=== PATIENT | female | born 1955 | race Caucasian/White ===

== ENCOUNTER 2023-07-06 20:47 | Inpatient (IN) | payer MEDICARE, SELFPAY ==
[2023-07-06] VITALS (8 sets, daily range): BP systolic 108–144; BP diastolic 62–81; PULSE 82–118; RESP 15–103; TEMP 36.2–36.9; O2SAT 95–9725; BMI 29.1
--- NOTE | 2023-07-06 21:06 | RAD_ITS ---
INDICATION: stemi EXAMINATION/TECHNIQUE: X-RAY - XR Chest 1 View COMPARISON: None. FINDINGS: The lungs are clear. Tortuous and calcified thoracic aorta. The heart is not enlarged. No pleural effusion or pneumothorax. Degenerative changes of the thoracic spine. RAD/Chest 1 View (Portable) IMPRESSION: No acute radiographic abnormalities. Electronically Signed: Reza Ragsdale MD at 21:44 EDT ,
[2023-07-06] MEDS: Heparin Injection (Vial) 5,000 UNIT/ML VIAL 4000 UNIT IV (21:08)
[2023-07-06] MEDS: TICAGRELOR 90 MG TABLET 180 MG PO (21:10)
[2023-07-06] MEDS: Aspirin 81 MG TAB.CHEW 324 MG PO (21:10)
--- NOTE | 2023-07-06 21:10 | HP.PCM.HOS_ITS ---
HPI - General General Date of Admission: 07/06/23 Date of Service: 07/06/23 Chief Complaint: Chest pain HPI Narrative LEONOR RICKETTS, is a 68 F with a significant history of tobacco abuse who presents emergency department with intermittent chest pain that started about 4 days before presentation. Initially the pain was also in both shoulders where she had heaviness. At the time of presentation to the emergency department patient pain was localized only in the left shoulder. She described the pain in her left shoulder as dull. Associated with his symptoms is nausea and vomiting. The patient walked to the emergency department. While at the triage EKG showed STEMI. STEMI alert was subsequently called at the ED. Patient does not see a doctor and does not have any significant medical history except smoking as above. She only takes ibuprofen as needed for pain. PFS Medical History Smoker Medical History no medical history no medical history Home Medications NK 03/09/18 [History Last Taken Unknown] Allergy/AdvReac Type Severity Reaction Status Date / Time No Known Allergies Allergy Verified 07/06/23 20:51 Family History Other Venous thromboembolism (VTE) Surgical History H/O tubal ligation Surgical History no surgical history Social History household members: none Smoking Status: Current every day smoker tobacco type: cigarettes ROS ROS Narrative Pertinent positives and pertinent negatives as noted in HPI. All other systems were reviewed and are negative Vital Signs Vital Signs Vital Signs: 07/06/23 20:47 07/06/23 21:01 Temperature 97.2 F L Temperature Source Temporal Pulse Rate 109 H Respiratory Rate 15 Respiratory Effort Normal Blood Pressure 134/74 H Blood Pressure Mean 94 Pulse Ox 96 Oxygen Delivery Method Room Air Physical Exam Narrative Physical exam: General: Well-nourished, well-developed. Head: Normocephalic, atraumatic, no tenderness Eyes: Vision is grossly intact. EOMI ENT, no trauma, moist mucous membranes, no rhinorrhea Neck: Nontender, No thyromegaly. CVS: Regular rate and rhythm. S1-S2 present. No murmur, gallop or rub. Respiratory : clear to auscultation bilaterally, chest wall nontender Abdomen: Soft, nontender, nondistended, normal bowel sounds, no masses : Deferred Back: Nontender, no CVA tenderness, no midline spinal tenderness, deformities, step-offs Extremities: Nontender full range of motion, no trauma Skin: Normal color, no trauma, abrasions Neuro: Alert, oriented, cranial nerves II through XII grossly intact. Psychiatry: Normal mood. Normal affect. Not depressed. Not anxious. Results Lab / Micro Data 07/07/23 02:56 07/07/23 02:56 Assessment & Plan Assessment/Plan (1) STEMI (ST elevation myocardial infarction): QUALIFIERS: Involved coronary artery: other inferior wall coronary artery Qualified Code(s): I21.19 - ST elevation (STEMI) myocardial infarction involving other coronary artery of inferior wall (2) Tobacco abuse: PLAN: Plan STEMI EKG personally interpreted by me showed inferior lateral ST elevation with reciprocal's. Ventricular rate was 106. Patient received full dose aspirin, Brilinta and heparin IV bolus at the emergency department. Case was discussed with emergency department physician. With STEMI patient will be sent to the cardiac cath. Cardiology consult Tobacco abuse Cutting down Counseled. Lung nodule Chest x-ray interpreted by myself showed lung nodule in left upper to middle lung matias. ED physician also made his observation. Radiology impression in terpretation no acute cardiopulmonary process was seen. Discussed with attending physician who will consider. DVT prophylaxis: SCDs ordered. Of note patient was given heparin at the emergency department. Further orders can be instituted after patient has returned from cath. Time spent in the patient's overall evaluation,decision-making process, review of diagnostic data, adjustment of management, discussion with other providers, nursing and ancillary staff involved in patient's care documentation, 75 minutes. Charges/Coding Visit Charges Inpatient E&M: 96971 Init Hosp L3
--- NOTE | 2023-07-06 21:10 | ED.VIS.CHEST ---
HPI History of Present Illness Chief Complaint: Chest Pain Detail of Chief Complaint: Pressure in her chest radiating to her left shoulder Informant: patient Onset/Context/Timing Onset: Days (Intermittent chest pressure that started Tuesday.) Activity at onset: sudden Timing: Intermittent Quality: Positive for Pressure Location: Substernal Current Severity: Moderate Maximum Severity: Severe Worsened By: Nothing Relieved By: Nothing Associated Symptoms: Positive for Nausea, Diaphoresis and Dyspnea; Negative for Cough, Fever, Lightheadedness, Acid Reflux or Palpitations Narrative Narrative: Is a 68-year-old woman who is a smoker. She is on no medication. Is not seen a doctor recently. She has no contraindication anticoagulation. Patient denies headache, visual, ocular auditory symptoms. Patient denies bruising easily. She denies black or maroon-colored stool. She denies hematuria. Patient reports chest pressure. This episode started at 1600. Does radiate to left shoulder with diaphoresis, shortness of breath and nausea. Patient denies history of hiatal hernia. Patient denies paresthesia, anesthesia or motor weakness. Patient does endorse dyspnea [place] exertion. Denies orthopnea or PND. Prior Similar Symptoms: No Recent Illness/Hospitalization: No CVD Risk Factors: Positive for Smoking; Negative for Hypertension, Diabetes, Hypercholesterolemia or Family History 1' </=55 PE Risk Factors: Negative for Recent Travel/Surgery, Recent Immobilization, Prior DVT or PE, Cancer or OCP + Smoking + >/=35 TAD Risk Factors: Negative for Marfan's Syndrome, Hypertension or Family History PFSH PFSH Medical History Smoker Medical History no medical history no medical history Home Medications albuterol sulfate 90 mcg/actuation aerosol inhaler See Rx Instructions .Route .COMPLEX PRN shortness of breath or wheezing #8.5 grams 07/08/23 [Rx Last Taken Unknown] aspirin 81 mg tablet,delayed release 81 mg PO DAILY 30 days #30 tabs 07/08/23 [Rx Last Taken Unknown] atorvastatin 40 mg tablet 40 mg PO QHS 30 days #30 tabs 07/08/23 [Rx Last Taken Unknown] carvedilol 3.125 mg tablet 3.125 mg PO BID 30 days #60 tabs 07/08/23 [Rx Last Taken Unknown] clopidogrel 75 mg tablet 75 mg PO DAILY 30 days #30 tabs 07/08/23 [Rx Last Taken Unknown] lisinopril 5 mg tablet 5 mg PO BID 30 days #60 tabs 07/08/23 [Rx Last Taken Unknown] spironolactone 25 mg tablet 12.5 mg (1/2 x 25 mg) PO DAILY 30 days #15 tabs 07/08/23 [Rx Last Taken Unknown] Allergy/AdvReac Type Severity Reaction Status Date / Time No Known Allergies Allergy Verified 07/06/23 20:51 Family History Other Venous thromboembolism (VTE) Surgical History (Updated 07/08/23 @ 08:44 by Michelle Bob) H/O coronary angioplasty H/O tubal ligation Surgical History no surgical history no surgical history Social History household members: none Smoking Status: Current every day smoker tobacco type: cigarettes ROS ROS ED Constitutional Constitutional ED: Denies chills, fever(s) or subjective Eyes Eyes: Reports none ENT ENT ED: Denies ear pain or rhinorrhea Cardiovascular Cardiovascular: Reports as per HPI; Denies orthopnea or paroxysmal nocturnal dyspnea Respiratory/Chest Respiratory/Chest: Reports dyspnea and dyspnea on exertion; Denies cough, orthopnea or paroxysmal nocturnal dyspnea Gastrointestinal Gastrointestinal: Reports nausea and vomiting; Denies abdominal pain Genitourinary Genitourinary ED: Denies dysuria, hematuria or urinary frequency Musculoskeletal Musculoskeletal: Denies arthralgias, back pain or myalgias Neurologic Neurologic: Denies headache(s) or paresthesias Psychiatric Psychiatric: Denies anxiety Hematologic/Lymphatic Hematologic/Lymphatic: Denies easy bleeding or easy bruising EXAM Physical Exam Const Vital Signs: 07/06/23 20:47 07/06/23 21:01 07/06/23 21:17 Temperature 97.2 F L Temperature Source Temporal Pulse Rate 109 H Respiratory Rate 15 Respiratory Effort Normal Blood Pressure 134/74 H Blood Pressure Mean 94 Pulse Ox 96 Oxygen Delivery Method Room Air Room Air 07/06/23 21:20 07/06/23 21:27 Temperature Temperature Source Pulse Rate 110 H 102 H Respiratory Rate 23 H 103 H Respiratory Effort Blood Pressure 144/77 H 139/73 H Blood Pressure Mean 99 95 Pulse Ox 96 96 Oxygen Delivery Method Room Air Room Air Positive well nourished, well developed, obese and unkempt General Appearance ED: unkempt and well developed; Negative for NAD or pallor Nutritional Appearance: obese HEENT Reports moist mucous membranes normocephalic and atraumatic Eyes PERRL and EOMs intact bilaterally General Eye ED: Negative for pale conjunctiva or scleral icterus Neck no lymphadenopathy, supple and no JVD Resp normal respiratory effort and clear to auscultation bilaterally Cardio regular rate, regular rhythm, S1 normal heart sound, S2 normal heart sound and no murmurs Peripheral Pulses: pulses 2+ throughout GI normal to inspection, nondistended, normoactive bowel sounds, soft to palpation, non-tender, non-distended and no masses; Negative for hepatosplenomegaly Back/Spine no CVA tenderness and no thoracic nor lumbar tenderness Extremity normal to inspection General Extremety ED: Negative for edema, pulses abnormal or tenderness General Extremity: Negative for edema or pulses abnormal Neuro oriented x3, CN's II-XII intact bilaterally and no sensory deficits noted Sensorium / Orientation: awake and alert Motor Exam: strength 5/5 throughout Psych Appearance: unkempt Mood & Affect: anxious Skin no wounds General Skin Exam: Negative for jaundice or pallor Heart Score History: Highly Suspicious ECG: Significant ST-Depression Age: >/= 65 years Risk Factors: 1 or 2 Risk Factors Score: 7 MDM MDM MDM Narrative Medical decision making narrative: Is a classic story for angina. Concerned that she is either having unstable angina versus non-STEMI versus STEMI. EKG was obtained and handed to me. EKG reveals an acute inferior lateral [place] with reciprocal changes. STEMI team was called. Spoke with Dr. Frausto. Patient was treated with aspirin, Brilinta and heparin. STEMI order set was initiated. Lab Data Attestation: I reviewed the patient's lab results. Lab results narrative: She is elevated which is most likely due to the fact that patient's had intermittent chest pain. Labs: Laboratory Results - last 24 hr 07/06/23 21:00 WBC 16.9 H RBC 4.50 Hgb 14.1 Hct 42.8 MCV 95.1 MCH 31.3 MCHC 32.9 RDW Std Deviation 48.3 H RDW Coeff of Fidel 13.6 Plt Count 326 MPV 11.4 Immature Gran % (Auto) 0.500 Neut % (Auto) 64.5 Lymph % (Auto) 25.5 Tyrrell % (Auto) 6.7 Eos % (Auto) 2.3 Baso % (Auto) 0.5 Absolute Neuts (auto) 10.9 H Absolute Lymphs (auto) 4.30 Nucleated RBC % 0 Radiography Chest X-Ray - ED: 1 View (Nilo reviewed interpreted by me at 2105. Patient has a growing lesion left mid lung field. This is concerning for neoplasm.) Diagnostic Testing: Clinical Impression(s) from Imaging Studies Chest X-Ray 07/06/23 21:06 IMPRESSION: No acute radiographic abnormalities. Electronically Signed: Reza Ragsdale MD at 21:44 EDT , EKG Initial EKG: Attestation: I personally reviewed and interpreted this EKG as follows: Interpretation: Sinus Tachycardia (106. Patient meets criteria for acute inferior lateral ST elevation with reciprocal changes. RI interval is 136 ms. Cures duration 88 ms. QT duration 334 ms. [place] is normal.) Management Discussion w/another healthcare provider: Hospitalist and Harness Cleaner Treatment and Re-Evaluation :: Aspirin, Brilinta and heparin. Patient was prepped for the Dental Resident. Critical Care Time Critical Care Time: Yes Critical care time (excluding procedures): 30-74 minutes (22 minutes), Including time spent: (, Physical, documentation, interpretation of EKG, interpretation of chest x-ray, discussion with hospitalist and longwall shearer operator), Discussing w/Patient &/or Family/Warehouse Supervisor 3Rd Shift, Discussing w/Consultants and Arranging Admission or Transfer Discharge Plan Dx/Rx/DC Orders Clinical Impression: Acute ST elevation myocardial infarction, Tobacco use, [place] lesion of lung Disposition Disposition: Acute Care Hospital [facility] Discharge Date/Time: 07/06/23 21:30
[2023-07-06] MEDS: 0.9% Normal Saline (1000mL) 1,000 ML 150 ML IV (21:18)
[2023-07-06 21:22] LABS: Absolute Neutrophil Count 10.9 X10^3/uL (2.0-7.7); Basophil# 0.08 X10^3/uL; Basophil% 0.5 % (0-1); Eosinophil# 0.39 X10^3/uL; Eosinophils% 2.3 % (0-5); Hematocrit 42.8 % (37-47); Hemoglobin 14.1 g/dL (12.0-15.0); Lymphocyte % 25.5 % (19-41); Mean Corp Hgb Conc 32.9 g/dL (32-36); Mean Corpuscular Hgb 31.3 pg (27.0-32.0); Mean Corpuscular Volume 95.1 fL (81-99); Mean Platelet Vol. 11.4 fl (6.2-12.0); Monocyte# 1.13 X10^3/uL; Monocyte% 6.7 % (0-10); NRBC Flagged by Analyzer 0 % (0-5); Neutrophil # 10.87 X10^3/uL (2.7-7.7); Neutrophil % 64.5 % (47-70); Platelet Count 326 K/mm3 (150-450); RBC Distribution Width CV 13.6 % (11.6-14.6); RBC Distribution Width SD 48.3 fl (35.1-43.9); White Blood Count 16.9 K/mm3 (4.4-11.0)
[2023-07-06 21:32] LABS: Partial Thromboplast Time 35.7 Seconds (24.1-36.2); Prothrombin Time (Protime)PT. 13.4 SECONDS (11.7-14.9)
[2023-07-06 21:47] LABS: Anion Gap 7 (5-15); BUN 16 mg/dL (7-18); Calcium,Total 9.4 mg/dL (8.5-10.1); Chloride 104 mmol/L (98-107); Creatinine, Serum 1.07 mg/dL (0.55-1.02); EST Glomerular Filtration Rate 55 mL/min (>60); Est Glom Filt Rate - Afr Amer 66 mL/min (>60); Glucose 116 mg/dL (74-106); Potassium 3.1 mmol/L (3.5-5.1); Sodium Level 139 mmol/L (136-145); Troponin-I HS 4558 pg/mL (3.0-54.0)
--- NOTE | 2023-07-06 22:40 | CON.PCM.CA_ITS ---
Assessment & Plan Assessment/Plan (1) STEMI (ST elevation myocardial infarction): PLAN: The patient's ECG shows ST elevations but with Q waves in inferior and lateral leads. Together with her history of severe discomfort on Tuesday, I be lieve that the patient had a recent ST elevation myocardial infarction. Because of her ongoing symptomatology, she was taken emergently to the cardiac catheterization lab. Coronary angiography revealed total occlusion of the distal LAD. This was treated with balloon angioplasty. Flow has been restored. However, on left ventriculography she is noted to have apical and mid to distal inferior LV aneurysm consistent with her recent myocardial infarction. (2) Left ventricular systolic dysfunction (LVSD): PLAN: Secondary to #1 above. Start on low-dose JORGE A inhibitors. Beta-blockers. Spironolactone. (3) Left ventricular aneurysm: PLAN: Check echocardiogram. See #1 and 2 above. (4) Coronary artery disease: PLAN: Aspirin. Clopidogrel. Beta-blockers. Statins. (5) Hypertension: PLAN: Beta-blockers, JORGE A inhibitors and spironolactone. (6) Nicotine dependence: PLAN: Quit smoking. (7) COPD (chronic obstructive pulmonary disease): PLAN: Patient is noted to have decreased air entry on chest examination. History of nicotine dependence. Likely COPD. Manage as per internal medicine. HPI Consult Data Date of Consult: 07/06/23 HPI Narrative Reason for Consultation: STEMI HPI Narrative: This lady has past medical history significant for nicotine dependence. She pre sented to the emergency room with complaints of bilateral shoulder discomfort. According to her, the symptoms started this last Tuesday, about 5 days ago. Per her, initially her symptoms were intermittent but more severe on Tuesday when they lasted all day long. Associated with some shortness of breath. As she continued to have symptoms, she presented to the emergency room. Upon presentation, only her left shoulder hurt. In the emergency room an ECG was done. It showed ST elevations in the inferior and lateral leads. Subsequently a STEMI alert was called. [facility] Medical History Smoker Medical History no medical history Home Medications NK 03/09/18 [History Last Taken Unknown] Allergy/AdvReac Type Severity Reaction Status Date / Time No Known Allergies Allergy Verified 07/06/23 20:51 Family History (Updated 07/06/23 @ 21:[address] Oziel Bell MD) Other Venous thromboembolism (VTE) Surgical History (Updated 07/06/23 @ 21:[address] Oziel Bell MD) H/O tubal ligation Surgical History no surgical history Social History (Updated 07/06/23 @ 21:[address] Chauncey Morales MD) household members: none Smoking Status: Current every day smoker tobacco type: cigarettes Physical Exam Narrative Examined on the Table. Comfortable. Lying flat with no apparent signs of distress. Heart sounds 1 and 2 noted. No murmurs or rubs noted. Chest examination showed markedly decreased air entry bilaterally. Alert oriented x3. No ankle edema. Risk Stratification Risk Stratification Applicable: No Objective Data Vital Signs: Vital Signs Temp Pulse Resp BP Pulse Ox O2 Del Method 97.2 F L 102 H 103 H 139/73 H 96 Room Air 07/06/23 20:47 07/06/23 21:27 07/06/23 21:27 07/06/23 21:27 07/06/23 21:27 07/06/23 21:27 Oxygen Delivery Method Room Air Lab / Micro Data 07/06/23 21:00 07/06/23 21:00 Labs: Laboratory Results - last 24 hr 07/06/23 21:00: WBC 16.9 H, RBC 4.50, Hgb 14.1, Hct 42.8, MCV 95.1, MCH 31.3, MCHC 32.9, RDW Std Deviation 48.3 H, RDW Coeff of Fidel 13.6, Plt Count 326, MPV 11.4, Immature Gran % (Auto) 0.500, Neut % (Auto) 64.5, Lymph % (Auto) 25.5, Luna % (Auto) 6.7, Eos % (Auto) 2.3, Baso % (Auto) 0.5, Absolute Neuts (auto) 10.9 H, Absolute Lymphs (auto) 4.30, Nucleated RBC % 0, PT 13.4, INR 1.0, APTT 35.7, Sodium 139, Potassium 3.1 L, Chloride 104, Carbon Dioxide 28.0, Anion Gap 7, BUN 16, Creatinine 1.07 H, Est GFR (MDRD) Af Amer 66, Est GFR (MDRD) Non-Af 55 L, BUN/Creatinine Ratio 15.0, Glucose 116 H, Calcium 9.4, Troponin I High Sens 4558 H* Cardiology Labs/Tests 07/06/23 21:00: WBC 16.9 H, RBC 4.50, Hgb 14.1, Hct 42.8, MCV 95.1, MCH 31.3, MCHC 32.9, Plt Count 326, MPV 11.4, Immature Gran % (Auto) 0.500, Neut % (Auto) 64.5, Lymph % (Auto) 25.5, Luna % (Auto) 6.7, Eos % (Auto) 2.3, Baso % (Auto) 0.5, Absolute Neuts (auto) 10.9 H, Nucleated RBC % 0, PT 13.4, INR 1.0, APTT 35.7, Sodium 139, Potassium 3.1 L, Chloride 104, Carbon Dioxide 28.0, Anion Gap 7, BUN 16, Creatinine 1.07 H, Est GFR (MDRD) Af Amer 66, Est GFR (MDRD) Non-Af 55 L, BUN/Creatinine Ratio 15.0, Glucose 116 H, Calcium 9.4 Rhythm: EKG: ECHO: Stress Test: Cardiac Cath: PCI: CT Surgery: Holter monitor: EPS: PPM: CXR: Chest CT Scan: Radiography Diagnostic Testing: Radiology Impression Chest X-Ray 07/06/23 21:06 IMPRESSION: No acute radiographic abnormalities. Electronically Signed: Reza Ragsdale MD at 21:44 EDT ,
--- NOTE | 2023-07-06 23:17 | ECHOCS_ITS ---
Reason For Study: CP Procedure This was a 2D Doppler, Color Flow transthoracic echocardiogram. The study was technically difficult. Contrast injection was performed. Exam performed portable in ICU/CCU. Left Ventricle Normal size and thickness. The left ventricular ejection fraction is 45 %. Mid to distal inferior and apical dyskinesis. Right Ventricle Moderate hypertrophy of the right ventricle. Mild to moderate global right ventricular systolic dysfunction. Atria The left and right atria are normal. Mitral Valve Trivial mitral valve insufficiency. Tricuspid Valve The tricuspid valve is not well visualized. Aortic Valve Trisinus/trileaflet aortic valve. Pulmonic Valve The pulmonic valve is not well visualized. Great Vessels The aortic root is not well visualized. Pericardium/Pleural Trivial pericardial effusion. Epicardial fat. Medication Diluted definity 2ml given slow IV push to enhance endocardial definition. MMode/2D Measurements & Calculations LVIDd: 4.2 cm IVSd: 0.90 cm LA dimension: 3.0 cm LVIDs: 3.5 cm LVPWd: 0.86 cm RVDd: 2.6 cm FS: 17.9 % LAV(MOD-bp): 32.9 ml LVAd ap4: 28.9 cm2 SV(MOD-sp4): 45.0 ml LAV(MOD-bp) Indexed: 18.5 ml/m2 LVLd ap4: 7.6 cm LAV(MOD-sp2): 29.1 ml EDV(MOD-sp4): 92.3 ml LAV(MOD-sp4): 33.8 ml EDV(sp4-el): 93.8 ml LVAs ap4: 19.3 cm2 LVLs ap4: 6.5 cm ESV(MOD-sp4): 47.3 ml ESV(sp4-el): 48.2 ml EF(MOD-sp4): 48.8 % EF(sp4-el): 48.6 % SV(sp4-el): 45.6 ml LA A4 area: 14.0 cm2 TAPSE: 1.5 cm Time Measurements MV dec time: 0.24 sec Doppler Measurements & Calculations MV E max umberto: 54.7 cm/sec Lat Peak E' Umberto: 6.4 cm/sec Med Peak E' Umberto: 6.1 cm/sec MV A max umberto: 78.3 cm/sec E/E' lat: 8.5 E/E' med: 9.0 MV E/A: 0.70 MV V2 max: 104.1 cm/sec MV P1/2t max umberto: 78.8 cm/sec Ao V2 max: 80.8 cm/sec MV max P.3 mmHg MV P1/2t: 87.5 msec Ao max P.6 mmHg MV V2 mean: 52.2 cm/sec MV mean P.3 mmHg MV dec slope: 263.8 cm/sec2 MV V2 VTI: 25.6 cm MVA(P1/2t): 2.5 cm2 LV V1 max: 74.2 cm/sec PA V2 max: 61.9 cm/sec LV V1 max P.2 mmHg ECHO/Echo Complete W/ Contrast Interpretation Summary The left ventricular ejection fraction is 45 %. Mid to distal inferior and apic al dyskinesis, aneurysmal. Moderate hypertrophy of the right ventricle. Mild to moderate global right ventricular systolic dysfunction. The study was technically difficult. Ordering Physician: Soledad Chawla Referring Physician: Soledad Chawla Performed By: Toribio Jacinto RCS
[2023-07-06] MEDS: Potassium Chloride Oral Tablet 20 MEQ 40 MEQ PO (23:23)
[2023-07-06] MEDS: Atorvastatin Calcium 40 MG Tablet PO (23:24)
[2023-07-06] MEDS: Spironolactone 25 MG Tablet 12.5 MG PO (23:24)
[2023-07-06] MEDS: Carvedilol 3.125 MG TABLET PO (23:24)
[2023-07-06] MEDS: 0.9% Normal Saline (1000mL) 1,000 ML 75 ML IV (23:25)
[2023-07-06 23:57] LABS: Troponin-I HS 4656 pg/mL (3.0-54.0)
[2023-07-07] VITALS (37 sets, daily range): BP systolic 110–158; BP diastolic 41–90; PULSE 68–90; RESP 18–26; TEMP 36.1–36.8; O2SAT 95–100; BMI 29.1
[2023-07-07 03:04] LABS: Absolute Lymphocyte Count 2.52 X10^3/uL (0.83-4.51); Basophil# 0.04 X10^3/uL; Basophil% 0.3 % (0-1); Eosinophil# 0.14 X10^3/uL; Eosinophils% 1.1 % (0-5); Hematocrit 36.5 % (37-47); Lymphocyte # 2.52 X10^3/ul (0.83-4.51); Mean Corp Hgb Conc 32.9 g/dL (32-36); Mean Corpuscular Hgb 32.1 pg (27.0-32.0); Mean Corpuscular Volume 97.6 fL (81-99); Monocyte# 0.81 X10^3/uL; Monocyte% 6.4 % (0-10); NRBC Flagged by Analyzer 0 % (0-5); Neutrophil # 9.02 X10^3/uL (2.7-7.7); Neutrophil % 71.6 % (47-70); Platelet Count 273 K/mm3 (150-450); RBC Distribution Width CV 13.9 % (11.6-14.6); RBC Distribution Width SD 50.6 fl (35.1-43.9); Red Blood Count 3.74 M/mm3 (4.2-5.4); White Blood Count 12.6 K/mm3 (4.4-11.0)
[2023-07-07 03:36] LABS: ALB/GLOB Ratio 0.6 RATIO (0.9-2.4); AST(SGOT) 16 U/L (15-37); Alanine Aminotransfer ALT/SGPT 17 U/L (13-56); Albumin, Serum 2.4 g/dL (3.2-5.0); Alkaline Phosphatase 90 U/L (45-117); Anion Gap 3 (5-15); BUN 13 mg/dL (7-18); BUN/Creat Ratio 15.8 RATIO (10-20); Calcium,Total 8.2 mg/dL (8.5-10.1); Chloride 109 mmol/L (98-107); Cholesterol 81 mg/dL (200); Creatinine, Serum 0.82 mg/dL (0.55-1.02); EST Glomerular Filtration Rate 74 mL/min (>60); Est Glom Filt Rate - Afr Amer 89 mL/min (>60); Estimated Creatinine Clearance 55.83 ml/min; Globulin 4.3 g/dL (2.2-4.2); Glucose 110 mg/dL (74-106); High Density Lipoprotein 22 mg/dL; Potassium 3.3 mmol/L (3.5-5.1); Protein, Total 6.7 g/dL (6.4-8.2); Sodium Level 139 mmol/L (136-145); Triglycerides 138 mg/dL; Troponin-I HS 4375 pg/mL (3.0-54.0); Very Low Density Lipoprotein 28 mg/dL (5-40)
[2023-07-07] MEDS: Clopidogrel Bisulfate 300 MG Tablet PO (04:55)
--- NOTE | 2023-07-07 07:11 | PCM.PN.HOSP ---
Reason for Visit Reason for Visit: Diagnoses Nicotine dependence, unspecified, uncomplicated (07/06/23) Essential (primary) hypertension (07/06/23) ST elevation (STEMI) myocardial infarction of unspecified site (07/06/23) Atherosclerotic heart disease of [place] coronary artery without angina pectoris (07/06/23) Aneurysm of heart (07/06/23) Heart disease, unspecified (07/06/23) Chronic obstructive pulmonary disease, unspecified (07/06/23) Subjective Subjective Patient had some shortness of breath moving around in the bed and has significant wheezing and reports extensive tobacco history and has not seen a physician in 20 years, no further pain like the pain that brought her in Objective Data Objective Data Vital Signs: Vital Signs Temp Pulse Resp BP Pulse Ox O2 Del Method O2 Flow Rate 97.3 F L 68 19 H 129/61 H 99 Nasal Cannula 2 07/07/23 03:00 07/07/23 06:00 07/07/23 06:00 07/07/23 06:00 07/07/23 06:00 07/07/23 06:00 07/07/23 06:00 Oxygen Flow Rate (L/min) 2 Oxygen Delivery Method Nasal Cannula Weight: 74.6 kg Body Mass Index (BMI) 29.1 Intake & Output: Intake and Output for Last 24 Hours 07/05/23 07/06/23 07/07/23 23:59 23:59 23:59 Intake Total 400 / 400 60 / 60 Balance 400 / 400 60 / 60 Lab / Micro Data 07/07/23 02:56 07/07/23 02:56 Labs: Laboratory Results - last 24 hr 07/06/23 21:00: WBC 16.9 H, RBC 4.50, Hgb 14.1, Hct 42.8, MCV 95.1, MCH 31.3, MCHC 32.9, RDW Std Deviation 48.3 H, RDW Coeff of Fidel 13.6, Plt Count 326, MPV 11.4, Immature Gran % (Auto) 0.500, Neut % (Auto) 64.5, Lymph % (Auto) 25.5, [place] % (Auto) 6.7, Eos % (Auto) 2.3, Baso % (Auto) 0.5, Absolute Neuts (auto) 10.9 H, Absolute Lymphs (auto) 4.30, Nucleated RBC % 0, PT 13.4, INR 1.0, APTT 35.7, Sodium 139, Potassium 3.1 L, Chloride 104, Carbon Dioxide 28.0, Anion Gap 7, BUN 16, Creatinine 1.07 H, Est GFR (MDRD) Af Amer 66, Est GFR (MDRD) Non-Af 55 L, BUN/Creatinine Ratio 15.0, Glucose 116 H, Calcium 9.4, Troponin I High Sens 4558 H* 07/06/23 23:20: Troponin I High Sens 4656 H* 07/07/23 02:56: WBC 12.6 H, RBC 3.74 L, Hgb 12.0, Hct 36.5 L, MCV 97.6, MCH 32.1 H, MCHC 32.9, RDW Std Deviation 50.6 H, RDW Coeff of Fidel 13.9, Plt Count 273, MPV 11.0, Immature Gran % (Auto) 0.600, Neut % (Auto) 71.6 H, Lymph % (Auto) 20.0, [place] % (Auto) 6.4, Eos % (Auto) 1.1, Baso % (Auto) 0.3, Absolute Neuts (auto) 9.0 H, Absolute Lymphs (auto) 2.52, Nucleated RBC % 0, Sodium 139, Potassium 3.3 L, Chloride 109 H, Carbon Dioxide 27.0, Anion Gap 3 L, BUN 13, Creatinine 0.82, Estim Creat Clear Calc 55.83, Est GFR (MDRD) Af Amer 89, Est GFR (MDRD) Non-Af 74, BUN/Creatinine Ratio 15.8, Glucose 110 H, Calcium 8.2 L, Total Bilirubin 0.30, AST 16, ALT 17, Alkaline Phosphatase 90, Troponin I High Sens 4375 H*, Total Protein 6.7, Albumin 2.4 L, Globulin 4.3 H, Albumin/Globulin Ratio 0.6 L, Triglycerides 138, Cholesterol 81, LDL Cholesterol 31, VLDL Cholesterol 28, HDL Cholesterol 22 L Radiography Diagnostic Testing: Radiology Impression Chest X-Ray 07/06/23 21:06 IMPRESSION: No acute radiographic abnormalities. Electronically Signed: Reza Ragsdale MD at 21:44 EDT , Physical Exam Narrative General: Alert, oriented, no apparent distress HEENT: Atraumatic, normocephalic Eyes: Anicteric, normal conjunctiva, extraocular movements grossly intact Neck: Supple Respiratory: Slight increased respiratory effort, diffuse wheezing Cardiovascular: Regular rate and rhythm GI: Soft, nontender, nondistended Extremities: No edema Musculoskeletal: Moving all extremities Neuro: No overt focal neurological deficits Skin: No rashes appreciated Psych: Cooperative Assessment & Plan Assessment/Plan (1) STEMI (ST elevation myocardial infarction): (2) Tobacco abuse: (3) Coronary artery disease: PLAN: Plan #STEMI -EKG with ST elevations but also Q waves in inferior and lateral leads, patient had severe discomfort on Tuesday and seemed that she had a recent STEMI but had ongoing symptoms so she was taken emergently to [facility]. Had total occlusion of distal LAD which was treated with balloon angioplasty with flow restored however left ventriculography noted apical and mid to distal inferior LV aneurysm -JORGE A, beta-judi, spironolactone -Official echo pending -Cardiology following #Shortness of breath -With diffuse wheezing and extensive tobacco use history -Start nebs, may need outpatient PFTs #Questionable abnormality on chest x-ray -ED physician, admitting physician and myself concerning for left lung nodule on x-ray, will obtain CTA to further characterize #Coronary artery disease -Aspirin, Plavix, beta-judi, statin #Hypertension -JORGE A, beta-judi, spironolactone #Tobacco use -Advise cessation #DVT ppx: Lovenox subcu Fern Mary MD Time spent in the patient's overall evaluation,decision-making process, review of diagnostic data, adjustment of management, discussion with other providers, nursing nursing and ancillary staff involved in patient's care documentation, 36 minutes Charges/Coding Visit Charges Inpatient E&M: 60100 Subs Hosp L2
[2023-07-07] MEDS: Carvedilol 3.125 MG TABLET PO ×2 (08:13→21:36)
[2023-07-07] MEDS: Aspirin E.C. 81 MG Tablet PO (08:13)
[2023-07-07] MEDS: Potassium Chloride Oral Tablet 20 MEQ 40 MEQ PO (08:13)
[2023-07-07] MEDS: Spironolactone 25 MG Tablet 12.5 MG PO (08:14)
[2023-07-07] MEDS: Lisinopril 2.5 MG Tablet PO (08:14)
--- NOTE | 2023-07-07 09:34 | CRPHASE1 ---
Patient Communication Patient Information Former Patient:: Phase I PHII Cardiac Rehab Discussed with Patient:: Yes Guide to Cardiac Rehab Given to Patient:: Yes Cardiac Rehab Facility Choice List Given to Patient:: Yes Communication to Cardiac Rehab Choice Program Other:: Communication Given to CR House Calls Nurse Practitioner:: Soledad Chawla Cardiac Rehabilitation Info Program Information Cardiac Rehabilitation Program Information: Cardiac Rehab The cardiac rehab team at [facility] consists of highly skilled exercise physiologists, nurses, respiratory therapists and physicians working together with you. Our purpose is to help you have a full recovery and achieve the goals you set for yourself. Over the years many of our patients have returned to activities they assumed they would never do again! We can help restore your confidence and motivation to make lifestyle changes that can have a significant impact on your health and quality of life! We can help answer questions and concerns you may have about exercise, lifestyle, medications, diet, stress and anxiety which are common following a hospitalization. WE monitor ECG and vital signs during exercise and discuss your progress with you and report to your physician(s). Cardiac Rehab is proven to help reduce readmissions, improve functional capacity and lower recurrence of problems with your heart. Our Cardiac Rehab program is Certified by the [place] [employer]-Vascular and Pulmonary [employer] (AACVPR) and Accredited by the [place] [employer] through our [facility]. You can contact us at . We invite you to call us with your questions or to get started in our program. If you have other questions or concerns be sure to ask your physician/provider during your follow-up visit. WE look forward to seeing you!
--- NOTE | 2023-07-07 09:35 | CRPH1.INSTRU ---
General Education Discussed with Patient CAD and cardiac anatomy and function:: Patient communicates acknowledgment Explanation of diagnoses and procedures:: Patient communicates acknowledgment Sign/Symptoms of SD:: Patient communicates acknowledgment Antiplatelet therapy: Patient communicates acknowledgment Proper use of NTG-SL: Patient communicates acknowledgment Emergency procedures and activation of EMS: Patient communicates acknowledgment Compliance of all prescribed medications: Patient communicates acknowledgment Smoking Risk Factors Patient Nicotine/Smoking Risk Factors Are:: Cigarettes Recommendations Recommendations Include:: Smoking cessation strategies/Smoking packet Response Code Nicotine/Smoking Response Code:: Patient communicates acknowledgment Hypertension Recommendations Recommendations Include:: Maintain BP <130/85 Response Code Hypertension:: Patient communicates acknowledgment
--- NOTE | 2023-07-07 10:08 | PN.CARD_ITS ---
Subjective Subjective Denies any complaints. Objective Data Vital Signs: Vital Signs Temp Pulse Resp BP Pulse Ox O2 Del Method O2 Flow Rate 97 F L 69 21 H 150/81 H 100 Nasal Cannula 2 07/07/23 08:46 07/07/23 09:00 07/07/23 09:00 07/07/23 09:00 07/07/23 09:00 07/07/23 09:00 07/07/23 09:00 Oxygen Flow Rate (L/min) 2 Oxygen Delivery Method Nasal Cannula Weight: 164 lb 7.437 oz Body Mass Index (BMI) 29.1 Intake & Output: Intake and Output for Last 24 Hours 07/05/23 07/06/23 07/07/23 23:59 23:59 23:59 Intake Total 400 / 400 60 / 60 Balance 400 / 400 60 / 60 Lab / Micro Data 07/07/23 02:56 07/07/23 02:56 Labs: Laboratory Results - last 24 hr 07/06/23 21:00: WBC 16.9 H, RBC 4.50, Hgb 14.1, Hct 42.8, MCV 95.1, MCH 31.3, MCHC 32.9, RDW Std Deviation 48.3 H, RDW Coeff of Fidel 13.6, Plt Count 326, MPV 11.4, Immature Gran % (Auto) 0.500, Neut % (Auto) 64.5, Lymph % (Auto) 25.5, [place] % (Auto) 6.7, Eos % (Auto) 2.3, Baso % (Auto) 0.5, Absolute Neuts (auto) 10.9 H, Absolute Lymphs (auto) 4.30, Nucleated RBC % 0, PT 13.4, INR 1.0, APTT 35.7, Sodium 139, Potassium 3.1 L, Chloride 104, Carbon Dioxide 28.0, Anion Gap 7, BUN 16, Creatinine 1.07 H, Est GFR (MDRD) Af Amer 66, Est GFR (MDRD) Non-Af 55 L, BUN/Creatinine Ratio 15.0, Glucose 116 H, Calcium 9.4, Troponin I High Sens 4558 H* 07/06/23 23:20: Troponin I High Sens 4656 H* 07/07/23 02:56: WBC 12.6 H, RBC 3.74 L, Hgb 12.0, Hct 36.5 L, MCV 97.6, MCH 32.1 H, MCHC 32.9, RDW Std Deviation 50.6 H, RDW Coeff of Fidel 13.9, Plt Count 273, MPV 11.0, Immature Gran % (Auto) 0.600, Neut % (Auto) 71.6 H, Lymph % (Auto) 20.0, [place] % (Auto) 6.4, Eos % (Auto) 1.1, Baso % (Auto) 0.3, Absolute Neuts (auto) 9.0 H, Absolute Lymphs (auto) 2.52, Nucleated RBC % 0, Sodium 139, Potassium 3.3 L, Chloride 109 H, Carbon Dioxide 27.0, Anion Gap 3 L, BUN 13, Creatinine 0.82, Estim Creat Clear Calc 55.83, Est GFR (MDRD) Af Amer 89, Est GFR (MDRD) Non-Af 74, BUN/Creatinine Ratio 15.8, Glucose 110 H, Calcium 8.2 L, Total Bilirubin 0.30, AST 16, ALT 17, Alkaline Phosphatase 90, Troponin I High Sens 4375 H*, Total Protein 6.7, Albumin 2.4 L, Globulin 4.3 H, Albumin/Globulin Ratio 0.6 L, Triglycerides 138, Cholesterol 81, LDL Cholesterol 31, VLDL Cholesterol 28, HDL Cholesterol 22 L Cardiology Labs/Tests 07/06/23 21:00: WBC 16.9 H, RBC 4.50, Hgb 14.1, Hct 42.8, MCV 95.1, MCH 31.3, MCHC 32.9, Plt Count 326, MPV 11.4, Immature Gran % (Auto) 0.500, Neut % (Auto) 64.5, Lymph % (Auto) 25.5, [place] % (Auto) 6.7, Eos % (Auto) 2.3, Baso % (Auto) 0.5, Absolute Neuts (auto) 10.9 H, Nucleated RBC % 0, PT 13.4, INR 1.0, APTT 35.7, Sodium 139, Potassium 3.1 L, Chloride 104, Carbon Dioxide 28.0, Anion Gap 7, BUN 16, Creatinine 1.07 H, Est GFR (MDRD) Af Amer 66, Est GFR (MDRD) Non-Af 55 L, BUN/Creatinine Ratio 15.0, Glucose 116 H, Calcium 9.4 10/26/23 02:56: WBC 12.6 H, RBC 3.74 L, Hgb 12.0, Hct 36.5 L, MCV 97.6, MCH 32.1 H, MCHC 32.9, Plt Count 273, MPV 11.0, Immature Gran % (Auto) 0.600, Neut % (Auto) 71.6 H, Lymph % (Auto) 20.0, [place] % (Auto) 6.4, Eos % (Auto) 1.1, Baso % (Auto) 0.3, Absolute Neuts (auto) 9.0 H, Nucleated RBC % 0, Sodium 139, Potassium 3.3 L, Chloride 109 H, Carbon Dioxide 27.0, Anion Gap 3 L, BUN 13, Creatinine 0.82, Est GFR (MDRD) Af Amer 89, Est GFR (MDRD) Non-Af 74, BUN/Creatinine Ratio 15.8, Glucose 110 H, Calcium 8.2 L, Total Bilirubin 0.30, Triglycerides 138, Cholesterol 81, LDL Cholesterol 31, VLDL Cholesterol 28, HDL Cholesterol 22 L Rhythm: EKG: ECHO: Stress Test: Cardiac Cath: PCI: CT Surgery: Holter monitor: EPS: PPM: CXR: Chest CT Scan: Radiography Diagnostic Testing: Radiology Impression Chest X-Ray 07/06/23 21:06 IMPRESSION: No acute radiographic abnormalities. Electronically Signed: Reza Ragsdale MD at 21:44 EDT , Physical Exam Narrative Examined on the Table. Comfortable. Lying flat with no apparent signs of distress. Heart sounds 1 and 2 noted. No murmurs or rubs noted. Chest examination showed markedly decreased air entry bilaterally. Alert oriented x3. No ankle edema. Assessment & Plan Assessment/Plan (1) STEMI (ST elevation myocardial infarction): QUALIFIERS: Involved coronary artery: other inferior wall coronary artery Qualified Code(s): I21.19 - ST elevation (STEMI) myocardial infarction involving other coronary artery of inferior wall PLAN: Status post balloon angioplasty to the distal LAD. In my opinion, patient's acute NE was few days ago. Likely completed infarct. Continue medical management. (2) Left ventricular systolic dysfunction (LVSD): PLAN: Secondary to #1 above. JORGE A inhibitors, beta-blockers, spironolactone (3) Left ventricular aneurysm: PLAN: Check echocardiogram. See #1 and 2 above. (4) Coronary artery disease: PLAN: Aspirin. Clopidogrel. Beta-blockers. Statins. (5) Hypertension: PLAN: Beta-blockers, JORGE A inhibitors and spironolactone. Escalate doses as tolerated. (6) Nicotine dependence: PLAN: Quit smoking. (7) COPD (chronic obstructive pulmonary disease): PLAN: Patient is noted to have decreased air entry on chest examination. History of nicotine dependence. Likely COPD. Manage as per internal medicine.
--- NOTE | 2023-07-07 10:35 | CT_ITS ---
STUDY: CT CHEST WITHOUT CONTRAST REASON FOR EXAM: Female, 68 years old. ? Left middle lung nodule RADIATION DOSAGE (If Supplied By Facility): CTDIvol = ( 9.41 ) mGy, DLP = ( 352.84 ) mGycm TECHNIQUE: Transaxial imaging was performed without the administration of intravenous contrast material. Multiplanar coronal and sagittal images were reformatted. Individualized dose optimization techniques were used for this CT. COMPARISON: No relevant priors. FINDINGS: CHEST There is a 1.6 cm x 1.6 cm x 1 cm spiculated nodule in the posterior aspect of the left upper lobe as seen on axial image #42 and coronal image #134. Tiny bilateral pleural effusions with mild bibasilar atelectasis. There is no demonstrated pleural abnormality. There are calcifications of the coronary arteries. Small pericardial effusion. Normal mediastinum. Normal hilar regions. Normal unenhanced pulmonary arteries. There is atherosclerotic calcification of the aortic arch. There are mild degenerative changes of the thoracic spine. There is no demonstrated abnormality of the visualized upper abdomen. CT/Chest without Contrast IMPRESSION: 1.6 cm x 1.6 cm x 1 sinus but quit nodule in the posterior aspect of the left upper lobe. A neoplastic process should BE ruled out. Tiny bilateral pleural effusions with mild bibasilar atelectasis. Small pericardial effusion. Electronically Signed: Jaiden Fry MD at 11:17 EDT ,
[2023-07-07] MEDS: Enoxaparin 40 MG/0.4 ML Syringe SC (10:52)
[2023-07-07] MEDS: Ipratropium/Albuterol Sulfate 3 ML AMPUL.NEB INHALATION ×2 (11:35→18:36)
--- NOTE | 2023-07-07 13:55 | CASEMGMT ---
AMY BURCH Assessment: Face to Face with pt for initial transition planning/care coordination assessment. RN MARCIN introduced self and role at [facility], pt voices understanding and consents to assessment. Pt is A&O x4 and answers all questions appropriately at this time. Pt lying in bed in no distress. Care providers, pharmacy, and demographics verified/updated. Admitting Dx: STEMI PCP:Pt denies,pt is agreeable to a local healthcare directory pamphlet. Specialists:Denies Preferred Pharmacy: [facility] Insurance: [facility] Prescription Benefit: pt is unsure LNOK: Juliette Miller, dtr; Luis Enrique Clayton, son Living Arrangements: Pt lives with her son and 3 grandchildren in a double wide with 3 steps to enter with a rail. 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 Pt denies concerns at home. Transportation: Pt drives self and denies concerns with transportation. DME:[facility] HHC/SNF: Pt denies hx of Pt states no concerns with going home at time of dc. Pt states no further concerns/needs. CM to follow. Advised pt to ask CM if any further question/concerns/needs arise, voices understanding. Pt Goal: Home Plan: Home
[2023-07-07] MEDS: Atorvastatin Calcium 40 MG Tablet PO (21:36)
[2023-07-07] MEDS: Lisinopril 5 MG Tablet PO (21:36)
[2023-07-08] VITALS (20 sets, daily range): BP systolic 91–138; BP diastolic 48–65; PULSE 68–80; RESP 13–24; TEMP 36.3–36.9; O2SAT 94–97; BMI 29.8
[2023-07-08 05:08] LABS: Absolute Lymphocyte Count 3.09 X10^3/uL (0.83-4.51); Basophil# 0.07 X10^3/uL; Basophil% 0.6 % (0-1); Eosinophil# 0.22 X10^3/uL; Eosinophils% 1.9 % (0-5); Hematocrit 36.4 % (37-47); Hemoglobin 11.8 g/dL (12.0-15.0); Lymphocyte # 3.09 X10^3/ul (0.83-4.51); Lymphocyte % 26.9 % (19-41); Mean Corp Hgb Conc 32.4 g/dL (32-36); Mean Corpuscular Hgb 31.6 pg (27.0-32.0); Mean Corpuscular Volume 97.6 fL (81-99); Mean Platelet Vol. 10.6 fl (6.2-12.0); Monocyte# 1.04 X10^3/uL; Monocyte% 9.1 % (0-10); NRBC Flagged by Analyzer 0 % (0-5); Neutrophil # 6.97 X10^3/uL (2.7-7.7); Neutrophil % 60.6 % (47-70); Platelet Count 316 K/mm3 (150-450); RBC Distribution Width CV 13.9 % (11.6-14.6); RBC Distribution Width SD 50.6 fl (35.1-43.9); Red Blood Count 3.73 M/mm3 (4.2-5.4); White Blood Count 11.5 K/mm3 (4.4-11.0)
[2023-07-08 05:28] LABS: Anion Gap 3 (5-15); BUN 11 mg/dL (7-18); BUN/Creat Ratio 14.2 RATIO (10-20); Calcium,Total 8.9 mg/dL (8.5-10.1); Chloride 109 mmol/L (98-107); Creatinine, Serum 0.78 mg/dL (0.55-1.02); EST Glomerular Filtration Rate 79 mL/min (>60); Est Glom Filt Rate - Afr Amer 96 mL/min (>60); Estimated Creatinine Clearance 45.78 ml/min; Glucose 107 mg/dL (74-106); Potassium 3.6 mmol/L (3.5-5.1); Sodium Level 140 mmol/L (136-145)
[2023-07-08] MEDS: Ipratropium/Albuterol Sulfate 3 ML AMPUL.NEB INHALATION ×2 (07:02→12:11)
[2023-07-08] MEDS: Enoxaparin 40 MG/0.4 ML Syringe SC (08:34)
[2023-07-08] MEDS: Clopidogrel Bisulfate 75 MG Tablet PO (08:34)
[2023-07-08] MEDS: Aspirin E.C. 81 MG Tablet PO (08:35)
[2023-07-08] MEDS: Carvedilol 3.125 MG TABLET PO (08:35)
[2023-07-08] MEDS: Lisinopril 5 MG Tablet PO (10:10)
[2023-07-08] MEDS: Spironolactone 25 MG Tablet 12.5 MG PO (10:10)
--- NOTE | 2023-07-08 12:53 | PN.CARD_ITS ---
Subjective Subjective Denies any complaints. No chest pain. No shortness of breath. Objective Data Vital Signs: Vital Signs Temp Pulse Resp BP Pulse Ox O2 Del Method O2 Flow Rate 97.5 F L 68 20 H 103/56 L 96 Room Air 2 07/08/23 12:00 07/08/23 12:11 07/08/23 12:11 07/08/23 12:00 07/08/23 12:00 07/08/23 12:00 07/08/23 10:00 Oxygen Flow Rate (L/min) 2 Oxygen Delivery Method Room Air Weight: 168 lb 6.931 oz Body Mass Index (BMI) 29.8 Intake & Output: Intake and Output for Last 24 Hours 07/06/23 07/07/23 07/08/23 23:59 23:59 23:59 Intake Total 400 / 400 1440 / 1440 600 / 600 Output Total 1000 / 1000 600 / 600 Balance 400 / 400 440 / 440 0 / 0 Lab / Micro Data 07/08/23 04:55 07/08/23 04:55 Labs: Laboratory Results - last 24 hr 07/08/23 04:55: WBC 11.5 H, RBC 3.73 L, Hgb 11.8 L, Hct 36.4 L, MCV 97.6, MCH 31.6, MCHC 32.4, RDW Std Deviation 50.6 H, RDW Coeff of Fidel 13.9, Plt Count 316, MPV 10.6, Immature Gran % (Auto) 0.900, Neut % (Auto) 60.6, Lymph % (Auto) 26.9, [place] % (Auto) 9.1, Eos % (Auto) 1.9, Baso % (Auto) 0.6, Absolute Neuts (auto) 7.0, Absolute Lymphs (auto) 3.09, Nucleated RBC % 0, Sodium 140, Potassium 3.6, Chloride 109 H, Carbon Dioxide 28.0, Anion Gap 3 L, BUN 11, Creatinine 0.78, Estim Creat Clear Calc 45.78, Est GFR (MDRD) Af Amer 96, Est GFR (MDRD) Non-Af 79, BUN/Creatinine Ratio 14.2, Glucose 107 H, Calcium 8.9 Cardiology Labs/Tests 07/08/23 04:55: WBC 11.5 H, RBC 3.73 L, Hgb 11.8 L, Hct 36.4 L, MCV 97.6, MCH 31.6, MCHC 32.4, Plt Count 316, MPV 10.6, Immature Gran % (Auto) 0.900, Neut % (Auto) 60.6, Lymph % (Auto) 26.9, [place] % (Auto) 9.1, Eos % (Auto) 1.9, Baso % (Auto) 0.6, Absolute Neuts (auto) 7.0, Nucleated RBC % 0, Sodium 140, Potassium 3.6, Chloride 109 H, Carbon Dioxide 28.0, Anion Gap 3 L, BUN 11, Creatinine 0 .78, Est GFR (MDRD) Af Amer 96, Est GFR (MDRD) Non-Af 79, BUN/Creatinine Ratio 14.2, Glucose 107 H, Calcium 8.9 Rhythm: EKG: ECHO: Stress Test: Cardiac Cath: PCI: CT Surgery: Holter monitor: EPS: PPM: CXR: Chest CT Scan: Radiography Diagnostic Testing: Radiology Impression Echocardiogram 07/06/23 23:17 Interpretation Summary The left ventricular ejection fraction is 45 %. Mid to distal inferior and apical dyskinesis, aneurysmal. Moderate hypertrophy of the right ventricle. Mild to moderate global right ventricular systolic dysfunction. The study was technically difficult. Ordering Physician: Soledad Chawla Referring Physician: Soledad Chawla Performed By: Toribio Jacinto [facility] Physical Exam Narrative Examined on the Table. Comfortable. Lying flat with no apparent signs of distress. Heart sounds 1 and 2 noted. No murmurs or rubs noted. Chest examination showed markedly decreased air entry bilaterally. Alert oriented x3. No ankle edema. Assessment & Plan Assessment/Plan (1) STEMI (ST elevation myocardial infarction): QUALIFIERS: Involved coronary artery: other inferior wall coronary artery Qualified Code(s): I21.19 - ST elevation (STEMI) myocardial infarction involving other coronary artery of inferior wall PLAN: Status post balloon angioplasty to the distal LAD. Continue aspirin. Plavix. (2) Left ventricular systolic dysfunction (LVSD): PLAN: Secondary to #1 above. JORGE A inhibitors, beta-blockers, spironolactone (3) Left ventricular aneurysm: PLAN: See #1 and 2 above. (4) Coronary artery disease: PLAN: Aspirin. Clopidogrel. Beta-blockers. Statins. (5) Hypertension: PLAN: Beta-blockers, JORGE A inhibitors and spironolactone. Escalate doses as t olerated. (6) Nicotine dependence: PLAN: Quit smoking. (7) COPD (chronic obstructive pulmonary disease): PLAN: Patient is noted to have decreased air entry on chest examination. History of nicotine dependence. Likely COPD. Manage as per internal medicine. PLAN: Plan May discharge home. Follow-up in the office as outpatient in 2 to 4 weeks.
--- NOTE | 2023-07-08 13:41 | PCM.DC.SUM ---
Providers Date of Admission: 07/06/23 Date of Discharge: 07/08/23 Primary Care Physician: No Primary Care Phys Consultations 07/06/23 23:01 Consult: Cardiology Routine Consulting Provider: Soledad Chawla Reason for Consult: stemi EMERGENT Consult: Yes MD Notified: Yes Date Notified: 07/06/23 Time Notified: 21:24 Method of Notification: ED Physician Initiated Method of Consult:: In-Person Comments:: stemi alert Reason For Visit: STEMI Diagnosis Discharge Diagnosis (1) STEMI (ST elevation myocardial infarction): Status: Acute Code(s): I21.3 - ST elevation (STEMI) myocardial infarction of unspecified site Qualifiers: Involved coronary artery: other inferior wall coronary artery Qualified Code(s): I21.19 - ST elevation (STEMI) myocardial infarction involving other coronary artery of inferior wall (2) Left ventricular systolic dysfunction (LVSD): Status: Acute Code(s): I51.9 - Heart disease, unspecified (3) Left ventricular aneurysm: Status: Acute Code(s): I25.3 - Aneurysm of heart (4) Coronary artery disease: Status: Acute Code(s): I25.10 - Atherosclerotic heart disease of [place] coronary artery without angina pectoris (5) Hypertension: Status: Chronic Code(s): I10 - Essential (primary) hypertension (6) Nicotine dependence: Status: Acute Code(s): F17.200 - Nicotine dependence, unspecified, uncomplicated (7) COPD (chronic obstructive pulmonary disease): Status: Chronic Code(s): J44.9 - Chronic obstructive pulmonary disease, unspecified Plan #STEMI s/p baloon angio #CAD #ARELY nodule #likely #Coronary artery disease #Hypertension #Tobacco use Medications at Discharge Home Medications albuterol sulfate 90 mcg/actuation aerosol inhaler See Rx Instructions .Route .COMPLEX PRN shortness of breath or wheezing #8.5 grams 07/08/23 aspirin 81 mg tablet,delayed release 81 mg PO DAILY 30 days #30 tabs 07/08/23 atorvastatin 40 mg tablet 40 mg PO QHS 30 days #30 tabs 07/08/23 carvedilol 3.125 mg tablet 3.125 mg PO BID 30 days #60 tabs 07/08/23 clopidogrel 75 mg tablet 75 mg PO DAILY 30 days #30 tabs 07/08/23 lisinopril 5 mg tablet 5 mg PO BID 30 days #60 tabs 07/08/23 spironolactone 25 mg tablet 12.5 mg (1/2 x 25 mg) PO DAILY 30 days #15 tabs 07/08/23 Hospital Course Procedures Cardiac catheterization and Transthoracic echo Summary of Care Provided Minutes Spent on Discharge: 32 Hospital Course: 68-year-old female with history of tobacco use and rare contact with medical personnel presented to [facility] 07/06/2023 with chest pain and was found to have a STEMI. She had a balloon angioplasty to distal LAD. Echocardiogram with EF of 45% and mid to distal inferior and apical dyskinesis. She did well on medications. Did have CT scan due to concern for nodule seen on chest x-ray and that did show mass. Referred to pulmonology on discharge for further work-up/investigation. On day of discharge patient feeling much better. Discharge instructions as follows: -You will need to follow-up with cardiology upon discharge in 2 to 4 weeks, please call the office of Dr. Chawla upon discharge to schedule your hospital follow-up appointment ) -You have had multiple medication additions, these included in your updated home medication list and you have also been sent in albuterol inhaler to take as needed -It is imperative that you quit smoking -You are found to have a spot on your left lung that we will need further work-up, please follow-up with the office of Dr. Oseguera with pulmonology upon discharge for further coordination of care. Please call their office upon discharge to schedule an appointment. -Please call your primary care provider's office upon discharge to schedule a hospital follow up within 1 week. -Weigh yourself every day. A sudden weight gain can mean you are retaining fluid. Weigh yourself at the same time of day and in the same kind of clothes. Ideally, weigh yourself first thing in the morning after you empty your bladder, but before you eat breakfast. -Please call your physician if your weight goes up by more than 2 pounds in 1 day or 5 pounds in 1 week. This can be a sign that you are retaining more fluid than you should be. Clues to weight gain include checking your ankles for swelling, or noticing you are short of breath when you lie down -Please limit your sodium intake to less than 3 g/day. Here are tips: Limit canned, dried, packaged, and fast foods. Don't add salt to your food at the table. Season foods with herbs instead of salt when you cook. When you eat out, ask that the passenger vessel chef not add any salt to your dish. Don't eat fried or greasy foods. Be careful of bottled beverages. They can contain a lot of salt -Call 911 right away if you have: -Severe shortness of breath, such that you can't catch your breath even while resting -Severe chest pain that does not resolve with rest or nitroglycerin -Branch, foamy mucus with cough and shortness of breath -An ongoing rapid or irregular heartbeat -Passing out or fainting -Stroke symptoms such as sudden numbness or weakness on one side of your face, arm, or leg or sudden confusion, trouble speaking or vision changes -If you do not have a primary care physician of list of local primary care physicians can be provided for you upon discharge. Please ask for this list prior to discharge -For any concerning signs or symptoms please call 911 or proceed to the nearest emergency department Physical Exam Narrative General: Alert, oriented, no apparent distress HEENT: Atraumatic, normocephalic Eyes: Anicteric, normal conjunctiva, extraocular movements grossly intact Neck: Supple Respiratory: Normal respiratory effort with no wheezing Cardiovascular: Regular rate and rhythm GI: Soft, nontender, nondistended Extremities: No edema Musculoskeletal: Moving all extremities Neuro: No overt focal neurological deficits Skin: No rashes appreciated Psych: Cooperative Weight / BMI Weight Weight: 76.4 kg Body Mass Index (BMI) 29.8 ABG / Lab / Microbiology Data 07/08/23 04:55 07/08/23 04:55 Laboratory: Laboratory Results - last 24 hr 07/08/23 04:55: WBC 11.5 H, RBC 3.73 L, Hgb 11.8 L, Hct 36.4 L, MCV 97.6, MCH 31.6, MCHC 32.4, RDW Std Deviation 50.6 H, RDW Coeff of Fidel 13.9, Plt Count 316, MPV 10.6, Immature Gran % (Auto) 0.900, Neut % (Auto) 60.6, Lymph % (Auto) 26.9, [place] % (Auto) 9.1, Eos % (Auto) 1.9, Baso % (Auto) 0.6, Absolute Neuts (auto) 7.0, Absolute Lymphs (auto) 3.09, Nucleated RBC % 0, Sodium 140, Potassium 3.6, Chloride 109 H, Carbon Dioxide 28.0, Anion Gap 3 L, BUN 11, Creatinine 0.78, Estim Creat Clear Calc 45.78, Est GFR (MDRD) Af Amer 96, Est GFR (MDRD) Non-Af 79, BUN/Creatinine Ratio 14.2, Glucose 107 H, Calcium 8.9 D/C Instructions Discharge Diet: - (-DASH diet, 3000 mg sodium restriction, 2 L fluid restriction) Meaningful Use Info Meaningful Use Diagnoses (Choose all that apply): AMI AMI/Post PCI/Angioplasty Aspirin given w/in 24hrs of arrival?: Yes ASA at discharge?: Yes Antiplatelet Therapy at Discharge:: Yes Statins at discharge?: Yes Og/ARB at discharge?: Yes Beta Theo at discharge?: Yes Done w/ Acute [place] measure.: Yes Documented LVEF (%): 45 Discharge Plan Admission Admit Date/Time: 07/06/23 21:18 Primary Reason for Your Visit: Chest pain Attending Provider: Fern Mary Primary Care Provider: Care Physician,Jessica Primary Consulting Providers: Soledad Chawla; Oziel Bell Instructions Patient Instructions: Planning to Quit Smoking, Cardiac Catheterization Dc, ED How to Quit Smoking Additional Instructions / Restrictions: DISCHARGE INSTRUCTIONS PLEASE READ *Please take this with you to your next doctors appointment* -You will need to follow-up with cardiology upon discharge in 2 to 4 weeks, please call the office of Dr. Chawla upon discharge to schedule your hospital follow-up appointment (ph [phone]) -You have had multiple medication additions, these included in your updated home medication list and you have also been sent in albuterol inhaler to take as needed -It is imperative that you quit smoking -You are found to have a spot on your left lung that we will need further work-up, please follow-up with the office of Dr. Oseguera with pulmonology upon discharge for further coordination of care. Please call their office upon discharge to schedule an appointment. -Please call your primary care provider's office upon discharge to schedule a hospital follow up within 1 week. -Weigh yourself every day. A sudden weight gain can mean you are retaining fluid. Weigh yourself at the same time of day and in the same kind of clothes. Ideally, weigh yourself first thing in the morning after you empty your bladder, but before you eat breakfast. -Please call your physician if your weight goes up by more than 2 pounds in 1 day or 5 pounds in 1 week. This can be a sign that you are retaining more fluid than you should be. Clues to weight gain include checking your ankles for swelling, or noticing you are short of breath when you lie down -Please limit your sodium intake to less than 3 g/day. Here are tips: Limit canned, dried, packaged, and fast foods. Don't add salt to your food at the table. Season foods with herbs instead of salt when you cook. When you eat out, ask that the passenger vessel chef not add any salt to your dish. Don't eat fried or greasy foods. Be careful of bottled beverages. They can contain a lot of salt -Call 911 right away if you have: -Severe shortness of breath, such that you can't catch your breath even while resting -Severe chest pain that does not resolve with rest or nitroglycerin -Branch, foamy mucus with cough and shortness of breath -An ongoing rapid or irregular heartbeat -Passing out or fainting -Stroke symptoms such as sudden numbness or weakness on one side of your face, arm, or leg or sudden confusion, trouble speaking or vision changes -If you do not have a primary care physician of list of local primary care physicians can be provided for you upon discharge. Please ask for this list prior to discharge -For any concerning signs or symptoms please call 911 or proceed to the nearest emergency department Discharge Orders/Prescriptions Prescriptions: New atorvastatin 40 mg Tablet 40 mg PO QHS 30 Days Qty: 30 0RF clopidogrel 75 mg Tablet 75 mg PO DAILY 30 Days Qty: 30 0RF aspirin 81 mg Tablet,Delayed Release (Dr/Ec) 81 mg PO DAILY 30 Days Qty: 30 0RF spironolactone 25 mg Tablet 12.5 mg PO DAILY 30 Days Qty: 15 0RF carvedilol 3.125 mg Tablet 3.125 mg PO BID 30 Days Qty: 60 0RF lisinopril 5 mg Tablet 5 mg PO BID 30 Days Qty: 60 0RF albuterol sulfate 90 mcg/actuation HFA aerosol inhaler See Rx Instructions .ROUTE .COMPLEX PRN (Reason: shortness of breath or wheezing) Qty: 8.5 0RF Rx Instructions: 1-2 puffs every 4-6 hours as needed for shortness of breath or wheezing Referrals / Follow Up: Soledad Chawla MD [Med Staff - Active Staff] - Within 2 Weeks Edwin Oseguera MD [Med Staff - Active Staff] - Within 2 Weeks Care Physician,No Primary [Primary Care Provider] - ( -If you do not have a primary care physician of list of local primary care physicians can be provided for you upon discharge. Please ask for this list prior to discharge ) Disposition Disposition (needs filled in before D/C Order can be placed): Home, Self Care Charges/Coding Visit Charges Inpatient E&M: 39635 Disch Hosp >30min
[2023-07-08 16:25] LABS: ACT Activated Clotting Time 227 sec (74-137)
[2023-07-08 16:26] LABS: ACT Activated Clotting Time 281 sec (74-137)
--- NOTE | 2023-07-11 11:51 | CL.I_ITS ---
Patient Name: LEONOR RICKETTS Study Date: 07/06/2023 Performing: Soledad Chawla MD Ht: 63 inches 160.02 cm : 1955 Wt: lbs kg Age: 68 Gender: female BSA: PROCEDURE(S) PERFORMED DC01-(35816)LHC/COR/LV IC16-(99088/C9606)AMI, CINDY OR PTCA, ARTERY/GRAFT, SINGLE VESSEL CLINICAL PROFILE AND CO-MORBIDITIES Indications: ACS > 24 hrs Heart Failure: None CAD Presentations: STEMI. Symptom onset Date/Time: Time Not Available CONCLUSIONS 100% distal LAD 70% Prox Ramus (small 1.5 mm vessel) 50% Prox LCS 70% Prox/Mid RCA LV apical and mid to distal inferior/posterior aneurysm Successful PTCA distal LAD using 2.0 mm balloon RECOMMENDATIONS ASA Indefinitley Plavix for at least 1 month DESCRIPTION OF PROCEDURE The patient arrived to the procedure lab. The risks and benefits of the procedure as well as a full description of our services here and lack of surgical backup were fully explained to the patient and/or their significant other prior to the catheterization. The Timeout was completed, verifying the correct patient and procedure. The patient's procedural site was prepped and draped in the usual fashion. Local anesthetic was given subcutaneously to right radial region with Lidocaine 2%. Using a modified Seldinger technique, . Left Coronary Artery selective angiography was performed in multiple views using a 5 Fr. 4.0 Barry catheter. Right Coronary Artery selective angiography was then performed in multiple views using a 5 Fr. 4.0 Barry catheter. Left Ventriculography was performed in MORRIS projection using a 5 Fr. Pigtail catheter. LV to AO pullback pressures were then recordedThe images were reviewed and options discussed. A decision was then made to proceed with an Intervention, IVUS or other adjunct procedure. XB 3.0 Guide catheter was inserted and engaged into the LCA. Runthrough Guide wire was advanced to the LAD. Emerge 2.00 x 12 Balloon catheter was inserted. Balloon catheter was advanced across lesion in the LAD, distal. PTCA balloon inflated at 6 atms for 11 secs. PTCA balloon inflated at 6 atms for 9 secs. PTCA balloon inflated at 7 atms for 12 secs. PTCA balloon inflated at 6 atms for 6 secs. Emerge 2.00 x 20 Balloon catheter was inserted. Balloon catheter was advanced across lesion in the LAD, distal. PTCA balloon inflated at 5 atms for 15 secs. PTCA balloon inflated at 5 atms for 10 secs. PTCA balloon inflated at 6 atms for 17 secs. PTCA balloon inflated at 4 atms for 11 secs. PTCA balloon inflated at 4 atms for 18 secs. PTCA balloon inflated at 4 atms for 14 secs. PTCA balloon inflated at 4 atms for 11 secs. PTCA balloon inflated at 4 atms for 10 secs. Angiogram performed post balloon dilatation. Runthrough 300 cm Guide wire was advanced to the LAD. Sprinter 1.25 x 15 Balloon catheter was inserted. Balloon catheter was advanced across lesion in the LAD, distal. The arterial sheath was pulled and a TR Band was applied for hemostasis CORONARY ANGIOGRAPHY DOMINANCE: Right Dominant LEFT HEART ASSESSMENT Left Ventricular Ejection Fraction: by LV Gram 55 % LVEDP: 31 mmHg LEFT MAIN: Tubular 40% Distal lesion in Left Main LEFT ANTERIOR DESCENDING ARTERY: LAD: Tubular 60% Mid lesion in LAD Thrombus 100% Distal lesion in LAD Tubular 40% Proximal lesion in LAD CIRCUMFLEX ARTERY: CIRCUMFLEX: Tubular 50% Proximal lesion in Circumflex RAMUS: Tubular 70% Proximal lesion in Ramus RIGHT CORONARY ARTERY: RCA: Tubular 70% Proximal lesion in RCA INTERVENTION INFORMATION LESION SITE: LAD (Distal) Lesion Complexity: High/C, thrombus present: Yes, lesion length: 30 mm, culprit lesion: Yes Pre Stenosis: 100% % Pre intervention MARITZA flow: 0 PROCEDURE: Balloon Angioplasty Post Stenosis: 0 % Post intervention MARITZA flow: 3 Lesion Devices: Cordis 6 Fr XB3.0 100cm Guide Catheter Terumo .014 180cm Runthrough Extra Floppy straight Raymundo Sci EMERGE MR 2.00x12 BALLOON Raymundo Sci EMERGE MR 2.00x20 BALLOON Terumo .014 300cm Runthrough extra floppy straight Medtronic SPRINTER LEGEND OTW 1.25x15 BALLOON COMPLICATIONS No Complications PROCEDURE MEDICATIONS Versed 2 mg IV Fentanyl 50 mcg IV Oxygen: 2 L/min via nasal cannula Heparin 3000 unit(s) IV 07/06/2023 21:59:09 Heparin 2000 unit(s) IV 07/06/2023 22:20:30 Nitro 200 mcg IC 07/06/2023 22:14:01 Nitro 200 mcg IC 07/06/2023 22:14:01 Potassium Chloride 10 mEq in 100cc NS 07/06/2023 22:51:25 Verapamil 2.5mg, Ntg 200mcgs, given IA 07/06/2023 21:46:07 SUMMARY OF HEMODYNAMIC DATA Time AIR REST ECG 21:38:49 AO 147/76 (106) SA 21:47:11 LV 161/18, 31 21:53:40 LV 158/19, 31 21:53:48 LV 161/30, 37 21:55:16 LVp 161/28, 37 21:55:21 AOp 162/92 (121) 21:55:28 Signed By Soledad Chawla MD On 07/11/2023 11:51:07 Signed By Soledad Chawla MD On 07/06/2023 23:16:33 Soledad Chawla MD
== END 2023-07-08 15:00 | disposition home or self-care (01) | DRG 251 ==
LOC: ED 21:21 → ICU 21:30
PROVIDERS: Admitting Provider Hospitalist; Emergency Provider Emergency Medicine; Referring Provider Internal Medicine Cardiovascular Disease; Visit Provider Internal Medicine
DX: I21.19 ST elevation (STEMI) myocardial infarction involving other coronary artery of inferior wall (principal); I25.3 Aneurysm of heart; J44.9 Chronic obstructive pulmonary disease, unspecified; I10 Essential (primary) hypertension; I25.2 Old myocardial infarction; Z87.891 Personal history of nicotine dependence; Z79.82 Long term (current) use of aspirin; R91.8 Other nonspecific abnormal finding of lung field
CPT/HCPCS: 71045; 71250; 80048; 80053; 80061; 84484; 85025; 85347; 85610; 85730; 92941; 93005; 93306; 93458; 94640; 97802; 99152; 99153; 99282; C1769; J7030; Q9957; Q9967; A4216; C1725; C1887; C1894; C8929; C9606

== ENCOUNTER → 2023-08-11 | Outpatient (CLI) | payer MEDICARE, SELFPAY ==
--- NOTE | 2023-08-12 08:37 | PFT ---
INTRODUCTION: The patient is a 68-year-old female who presents for pulmonary function studies secondary to a diagnosis of nicotine dependency. Respiratory therapy reported good patient effort. Bronchodilators were used during testing. INTERPRETATION: Forced expiration spirometry demonstrates the presence of a severe large airways obstructive ventilatory defect. There was a significant response to aerosolized bronchodilators. Spirograms are of fair quality but do not plateau indicating slow emptying of the lungs. Body plethysmography was performed and revealed an elevated RV to 179% of predicted, indicative of underlying air trapping. Diffusing capacity by single breath CO was reduced at 37% of predicted. IMPRESSION: Partially reversible severe large airways obstructive ventilatory defect with associated air trapping and symmetric reduction in diffusing capacity.
== END | disposition home or self-care (01) ==
PROVIDERS: Referring Provider Internal Medicine Critical Care Medicine; Visit Provider Internal Medicine Critical Care Medicine
DX: F17.210 Nicotine dependence, cigarettes, uncomplicated (principal)
CPT/HCPCS: 94060; 94726; 94729

== ENCOUNTER → 2023-08-12 | Outpatient (CLI) | payer MEDICARE, SELFPAY ==
[2023-08-12 12:41] VITALS: PULSE 84; PULSE 91; PULSE 92; PULSE 93; PULSE 94; PULSE 96; O2SAT 92; O2SAT 93; O2SAT 94; O2SAT 95
--- NOTE | 2023-08-12 12:45 | CPS ---
PATIENT ARRIVED ON ROOM AIR AT BASELINE RESP STATUS. SHE TOOK 2 SHORT REST BREAKS AT 3 AND 5 MINUTES DUE TO LEFT LEG WEAKNESS FROM SCIATIC PAIN. OTHERWISE ASYMPTOMATIC.
--- NOTE | 2023-08-14 08:28 | WT_ITS ---
PSN 6 Minute Walk Test 6 Minute Walk Test 6 Minute Walk Test: 6 Minute Walk Test PSN:6-Minute Walk Test Start: 08/12/23 12:41 Freq: Status: Active Protocol: RESP.6MINW Document 08/12/23 12:41 [facility] (Rec: 08/12/23 12:46 [facility] [id number]) 6 Minute Walk Test Date Performed 08/12/23 Time Performed 12:30 Height 5 ft 3 in Weight: 157 lb Weight in Pounds 157.[address]: Ranjith Olivas Assistive device used: None Pre-test Oxygen Delivery Method Room Air Pulse Ox 95 Pulse Rate (60-100) 93 Dyspnea Phillip Scale (0-10) 3 Reported Symptoms Increased Work of Breathing 1st minute Oxygen Delivery Method Room Air Pulse Ox 93 Pulse Rate (60-100) 91 Dyspnea Phillip Scale (0-10) 3 Number of Rests Taken 0 Reported Symptoms Increased Work of Breathing 2nd minute Oxygen Delivery Method Room Air Pulse Ox 93 Pulse Rate (60-100) 93 Dyspnea Phillip Scale (0-10) 3 Number of Rests Taken 0 Reported Symptoms Increased Work of Breathing 3rd minute Oxygen Delivery Method Room Air Pulse Ox 93 Pulse Rate (60-100) 94 Dyspnea Phillip Scale (0-10) 3 Number of Rests Taken 1 Reported Symptoms Increased Work of Breathing 4th minute Oxygen Delivery Method Room Air Pulse Ox 94 Pulse Rate (60-100) 96 Dyspnea Phillip Scale (0-10) 3 Number of Rests Taken 0 Reported Symptoms Increased Work of Breathing 5th minute Oxygen Delivery Method Room Air Pulse Ox 93 Pulse Rate (60-100) 96 Dyspnea Phillip Scale (0-10) 4 Number of Rests Taken 1 Reported Symptoms Increased Work of Breathing 6th minute Oxygen Delivery Method Room Air Pulse Ox 92 Pulse Rate (60-100) 92 Dyspnea Phillip Scale (0-10) 4 Number of Rests Taken 0 Reported Symptoms Increased Work of Breathing Post-test Oxygen Delivery Method Room Air Pulse Ox 94 Pulse Rate (60-100) 84 Dyspnea Phillip Scale (0-10) 3 Reported Symptoms Increased Work of Breathing Full Laps Walked 9 Partial Lap, Number of Tiles Walked 17 Total Distance Walked (ft) 548 08/12/23 12:45 Cardiopulmonary Services by CmCamila PATIENT ARRIVED ON ROOM AIR AT BASELINE RESP STATUS. SHE TOOK 2 SHORT REST BREAKS AT 3 AND 5 MINUTES DUE TO LEFT LEG WEAKNESS FROM SCIATIC PAIN. OTHERWISE ASYMPTOMATIC. Initialized on 08/12/23 12:45 - END OF NOTE Interpretation Interpretation: The patient ambulated 548 feet over the course of 6 minutes beginning on room air without assistive devices. Pretesting oxygen saturation was noted to be 95% on room air. With ambulation, the venancio oxygen saturation was 92%. There was no significant exertional oxygen desaturation. Recommendations Recommendations: There is no indication for the use of supplemental oxygen at this time.
== END | disposition home or self-care (01) ==
LOC: PSN 12:15
PROVIDERS: Referring Provider Internal Medicine Critical Care Medicine; Visit Provider Internal Medicine Critical Care Medicine
DX: F17.210 Nicotine dependence, cigarettes, uncomplicated (principal)
CPT/HCPCS: 94618

== ENCOUNTER 2023-09-28 08:39 | Outpatient (CLI) | payer MEDICARE, SELFPAY ==
--- NOTE | 2023-09-27 | LUNG_PTH ---
PATHOLOGY RESULTS PATIENT: LEONOR RICKETTS LOC: CT U#:[id number] AGE/SX: 68/F ROOM: RE09/28/[address]: Dr. Ranjith Olivas DO : 1955 BED: DIS: 09/28/2023 SPEC #: [id number] RECD: 09/28/23 10:30 STATUS: RADHA BELL #: [id number] JORGE ALBERTO: 09/27/23 00:[address]: Ranjith Olivas DEPT: SURGICAL PATHOLOGY RECD BY: Aria Perez ENTERED: 09/28/23 10:31 SP TYPE: LUNG BX OTHR DR: No Primary Care Phys Tissues: Left lung, NOS Procedures: Surgery Specimen Level IV HEADER OPERATION: CT-guided lung biopsy PRE-OP DIAGNOSIS: Lung nodule left lobe TISSUE SUBMITTED: Left lobe lung nodule 20 gauge x5 MICROSCOPIC DIAGNOSIS Left lung nodule, CT-guided core biopsy: Non-small cell carcinoma, favor squamous cell carcinoma. See comment. JOSLYN:hollis 09/29/2023 COMMENT The specimen is evaluated at the time of biopsy by Dr. Chaves. Immediate Evaluation = Malignant cells present derived from non-small cell carcinoma. Immunohistochemistry ([id number]) supports the above diagnosis. Molecular studies on the tumor can be performed if clinically indicated. Please notify the laboratory if they are needed. Case has been reviewed in consultation with Dr. Wang who concurs with the above diagnosis. IDC:AM MICROSCOPIC DESCRIPTION Slides are reviewed. GROSS DESCRIPTION Received in fixative is one container labeled with the patient's name and designated left lung. The specimen consists of multiple irregular fragments of terry soft tissue that in aggregate measure 1.5 x 0.2 x 0.1 cm. The specimen is totally submitted in one cassette. Two touch imprints are prepared at the time of core biopsy. / SJ:hollis 09/28/2023 TC:0 CPT: 72076, 70328 ADDENDUM ADDENDUM 10/20/2023 15:16 PD-L1 (KEYTRUDA) IMMUNOHISTOCHEMICAL ANALYSIS FROM [facility] RESULTS: Tumor proportion score: 20% / Positive [facility] NGS REPORT FROM [facility] RESULT SUMMARY: Abnormal DETECTED GENOMIC ALTERATIONS: Tier II: Variants of Potential Clinical Significance TP53 p.([id number]) IMMUNOTHERAPY BIOMARKERS: Tumor Mutation [place]: Low (4.7 Mutations / MB) Microsatellite Instability: MSI Negative (0%) PERTINENT NEGATIVE RESULTS: The following genes are NEGATIVE for clinically relevant mutations. Mutational hotspots and surrounding exonic regions were interrogated for DNA level point mutations and indels (fusions not assayed). AKT1, ALK, ATR, BRAF, CHEK1, DDR2, EGFR, ERBB2, ERBB3, FGFR1, HRAS, KRAS, MAP2K1, MET, NRAS, NTRK1, PIK3CA, POLD1, POLE, ROS1, STK11, TERT INTERPRETATION SUMMARY: [facility] NGS testing involves analysis and reporting of DNA mutations only. RNA level gene fusions involving ALK, ROS1, RET, MET, NTRK1/2/3, etc. are assessed separately, and can be performed in this laboratory, if clinically indicated and requested. A mutation in TP53 p.([id number]) was detected in this patient's sample. The present sample analysis is NEGATIVE for evidence of high level Tumor Mutation [place] or high level microsatellite instability. Please see complete report in e-chart or EMR
[2023-09-28] VITALS (10 sets, daily range): BP systolic 119–199; BP diastolic 59–132; PULSE 75–91; RESP 18–27; TEMP 37.1; O2SAT 89–97; BMI 26.5
--- NOTE | 2023-09-28 | IMM_PTH ---
PATHOLOGY RESULTS PATIENT: LEONOR RICKETTS LOC: CT U#:[id number] AGE/SX: 68/F ROOM: RE09/28/[address]: Dr. Ranjith Olivas DO : 1955 BED: DIS: 09/28/2023 SPEC #: [id number] RECD: 09/28/23 13:56 STATUS: SOUSarwat REQ #: [id number] JORGE ALBERTO: 09/28/23 00:[address]: Ranjith Olivas DEPT: IMMUNOHISTOCHEMISTRY RECD BY: Amarilis Danielson ENTERED: 09/28/23 13:58 SP TYPE: IMMUNO OTHR DR: No Primary Care Phys Tissues: Left lung, NOS Procedures: RCC (add) NAPSIN A (add) CK20 (add) CK5-6 (add) CK7 (add) CK8 (add) HEP PAR (add) DE (add) TTF1 (add) Pankeratin (add) P40 (add) ER (initial) PHYSICIAN & INSTITUTION [address] [address] SPECIMEN INFORMATION: Tissue Source: Left lung Clinical Info: Left lung nodule Specimen Number: [id number] CPT code: 71072, 20049 x11 METHODOLOGY: Deparaffinized sections of prefer/formalin-fixed tissue or PAP/DQ stained slides are incubated with monoclonal/polyclonal antibodies/oligonucleotide probes. Localization is made via biotin free immunoperoxidase method. Appropriate controls are performed and reacted as expected. Results on target cell population are indicated in the following table: RESULTS: ANTIBODY / CLONE RESULT ER (6F11) positive, weak DE (1E2) negative AE1-3 (AE1/AE3/PCK26) positive CK7 (OV-TL12/30) positive, focal, weak CK8 (04egwqO58) positive, weak CK20 (KS20.8) negative TTF-1 (8G7G3/1) negative Napsin A (Rabbit Polyclonal) negative HepPar (OCh1E5) negative RCC (PN-15) negative CK5-6 (D5 & 1684) positive P40 (BC28) positive These tests were developed and their performance characteristics determined by [facility]. They may not have been cleared or approved by the U.S. Food and Drug Administration. The FDA has determined that such clearance or approval is not necessary. The above immunohistochemical/dualISH markers are ordered and reviewed by the Pathologist. INTERPRETATION: Left lung, CT-guided core biopsy: Non-small cell carcinoma, favor squamous cell carcinoma. JOSLYN:hollis 09/29/2023
[2023-09-28 08:51] LABS: Absolute Lymphocyte Count 3.99 X10^3/uL (0.83-4.51); Absolute Neutrophil Count 7.4 X10^3/uL (2.0-7.7); Basophil# 0.06 X10^3/uL; Basophil% 0.5 % (0-1); Eosinophil# 0.15 X10^3/uL; Eosinophils% 1.2 % (0-5); Hemoglobin 12.6 g/dL (12.0-15.0); Lymphocyte # 3.99 X10^3/ul (0.83-4.51); Mean Corp Hgb Conc 31.5 g/dL (32-36); Mean Corpuscular Hgb 30.1 pg (27.0-32.0); Mean Corpuscular Volume 95.7 fL (81-99); Mean Platelet Vol. 9.8 fl (6.2-12.0); Monocyte# 0.85 X10^3/uL; Monocyte% 6.8 % (0-10); NRBC Flagged by Analyzer 0 % (0-5); Neutrophil # 7.36 X10^3/uL (2.7-7.7); Neutrophil % 59.1 % (47-70); Platelet Count 413 K/mm3 (150-450); RBC Distribution Width CV 14.6 % (11.6-14.6); Red Blood Count 4.18 M/mm3 (4.2-5.4); White Blood Count 12.5 K/mm3 (4.4-11.0)
[2023-09-28 09:00] LABS: International Normalized Ratio 1.1; Prothrombin Time (Protime)PT. 13.9 SECONDS (11.7-14.9)
[2023-09-28 09:04] LABS: Partial Thromboplast Time 36.8 Seconds (24.1-36.2)
[2023-09-28] MEDS: 0.9% Saline Lock 10 ML Syringe IV ×3 (09:22→14:29)
[2023-09-28] MEDS: fentaNYL 100 MCG/2 ML Ampul IV (09:46)
[2023-09-28] MEDS: Midazolam 2 MG/2 ML Syringe IV (09:46)
[2023-09-28] MEDS: 0.9% Normal Saline (250mL Bag) 250 ML 15 ML IV (10:00)
[2023-09-28] MEDS: Lidocaine 2% (20 ml mdv) 20 ML Vial INFILT (10:04)
--- NOTE | 2023-09-28 10:20 | RAD_ITS ---
ACR Level 3 findings have been noted. An addendum which confirms receipt of the report will follow. HISTORY: post lung biopsy -- Immediately post lung biopsy. TECHNIQUE: XR Chest 2 Views. COMPARISON: 07/06/2023. FINDINGS: CARDIOMEDIASTINAL BORDERS: Cardiac silhouette within normal limits in size. Mediastinal contour within normal limits in size and position with calcification of the aortic knob again seen. LUNGS: 2.9 cm left suprahilar lung mass, either increased in size from prior or with superimposed surrounding pneumonitis. PLEURA: Mild to moderate left pneumothorax measuring 2.2 cm in thickness. OSSEOUS STRUCTURES: Unremarkable. RAD/Chest Insp/Exp 2 View IMPRESSION: Mild-moderate left pneumothorax postbiopsy. Electronically Signed: Debi Lai MD at 10:48 EST ,
--- NOTE | 2023-09-28 10:25 | NURSING ---
Pt with difficulty breathing, cxr completed, Carito MASSOTHERAPIST at bedside, pt being taken to ER for procedure. O2 at 15lpm via NRB
--- NOTE | 2023-09-28 10:25 | NURSING ---
Pt placed in room 20, o2 via Mary montgomery RN given report.
--- NOTE | 2023-09-28 11:15 | PCM.OP.PRO ---
Procedure Report Date of Procedure: 09/28/23 Assessment & Plan Assessment/Plan (1) Lung nodule: PLAN: PROCEDURE: CT GUIDED CORE NEEDLE LUNG BIOPSY ORDERING PROVIDER: Dr. Ranjith Olivas INDICATION: Female, 68 years old. Left upper lobe nodule. PROVIDER: JONAH Corea CONSENT: Written informed consent was obtained having explained the risks, benefits and alternatives in detail with the patient who accepted the risks and agreed to proceed. Laboratory review and clinical assessment was performed. PRE-PROCEDURE SEDATION ASSESSMENT: Current history and physical dictated by referring physician and reviewed. No clinical changes since date of exam. Patient has an ASA Class of 2. PROCEDURAL SEDATION PROTOCOL: The Drugs used were: 2 mg Versed, IV, and 50 mcg Fentanyl, IV. The sedation time was: 29 minutes, starting at 9:46 AM and terminated at 10:15 AM. The procedural sedation protocol was independently monitored by the department nurse. RADIATION DOSAGE (If Supplied By Facility): CTDIvol = 26.99 mGy, DLP = 404.01 mGycm Individualized dose optimization techniques were used for this CT. TECHNIQUE: The patient was placed in a supine position. A noncontrast CT was performed to localize the lesion in the left upper lobe. The skin surface was prepped and draped in a sterile fashion. 2% lidocaine was used for local anesthesia. Using CT guidance, a 20-gauge coaxial biopsy device was advanced to the periphery of the lesion. A total of 5 core specimens were obtained. Specimens were microscopically reviewed by pathology in the CT suite and placed in formalin solution. BioSentry tract sealant system was deployed at the biopsy site, and the biopsy needle was removed. A sterile occlusive dressing was applied to the biopsy site. The patient tolerated the procedure well. An immediate chest xray was ordered, per protocol. A negative biopsy does not exclude malignancy. Further imaging or clinical followup based on patient condition and degree of clinical suspicion for malignancy. Suggest rebiopsy, if biopsy results do not match with clinical scenario. IMPRESSION: 1. CT directed core needle biopsy of left upper lobe nodule using CT image guidance with image documentation as described. Pathology results are pending. 2. Procedural Sedation protocol utilized with independent monitoring by the department nurse. Procedures Radiology Radiology CT Procedures: 91237 Biopsy Lung
--- NOTE | 2023-09-28 11:23 | PRO.PCM_ITS ---
Documented by User: SHERLY Lewis 09/28/23 11:51 Procedure Report Date of Procedure: 09/28/23 Insertion of thoracic vent for iatrogenic pneumothorax. Assessment & Plan Assessment/Plan (1) Pneumothorax: QUALIFIERS: Pneumothorax type: postprocedural Qualified Code(s): J95.811 - Postprocedural pneumothorax PLAN: A chest x-ray was obtained post lung biopsy. This revealed a mild to moderate left pneumothorax. The patient also developed shortness of breath and became tachycardic with oxygen saturation in the 80s. The patient was trans ported to the emergency department on the monitor by cart. With nursing staff present, the patient was transferred to the ER monitor and supplies gathered to insert the thoracic vent. Emergency department physician, Dr. Pepper, came to the bedside to evaluate the patient and assist with the procedure. Patient history and course of the biopsy was reviewed, as was the chest imaging. The patient was premedicated with Zofran and fentanyl. The patient was positioned in high Fowlers. The left upper chest was cleansed with chlorhexidine. Using manual palpation, the second ntercostal space in the mid clavicular line was marked. The skin was anesthetized locally with 2% lidocaine. After the local anesthetic was given time to take effect, a lauren was made in the skin with the procedure tray scalpel. The thoracic event was assembled for insertion with the trocar through the self-sealing port and catheter and the point of the trocar just slightly beyond the tip of the catheter. The trocar/catheter assembly was then inserted to the pleural space. The red signal diaphragm deflected upwards once reaching the pleural space. At this point, the catheter was then advanced fully into the pleural space, over the trocar and the trocar was removed. The paper on the side flaps of the adhesive patches of the vent were peeled away and adhered to the chest wall to create an occlusive dressing. The tether cap was applied to the self-sealing port. The patient reported a decrease in shortness of breath. A chest x-ray was ordered. This chest x-ray was evaluated at bedside with Dr. Pepper and revealed the chest tube within the pleural space. The patient will remain in the emergency department for observation and a repeat chest x-ray will be ordered to evaluate for resolution of the pneumothorax and determine disposition. The patient remains comfortable with heart rate returning to normal. The patient was maintaining an oxygen saturation of 97% on 3 L. The patient is on room air at baseline, so this was decreased to 2 L to evaluate patient tolerance. The patient's daughter is at bedside and was updated as to the events of the biopsy and thoracic vent insertion. All questions were answered. Procedures Radiology Radiology US Procedures: Other Procedure See Report (insertion of Thora-Vent (chest tube)) Documented by User: Dr. Suraj Pepper DO 09/29/23 22:51 Assessment & Plan Assessment/Plan (1) Pneumothorax: QUALIFIERS: Pneumothorax type: postprocedural Qualified Code(s): J95.811 - Postprocedural pneumothorax PLAN: A chest x-ray was obtained post lung biopsy. This revealed a mild to moderate left pneumothorax. The patient also developed shortness of breath and became tachycardic with oxygen saturation in the 80s. The patient was transported to the emergency department on the monitor by cart. With nursing staff present, the patient was transferred to the ER monitor and supplies gathered to insert the thoracic vent. Emergency department physician, Dr. Pepper, came to the bedside to evaluate the patient and assist with the procedure. Patient history and course of the biopsy was reviewed, as was the chest imaging. The patient was premedicated with Zofran and fentanyl. The patient was positioned in high Fowlers. The left upper chest was cleansed with chlorhexidine. Using manual palpation, the second intercostal space in the mid clavicular line was marked. The skin was anesthetized locally with 2% lidocaine. After the local anesthetic was given time to take effect, a 0.5cm incision was made in the skin with the procedure tray scalpel 11 blade. Blunt disection was done with hemostat by Dr Pepper. The thoracic event was assembled for insertion with the trocar through the self- sealing port and catheter and the point of the trocar just slightly beyond the tip of the catheter. The trocar/catheter assembly was then inserted to the pleural space just above the 3rd rib. The red signal diaphragm deflected upwards once reaching the pleural space. At this point, the catheter was then advanced fully into the pleural space, over the trocar and the trocar was removed. The paper on the side flaps of the adhesive patches of the vent were peeled away and adhered to the chest wall to create an occlusive dressing. The tether cap was applied to the self-sealing port. The patient reported a decrease in shortness of breath. A chest x-ray was ordered. This chest x-ray was evaluated at bedside with Dr. Pepper and revealed the chest tube within the pleural space With almost complete resolution of pneumothorax. The patient will remain in the emergency department for observation and a repeat chest x-ray will be ordered to evaluate for resolution of the pneumothorax and determine disposition. The patient remains comfortable with heart rate returning to normal. The patient was maintaining an oxygen saturation of 97% on 3 L. The patient is on room air at baseline, so this was decreased to 2 L to evaluate patient tolerance. The patient's daughter is at bedside and was updated as to the events of the biopsy and thoracic vent insertion. All questions were answered. Dr. Pepper was at bedside during the entire procedure and assisted with the procedure as well.
== END 2023-09-28 23:59 | disposition home or self-care (01) ==
PROVIDERS: Nurse Practitioner Acute Care; Referring Provider Internal Medicine Critical Care Medicine; Visit Provider Internal Medicine Critical Care Medicine
DX: C34.92 Malignant neoplasm of unspecified part of left bronchus or lung (principal); R91.1 Solitary pulmonary nodule; Z01.818 Encounter for other preprocedural examination; J95.811 Postprocedural pneumothorax
CPT/HCPCS: 32408; 32551; 36415; 71046; 77012; 85025; 85610; 85730; 88305; 88341; 88342; 99156; 99157; J7050; A4216; C2613

== ENCOUNTER 2023-09-28 10:30 | Observation (INO) | payer MEDICARE, SELFPAY ==
[2023-09-28] VITALS (17 sets, daily range): BP systolic 98–182; BP diastolic 51–123; PULSE 75–123; RESP 16–31; TEMP 36.2–36.7; O2SAT 85–98; BMI 31.8; BMI 28.3
[2023-09-28] MEDS: fentaNYL 100 MCG/2 ML Ampul 50 MCG IV (10:47)
[2023-09-28] MEDS: Ondansetron 4 MG/2 ML Vial IV (10:48)
--- NOTE | 2023-09-28 10:50 | RAD_ITS ---
HISTORY: thoravac placement. TECHNIQUE: XR Chest 1 View. COMPARISON: 10:22. FINDINGS: LINES/TUBES: Small caliber left apical chest tube placed. CARDIOMEDIASTINAL BORDERS: Stable. LUNGS: 2.6 cm left suprahilar mass again seen. PLEURA: Mild left apical pneumothorax measuring 2.1 cm in thickness at the apex, decreased in size laterally. RAD/Chest 1 View (Portable) IMPRESSION: Mild left pneumothorax, decreased in size status post chest tube placement. Electronically Signed: Debi Lai MD at 11:10 EST ,
--- NOTE | 2023-09-28 10:50 | ED.RN ---
Dr. Pepper and Lena LENS COATER at bedside placing thoravac
--- NOTE | 2023-09-28 11:13 | EKG12_ITS ---
Test Reason : Blood Pressure : / mmHG Vent. Rate : 110 BPM Atrial Rate : 110 BPM P-R Int : 156 ms QRS Dur : 104 ms QT Int : 322 ms P-R-T Axes : 073 262 076 degrees QTc Int : 435 ms Sinus tachycardia Biatrial enlargement Possible Lateral infarct , age undetermined Inferior-posterior infarct , age undetermined Abnormal ECG Confirmed by JOVON REVELES, SHILPA ([id number]), freezer machine operator MARISELA RAMIREZ ([id number]) on 09/30/2023 8:02:59 AM Referred By: Confirmed By:SHILPA SIGALA MD
--- NOTE | 2023-09-28 11:20 | EX.ED.DYSGE1 ---
HPI History of Present Illness Chief Complaint: Shortness of Breath Narrative Narrative: Patient is a 68-year-old female who presented to the ER from outpatient interventional radiology with a left lung pneumothorax. Patient was in the hospital to have a left lung biopsy. The left lung biopsy was done, however complication of the procedure patient developed a moderate left lung pneumothorax. Patient was brought to the ER by interventional radiology staff. Patient is on Nonrebreather oxygen. Patient is slightly hypoxic, hypertensive, and tachycardic. Patient has increased respiratory rate as well. Patient was on a nonrebreather, 93% when she initially arrived. Patient is on Plavix, she had Plavix stopped 5 days prior to the procedure. Patient does have a head of research & insights, Dr. Olivas. Patient is now in ER patient for placement of chest tube with device to help relieve left pneumothorax. Kang Sutton CNP is At bedside along with radiology nurses and ER nurses as well. [facility] Medical History (Updated 09/29/23 @ 12:[address] Ranjith Olivas, DO) Bronchitis Chest pain COPD (chronic obstructive pulmonary disease) Coronary artery disease Hypertension Left ventricular aneurysm Left ventricular systolic dysfunction (LVSD) Lung nodule Myocardial infarct Nicotine dependence Nicotine dependence, cigarettes, uncomplicated Smoker STEMI (ST elevation myocardial infarction) Home Medications aspirin 81 mg tablet,delayed release 81 mg PO DAILY HEART HEALTH 30 days #30 tabs 07/08/23 [Rx Last Taken 09/27/23] atorvastatin 10 mg tablet 10 mg PO QHS CHOLESTEROL #90 tabs 08/11/23 [Rx Last Taken 09/27/23] carvedilol 3.125 mg tablet 3.125 mg PO BID HIGH BLOOD PRESSURE 30 days #180 tabs 08/11/23 [Rx Last Taken 09/27/23] clopidogrel 75 mg tablet 75 mg PO DAILY BLOOD THINNER 30 days #90 tabs 08/11/23 [Rx Last Taken 09/22/23] lisinopril 2.5 mg tablet 2.5 mg PO DAILY BLOOD PRESSURE #90 tabs 08/11/23 [Rx Last Taken 09/27/23] albuterol sulfate 90 mcg/actuation aerosol inhaler 2 puff inhalation Q6H PRN shortness of breath or wheezing #8.5 grams 09/21/23 [Rx Last Taken 09/28/23] Allergy/AdvReac Type Severity Reaction Status Date / Time No Known Allergies Allergy Verified 09/28/23 09:05 Family History Other STEMI (ST elevation myocardial infarction) Venous thromboembolism (VTE) Surgical History H/O coronary angioplasty (~07/06/23) H/O tubal ligation Hx of cardiac catheterization (~07/06/23) Social History household members: none Smoking Status: Current every day smoker tobacco type: cigarettes alcohol intake: never substance use type: does not use caffeine: Yes Type: carbonated beverages Number of servings: 2 ROS ROS ED ROS Narrative REVIEW OF SYSTEMS: Unless otherwise stated in this report the patient's positive and negative responses for review of systems for constitutional, eyes, ENT, cardiovascular, respiratory, gastrointestinal, neurological, , musculoskeletal, and integument systems and related systems to the presenting problem are either stated in the history of present illness or were not pertinent or were negative for the symptoms and/or complaints related to the presenting medical problem. EXAM Physical Exam Narrative Exam Narrative: Vital signs reviewed and patient is hypoxic, She is on a nonrebreather 15 L.. General: The patient appears Mild distress secondary to difficulty breathing. Pt is resting uncomfortably on cart. Not toxic, lethargic, or listless. Skin: Warm, mild pallor noted. clammy There is no rash noted. Head: Normocephalic, atraumatic Eye: Normal conjunctiva, no drainage, EOMI. PERRL. Ears, Nose, Mouth, and Throat: oral mucosa is moist. Nares patent. Mouth without vesicles. Cardiovascular: Regular Rate and Rhythm, no murmurs, gallops, or rubs Respiratory: Patient is in Mild distress secondary to difficult time breathing, no tracheal deviation, decreased breath sounds slightly on the left compared to the right, no rhonchi,, no accessory muscle use, lungs are no wheezing, rales or rhonchi Back: non-tender, no CVA tenderness bilaterally to percussion. NO CTLS midline or paraspinal tenderness to palpation. GI: Soft, obese, no tenderness to palpation, no masses appreciated. No rebound, guarding, or rigidity noted. Musculoskeletal: The patient has full range of motion of all extremities and joints with no difficulty. Patient has no motor, no sensory deficits. Neurological: A&O x4, normal speech, However patient is only speaking a few words at this time. no focal neurological deficits. Psychiatric: Cooperative Const Vital Signs: 09/28/23 10:31 09/28/23 10:36 09/28/23 10:40 Temperature 97.1 F L Temperature Source Temporal Pulse Rate 103 H 123 H 112 H Respiratory Rate 26 H 30 H 31 H Respiratory Effort Respiratory Depth Respiratory Pattern Blood Pressure 182/123 H 153/91 H Blood Pressure Mean 142 111 Pulse Ox 93 92 94 Oxygen Delivery Method Non-Rebreather Non-Rebreather Non-Rebreather Oxygen Flow Rate (L/min) 15 15 15 09/28/23 10:48 09/28/23 10:48 09/28/23 11:06 Temperature Temperature Source Pulse Rate 101 H 91 Respiratory Rate 17 21 H Respiratory Effort Short of Breath Respiratory Depth Shallow Respiratory Pattern Tachypnea Blood Pressure 112/69 98/72 Blood Pressure Mean 83 80 Pulse Ox 97 98 Oxygen Delivery Method Non-Rebreather Nasal Cannula Oxygen Flow Rate (L/min) 3 09/28/23 11:17 Temperature Temperature Source Pulse Rate Respiratory Rate Respiratory Effort Respiratory Depth Respiratory Pattern Blood Pressure Blood Pressure Mean Pulse Ox Oxygen Delivery Method Nasal Cannula Oxygen Flow Rate (L/min) 3 MDM MDM MDM Narrative Medical decision making narrative: See procedure note performed by Kang Sutton CNP with myself at bedside and Assisting the procedure at all times. Patient's initial chest x-ray showed almost completely Expansion of the left lung, a second x-ray was done and full expansion was noted. Patient had no complications during the procedure. Patient's case was discussed with Dr. France, pt Will be admitted to the hospitalist with Dr. Olivas in consultation. I did see to Dr. Olivas, patient's head of research & insights. It would be difficult to have patient follow-up as an outpatient to have removal of the Thora vent. Patient will be admitted for observation secondary to surgical complication of the left lung biopsy, patient having a Thora vent, patient having history of COPD, to make sure that patient's Thora vent can be removed without difficulty and hopeful discharge in the next 1 or 2 days versus outpatient follow-up. Dr. Olivas can be in consultation in the hospital, he cannot see patient in his office for the next several weeks secondary to full schedules. I was at bedside for greater than 1 hour with initially seen and evaluated the patient, evaluating patient's initial x-ray, prepping patient for surgical procedure, doing a bedside for supervision/assistance with Kang barr FOR PLACEMENT OF tHORA VENT. mULTIPLE X-RAYS WERE DONE AFTER PROCEDURE, MULTIPLE BEDSIDE VISITS WERE DONE TO REEVALUATE PATIENT'S VITAL SIGNS, AND SPEAK TO DAUGHTER FOR GREATER THAN 10-15 MINUTES EXPLAINING LUNG BIOPSY, COMPLICATIONS OF PROCEDURE, NEED FOR PLACEMENT OF dURA-vENT, AND ADMISSION TO THE HOSPITAL. pATIENT AGREES WITH ADMISSION TO THE HOSPITAL WELL. pATIENT'S OXYGEN, VITAL SIGNS HAVE STABILIZED AFTER THE PLACEMENT OF THE tHORA VENT, SECOND CHEST X-RAY AFTER PROCEDURE WAS PERFORMED SHOWED COMPLETE REEXPANSION OF THE LUNG. Critical care time 35 minutes exclusive from separate billable procedures that were performed. The following was considered in the determination of critical care but not limited to the level of medical decision making, intensive cardiac and/or respiratory monitoring, frequent vital sign monitoring, evaluation of laboratory studies, evaluation of radiographic studies, oxygen monitoring, and constant monitoring and speaking to family at bedside Lab Data Attestation: I reviewed the patient's lab results. Labs: Laboratory Results - last 24 hr 09/28/23 11:20 WBC 11.7 H RBC 3.79 L Hgb 11.6 L Hct 36.7 L MCV 96.8 MCH 30.6 MCHC 31.6 L RDW Std Deviation 51.6 H RDW Coeff of Fidel 14.6 Plt Count 348 MPV 10.1 Immature Gran % (Auto) 0.300 Neut % (Auto) 65.9 Lymph % (Auto) 27.4 Blanco % (Auto) 5.1 Eos % (Auto) 0.9 Baso % (Auto) 0.4 Absolute Neuts (auto) 7.7 Absolute Lymphs (auto) 3.20 Nucleated RBC % 0 Sodium 139 Potassium 3.6 Chloride 108 H Carbon Dioxide 26.0 Anion Gap 5 BUN 10 Creatinine 0.90 Estim Creat Clear Calc 62.22 Est GFR (MDRD) Af Amer 80 Est GFR (MDRD) Non-Af 66 BUN/Creatinine Ratio 11.0 Glucose 188 H Calcium 9.4 Troponin I High Sens 62 H Radiography Diagnostic Testing: Clinical Impression(s) from Imaging Studies Chest X-Ray 09/28/23 10:50 IMPRESSION: Mild left pneumothorax, decreased in size status post chest tube placement. Electronically Signed: Debi Lai MD at 11:10 EST , EKG Initial EKG: Attestation: I personally reviewed and interpreted this EKG as follows: (EKG interpretation. Sinus tachycardia at 110. Left axis deviation. QTc of 435. EKG reading bilateral atrial enlargement.) Procedures Other Procedures Procedure(s): Pneumothorax. See Kang Sutton CNP procedure note. I was at bedside during the entire procedure. Patient had a Thora-vent placed to the second left intercostal space. Minimal bleeding occurred. Patient had small air moe as noted by the red valve/pop up valve on the apparatus. The Angiocath was advanced, the needle was removed. Occlusive dressing was placed. Patient was premedicated with 4 mg of Zofran IV along with additional 50 mcg of fentanyl IV in the ER. Patient had almost complete reexpansion of the lung, we will repeat x-ray. Patient blood pressure, heart rate, oxygen levels improved. No acute complications occurred. Discharge Plan Dx/Rx/DC Orders Clinical Impression: Pneumothorax, COPD (chronic obstructive pulmonary disease) Disposition Disposition: Acute Care Hospital [facility] Discharge Date/Time: 09/28/23 14:34 Capacity Legal Poultry Debeaker Reflex Medical hold order details:: IF a medical hold is selected below, a suggested order for a MEDICAL HOLD will reflex upon signing the document. Next of kin: [place] law dictates a PRIORITY LIST for identifying legal decision-maker/legal next of kin in the following order (LNOK): 1st: The patient?s legal guardian, if any 2nd: The patient's spouse (if status is questionable, consult Risk Management) 3rd: The patient?s adult child(seth) (majority, if multiple children) 4th: The patient?s parents 5th: The patient?s adult siblings (majority, if multiple children siblings)
--- NOTE | 2023-09-28 11:30 | RAD_ITS ---
HISTORY: repeat. TECHNIQUE: XR Chest 1 View. COMPARISON: 10:52. FINDINGS: LINES/TUBES: Small caliber left apical chest tube repositioned. CARDIOMEDIASTINAL BORDERS: Stable. LUNGS: Left suprahilar mass again seen. PLEURA: Left apical pneumothorax no longer identified. RAD/Chest 1 View (Portable) IMPRESSION: Resolution or near complete resolution of mild left apical pneumothorax. Electronically Signed: Debi Lai MD at 12:10 EST ,
[2023-09-28 11:37] LABS: Absolute Neutrophil Count 7.7 X10^3/uL (2.0-7.7); Basophil# 0.05 X10^3/uL; Basophil% 0.4 % (0-1); Eosinophil# 0.11 X10^3/uL; Eosinophils% 0.9 % (0-5); Hematocrit 36.7 % (37-47); Hemoglobin 11.6 g/dL (12.0-15.0); Lymphocyte % 27.4 % (19-41); Mean Corp Hgb Conc 31.6 g/dL (32-36); Mean Corpuscular Hgb 30.6 pg (27.0-32.0); Mean Corpuscular Volume 96.8 fL (81-99); Mean Platelet Vol. 10.1 fl (6.2-12.0); Monocyte% 5.1 % (0-10); NRBC Flagged by Analyzer 0 % (0-5); Neutrophil # 7.68 X10^3/uL (2.7-7.7); Neutrophil % 65.9 % (47-70); Platelet Count 348 K/mm3 (150-450); RBC Distribution Width CV 14.6 % (11.6-14.6); RBC Distribution Width SD 51.6 fl (35.1-43.9); Red Blood Count 3.79 M/mm3 (4.2-5.4); White Blood Count 11.7 K/mm3 (4.4-11.0)
[2023-09-28 11:50] LABS: Anion Gap 5 (5-15); BUN 10 mg/dL (7-18); Calcium,Total 9.4 mg/dL (8.5-10.1); Chloride 108 mmol/L (98-107); EST Glomerular Filtration Rate 66 mL/min (>60); Est Glom Filt Rate - Afr Amer 80 mL/min (>60); Estimated Creatinine Clearance 62.22 ml/min; Glucose 188 mg/dL (74-106); Potassium 3.6 mmol/L (3.5-5.1); Sodium Level 139 mmol/L (136-145); Troponin-I HS (w/2H Reflex) 62 pg/mL (3.0-54.0)
[2023-09-28 13:30] LABS: Reflex Troponin-HS? (from REC) Y
--- NOTE | 2023-09-28 14:28 | PCM.HP.STD ---
HPI - General General Date of Admission: 09/28/23 HPI Narrative LEONOR RICKETTS, is a 68 F who presents to the hospital for an iatrogenic pneumothorax after a lung biopsy for possible cancer. She was found to have a 1.6 cm nodule in her left upper lobe and she does have an extensive tobacco history, there is little bit of a delay because she also had to have a cardiac cath at the end of June with balloon angioplasty without stent placement. She needs to complete Plavix prior to procedure and we did have a successful biopsy today however it did result in a left-sided pneumothorax. In the ER she had a Heimlich valve inserted with resolution of her pneumothorax and given that there was likely can be a delay with outpatient follow-up in the office with her glass driller it was recommended that she be admitted overnight for repeat chest x-ray in the morning and then consult pulmonology and then potentially removing the Heimlich valve tomorrow. [facility] Medical History (Updated 09/28/23 @ 11:49 by Lena Sutton, ALDO-C) Bronchitis COPD (chronic obstructive pulmonary disease) Coronary artery disease Hypertension Left ventricular aneurysm Left ventricular systolic dysfunction (LVSD) Lung nodule Nicotine dependence Nicotine dependence, cigarettes, uncomplicated Smoker STEMI (ST elevation myocardial infarction) Home Medications aspirin 81 mg tablet,delayed release 81 mg PO DAILY HEART HEALTH 30 days #30 tabs 07/08/23 [Rx Last Taken 09/27/23] atorvastatin 10 mg tablet 10 mg PO QHS CHOLESTEROL #90 tabs 08/11/23 [Rx Last Taken 09/27/23] carvedilol 3.125 mg tablet 3.125 mg PO BID HIGH BLOOD PRESSURE 30 days #180 tabs 08/11/23 [Rx Last Taken 09/27/23] clopidogrel 75 mg tablet 75 mg PO DAILY BLOOD THINNER 30 days #90 tabs 08/11/23 [Rx Last Taken 09/22/23] lisinopril 2.5 mg tablet 2.5 mg PO DAILY BLOOD PRESSURE #90 tabs 08/11/23 [Rx Last Taken 09/27/23] albuterol sulfate 90 mcg/actuation aerosol inhaler 2 puff inhalation Q6H PRN shortness of breath or wheezing #8.5 grams 09/21/23 [Rx Last Taken 09/28/23] Allergy/AdvReac Type Severity Reaction Status Date / Time No Known Allergies Allergy Verified 09/28/23 09:05 Family History Other STEMI (ST elevation myocardial infarction) Venous thromboembolism (VTE) Surgical History H/O coronary angioplasty (~07/06/23) H/O tubal ligation Hx of cardiac catheterization (~07/06/23) Social History household members: none Smoking Status: Current every day smoker tobacco type: cigarettes alcohol intake: never substance use type: does not use caffeine: Yes Type: carbonated beverages Number of servings: 2 ROS Constitutional Constitutional: Denies chills, fatigue, fever(s) or malaise Eyes Eyes: Denies blurry vision ENT HEENT: Denies headache(s) or nasal discharge Cardiovascular Cardiovascular: Denies chest pain, dyspnea on exertion or syncope Respiratory/Chest Respiratory/Chest: Reports cough and shortness of breath at rest; Denies shortness of breath with exertion Gastrointestinal Gastrointestinal: Denies constipation, diarrhea, nausea or vomiting Genitourinary Genitourinary: Denies dysuria Neurologic Neurologic: Denies focal weakness, numbness or tremor(s) Psychiatric Psychiatric: Denies anxiety or depression Vital Signs Vital Signs Vital Signs: 09/28/23 10:31 09/28/23 10:36 09/28/23 10:40 Temperature 97.1 F L Temperature Source Temporal Pulse Rate 103 H 123 H 112 H Respiratory Rate 26 H 30 H 31 H Respiratory Effort Respiratory Depth Respiratory Pattern Blood Pressure 182/123 H 153/91 H Blood Pressure Mean 142 111 Pulse Ox 93 92 94 Oxygen Delivery Method Non-Rebreather Non-Rebreather Non-Rebreather Oxygen Flow Rate (L/min) 15 15 15 09/28/23 10:48 09/28/23 10:48 09/28/23 11:06 Temperature Temperature Source Pulse Rate 101 H 91 Respiratory Rate 17 21 H Respiratory Effort Short of Breath Respiratory Depth Shallow Respiratory Pattern Tachypnea Blood Pressure 112/69 98/72 Blood Pressure Mean 83 80 Pulse Ox 97 98 Oxygen Delivery Method Non-Rebreather Nasal Cannula Oxygen Flow Rate (L/min) 3 09/28/23 11:17 09/28/23 11:30 09/28/23 11:33 Temperature Temperature Source Pulse Rate Respiratory Rate Respiratory Effort Respiratory Depth Respiratory Pattern Blood Pressure Blood Pressure Mean Pulse Ox 85 95 Oxygen Delivery Method Nasal Cannula Room Air Nasal Cannula Oxygen Flow Rate (L/min) 3 3 09/28/23 12:37 09/28/23 12:40 09/28/23 13:17 Temperature Temperature Source Pulse Rate 80 79 80 Respiratory Rate 16 20 H 18 Respiratory Effort Respiratory Depth Respiratory Pattern Blood Pressure 106/51 L 106/51 L 107/60 Blood Pressure Mean 69 69 75 Pulse Ox 95 95 95 Oxygen Delivery Method Nasal Cannula Nasal Cannula Oxygen Flow Rate (L/min) 3 09/28/23 14:23 Temperature Temperature Source Pulse Rate 75 Respiratory Rate 16 Respiratory Effort Respiratory Depth Respiratory Pattern Blood Pressure 103/71 Blood Pressure Mean 81 Pulse Ox 98 Oxygen Delivery Method Nasal Cannula Oxygen Flow Rate (L/min) 3 Weight Weight: 180 lb Body Mass Index (BMI) 31.8 Physical Exam Narrative General: Alert, Oriented x3, Cooperative, No apparent distress HEENT: Atraumatic, PERRLA, EOMI, Normocephalic Oral: Moist Mucosa Neck: Supple, No JVD Lungs: Diminished, Normal air movement, No rhonchi, No wheeze, No rales Cardiovascular: Regular rate, Regular Rhythm, Normal S1, Normal S2, No murmurs Abdomen: Soft, Non Tender, Non-Distended, No Hepato-splenomegaly Extremities: No edema, Capillary Refill Less than 3 Seconds Skin: No rashes, No breakdown Musculoskeletal: No Tenderness to Palpation of Joints or Extremities Neurological: Cranial nerves II-XII grossly intact, Motor Exam 5/5 strength throughout, Sensory exam intact to light touch and pain Psych/Mental Status: Flat Results Lab / Micro Data 09/28/23 11:20 09/28/23 11:20 Labs: Laboratory Results - last 24 hr 09/28/23 11:20: WBC 11.7 H, RBC 3.79 L, Hgb 11.6 L, Hct 36.7 L, MCV 96.8, MCH 30.6, MCHC 31.6 L, RDW Std Deviation 51.6 H, RDW Coeff of Fidel 14.6, Plt Count 348, MPV 10.1, Immature Gran % (Auto) 0.300, Neut % (Auto) 65.9, Lymph % (Auto) 27.4, [place] % (Auto) 5.1, Eos % (Auto) 0.9, Baso % (Auto) 0.4, Absolute Neuts (auto) 7.7, Absolute Lymphs (auto) 3.20, Nucleated RBC % 0, Sodium 139, Potassium 3.6, Chloride 108 H, Carbon Dioxide 26.0, Anion Gap 5, BUN 10, Creatinine 0.90, Estim Creat Clear Calc 62.22, Est GFR (MDRD) Af Amer 80, Est GFR (MDRD) Non-Af 66, BUN/Creatinine Ratio 11.0, Glucose 188 H, Calcium 9.4, Troponin I High Sens 62 H Imagaing Radiology Impression Chest X-Ray 09/28/23 10:50 IMPRESSION: Mild left pneumothorax, decreased in size status post chest tube placement. Electronically Signed: Debi Lai MD at 11:10 EST , Chest X-Ray 09/28/23 11:30 IMPRESSION: Resolution or near complete resolution of mild left apical pneumothorax. Electronically Signed: Debi Lai MD at 12:10 EST , Assessment & Plan Assessment/Plan (1) Pneumothorax: QUALIFIERS: Pneumothorax type: postprocedural Qualified Code(s): J95.811 - Postprocedural pneumothorax PLAN: Plan 1. Iatrogenic pneumothorax after lung biopsy/tobacco abuse/COPD not in exacerbation ? Continue with the Heimlich valve ? Will repeat chest x-ray in the morning ? Consult pulmonology for assistance ? Can wean oxygen as able ? Discussed tobacco cessation 2. CAD status post balloon angioplasty/HTN/HLD ? She had a balloon angioplasty to the distal LAD on 07/06/2023 that time echocardiogram with an EF of 45% with distal inferior and apical goal dyskinesis plan is for medical management ? Continue with aspirin, Lipitor, Coreg, Plavix, lisinopril ? We will monitor make adjustments as necessary DVT: Ambulation 75 minutes was spent on direct patient care, including documentation as well as chart review and collaboration with colleagues Charges/Coding Visit Charges Inpatient E&M: 09606 Init Hosp L3
[2023-09-28 15:00] LABS: Troponin-I HS 395 pg/mL (3.0-54.0)
--- NOTE | 2023-09-28 15:14 | WOUNDNOTE ---
Lab called with Troponin results of 395. Bethany, chargeback analyst aware.
[2023-09-28] MEDS: Acetaminophen 325 MG Tablet 650 MG PO (19:10)
[2023-09-28] MEDS: Carvedilol 3.125 MG TABLET PO (22:28)
[2023-09-28] MEDS: Atorvastatin Calcium 10 MG Tablet PO (22:29)
[2023-09-29 02:53] VITALS: BP 102/64; PULSE 68; RESP 18; TEMP 36.4; O2SAT 95
[2023-09-29] MEDS: Acetaminophen 325 MG Tablet 650 MG PO ×2 (02:59→09:16)
--- NOTE | 2023-09-29 05:55 | RAD_ITS ---
STUDY: X-RAY CHEST REASON FOR EXAM: Female, 68 years old. Left pneumothorax. Follow-up. TECHNIQUE: Single frontal view of the chest. COMPARISON: 09/28/2023 FINDINGS: Stable left thoracostomy tube with no residual pneumothorax identified. Stable irregular noncalcified pulmonary nodule projected over the left upper quadrant with hyperinflation, mild cardiomegaly and aortic tortuosity with calcification. No abnormality of the visualized soft tissue structures of the upper abdomen. RAD/Chest 1 View (Portable) IMPRESSION: Left apical thoracostomy tube with no pneumothorax. No other change. Electronically Signed: Jerald Castillo MD at 10:56 EST ,
[2023-09-29 08:15] VITALS: BP 110/63; PULSE 72; RESP 16; TEMP 36.4; O2SAT 96
[2023-09-29 08:26] LABS: Absolute Lymphocyte Count 3.48 X10^3/uL (0.83-4.51); Absolute Neutrophil Count 5.7 X10^3/uL (2.0-7.7); Basophil# 0.05 X10^3/uL; Basophil% 0.5 % (0-1); Hematocrit 38.5 % (37-47); Hemoglobin 11.6 g/dL (12.0-15.0); Lymphocyte # 3.48 X10^3/ul (0.83-4.51); Lymphocyte % 34.6 % (19-41); Mean Corp Hgb Conc 30.1 g/dL (32-36); Mean Corpuscular Hgb 29.4 pg (27.0-32.0); Mean Corpuscular Volume 97.7 fL (81-99); Mean Platelet Vol. 10.3 fl (6.2-12.0); Monocyte# 0.74 X10^3/uL; Monocyte% 7.4 % (0-10); NRBC Flagged by Analyzer 0 % (0-5); Neutrophil # 5.66 X10^3/uL (2.7-7.7); Neutrophil % 56.2 % (47-70); Platelet Count 357 K/mm3 (150-450); RBC Distribution Width CV 14.6 % (11.6-14.6); RBC Distribution Width SD 52.9 fl (35.1-43.9); Red Blood Count 3.94 M/mm3 (4.2-5.4); White Blood Count 10.1 K/mm3 (4.4-11.0)
[2023-09-29 09:03] LABS: Anion Gap 3 (5-15); BUN 8 mg/dL (7-18); BUN/Creat Ratio 8.7 RATIO (10-20); Calcium,Total 9.7 mg/dL (8.5-10.1); Chloride 105 mmol/L (98-107); Creatinine, Serum 0.92 mg/dL (0.55-1.02); EST Glomerular Filtration Rate 65 mL/min (>60); Est Glom Filt Rate - Afr Amer 79 mL/min (>60); Estimated Creatinine Clearance 57.35 ml/min; Glucose 100 mg/dL (74-106); Potassium 3.8 mmol/L (3.5-5.1); Sodium Level 138 mmol/L (136-145)
[2023-09-29] MEDS: Clopidogrel Bisulfate 75 MG Tablet PO (09:15)
[2023-09-29] MEDS: Lisinopril 2.5 MG Tablet PO (09:15)
[2023-09-29] MEDS: Carvedilol 3.125 MG TABLET PO (09:15)
[2023-09-29] MEDS: Aspirin E.C. 81 MG Tablet PO (09:16)
--- NOTE | 2023-09-29 10:17 | PN.HOSP_ITS ---
Subjective Subjective Doing well, no issues overnight, no further chest pain and the chest pain she had was due to the biopsy and her pneumothorax Objective Data Objective Data Vital Signs: Vital Signs Temp Pulse Resp BP Pulse Ox O2 Del Method O2 Flow Rate 97.6 F L 68 18 102/64 95 Nasal Cannula 2 09/29/23 02:53 09/29/23 02:53 09/29/23 02:53 09/29/23 02:53 09/29/23 02:53 09/29/23 02:57 09/29/23 02:57 Oxygen Flow Rate (L/min) 2 Oxygen Delivery Method Nasal Cannula Weight: 159 lb 9.835 oz Body Mass Index (BMI) 28.3 Intake & Output: Intake and Output for Last 24 Hours 09/28/23 09/29/23 09/30/23 03:59 03:59 03:59 Intake Total 300 / 300 400 / 400 Balance 300 / 300 400 / 400 Lab / Micro Data 09/29/23 07:43 09/29/23 07:43 Labs: Laboratory Results - last 24 hr 09/28/23 11:20: WBC 11.7 H, RBC 3.79 L, Hgb 11.6 L, Hct 36.7 L, MCV 96.8, MCH 30.6, MCHC 31.6 L, RDW Std Deviation 51.6 H, RDW Coeff of Fidel 14.6, Plt Count 348, MPV 10.1, Immature Gran % (Auto) 0.300, Neut % (Auto) 65.9, Lymph % (Auto) 27.4, [place] % (Auto) 5.1, Eos % (Auto) 0.9, Baso % (Auto) 0.4, Absolute Neuts (auto) 7.7, Absolute Lymphs (auto) 3.20, Nucleated RBC % 0, Sodium 139, Potassium 3.6, Chloride 108 H, Carbon Dioxide 26.0, Anion Gap 5, BUN 10, Creatinine 0.90, Estim Creat Clear Calc 62.22, Est GFR (MDRD) Af Amer 80, Est GFR (MDRD) Non-Af 66, BUN/Creatinine Ratio 11.0, Glucose 188 H, Calcium 9.4, Troponin I High Sens 62 H 09/28/23 14:09: Troponin I High Sens 395 H* 09/29/23 07:43: WBC 10.1, RBC 3.94 L, Hgb 11.6 L, Hct 38.5, MCV 97.7, MCH 29.4, MCHC 30.1 L, RDW Std Deviation 52.9 H, RDW Coeff of Fidel 14.6, Plt Count 357, MPV 10.3, Immature Gran % (Auto) 0.300, Neut % (Auto) 56.2, Lymph % (Auto) 34.6, [place] % (Auto) 7.4, Eos % (Auto) 1.0, Baso % (Auto) 0.5, Absolute Neuts (auto) 5.7, Absolute Lymphs (auto) 3.48, Nucleated RBC % 0, Sodium 138, Potassium 3.8, Chloride 105, Carbon Dioxide 30.0, Anion Gap 3 L, BUN 8, Creatinine 0.92, Estim Creat Clear Calc 57.35, Est GFR (MDRD) Af Amer 79, Est GFR (MDRD) Non-Af 65, BUN/Creatinine Ratio 8.7 L, Glucose 100, Calcium 9.7 Radiography Diagnostic Testing: Radiology Impression Chest X-Ray 09/28/23 10:50 IMPRESSION: Mild left pneumothorax, decreased in size status post chest tube placement. Electronically Signed: Debi Lai MD at 11:10 EST , Chest X-Ray 09/28/23 11:30 IMPRESSION: Resolution or near complete resolution of mild left apical pneumothorax. Electronically Signed: Debi Lai MD at 12:10 EST , Physical Exam Narrative General: Alert, Oriented x3, Cooperative, No apparent distress HEENT: Atraumatic, PERRLA, EOMI, Normocephalic Oral: Moist Mucosa Neck: Supple, No JVD Lungs: Diminished, Normal air movement, No rhonchi, No wheeze, No rales Cardiovascular: Regular rate, Regular Rhythm, Normal S1, Normal S2, No murmurs Abdomen: Soft, Non Tender, Non-Distended, No Hepato-splenomegaly Extremities: No edema, Capillary Refill Less than 3 Seconds Skin: No rashes, No breakdown Musculoskeletal: No Tenderness to Palpation of Joints or Extremities Neurological: Cranial nerves II-XII grossly intact, Motor Exam 5/5 strength throughout, Sensory exam intact to light touch and pain Psych/Mental Status: Normal affect Assessment & Plan Assessment/Plan (1) Pneumothorax: QUALIFIERS: Pneumothorax type: postprocedural Qualified Code(s): J95.811 - Postprocedural pneumothorax PLAN: Plan 1. Iatrogenic pneumothorax after lung biopsy/tobacco abuse/COPD not in exacerbation ? Continue with the Heimlich valve ? Chest x-ray on my read this morning appears that the pneumothorax is resolved ? Consult pulmonology for assistance ? Can wean oxygen as able ? Discussed tobacco cessation 2. CAD status post balloon angioplasty/HTN/HLD ? She had a balloon angioplasty to the distal LAD on 07/06/2023 that time echocardiogram with an EF of 45% with distal inferior and apical goal dyskinesis plan is for medical management ? Continue with aspirin, Lipitor, Coreg, Plavix, lisinopril ? We will monitor make adjustments as necessary ? She had a troponin obtained in the ER secondary to chest pain despite the etiology being from a pneumothorax and it did rise to 392, this is likely demand secondary to her recent heart cath in June with her known coronary artery disease and the fact that she had a pneumothorax when this was drawn she is denying any chest pain currently so we will continue with medical management and have her follow-up with cardiology as an outpatient DVT: Ambulation Capacity Legal Obstetrics Gynecology Physician Reflex Medical hold order details:: IF a medical hold is selected below, a suggested order for a MEDICAL HOLD will reflex upon signing the document. Next of kin: [place] law dictates a PRIORITY LIST for identifying legal decision-maker/legal next of kin in the following order (LNOK): 1st: The patient?s legal guardian, if any 2nd: The patient's spouse (if status is questionable, consult Risk Management) 3rd: The patient?s adult child(seth) (majority, if multiple children) 4th: The patient?s parents 5th: The patient?s adult siblings (majority, if multiple children siblings) Charges/Coding Visit Charges Inpatient E&M: 09891 Subs Hosp L2
[2023-09-29 12:00] VITALS: O2SAT 93
--- NOTE | 2023-09-29 12:40 | CON.PCM.CC_ITS ---
Assessment & Plan Assessment/Plan (1) Iatrogenic pneumothorax: PLAN: Plan RECOMMENDATIONS: 1. Small bore thoracic vent was removed at the bedside. Obtain follow-up chest x-ray in 1 hour. 2. A follow-up chest x-ray demonstrates no evidence of pneumothorax, the patient to be discharged home. 3. Follow-up in the pulmonary medicine clinic to discuss results of CT-guided lung biopsy, when available. 4. Please call with any additional questions. IMPRESSIONS: 1. Iatrogenic pneumothorax The patient sustained a small iatrogenic pneumothorax following CT-guided lung biopsy on September 28. There was resolution of the pneumothorax status post thoracic vent placement. Chest x-ray from this morning demonstrated no evidence of pneumothorax. Therefore, the thoracic vent was removed this afternoon. Plan to obtain a follow-up chest x-ray in 1 hour. If stable, the patient be discharged home with outpatient pulmonary follow-up. This note was generated with [employer] software. It may contain incorrect words, spelling, and punctuation that were not noted in checking the note before signing. HPI Consult Data Date of Consult: 09/29/23 HPI Narrative Reason for Consultation: Iatrogenic pneumothorax HPI Narrative: The patient is a 68-year-old female, with a history as outlined below, who presented to the emergency department after she underwent a percutaneous CT- guided lung biopsy yesterday, which was complicated by an iatrogenic pneumothorax. The patient had a thoracic vent placed to address the underlying pneumothorax. There was resolution of the pneumothorax following the procedure. I initially met the patient in the pulmonary medicine office when she was referred to me with a spiculated lung nodule in the left upper lobe on CT norberto ging. She has a smoking history that previously included 2 to 3 packs of cigarettes per day x55 years, but the patient has cut back to 0.5 packs of cigarettes per day currently. In addition to her personal smoking history, she did grow up in a smoking household. She was never previously diagnosed with asthma in childhood. The patient rested well overnight without any respiratory complaints. Her repeat chest x-ray this morning continues to demonstrate resolution of the previously noted pneumothorax. Therefore, at approximately 12:15 PM, I removed the patient's thoracic vent, without complication. [facility] Medical History (Updated 09/29/23 @ 12:[address] Ranjith Olivas, DO) Bronchitis Chest pain COPD (chronic obstructive pulmonary disease) Coronary artery disease Hypertension Left ventricular aneurysm Left ventricular systolic dysfunction (LVSD) Lung nodule Myocardial infarct Nicotine dependence Nicotine dependence, cigarettes, uncomplicated Smoker STEMI (ST elevation myocardial infarction) Home Medications aspirin 81 mg tablet,delayed release 81 mg PO DAILY HEART HEALTH 30 days #30 tabs 07/08/23 [Rx Last Taken 09/27/23] atorvastatin 10 mg tablet 10 mg PO QHS CHOLESTEROL #90 tabs 08/11/23 [Rx Last Taken 09/27/23] carvedilol 3.125 mg tablet 3.125 mg PO BID HIGH BLOOD PRESSURE 30 days #180 tabs 08/11/23 [Rx Last Taken 09/27/23] clopidogrel 75 mg tablet 75 mg PO DAILY BLOOD THINNER 30 days #90 tabs 08/11/23 [Rx Last Taken 09/22/23] lisinopril 2.5 mg tablet 2.5 mg PO DAILY BLOOD PRESSURE #90 tabs 08/11/23 [Rx Last Taken 09/27/23] albuterol sulfate 90 mcg/actuation aerosol inhaler 2 puff inhalation Q6H PRN shortness of breath or wheezing #8.5 grams 09/21/23 [Rx Last Taken 09/28/23] Allergy/AdvReac Type Severity Reaction Status Date / Time No Known Allergies Allergy Verified 09/28/23 09:05 Family History Other STEMI (ST elevation myocardial infarction) Venous thromboembolism (VTE) Surgical History H/O coronary angioplasty (~07/06/23) H/O tubal ligation Hx of cardiac catheterization (~07/06/23) Social History household members: none Smoking Status: Current every day smoker tobacco type: cigarettes alcohol intake: never substance use type: does not use caffeine: Yes Type: carbonated beverages Number of servings: 2 ROS ROS Narrative 10 systems were reviewed with pertinent positives as noted in the HPI above. Physical Exam Const alert and no apparent distress General Appearance: cooperative HEENT normocephalic, head/scalp atraumatic and moist oral mucous membranes Eyes PERRL, EOMs intact bilaterally and conjunctivae normal Neck supple General: trachea midline Chest inspection of chest normal Resp normal respiratory effort Resp Narrative: Small bore anterior thoracic vent in place. Auscultation: diminished lung sounds; Negative for rales, rhonchi or wheezes Cardio regular rate and regular rhythm GI normal to inspection, nondistended, normoactive bowel sounds Extremity no clubbing, cyanosis or edema Skin no rashes or lesions noted Neuro oriented x3, CN's II-XII intact bilaterally and moves all extremities Psych cooperative and affect normal Lab / Micro Data 09/29/23 07:43 09/29/23 07:43 Labs: Laboratory Results - last 24 hr 09/28/23 14:09: Troponin I High Sens 395 H* 09/29/23 07:43: WBC 10.1, RBC 3.94 L, Hgb 11.6 L, Hct 38.5, MCV 97.7, MCH 29.4, MCHC 30.1 L, RDW Std Deviation 52.9 H, RDW Coeff of Fidel 14.6, Plt Count 357, MPV 10.3, Immature Gran % (Auto) 0.300, Neut % (Auto) 56.2, Lymph % (Auto) 34.6, [place] % (Auto) 7.4, Eos % (Auto) 1.0, Baso % (Auto) 0.5, Absolute Neuts (auto) 5.7, Absolute Lymphs (auto) 3.48, Nucleated RBC % 0, Sodium 138, Potassium 3.8, Chloride 105, Carbon Dioxide 30.0, Anion Gap 3 L, BUN 8, Creatinine 0.92, Estim Creat Clear Calc 57.35, Est GFR (MDRD) Af Amer 79, Est GFR (MDRD) Non-Af 65, B UN/Creatinine Ratio 8.7 L, Glucose 100, Calcium 9.7 Imagaing Radiology Impression Chest X-Ray 09/29/23 05:55 IMPRESSION: Left apical thoracostomy tube with no pneumothorax. No other change. Electronically Signed: Jerald Castillo MD at 10:56 EST , Capacity Legal Pharmacy Operations Coordinator Reflex Medical hold order details:: IF a medical hold is selected below, a suggested order for a MEDICAL HOLD will reflex upon signing the document. Next of kin: [place] law dictates a PRIORITY LIST for identifying legal decision-maker/legal next of kin in the following order (LNOK): 1st: The patient?s legal guardian, if any 2nd: The patient's spouse (if status is questionable, consult Risk Management) 3rd: The patient?s adult child(seth) (majority, if multiple children) 4th: The patient?s parents 5th: The patient?s adult siblings (majority, if multiple children siblings) Charges/Coding Visit Charges Inpatient E&M: 55976 Init Hosp L3
[2023-09-29 12:50] LABS: Bedside Glucose 134 mg/dL (74-106)
--- NOTE | 2023-09-29 13:00 | RAD_ITS ---
STUDY: X-RAY CHEST REASON FOR EXAM: Female, 68 years old. Removal of left thoracostomy tube. TECHNIQUE: Single frontal view of the chest on 2 images. COMPARISON: Earlier in the day. FINDINGS: Left thoracostomy tube removed with no residual pneumothorax. Left upper lobe mass again identified. There is no demonstrated pleural abnormality. Normal size heart. Normal mediastinum and rosemary. Normal visualized pulmonary arteries. Normal visualized aortic arch and descending thoracic aorta. Normal visualized thoracic spine. Normal visualized ribs, clavicles, and shoulders. No abnormality of the visualized soft tissue structures of the upper abdomen. RAD/Chest 1 View (Portable) IMPRESSION: Removal of a thoracostomy tube with no residual pneumothorax. Stable left upper lobe mass Electronically Signed: Jerald Castillo MD at 13:31 EST ,
--- NOTE | 2023-09-29 13:49 | DCINST_ITS ---
Discharge Instructions Diet Discharge Diet: Low fat / Low cholesterol Activity Discharge Activity: Return to Normal Activity Dressing / Incision Call your doctor if you observe: Fever of 101 or Higher, Shortness of breath, Dizziness, Fainting spells, Swelling in the ankles, Chest pain and Increased palpitations (irregular heartbeat) Follow Up Care Test Results: Test results from this visit will be discussed in further detail at your follow- up appointment, if applicable. Discharge Plan Admission Admit Date/Time: 09/28/23 11:22 Attending Provider: Ajit France Primary Care Provider: Care Physician,No Primary Consulting Providers: Roscoe Roche; Edwin Oseguera; Ranjith Olivas; Dorcas Garcia; Nathaly Berger; Shashank Oliveira; Najma Seay; Sanam Metcalf; Neeraj Burk; Jayden Álvarez; Jesus Ricks; Yaya Wayne Instructions Additional Instructions / Restrictions: As we discussed this morning your troponin which is an enzyme that can be leak from the heart when there is damage was elevated however EKG was nonischemic and you are no longer having any chest pain I think that the chest pain that you had yesterday was obviously due to your pneumothorax not any cardiac in origin however given your previous coronary artery disease I do recommend that you follow-up with cardiology within the next 2 to 3 months. In the meantime continue with your home medications and follow-up with your PCP as an outpatient. If you have any further chest pain, shortness of breath, lightheadedness, dizziness please return to the hospital. Discharge Orders/Prescriptions Prescriptions: Continued atorvastatin 10 mg tablet 10 mg PO QHS Qty: 90 3RF carvedilol 3.125 mg tablet 3.125 mg PO BID 30 Days Qty: 180 3RF lisinopril 2.5 mg tablet 2.5 mg PO DAILY Qty: 90 3RF clopidogrel 75 mg tablet 75 mg PO DAILY 30 Days Qty: 90 3RF Patient Comments: on hold for the past 5 days as of 09/28/23 for lung biopsy aspirin 81 mg Tablet,Delayed Release (Dr/Ec) 81 mg PO DAILY 30 Days Qty: 30 0RF albuterol sulfate 90 mcg/actuation HFA aerosol inhaler 2 puff inhalation Q6H PRN (Reason: shortness of breath or wheezing) Qty: 8.5 3RF Rx Instructions: administer with spacer Referrals / Follow Up: Soledad Chawla MD [Med Staff - Active Staff] - Within 1 Month Care Physician,No Primary [Primary Care Provider] - Disposition Disposition (needs filled in before D/C Order can be placed): Home, Self Care
--- NOTE | 2023-09-29 14:08 | PCM.DC.SUM ---
Providers Date of Admission: 09/28/23 Primary Care Physician: No Primary Care Phys Consultations 09/28/23 14:59 Consult: Destination Sign Repairer / Pulmonary Medicine Routine Consulting Provider: Intensivists/Pulmonary Med Reason for Consult: left post-procedure pneumo EMERGENT Consult: No MD Notified: Yes Date Notified: 09/28/23 Time Notified: 11:24 Method of Notification: ED Physician Initiated Reason For Visit: LEFT PNEUMO POST PROCEDURE Diagnosis Discharge Diagnosis (1) Iatrogenic pneumothorax: Status: Acute Code(s): J95.811 - Postprocedural pneumothorax Medications at Discharge Home Medications aspirin 81 mg tablet,delayed release 81 mg PO DAILY HEART HEALTH 30 days #30 tabs 07/08/23 atorvastatin 10 mg tablet 10 mg PO QHS CHOLESTEROL #90 tabs 08/11/23 carvedilol 3.125 mg tablet 3.125 mg PO BID HIGH BLOOD PRESSURE 30 days #180 tabs 08/11/23 clopidogrel 75 mg tablet 75 mg PO DAILY BLOOD THINNER 30 days #90 tabs 08/11/23 lisinopril 2.5 mg tablet 2.5 mg PO DAILY BLOOD PRESSURE #90 tabs 08/11/23 albuterol sulfate 90 mcg/actuation aerosol inhaler 2 puff inhalation Q6H PRN shortness of breath or wheezing #8.5 grams 09/21/23 Hospital Course Operations None Procedures None Summary of Care Provided Minutes Spent on Discharge: 33 Hospital Course: Per HPI: Hospital Course: 1. Iatrogenic pneumothorax after lung biopsy/tobacco abuse/COPD not in exacerbation ? The Heimlich valve was removed today and post removal x-ray does not show recurrence pneumothorax ? Pulmonology feels that she is stable for discharge ?Discussed tobacco cessation ? I discussed with her the plan for discharge today she expressed understanding of risk benefits of going home and would like to go home today. 2. CAD status post balloon angioplasty/HTN/HLD ? She had a balloon angioplasty to the distal LAD on 07/06/2023 that time echocardiogram with an EF of 45% with distal inferior and apical goal dyskinesis plan is for medical management ? Continue with aspirin, Lipitor, Coreg, Plavix, lisinopril ? We will monitor make adjustments as necessary ? She had a troponin obtained in the ER secondary to chest pain despite the etiology being from a pneumothorax and it did rise to 392, this is likely demand secondary to her recent heart cath in June with her known coronary artery disease and the fact that she had a pneumothorax when this was drawn she is denying any chest pain currently so we will continue with medical management and have her follow-up with cardiology as an outpatient Weight / BMI Weight Weight: 159 lb 9.835 oz Body Mass Index (BMI) 28.3 ABG / Lab / Microbiology Data 09/29/23 07:43 09/29/23 07:43 Laboratory: Laboratory Results - last 24 hr 09/28/23 14:09: Troponin I High Sens 395 H* 09/29/23 07:43: WBC 10.1, RBC 3.94 L, Hgb 11.6 L, Hct 38.5, MCV 97.7, MCH 29.4, MCHC 30.1 L, RDW Std Deviation 52.9 H, RDW Coeff of Fidel 14.6, Plt Count 357, MPV 10.3, Immature Gran % (Auto) 0.300, Neut % (Auto) 56.2, Lymph % (Auto) 34.6, [place] % (Auto) 7.4, Eos % (Auto) 1.0, Baso % (Auto) 0.5, Absolute Neuts (auto) 5.7, Absolute Lymphs (auto) 3.48, Nucleated RBC % 0, Sodium 138, Potassium 3.8, Chloride 105, Carbon Dioxide 30.0, Anion Gap 3 L, BUN 8, Creatinine 0.92, Estim Creat Clear Calc 57.35, Est GFR (MDRD) Af Amer 79, Est GFR (MDRD) Non-Af 65, BUN/Creatinine Ratio 8.7 L, Glucose 100, Calcium 9.7 09/29/23 11:53: POC Glucose 134 H Radiography Diagnostic Testing: Radiology Impression Chest X-Ray 09/29/23 05:55 IMPRESSION: Left apical thoracostomy tube with no pneumothorax. No other change. Electronically Signed: Jerald Castillo MD at 10:56 EST , Chest X-Ray 09/29/23 13:00 IMPRESSION: Removal of a thoracostomy tube with no residual pneumothorax. Stable left upper lobe mass Electronically Signed: Jerald Castillo MD at 13:31 EST , D/C Instructions Discharge Diet: Low fat / Low cholesterol Call your doctor if you observe: Fever of 101 or Higher, Shortness of breath, Dizziness, Fainting spells, Swelling in the ankles, Chest pain and Increased palpitations (irregular heartbeat) Meaningful Use Info Meaningful Use Diagnoses (Choose all that apply): None applicable Discharge Plan Admission Admit Date/Time: 09/28/23 11:22 Attending Provider: Ajit France Primary Care Provider: Care Physician,No Primary Consulting Providers: Roscoe Roche; Edwin Oseguera; Ranjith Olivas; Morris Garcia; Nathaly Berger; Shashank Oliveira; Najma Seay; Sanam Metcalf; Neeraj Burk; Jayden Álvarez; Jesus Ricks; Yaya Wayne Instructions Additional Instructions / Restrictions: As we discussed this morning your troponin which is an enzyme that can be leak from the heart when there is damage was elevated however EKG was nonischemic and you are no longer having any chest pain I think that the chest pain that you had yesterday was obviously due to your pneumothorax not any cardiac in origin however given your previous coronary artery disease I do recommend that you follow-up with cardiology within the next 2 to 3 months. In the meantime continue with your home medications and follow-up with your PCP as an outpatient. If you have any further chest pain, shortness of breath, lightheadedness, dizziness please return to the hospital. Discharge Orders/Prescriptions Prescriptions: Continued atorvastatin 10 mg tablet 10 mg PO QHS Qty: 90 3RF carvedilol 3.125 mg tablet 3.125 mg PO BID 30 Days Qty: 180 3RF lisinopril 2.5 mg tablet 2.5 mg PO DAILY Qty: 90 3RF clopidogrel 75 mg tablet 75 mg PO DAILY 30 Days Qty: 90 3RF Patient Comments: on hold for the past 5 days as of 09/28/23 for lung biopsy aspirin 81 mg Tablet,Delayed Release (Dr/Ec) 81 mg PO DAILY 30 Days Qty: 30 0RF albuterol sulfate 90 mcg/actuation HFA aerosol inhaler 2 puff inhalation Q6H PRN (Reason: shortness of breath or wheezing) Qty: 8.5 3RF Rx Instructions: administer with spacer Referrals / Follow Up: Soledad Chawla MD [Med Staff - Active Staff] - Within 1 Month Care Physician,No Primary [Primary Care Provider] - Disposition Disposition (needs filled in before D/C Order can be placed): Home, Self Care Charges/Coding Visit Charges Inpatient E&M: 51885 Disch Hosp >30min
--- NOTE | 2023-09-29 14:34 | CASEMGMT ---
Pt RN states the pt does not need any additional oxygen and that the pt is doing great on RA. RN CM to room at this time, pt resting comfortably in bed. Pt states that she is comfortable and ready to DC home today. Pt denies SOB with ambulation and states that she does not require additional O2 at this time. Pt is 93% on RA currently. Pt states her son will drive her home at DC. Pt denies any further needs.
--- NOTE | 2023-09-29 15:35 | PHA.DC.MR.R ---
Pharmacy [place] Med Reconciliation Pharmacy Service has performed discharge medication reconciliation for this patient. The patient's discharge medication list was reviewed for discrepancies and discrepancies were resolved. Medications at Discharge Home Medications aspirin 81 mg tablet,delayed release 81 mg PO DAILY HEART HEALTH 30 days #30 tabs 07/08/23 atorvastatin 10 mg tablet 10 mg PO QHS CHOLESTEROL #90 tabs 08/11/23 carvedilol 3.125 mg tablet 3.125 mg PO BID HIGH BLOOD PRESSURE 30 days #180 tabs 08/11/23 clopidogrel 75 mg tablet 75 mg PO DAILY BLOOD THINNER 30 days #90 tabs 08/11/23 lisinopril 2.5 mg tablet 2.5 mg PO DAILY BLOOD PRESSURE #90 tabs 08/11/23 albuterol sulfate 90 mcg/actuation aerosol inhaler 2 puff inhalation Q6H PRN shortness of breath or wheezing #8.5 grams 09/21/23
[2023-09-29 15:55] VITALS: BP 106/58; PULSE 63; RESP 16; TEMP 36.6; O2SAT 92
--- NOTE | 2023-09-29 16:24 | CASEMGMT ---
Met with?patient to complete VALENZUELA form. VALENZUELA form explained to patient who voiced understanding and signed form. Original form placed in pt?s chart and copy provided to?patient. Michelle Ha, Discharge Planning Asst
== END 2023-09-29 16:46 | disposition home or self-care (01) ==
LOC: ED 11:37 → MS3 13:00
PROVIDERS: Admitting Provider Family Medicine; Emergency Provider Emergency Medicine; Visit Provider Family Medicine
DX: J95.811 Postprocedural pneumothorax (principal); J44.9 Chronic obstructive pulmonary disease, unspecified; F17.210 Nicotine dependence, cigarettes, uncomplicated; I10 Essential (primary) hypertension; R00.0 Tachycardia, unspecified; R09.02 Hypoxemia; Z79.82 Long term (current) use of aspirin; I25.10 Atherosclerotic heart disease of native coronary artery without angina pectoris; R91.1 Solitary pulmonary nodule; Z79.899 Other long term (current) drug therapy; Z79.02 Long term (current) use of antithrombotics/antiplatelets; I25.2 Old myocardial infarction; R91.8 Other nonspecific abnormal finding of lung field; Z95.5 Presence of coronary angioplasty implant and graft
CPT/HCPCS: 32551; 36415; 71045; 71046; 77012; 80048; 82962; 84484; 85025; 85610; 85730; 88305; 88341; 88342; 93005; 94668; 96374; 96375; 99156; 99157; 99221; 99252; 99284; 99406; J7050; A4216; C2613; G0378; G0463; J2405

== ENCOUNTER → 2023-10-04 | Outpatient (CLI) | payer MEDICARE, SELFPAY ==
--- NOTE | 2023-10-04 07:30 | PET_ITS ---
EXAMINATION: FDG PET CT HISTORY: 68-year-old female with history of primary lung carcinoma presenting for initial staging examination. COMPARISON EXAMINATION: None available INDEX LESION SIZE SUV INTERPRETATION Left upper lung, left upper lobe 20.3 mm 9.5 Quantitative criteria for viable neoplasm are fulfilled Left thoracic perihilum 17.5 mm 7.4 Quantitative criteria for viable neoplasm are fulfilled Left and right lobe hepatic parenchyma 11.9 mm 4.1, ratio > 2.0 Quantitative criteria for viable neoplasm are fulfilled Bilateral pelvic soft tissue adenopathy 27.2 mm 8.8 Quantitative criteria for viable neoplasm are fulfilled TECHNIQUE: Following the intravenous administration of 13.25 mCi of F-18 deoxyglucose, via the right hand, multiplanar image acquisitions of the neck, chest, abdomen and pelvis to the level of mid thigh, obtained at one hour post radiopharmaceutical administration contemporaneously interpreted with the current CT of the neck, chest, abdomen and pelvis to the level of mid thigh, dated 10/04/2023 via coregistration reveals: BLOOD GLUCOSE LEVEL:?136 mg/dL?HEIGHT:?63 inches?WEIGHT: 153 lbs. FINDINGS: Head/Neck: There is no evidence of abnormal increased glucose metabolism in the pharyngeal mucosal space, parapharyngeal space, bilateral-lateral and anterior neck, hypopharynx and distribution of the larynx. Symmetric strap muscle tension artifact is defined. The visualized portion of the cerebral cortical-subcortical structures demonstrate symmetric and preserved glucose metabolism. CHEST: Increased radiopharmaceutical concentration is defined in the left mid lung field-left upper lobe. The calculated maximum standard uptake value is 9.5. The maximal axial diameter of the corresponding metabolic abnormality is 20.3 mm. Facilitated FDG concentration is demonstrated in the left thoracic perihilum generating a calculated maximum standard uptake value of 7.4. The maximal axial diameter of the largest metabolic abnormality is 17.5 mm transverse. The left ventricular myocardium demonstrates uniform distribution of the radiotracer consistent with the FED state. Pertinent chest CT findings are as follows. Bilateral axillary and additional mediastinal structures are nonglucose avid. Atherosclerotic calcification is noted in the thoracic aorta without evidence of aneurysm. Coronary arterial calcification is observed. Emphysematous changes are defined in the bilateral upper lung zones. Abdomen/Pelvis: Enhanced glucose metabolism is identified in the left and right lobe of the hepatic parenchyma (3.5) involving segments III and . The calculated maximum standard uptake value is 4.1 with a lesion to liver background ratio greater than 2.0. The most conspicuous metabolic abnormality demonstrates a maximal axial diameter of 11.9 mm. There is increased uptake noted in the left and right lower pelvic mesentery associated with the region of the vagina and external-internal iliac and obturator lymph node distribution, the distal rectal vault. The calculated maximum standard uptake value is 8.8 with the largest metabolic-morphologic abnormality demonstrating a maximal axial diameter of 27.2 mm. Normal physiologic uptake is noted in the splenic parenchyma. There is symmetric demonstration of the right and left kidneys, normal uptake in the urinary bladder and visualized intestinal tract. Review of CT of the abdomen and pelvis reveals the following. Right and left inguinal soft tissue densities are nonglucose avid. Cyst formation is defined in the right kidney with a maximal axial diameter of 57.8 mm. Atherosclerotic calcification is noted in the abdominal aorta without evidence of aneurysm formation. Pelvic arterial calcification is defined. Colonic diverticulosis is noted without evidence of diverticulitis. Right and left inguinal soft tissue densities with express fatty hilus are metabolic. SKELETAL: Degenerative changes defined in the axial skeleton demonstrate no evidence of increased tracer uptake. PET/PET/CT Tumor Base -Thigh Init IMPRESSION: 1. ABNORMAL EXAMINATION INDICATIVE OF MALIGNANT VIABLE NEOPLASM. 2. Facilitated uptake noted in the left upper lung field, left upper lobe fulfills quantitative criteria for malignant transformation. 3. The left thoracic perihilar focus fulfills quantitative criteria for viable metastatic involvement. 4. Accentuated glucose concentration visualized in the left and right lobe of the hepatic parenchyma fulfill quantitative criteria for viable hepatic neoplastic disease. 5. Pelvic adenopathy fulfills quantitative criteria for viable neoplasm. Electronic Signature Cooper Mosley D.O. Accurate Quantification of SUVs for this report are calculated using the exclusive [employer]. (U.S. Patent No. [phone] B2 [phone] [place] patent [phone]). Standardization and correction of the FDG SUV metric via [employer] technology allow for vendor non-specific objective quantitative examination comparison and optimization of the sensitivity and specificity of the FDG PET-CT examination. . [email or web address] Electronically Signed: Cooper Mosley DO at 14:11 EST ,
== END | disposition home or self-care (01) ==
PROVIDERS: Referring Provider Nurse Practitioner Acute Care; Visit Provider Nurse Practitioner Acute Care
DX: C34.12 Malignant neoplasm of upper lobe, left bronchus or lung (principal)
CPT/HCPCS: 78815; A9552

== ENCOUNTER → 2023-10-14 | Outpatient (CLI) | payer MEDICARE, SELFPAY ==
--- NOTE | 2023-10-14 15:53 | MRI_ITS ---
STUDY: MRI BRAIN WITH AND WITHOUT CONTRAST REASON FOR EXAM: Female, 68 years old. STAGING NSCLC TECHNIQUE: Standardized multiplanar fat and water weighted pulse sequences were obtained. IV 15ml Clariscan was administered for the contrast portion of the examination. COMPARISON: None. FINDINGS: Normal size of the ventricles and extra-axial spaces for the patient''s age. Normal white matter tracts of the supratentorial brain. There is no evidence for recent intracranial ischemia or other cause of cytotoxic edema on diffusion weighted imaging (DWI). Normal T2* images of the brain without demonstrated susceptibility artifact. There is no demonstrated hemosiderin stain. Normal bilateral basal ganglia. Normal thalami. There is no extra-axial fluid accumulation. Normal flow voids within the major intracranial circulation suggesting patency by spin echo criteria. Normal venous enhancement. There is no enhancing intra-axial or extra-axial abnormality. Normal sella turcica, pituitary gland, infundibular stalk, optic chiasm and hypothalamus. Normal tectal plate and pineal gland. Normal midbrain, miladis and medulla. Normal cerebellum. Normal basal cisterns. There is mild chronic otomastoiditis of the bilateral temporal bones. Normal bilateral internal auditory canals. No demonstrated orbital abnormality, within the constraints of a routine brain study. Normal visualized paranasal sinuses. Normal calvarium and skull base. Normal visualized soft tissue structures. Normal visualized upper cervical spine. MRI/Brain W/WO Contrast IMPRESSION: Normal unenhanced and enhanced MRI of the brain. No MR evidence of metastatic disease. Electronically Signed: Cooper Martinez MD at 19:34 EST ,
== END | disposition home or self-care (01) ==
LOC: MRI 15:50
PROVIDERS: Referring Provider Internal Medicine Hematology & Oncology; Visit Provider Internal Medicine Hematology & Oncology
DX: C34.12 Malignant neoplasm of upper lobe, left bronchus or lung (principal)
CPT/HCPCS: 70553; A9575

== ENCOUNTER → 2023-10-17 | Outpatient (CLI) | payer MEDICARE, SELFPAY ==
[2023-10-17] VITALS (16 sets, daily range): BP systolic 111–151; BP diastolic 58–72; PULSE 66–76; RESP 15–18; TEMP 36.3; O2SAT 92–98; BMI 28.0
--- NOTE | 2023-10-17 | LIVB_PTH ---
PATHOLOGY RESULTS PATIENT: LEONOR RICKETTS LOC: CT U#:[id number] AGE/SX: 68/F ROOM: RE10/17/[address]: Dr. David Bradley MD : 1955 BED: DIS: 10/17/2023 SPEC #: [id number] RECD: 10/17/23 10:55 STATUS: RADHA BELL #: [id number] JORGE ALBERTO: 10/17/23 00:[address]: David Bradley DEPT: SURGICAL PATHOLOGY RECD BY: Aria Perez ENTERED: 10/17/23 10:55 SP TYPE: LIVER BX OTHR DR: No Primary Care Phys Tissues: Liver, NOS Procedures: Special Stain Group II Surgery Specimen Level V Imprint (control) HEADER OPERATION: Liver lesion, CT-guided core biopsy PRE-OP DIAGNOSIS: Liver lesion TISSUE SUBMITTED: Liver 18-gauge x6 MICROSCOPIC DIAGNOSIS Liver, CT-guided core biopsy: Metastatic non-small cell carcinoma, favor squamous cell carcinoma. See comment. JOSLYN:hollis 10/18/2023 COMMENT The specimen is evaluated at the time of biopsy by Dr. Chaves. Immediate Evaluation = Malignant cells present derived from non-small cell carcinoma. Immunohistochemistry ([id number]) supports the above diagnosis. Molecular studies on the tumor can be performed if clinically indicated. Please notify the laboratory if they are needed. Please make reference to previous specimen ([id number]) left lung nodule, CT-guided core biopsy with diagnosis of non-small cell carcinoma, favor squamous cell carcinoma. Slides are reviewed again, tumors in lung and liver show similar morphology. Case has been reviewed in consultation with Dr. Wang who concurs with the above diagnosis. IDC:AM MICROSCOPIC DESCRIPTION Slides are reviewed. GROSS DESCRIPTION Received in fixative is one container labeled with the patient's name and designated liver. The specimen consists of multiple irregular fragments of terry soft tissue that in aggregate measure 1.0 x 0.2 x 0.1 cm. The specimen is totally submitted in one cassette. Three touch imprints are prepared at the time of core biopsy. / JOSLYN:hollis 10/17/2023 TC:0 CPT: 79413, 08044
--- NOTE | 2023-10-17 | IMM_PTH ---
PATHOLOGY RESULTS PATIENT: LEONOR RICKETTS LOC: CT U#:[id number] AGE/SX: 68/F ROOM: RE10/17/[address]: Dr. David Bradley MD : 1955 BED: DIS: 10/17/2023 SPEC #: [id number] RECD: 10/18/23 10:15 STATUS: RADHA REQ #: [id number] JORGE ALBERTO: 10/17/23 00:[address]: David Bradley DEPT: IMMUNOHISTOCHEMISTRY RECD BY: Amarilis Danielson ENTERED: 10/18/23 10:17 SP TYPE: IMMUNO OTHR DR: No Primary Care Phys Tissues: Liver, NOS Procedures: Synapto (add) RCC (add) NAPSIN A (add) CD56 (add) CHROMO (add) CK20 (add) CK5-6 (add) CK7 (add) CK8 (add) HEP PAR (add) TX (add) TTF1 (add) Pankeratin (add) P40 (add) ER (initial) PHYSICIAN & [address] [address] SPECIMEN INFORMATION: Tissue Source: Liver Clinical Info: Liver lesion Specimen Number: [id number] CPT code: 50952, 72405 x14 METHODOLOGY: Deparaffinized sections of prefer/formalin-fixed tissue or PAP/DQ stained slides are incubated with monoclonal/polyclonal antibodies/oligonucleotide probes. Localization is made via biotin free immunoperoxidase method. Appropriate controls are performed and reacted as expected. Results on target cell population are indicated in the following table: RESULTS: ANTIBODY / CLONE RESULT ER (6F11) negative TX (1E2) negative AE1-3 (AE1/AE3/PCK26) positive, weak and focal CK7 (OV-TL12/30) negative CK8 (85sthrK49) negative CK20 (KS20.8) negative CD56 (123C3.D5) negative Chromo (LK2H10) negative Synapto (polyclonal) negative TTF-1 (8G7G3/1) negative Napsin A (Rabbit Polyclonal) negative HepPar (OCh1E5) negative RCC (PN-15) negative CK5-6 (D5 & 1684) positive P40 (BC28) positive These tests were developed and their performance characteristics determined by [facility]. They may not have been cleared or approved by the U.S. Food and Drug Administration. The FDA has determined that such clearance or approval is not necessary. The above immunohistochemical/dualISH markers are ordered and reviewed by the Pathologist. INTERPRETATION: Liver, CT-guided core biopsy: Metastatic non-small cell carcinoma, favor squamous cell carcinoma. SJ:hollis 10/19/2023
[2023-10-17 09:21] LABS: Absolute Lymphocyte Count 2.82 X10^3/uL (0.83-4.51); Absolute Neutrophil Count 8.4 X10^3/uL (2.0-7.7); Basophil# 0.06 X10^3/uL; Basophil% 0.5 % (0-1); Eosinophil# 0.16 X10^3/uL; Eosinophils% 1.3 % (0-5); Hematocrit 41.1 % (37-47); Hemoglobin 12.8 g/dL (12.0-15.0); Lymphocyte # 2.82 X10^3/ul (0.83-4.51); Lymphocyte % 22.8 % (19-41); Mean Corp Hgb Conc 31.1 g/dL (32-36); Mean Corpuscular Hgb 30.1 pg (27.0-32.0); Mean Corpuscular Volume 96.7 fL (81-99); Mean Platelet Vol. 10.6 fl (6.2-12.0); Monocyte# 0.85 X10^3/uL; Monocyte% 6.9 % (0-10); NRBC Flagged by Analyzer 0 % (0-5); Neutrophil # 8.41 X10^3/uL (2.7-7.7); Platelet Count 335 K/mm3 (150-450); RBC Distribution Width CV 14.8 % (11.6-14.6); RBC Distribution Width SD 52.9 fl (35.1-43.9); Red Blood Count 4.25 M/mm3 (4.2-5.4); White Blood Count 12.4 K/mm3 (4.4-11.0)
[2023-10-17 09:28] LABS: Partial Thromboplast Time 32.1 Seconds (24.1-36.2); Prothrombin Time (Protime)PT. 13.2 SECONDS (11.7-14.9)
[2023-10-17] MEDS: 0.9% Normal Saline (250mL Bag) 250 ML 15 ML IV (10:11)
[2023-10-17] MEDS: Midazolam 2 MG/2 ML Syringe IV ×2 (10:12→10:27)
[2023-10-17] MEDS: fentaNYL 100 MCG/2 ML Ampul IV (10:13)
[2023-10-17] MEDS: Lidocaine 2% (20 ml mdv) 20 ML Vial INFILT (10:32)
--- NOTE | 2023-10-17 10:57 | PCM.OP.PRO ---
Procedure Report Date of Procedure: 10/17/23 Assessment & Plan Assessment/Plan (1) Metastasis to liver: PLAN: PROCEDURE: CT DIRECTED CORE LIVER BIOPSY ORDERING PROVIDER: Dr. Bradley INDICATION: Female, 68 years old. Liver lesion. PROVIDER: JONAH Corea CONSENT: Written informed consent was obtained having explained the risks, benefits and alternatives in detail with the patient who accepted the risks and agreed to proceed. Laboratory review and clinical assessment was performed. PRE-PROCEDURE SEDATION ASSESSMENT: Current history and physical dictated by referring provider and reviewed. No clinical changes since date of exam. Patient has an ASA Class of 2. PROCEDURAL SEDATION PROTOCOL: The Drugs used were: 2 mg Versed, IV, and 50 mcg Fentanyl, IV. The sedation time was: 32 minutes, starting at 1012 and terminated at 1044. The procedural sedation protocol was independently monitored by the department nurse. RADIATION DOSAGE (If Supplied By Facility): CTDIvol = 16.76 mGy, DLP = 350.62 mGycm Individualized dose optimization techniques were used for this CT. TECHNIQUE: The patient was placed in a supine position. Using CT image guidance with image documentation, the lesion in the left lobe of the liver was identified. The skin surface was prepped with betadine and draped in a sterile fashion. 2% lidocaine was used for local anesthesia. Using a anterior approach, puncture of the liver was uneventful with an 18-gauge core needle system. 6, 18-gauge core samples were obtained. Pathology was present for review of the specimens and slide preparation/collection in formalin. The needle was removed. An occlusive sterile dressing was applied. Patient tolerated the procedure well, and [facility] nursing monitoring. IMPRESSION: 1. CT directed core needle biopsy of the liver, using CT image guidance with image documentation as described. 2. Procedural Sedation protocol utilized with independent monitoring. Procedures Radiology Radiology CT Procedures: 59775 Biopsy Liver
== END | disposition home or self-care (01) ==
PROVIDERS: Referring Provider Internal Medicine Hematology & Oncology; Visit Provider Internal Medicine Hematology & Oncology
DX: C78.7 Secondary malignant neoplasm of liver and intrahepatic bile duct (principal); C34.12 Malignant neoplasm of upper lobe, left bronchus or lung; C77.9 Secondary and unspecified malignant neoplasm of lymph node, unspecified
CPT/HCPCS: 47000; 36415; 77012; 85025; 85610; 85730; 88307; 88313; 88341; 88342; 99156; 99157; J7050

== ENCOUNTER → 2023-11-03 | Outpatient (CLI) | payer MEDICARE, SELFPAY ==
[2023-11-03 11:56] LABS: Anion Gap 3 (5-15); BUN 10 mg/dL (7-18); BUN/Creat Ratio 12.1 RATIO (10-20); Calcium,Total 9.3 mg/dL (8.5-10.1); Chloride 108 mmol/L (98-107); Creatinine, Serum 0.83 mg/dL (0.55-1.02); EST Glomerular Filtration Rate 73 mL/min (>60); Est Glom Filt Rate - Afr Amer 89 mL/min (>60); Glucose 88 mg/dL (74-106); Potassium 3.5 mmol/L (3.5-5.1); Sodium Level 138 mmol/L (136-145)
== END | disposition home or self-care (01) ==
LOC: LAB 10:39
PROVIDERS: Referring Provider Internal Medicine Cardiovascular Disease; Visit Provider Internal Medicine Cardiovascular Disease
DX: C34.90 Malignant neoplasm of unspecified part of unspecified bronchus or lung (principal); J44.9 Chronic obstructive pulmonary disease, unspecified; I51.9 Heart disease, unspecified; I10 Essential (primary) hypertension; I25.10 Atherosclerotic heart disease of native coronary artery without angina pectoris
CPT/HCPCS: 36415; 80048

== ENCOUNTER 2023-11-08 05:48 | Day surgery (SDC) | payer MEDICARE, SELFPAY ==
[2023-11-08] VITALS (11 sets, daily range): BP systolic 93–149; BP diastolic 52–70; PULSE 66–78; RESP 12–18; TEMP 36.4–36.9; O2SAT 89–97; BMI 27.3
[2023-11-08] MEDS: Lactated Ringers 1,000 ML 15 ML IV (06:44)
--- NOTE | 2023-11-08 07:02 | PCM.HP.BLA ---
History and Physical Date of Admission: 11/08/23 Date of Service: 11/01/23 MR#: [id number] Acct: [id number] Name: LEONOR RICKETTS Rep #: [id number] : 1955 Provider: Dr. Kamila Taylor MD Age/Sex: 68/F Location: [facility] Status: Signed Intake Vital Signs 10/20/2410:30 10/26/2412:48 11/01/2413:50 Height 5 ft 3 in 5 ft 3 in 5 ft 3 in Weight: 154 lb 154 lb BMI 27.3 27.3 BP 135/75 H 118/75 Blood Pressure Location Lt brachial Rt brachial Position Sitting Sitting Respiration 18 17 Pulse 77 81 Pulse Source NIBP Monitor Pulse Oximetry (%) 97 Oxygen Delivery Method room air Intake Visit Reasons: PORT PLACEMENT Chief Complaint: port placement Is patient in pain?: No Allergies No Known Allergies Allergy (Verified 11/01/23 14:51) Medications aspirin 81 mg tablet,delayed release 81 mg PO DAILY HEART HEALTH 30 days #30 tabs 07/08/23 [Rx Confirmed 11/01/23] atorvastatin 10 mg tablet 10 mg PO QHS CHOLESTEROL #90 tabs 08/11/23 [Rx Confirmed 11/01/23] carvedilol 3.125 mg tablet 3.125 mg PO BID HIGH BLOOD PRESSURE 30 days #180 tabs 08/11/23 [Rx Confirmed 11/01/23] clopidogrel 75 mg tablet 75 mg PO DAILY BLOOD THINNER 30 days #90 tabs 08/11/23 [Rx Confirmed 11/01/23] albuterol sulfate 90 mcg/actuation aerosol inhaler 2 puff inhalation Q6H PRN shortness of breath or wheezing #8.5 grams 09/21/23 [Rx Confirmed 11/01/23] Disability Placard #1 ea 09/30/23 [Rx Confirmed 11/01/23] budesonide 1 mg/2 mL suspension for nebulization 1 mg (2 mL) inhalation BID #60 mL 09/30/23 [Rx Confirmed 11/01/23] dexamethasone 4 mg tablet 8 mg (2 x 4 mg) PO DAILY #6 tabs 10/24/23 [Rx Confirmed 11/01/23] lidocaine-prilocaine 2.5 %-2.5 % topical cream 1 applic topical ONCE PRN port access 30 days #30 grams 10/24/23 [Rx Confirmed 11/01/23] ondansetron 8 mg disintegrating tablet 8 mg PO Q8H PRN nausea and vomiting #30 tabs 10/24/23 [Rx Confirmed 11/01/23] ipratropium 0.5 mg-albuterol 3 mg (2.5 mg base)/3 mL nebulization soln 3 ml inhalation Q4-6H #180 mL 10/25/23 [Rx Confirmed 11/01/23] lisinopril 5 mg tablet 5 mg PO DAILY #90 tabs 10/26/23 [Rx Confirmed 11/01/23] PFSH Medical History Bronchitis Chest pain COPD (chronic obstructive pulmonary disease) Coronary artery disease Encounter for education Hypertension Left ventricular aneurysm Left ventricular systolic dysfunction (LVSD) Metastasis to liver Myocardial infarct Nicotine dependence Nicotine dependence, cigarettes, uncomplicated Regional lymph node metastasis present Smoker STEMI (ST elevation myocardial infarction) Surgical History H/O coronary angioplasty (~07/06/23) H/O tubal ligation History of liver biopsy History of lung biopsy Hx of cardiac catheterization (~07/06/23) Social History (Updated 10/26/23 @ 13:57 by Consuelo Pathak) household members: none Smoking Status: Current every day smoker tobacco type: cigarettes Tobacco: How many years used: 55 quit status: considering quitting alcohol intake: never substance use type: does not use caffeine: Yes Type: carbonated beverages Number of servings: 1 HPI HPI HPI: 68-year-old female presents for port insertion due to metastatic primary lung cancer. Patient is planning to start her treatment on 11/08/2023. Patient is on aspirin and Plavix. Per cardiology okay to hold the Plavix for 3 days would prefer patient to stay on the aspirin. ROS General General: Yes weight change; No appetite, fatigue, colon cancer, breast cancer or weakness HEENT HEENT: No difficulty swallowing, eye injury, eye surgery, swollen glands or hoarseness Endo Endocrine: No thyroid disease, diabetes mellitus, thyroid cancer, Hair loss, heat intolerance or cold intolerance Skin Skin: No rash or changing moles Musc Musculoskeletal: No back problems, arthritis, rheumatoid arthritis, gout or joint pain Cardio Cardiovascular: Yes heart attack; No murmur, pacemaker, heart disease, atrial fibrillation, high blood pressure, heart stent, palpitations, shortness of breat with exertion or chest pain Psych Psychiatric: No depression, anxiety or hearing voices Resp Respiratory: No shortness of breath, No sleep apnea, Yes cough, Yes COPD, Yes asthma, No emphysema and No wheezing Gastro Gastrointestinal: No abdominal pain, No nausea or vomiting, No diarrhea, No constipation, No blood in stool, No acid reflux, No hemorrhoids, No ulcers, No gallbladder problem and No black,tarry stools Jonathon Hematologic: Yes blood thinners, No blood disorders, No bleeding, No anemia and No blood clots Neuro Neurologic: No system reviewed and no additional complaints, except as documented, No as per HPI, No abnormal gait, No abnormal hearing, No abnormal movements, No abnormal speech, No behavioral changes, No burning sensations, No confusion, No convulsions, No disequilibrium, No dizziness, No localized weakness, No frequent falls, No headache(s), No lack of coordination, No loss of vision, No memory loss, No numbness, No other visual disturbances, No radicular pain, No restless legs, No sensory deficit, No syncope, No tingling, No tremor(s), No weakness and No other Exam Const General: cooperative, healthy appearing, comfortable and no acute distress [facility] Head: normocephalic and atraumatic Neck Neck: supple Chest Other: Palpation of the bilateral upper chest normal Resp Effort & Inspection: normal respiratory effort Cardio Rate: regular rate GI Inspection: non-distended Skin General: no rashes or lesions noted Neuro General: CN's II-XI intact bilaterally Extrem General: normal to inspection Psych Mental Status: mental status grossly normal Attitude: cooperative Assessment and Plan Assessment and Plan (1) Encounter for insertion of venous access port: Status: Acute (2) Metastatic primary lung cancer: Status: Chronic Plan I have discussed above with the patient- Port-a-Cath placement. Right IJ possible left--will plan to be placed at 7:30 AM on 11/08 and will patient accessed for chemotherapy later that morning. Did discuss with Dr. Bradley. Patient has been counseled as to the risks/benefits of the procedure. I have explained the risks of the surgery, including but not limited to: infection, bleeding, injury to any blood vessels/nerves, injury to lungs (such as pneumothorax or hemothorax and need for chest tube), not having any access, nonfunctioning of port due to thrombosis, infection of port, etc. the patient understands and agrees to proceed. I have answered all the patient's questions to the patient?s satisfaction and the patient has no further questions. Kamila Taylor M.D. Pager: [phone] [facility] [address] [place] [address], [facility], [address] [place] [address] Office: [phone] Coding Level of Care Code Off vis,new,level 3 Diagnoses Encounter for insertion of venous access port Z45.2 Metastatic primary lung cancer C34.90 11/02/23 1715 <Electronically signed by Kamila Taylor MD> Date Kamila Taylor MD
[2023-11-08] MEDS: Cefazolin 2 GM in 0.9% Normal Saline (100mL Bag) 100 ML IV (07:30)
[2023-11-08] MEDS: Bupivacaine 0.5% PF 10 ML VIAL (07:44)
[2023-11-08] MEDS: Lidocaine 1% /Epi 1:100 (20ml) 20 ML Vial (07:44)
--- NOTE | 2023-11-08 08:12 | PCM.OPRPT ---
Report of Operation Date of Procedure: 11/08/23 Pre-Operative Diagnosis: z45.2, lung cancer Post-Operative Diagnosis: Same Surgery/Procedure Performed:: 1. Placement of right IJ Port-A-Cath 2. Use of ultrasound 3. Use of fluoroscopy Surgeon: Kamila Taylor Type of Anesthesia: MAC/Supplemental Anesthesiologist: Cheikh Ortiz Special Medications: Ancef 2 g IV x 1 Specimen's removed: None Estimated Blood Loss (mL): 5 cc Description of Procedure: After informed consent was given, the patient was brought to the operating room and placed in the supine position. Appropriate time out protocol was followed. Patient was then given IV conscious sedation for anesthesia. The patient's right upper chest and neck were then prepped with a surgical skin preparation and sterile surgical drapes were placed. After proper landmarks were ascertained, the skin at the upper right chest area was then infiltrated with 1:1 mixture of 1% lidocaine with epinephrine and 0.5% marcaine. A needle trocar was then inserted into the right internal jugular vein with ultrasound guidance-multiple vessels were viewed with u/s and the right IJ was chosen-- and there was good aspiration of venous blood. A wire was then threaded into the needle trocar and this was visualized under fluoroscopy to ensure that the wire was in the superior vena cava. Once this was done, then the needle trocar was removed. A small skin lauren was made with an 11 blade knife at the wire entrance site. The dilator with the introducer sheath attached was then placed over the wire into the right internal jugular vein via the Seldinger technique and this was visualized under fluoroscopy. The dilator and sheath were in proper position as visualized by fluoroscopy. A subcutaneous pocket was then created caudad to the catheter insertion site. A transverse skin incision was made after the skin and subcutaneous tissues were infiltrated with local anesthetic. Blunt dissection was then used to create a space large enough for placement of the subcutaneous port. The catheter was then tunneled into the subcutaneous pocket. The wire and dilator were then removed. The catheter was then threaded into the introducer sheath and was positioned with its tip at the junction of the superior vena cava and the right atrium as visualized under fluoroscopy. The excess catheter was transected. The catheter was then attached to the subcutaneous port using manufacturers guidelines. The catheter was flushed with a heparin saline mixture prior to placement. Hemostasis was carefully controlled with electrocautery. The port was sutured to the subcutaneous fascia using 2-0 Vicryl suture at two sites. The port was then placed in the subcutaneous pocket. The incision were reapproximated with interrupted subdermal 3-0 vicryl sutures. The skin was reapproximated with 3-0 nylon suture in a interrupted fashion. Steristrips were used for reinforcement of the skin closure at IJ insertion site. Catheter was accessed as patient is having chemotherapy this morning. The access catheter delon well and was flushed with heparin. A sterile opsite dressings were applied. The patient tolerated the procedure well. Grafts/Implants Used: [employer] PowerPort isp M.R.I. 6Fr Lot [id number] REF [id number]
--- NOTE | 2023-11-08 08:15 | DCINST_ITS ---
Discharge Instructions Procedure Port-A-Cath Diet Discharge Diet: Light diet - advance as tolerated Activity May shower in (days): 5 (Keep port site clean and dry x5 days. Neck incision okay to get wet after 1 day. Okay to lower shower and upper sponge bath. OR okay to taper off port site with a Ziploc bag to shower) Lifting Restrictions: No lifting > 15 pounds for 3 days with the arm on the side of the port Dressing / Incision Call your doctor if your incision/area has: Continuous Slow Oozing, Sudden Increased Bleeding, Increased Pain/ Swelling, Increased Redness, Foul Smelling Discharge and Swelling at the incision site Call your doctor if you observe: Fever of 101 or Higher Change Dressing in: 2 days (2-3 days- port site; ok to remove neck opsite in 1 day) Follow Up Care Please Follow Up With: Kamila Bergeron MD When: In 10 days for permanent suture removal?call office for appointment Test Results: Test results from this visit will be discussed in further detail at your follow- up appointment, if applicable. Discharge Plan Admission Attending Provider: Kamila Bergeron Primary Care Provider: Care PhysicianJessica Primary Discharge Orders/Prescriptions Prescriptions: New tramadol 50 mg tablet 50 mg PO Q6H PRN (Reason: pain) Qty: 5 0RF Continued atorvastatin 10 mg tablet 10 mg PO QHS Qty: 90 3RF carvedilol 3.125 mg tablet 3.125 mg PO BID 30 Days Qty: 180 3RF budesonide 1 mg/2 mL suspension for nebulization 1 mg inhalation BID Qty: 60 6RF Rx Instructions: rinse mouth after (DME) Disability Placard See Rx Instructions .ROUTE .MEDSUPPLY Qty: 1 0RF Rx Instructions: expires 09/30/2028 lidocaine-prilocaine 2.5-2.5 % cream 1 applic topical ONCE PRN (Reason: port access) 30 Days Qty: 30 2RF ondansetron 8 mg tablet,disintegrating 8 mg PO Q8H PRN (Reason: nausea and vomiting) Qty: 30 2RF dexamethasone 4 mg tablet 8 mg PO DAILY Qty: 6 3RF Patient Comments: post chemo aspirin 81 mg Tablet,Delayed Release (Dr/Ec) 81 mg PO DAILY 30 Days Qty: 30 0RF albuterol sulfate 90 mcg/actuation HFA aerosol inhaler 2 puff inhalation Q6H PRN (Reason: shortness of breath or wheezing) Qty: 8.5 3RF Rx Instructions: administer with spacer ipratropium-albuterol 0.5 mg-3 mg(2.5 mg base)/3 mL solution for nebulization 3 ml inhalation Q4-6H Qty: 180 6RF lisinopril 5 mg tablet 5 mg PO DAILY Qty: 90 3RF Held clopidogrel 75 mg tablet 75 mg PO DAILY 30 Days Qty: 90 3RF Hold Instructions: Resume on 11/09/23. Patient Comments: last dose 11/04/[address] bergeron Referrals / Follow Up: Care Physician,No Primary [Primary Care Provider] - Disposition Disposition (needs filled in before D/C Order can be placed): Home, Self Care
--- NOTE | 2023-11-08 08:25 | RAD_ITS ---
STUDY: X-RAY CHEST REASON FOR EXAM: Female, 68 years old. Port -- pacu TECHNIQUE: Single AP portable view of the chest. COMPARISON: Comparison is made with prior study dated September 29, 2023. FINDINGS: A right-sided Port-A-Cath has been placed with the tip at the junction of the superior vena cava and right atrium. Stable appearance of the left upper lobe irregular nodular density. There is no demonstrated pleural abnormality. Normal size heart. Normal mediastinum and rosemary. Normal visualized pulmonary arteries. There is atherosclerotic calcification of the aortic arch with tortuosity. Normal visualized thoracic spine. Normal visualized ribs, clavicles, and shoulders. There is no demonstrated abnormality of the visualized soft tissue structures of the upper abdomen. RAD/Chest 1 View (Portable) IMPRESSION: Status post right Port-A-Cath insertion. The tip is at the junction of the superior vena cava and right atrium. Stable spiculated nodule in the left upper lobe. Electronically Signed: Jaiden Fry MD at 8:52 EST ,
[2023-11-08] MEDS: Ipratropium/Albuterol Sulfate 3 ML AMPUL.NEB INHALATION (09:01)
--- NOTE | 2023-11-08 09:01 | CPS ---
aerosol treatment given by nurse
== END 2023-11-08 10:19 | disposition home or self-care (01) ==
LOC: SDC 05:50 → AC 05:53
PROVIDERS: Referring Provider Surgery; Visit Provider Surgery
PROC: (CPT 36561; principal; 2023-11-08 07:15)
DX: Z45.2 Encounter for adjustment and management of vascular access device (principal); C78.7 Secondary malignant neoplasm of liver and intrahepatic bile duct; C34.90 Malignant neoplasm of unspecified part of unspecified bronchus or lung; J44.9 Chronic obstructive pulmonary disease, unspecified; Z92.21 Personal history of antineoplastic chemotherapy; I10 Essential (primary) hypertension; F17.210 Nicotine dependence, cigarettes, uncomplicated; I25.10 Atherosclerotic heart disease of native coronary artery without angina pectoris; Z98.51 Tubal ligation status; I25.2 Old myocardial infarction; Z98.61 Coronary angioplasty status
CPT/HCPCS: 36561; 00532; 71045; 77001; 94640; J7120; J2405

== ENCOUNTER 2024-01-22 00:54 | Emergency (ER) | payer MEDICARE, SELFPAY ==
[2024-01-22 00:55] VITALS: BP 94/70; PULSE 108; RESP 16; TEMP 36.6; O2SAT 96; BMI 25.4
--- NOTE | 2024-01-22 01:07 | ED.VIS.GI ---
HPI HPI - GI History of Present Illness Chief Complaint: GI Bleed Informant: patient Abdominal Pain/Flank Pain Worsened by: Nothing Relieved by: Nothing Nausea/Vomiting/Emesis GI Symptom: Positive for Nausea and Vomiting Onset: Today Quality: Positive for - (Black emesis) Diarrhea/Melena/Hematochezia GI Symptom: Positive for Melena; Negative for Hematochezia Onset: Today Associated Symptoms Associated Symptoms: Negative for Dysuria, Frequency or Hematuria Narrative Narrative: Patient presents with nausea and vomiting that began today. Patient states that she was vomiting up black emesis. Patient also admits to black stools. Patient had recent chemotherapy 5 days ago. Patient was placed on a short course of Decadron and after her chemotherapy. Patient denies any fevers or chills. Patient admits to a mild cough. Patient denies any dysuria, frequency, or hematuria. Patient denies any abdominal pain. Patient denies any chest pain or shortness of breath. Patient denies any lightheadedness or dizziness. [facility] Medical History Anemia Angular cheilitis Asthma Bronchitis Cancer Cardiology follow-up encounter Chest pain CINV (chemotherapy-induced nausea and vomiting) COPD (chronic obstructive pulmonary disease) Coronary artery disease Dehydration Encounter for chemotherapy management Encounter for education H/O pulmonary function tests High cholesterol History of echocardiogram History of heart attack Hypertension Hypokalemia Hypomagnesemia Left ventricular aneurysm Left ventricular systolic dysfunction (LVSD) Metastasis to liver Myocardial infarct Nicotine dependence Nicotine dependence, cigarettes, uncomplicated Oral candidiasis Post-menopausal Regional lymph node metastasis present Smoker STEMI (ST elevation myocardial infarction) Wears dentures Wears glasses Home Medications aspirin 81 mg tablet,delayed release 81 mg PO DAILY HEART HEALTH 30 days #30 tabs 07/08/23 [Rx Last Taken 11/07/23] atorvastatin 10 mg tablet 10 mg PO QHS CHOLESTEROL #90 tabs 08/11/23 [Rx Last Taken 09/27/23] carvedilol 3.125 mg tablet 3.125 mg PO BID HIGH BLOOD PRESSURE 30 days #180 tabs 08/11/23 [Rx Last Taken 11/08/23] clopidogrel 75 mg tablet 75 mg PO DAILY BLOOD THINNER 30 days #90 tabs 08/11/23 [Rx Last Taken 11/04/23] albuterol sulfate 90 mcg/actuation aerosol inhaler 2 puff inhalation Q6H PRN shortness of breath or wheezing #8.5 grams 09/21/23 [Rx Last Taken 11/08/23] Disability Placard #1 ea 09/30/23 [Rx Last Taken Unknown] dexamethasone 4 mg tablet 8 mg (2 x 4 mg) PO DAILY #6 tabs 10/24/23 [Rx Last Taken Unknown] lidocaine-prilocaine 2.5 %-2.5 % topical cream 1 applic topical ONCE PRN port access 30 days #30 grams 10/24/23 [Rx Last Taken Unknown] ondansetron 8 mg disintegrating tablet 8 mg PO Q8H PRN nausea and vomiting #30 tabs 10/24/23 [Rx Last Taken Unknown] ipratropium 0.5 mg-albuterol 3 mg (2.5 mg base)/3 mL nebulization soln 3 ml inhalation Q4-6H #180 mL 10/25/23 [Rx Last Taken Unknown] lisinopril 5 mg tablet 5 mg PO DAILY #90 tabs 10/26/23 [Rx Last Taken 11/08/23] nystatin 100,000 unit/gram topical ointment 1 applic topical BID #30 grams 11/22/23 [Rx Last Taken Unknown] nystatin 100,000 unit/mL oral suspension 5 ml PO Q6H #473 mL 11/22/23 [Rx Last Taken Unknown] prochlorperazine maleate 10 mg tablet 10 mg PO Q6H PRN nausea and vomiting #30 tabs 12/27/23 [Rx Last Taken Unknown] budesonide 1 mg/2 mL suspension for nebulization 1 mg (2 mL) inhalation BID #120 mL 01/16/24 [Rx Last Taken Unknown] potassium chloride 20 mEq tablet,extended release(part/cryst) 40 meq (2 x 20 mEq) PO DAILY #6 tabs 01/17/24 [Rx Last Taken Unknown] Allergy/AdvReac Type Severity Reaction Status Date / Time No Known Allergies Allergy Verified 01/22/24 00:55 Surgical History H/O coronary angioplasty (~07/06/23) H/O tubal ligation History of liver biopsy History of lung biopsy Hx of cardiac catheterization (~07/06/23) Hx of tooth extraction Social History household members: none Smoking Status: Current every day smoker tobacco type: cigarettes Tobacco: How many years used: 55 quit status: considering quitting alcohol intake: never substance use type: does not use caffeine: Yes Type: carbonated beverages Number of servings: 1 ROS ROS ED Constitutional Constitutional ED: Denies chills or fever(s) Eyes Eyes: Denies blurry vision or change in vision ENT ENT ED: Denies rhinorrhea or sore throat Cardiovascular Cardiovascular: Denies chest pain or palpitations Respiratory/Chest Respiratory/Chest: Reports cough; Denies dyspnea Gastrointestinal Gastrointestinal: Reports melena, nausea and vomiting; Denies abdominal pain Genitourinary Genitourinary ED: Denies dysuria or hematuria Musculoskeletal Musculoskeletal: Denies back pain or neck pain Integumentary Denies abscess or rash Neurologic Neurologic: Denies headache(s) or weakness Allergic/Immunologic Allergic/Immunologic ED: Denies mouth swelling or urticaria EXAM Physical Exam Const Vital Signs: 01/22/24 00:55 01/22/24 02:55 01/22/24 03:11 Temperature 97.9 F 98.2 F Temperature Source Oral Oral Pulse Rate 108 H 96 96 Respiratory Rate 16 19 H 16 Blood Pressure 94/70 90/55 L 90/55 L Blood Pressure Mean 78 66 66 Pulse Ox 96 95 94 Oxygen Delivery Method Room Air Room Air Room Air 01/22/24 04:00 01/22/24 06:00 Temperature Temperature Source Pulse Rate 103 H 98 Respiratory Rate 19 H 18 Blood Pressure 108/75 130/75 H Blood Pressure Mean 86 93 Pulse Ox 94 94 Oxygen Delivery Method Room Air Room Air Positive well nourished and well developed General Appearance ED: well developed and NAD HEENT Reports moist mucous membranes normocephalic Neck supple and no JVD Resp normal respiratory effort and clear to auscultation bilaterally Cardio regular rate and regular rhythm GI non-tender and non-distended Palpation: soft Rectal Exam: visual inspection normal, normal sphincter tone and other Other Details: There is black stool. This was sent for Hemoccult. ; Negative for tenderness Neuro CN's II-XII intact bilaterally, moves all extremities and no sensory deficits noted Sensorium / Orientation: alert Motor Exam: strength 5/5 throughout Psych mental status grossly normal and thought process normal MDM MDM MDM Narrative Medical decision making narrative: Differential diagnosis includes gastrointestinal bleeding, viral illness, chemotherapy-induced nausea and vomiting, electrolyte abnormality, peptic ulcer disease, coagulopathy, and gastritis. CBC will be obtained to assess for leukocytosis and anemia. Comprehensive metabolic profile will be obtained to assess for hepatic function, renal function, and electrolyte abnormality. PT was INR and PTT will be obtained to assess for coagulopathy. Urinalysis will be obtained to assess for urinary tract infection and hematuria. Stool for occult blood will be obtained to assess for gastrointestinal bleeding. Lab Data Attestation: I reviewed the patient's lab results. Lab results narrative: CBC was reviewed. There is a leukocytosis of 32.6. This is likely due to the chemotherapy and Decadron after chemotherapy. Hemoglobin was slightly low at 10.9 and hematocrit was 33.6. These are actually unchanged compared to previous results. Platelets are normal. PT was INR and PTT were obtained and were within normal limits. Comprehensive metabolic profile was reviewed. BUN was elevated at 51 and creatinine was 1.35. These are increased from previous result. Urinalysis was reviewed. Leukocyte esterase was 500 with 5-10 white blood cells and 3+ bacteria. Labs: Laboratory Results - last 24 hr 01/22/24 01/22/24 01:17 01:52 WBC 32.6 H* RBC 3.22 L Hgb 10.9 L Hct 33.6 L MCV 104.3 H MCH 33.9 H MCHC 32.4 RDW Std Deviation 78.0 H RDW Coeff of Fidel 20.6 H Plt Count 330 MPV 11.1 Neut % (Auto) Not Reportable Absolute Neuts (auto) 28.4 H Absolute Lymphs (auto) 3.26 Total Counted 100 Neutrophils % (Manual) 85 H Band Neutrophils % 2 Lymphocytes % (Manual) 9 L Myelocytes % 4 H Differential Comment SCANNED Diff Path Review May foll Anisocytosis 2+ Stomatocytes RARE PT 14.0 INR 1.1 APTT 29.9 Sodium 131 L Potassium 4.4 Chloride 93 L Carbon Dioxide 29.0 Anion Gap 9 BUN 51 H Creatinine 1.35 H Estim Creat Clear Calc 37.22 Est GFR (MDRD) Af Amer 50 L Est GFR (MDRD) Non-Af 42 L BUN/Creatinine Ratio 37.8 H Glucose 116 H Calcium 9.4 Total Bilirubin 0.50 AST 12 L ALT 16 Alkaline Phosphatase 127 H Total Protein 7.3 Albumin 3.5 Globulin 3.8 Albumin/Globulin Ratio 0.9 Urine Color Yellow Urine Clarity Cloudy Urine pH 5.0 Ur Specific Salol 1.025 Urine Protein 30 H Urine Glucose (UA) Normal Urine Ketones Negative Urine Occult Blood 10 H Urine Nitrite Negative Urine Bilirubin 3 H Urine Urobilinogen 1 H Ur Leukocyte Esterase 500 H Urine RBC 0 SEEN Urine WBC 5-10 SEEN Ur Squamous Epith Cells 0-5 SEEN Urine Bacteria 3+ Urine Mucus 0 SEEN Treatment and Re-Evaluation :: Patient was given IV fluids. Urine culture was ordered. Blood cultures were ordered. Patient was started on Rocephin. Patient was advised of the need for admission. Case was discussed with Dr. Carr who is on-call for general surgery since gastroenterology is not available at this time. He stated that since the patient was on Plavix and has not missed any doses, patient will need to be transferred since we do not have the ability to transfuse platelets here. Patient states she would prefer to be transferred to [place]. Case was discussed with hospitalist at [facility]. He did not feel patient warranted transfer there. [facility] had no beds available. Case was discussed with [facility] in [place]. Patient was excepted there. They will call back with a bed. Patient will be transferred there when a bed becomes available. Discharge Plan Triage Chief Complaint: GI Bleed ED Provider: Cheikh Shafer Dx/Rx/DC Orders Clinical Impression: Gastrointestinal bleed, Metastatic primary lung cancer, Urinary tract infection, Leukocytosis Prescriptions: No Action atorvastatin 10 mg tablet 10 mg PO QHS Qty: 90 3RF carvedilol 3.125 mg tablet 3.125 mg PO BID 30 Days Qty: 180 3RF clopidogrel 75 mg tablet 75 mg PO DAILY 30 Days Qty: 90 3RF Hold Instructions: Resume on 11/09/23. Patient Comments: last dose 11/04/[address] bergeron ([facility]) [place] See Rx Instructions .ROUTE .MEDSUPPLY Qty: 1 0RF Rx Instructions: expires 09/30/2028 lidocaine-prilocaine 2.5-2.5 % cream 1 applic topical ONCE PRN (Reason: port access) 30 Days Qty: 30 2RF ondansetron 8 mg tablet,disintegrating 8 mg PO Q8H PRN (Reason: nausea and vomiting) Qty: 30 2RF dexamethasone 4 mg tablet 8 mg PO DAILY Qty: 6 3RF Patient Comments: post chemo, takes 3 days after chemo, finished 01/21/24 nystatin 100,000 unit/gram ointment 1 applic topical BID Qty: 30 0RF nystatin 100,000 unit/mL suspension 5 ml PO Q6H Qty: 473 2RF Rx Instructions: swish and swallow prochlorperazine maleate 10 mg tablet 10 mg PO Q6H PRN (Reason: nausea and vomiting) Qty: 30 2RF potassium chloride 20 mEq tablet,ER particles/crystals 40 meq PO DAILY Qty: 6 0RF aspirin 81 mg Tablet,Delayed Release (Dr/Ec) 81 mg PO DAILY 30 Days Qty: 30 0RF albuterol sulfate 90 mcg/actuation HFA aerosol inhaler 2 puff inhalation Q6H PRN (Reason: shortness of breath or wheezing) Qty: 8.5 3RF Rx Instructions: administer with spacer ipratropium-albuterol 0.5 mg-3 mg(2.5 mg base)/3 mL solution for nebulization 3 ml inhalation Q4-6H Qty: 180 6RF lisinopril 5 mg tablet 5 mg PO DAILY Qty: 90 3RF budesonide 1 mg/2 mL suspension for nebulization 1 mg inhalation BID Qty: 120 11RF Rx Instructions: rinse mouth after Primary Care Provider: Care Physician,No Primary Referrals: Care Physician,No Primary [Primary Care Provider] - Disposition Disposition: Acute Care Hospital Discharge Location: [facility]
[2024-01-22 01:42] LABS: Hematocrit 33.6 % (37-47); Hemoglobin 10.9 g/dL (12.0-15.0); Mean Corp Hgb Conc 32.4 g/dL (32-36); Mean Corpuscular Hgb 33.9 pg (27.0-32.0); Mean Corpuscular Volume 104.3 fL (81-99); Mean Platelet Vol. 11.1 fl (6.2-12.0); POSITIVE COUNT YES; POSITIVE DIFFERENTIAL YES; POSITIVE MORPHOLOGY YES; Platelet Count 330 K/mm3 (150-450); RBC Distribution Width CV 20.6 % (11.6-14.6); Red Blood Count 3.22 M/mm3 (4.2-5.4)
[2024-01-22] MEDS: 0.9% Normal Saline (1000mL) 1,000 ML 1000 ML IV (01:44)
[2024-01-22 01:45] LABS: Differential Indicated MANUAL DIFF; White Blood Count 32.6 K/mm3 (4.4-11.0)
[2024-01-22 01:53] LABS: International Normalized Ratio 1.1; Partial Thromboplast Time 29.9 Seconds (24.1-36.2)
[2024-01-22 01:54] LABS: Mucous, Urine 0 SEEN /hpf (<or=2+); Red Blood Cells-Urine 0 SEEN /hpf (0-5)
[2024-01-22 01:58] LABS: Color, Urine Yellow (Yellow); Glucose, Dipstick Normal (Normal); Ketone-Dipstick Negative (Negative); Leukocyte Esterase-Dipstick 500 /ul (Negative); Nitrite-Dipstick Negative (Negative); Occult Blood-Urine 10 /ul (Negative); Protein-Dipstick 30 mg/dl (Negative); Specific Gravity, Urine 1.025 (1.002-1.030); Urine Clarity Cloudy (Clear); Urine Urobilinogen 1 mg/dl (Normal)
[2024-01-22 02:02] LABS: ALB/GLOB Ratio 0.9 RATIO (0.9-2.4); AST(SGOT) 12 U/L (15-37); Alanine Aminotransfer ALT/SGPT 16 U/L (13-56); Albumin, Serum 3.5 g/dL (3.2-5.0); Alkaline Phosphatase 127 U/L (45-117); Anion Gap 9 (5-15); BUN 51 mg/dL (7-18); BUN/Creat Ratio 37.8 RATIO (10-20); Calcium,Total 9.4 mg/dL (8.5-10.1); Chloride 93 mmol/L (98-107); Creatinine, Serum 1.35 mg/dL (0.55-1.02); EST Glomerular Filtration Rate 42 mL/min (>60); Est Glom Filt Rate - Afr Amer 50 mL/min (>60); Estimated Creatinine Clearance 37.22 ml/min; Globulin 3.8 g/dL (2.2-4.2); Glucose 116 mg/dL (74-106); Potassium 4.4 mmol/L (3.5-5.1); Protein, Total 7.3 g/dL (6.4-8.2); Sodium Level 131 mmol/L (136-145)
[2024-01-22 02:10] LABS: Bacteria 3+ /hpf (None Seen); Squamous Epithelial Cells - UA 0-5 SEEN /hpf (5-10); Urine Bilirubin Dipstick 3 mg/dL (Negative); White Blood Cells 5-10 SEEN /hpf (0-5)
[2024-01-22 02:19] LABS: Lymphocyte 9 % (19-41); Myelocyte 4 % (0-0); Neutrophil-Band 2 % (0-5); Neutrophil-Segmented 85 % (47-70); Total Cells Counted 100 (MANUAL DIFF)
[2024-01-22 02:21] LABS: Absolute Neutrophil Count 28.4 X10^3/uL (2.0-7.7); Differential Comment SCANNED
[2024-01-22 02:22] LABS: Absolute Lymphocyte Count 3.26 X10^3/uL (0.83-4.51); Anisocytosis 2+; Stomatocyte RARE
[2024-01-22 02:55] VITALS: BP 90/55; PULSE 96; RESP 19; O2SAT 95
[2024-01-22 03:11] VITALS: BP 90/55; PULSE 96; RESP 16; TEMP 36.8; O2SAT 94
[2024-01-22] MEDS: Ceftriaxone 1 GM/50 ML BAG IV (03:11)
[2024-01-22 04:00] VITALS: BP 108/75; PULSE 103; RESP 19; O2SAT 94
[2024-01-22 06:00] VITALS: BP 130/75; PULSE 98; RESP 18; O2SAT 94
--- NOTE | 2024-01-22 06:33 | NURSING ---
CALLED [facility] FOR A TRANSFER TO [facility]
--- NOTE | 2024-01-22 07:18 | NURSING ---
07[address] [facility], for dr davis
--- NOTE | 2024-01-22 07:30 | NURSING ---
[facility] 227 BED 2 NURSE TO NURSE [phone]
[2024-01-22 08:02] VITALS: BP 115/66; PULSE 99; RESP 18; TEMP 36.7; O2SAT 94
[2024-01-24 10:22] LABS: Pathologist Review Reviewed
== END 2024-01-22 08:04 | disposition short-term general hospital (02) ==
PROVIDERS: Emergency Provider Emergency Medicine; Visit Provider Emergency Medicine
DX: K92.2 Gastrointestinal hemorrhage, unspecified (principal); C34.90 Malignant neoplasm of unspecified part of unspecified bronchus or lung; J44.9 Chronic obstructive pulmonary disease, unspecified; N39.0 Urinary tract infection, site not specified; D72.829 Elevated white blood cell count, unspecified; F17.210 Nicotine dependence, cigarettes, uncomplicated; Z92.21 Personal history of antineoplastic chemotherapy; I25.10 Atherosclerotic heart disease of native coronary artery without angina pectoris; E78.00 Pure hypercholesterolemia, unspecified; I10 Essential (primary) hypertension; I25.2 Old myocardial infarction; Z79.82 Long term (current) use of aspirin; Z79.899 Other long term (current) drug therapy; Z79.02 Long term (current) use of antithrombotics/antiplatelets; Z79.51 Long term (current) use of inhaled steroids; Z98.61 Coronary angioplasty status; Z98.51 Tubal ligation status
CPT/HCPCS: 36415; 36591; 80053; 81001; 82274; 85025; 85610; 85730; 87040; 87086; 87088; 87186; 96361; 96365; 99283; J7030; A4216

== ENCOUNTER → 2024-01-31 | Outpatient (CLI) | payer MEDICARE, SELFPAY ==
--- NOTE | 2024-01-31 15:10 | CT_ITS ---
EXAM: CT CHEST AND ABDOMEN WITH INTRAVENOUS CONTRAST CLINICAL INDICATION: F/U NSCLC IV CONTRAST ONLY TECHNIQUE: Helically acquired images were obtained of the chest and abdomen with intravenous contrast. This CT exam was performed using one or more of the following dose reduction techniques: automated exposure control, adjustment of the mA and/or kV according to patient size, and/or use of iterative reconstruction technique. CONTRAST: IV 100mL Isovue-370 COMPARISON: There are no old studies available for comparison. FINDINGS: CHEST: LUNGS AND PLEURAL SPACES: There is a very small slightly spiculated soft tissue in the right upper lobe and measures 0.9 x 0.6 x 0.6 cm. This is best seen series 602 image 215. No mass. No pleural effusion or thickening. No pneumothorax. HEART: Unremarkable. Heart size is normal. No pericardial effusion. MEDIASTINUM: Unremarkable. No mediastinal or hilar adenopathy. Esophagus is unremarkable. No hiatal hernia. THYROID: Unremarkable. No thyroid lesions. ABDOMEN: LIVER: Unremarkable. Homogeneous. No focal mass. GALLBLADDER AND BILE DUCTS: Unremarkable. No calcified gallstones. No gallbladder distention or wall edema. No intra- or extrahepatic biliary ductal dilation. PANCREAS: Unremarkable. No focal cystic or solid mass. SPLEEN: Unremarkable. Normal size without focal cystic or solid mass. ADRENALS: Unremarkable. No nodules. KIDNEYS AND URETERS: There is a large low-density mass right kidney compatible with a simple cyst. No follow-up imaging is necessary. STOMACH AND BOWEL: Unremarkable. No stomach or bowel distention. No focal inflammatory change. INTRAPERITONEAL SPACE: Unremarkable. No ascites or other fluid collection. No free air. CHEST and ABDOMEN: BONES/JOINTS: Unremarkable. No suspicious lytic or blastic abnormality. SOFT TISSUES: Unremarkable. No discrete abdominal wall hernia. VASCULATURE: There is an atypical appearance to the apex of the left ventricle with a low density structure present that measures 3.7 x 4.1 x 2.1 cm. This may possibly represent artifact or possibly thickening of the myocardium however a thrombus or mass is also a possibility. Further evaluation with echocardiography may be beneficial. Aorta is non-dilated. No aortic dissection. No obvious central pulmonary embolism although this study was not performed with the pulmonary embolism protocol. LYMPH NODES: Unremarkable. No enlarged lymph nodes. CT/CT Chest AND Abd W/ Contrast IMPRESSION: 1. Small slightly spiculated area soft tissue in the left upper lobe. No other pulmonary abnormalities are identified. 2. Low-density area seen apex of the left ventricle which may represent artifact, thrombus or a mass. Further evaluation with echocardiography is recommended. 3. No acute abnormalities in the abdomen. Electronically Signed: Jcarlos Eugene MD at 23:39 EDT ,
== END | disposition home or self-care (01) ==
LOC: CT 15:09
PROVIDERS: Referring Provider Internal Medicine Hematology & Oncology; Visit Provider Internal Medicine Hematology & Oncology
DX: C34.12 Malignant neoplasm of upper lobe, left bronchus or lung (principal); C78.7 Secondary malignant neoplasm of liver and intrahepatic bile duct; C77.9 Secondary and unspecified malignant neoplasm of lymph node, unspecified
CPT/HCPCS: 71260; 74160; Q9967; A4216

== ENCOUNTER → 2024-04-19 | Outpatient (CLI) | payer MEDICARE, SELFPAY ==
[2024-04-19 13:47] LABS: Amphetamine Urine VISTA NEGATIVE (<1000 ng/mL); Barbiturate Urine VISTA NEGATIVE (< 200 ng/mL); Benzodiazepine Urine VISTA NEGATIVE (< 200 ng/mL); Cocaine Urine VISTA NEGATIVE (< 300 ng/mL); Ecstacy Urine VISTA NEGATIVE (< 500 ng/mL); Methadone Urine VISTA NEGATIVE (< 300 ng/mL); PCP Urine VISTA NEGATIVE (< 25 ng/mL); THC Urine VISTA POSITIVE (< 50 ng/mL); Vista UDS pH Range 4
== END | disposition home or self-care (01) ==
PROVIDERS: Referring Provider Anesthesiology; Visit Provider Anesthesiology
DX: F11.20 Opioid dependence, uncomplicated (principal)
CPT/HCPCS: 80307

== ENCOUNTER → 2024-05-16 | Outpatient (CLI) | payer MEDICARE, SELFPAY ==
--- NOTE | 2024-05-16 13:54 | CT_ITS ---
HISTORY: mNSCLC; assess response to treatment. TECHNIQUE: Helically acquired images were obtained of the abdomen after the intravenous administration of 100mL Isovue-370. No oral contrast was administered. 2-D reformatted images provided. A radiation dose optimization technique was used for this scan. 1205 images. COMPARISON: 01/31/2024, 10/04/2023. FINDINGS: LARGE AIRWAYS: Patent. LUNGS: Mild emphysema with biapical scarring. Stable 2 mm left upper lobe nodule anteriorly on image 42/143. Stable 5 mm left upper lobe scar laterally on image 43/143. Unchanged 1 cm spiculated scar or residual left upper lobe mass on image 44/143. PLEURA: No pneumothorax or significant pleural effusion. HEART AND PERICARDIUM: Heart within normal limits in size, with unchanged appearance of wall thickening or filling defect in the left ventricle. No significant pericardial effusion. VESSELS: No thoracic aortic aneurysm or dissection flap. Atherosclerosis. No large central central pulmonary embolism although study not performed with the pulmonary embolism protocol. Right chest wall port with catheter tip in the superior cavoatrial junction. MEDIASTINUM AND ANA: No pathologically enlarged lymph nodes. BONES: Intact without suspicious osteoblastic or osteolytic lesion. Chronic segmentation anomaly at T3-4. BOWEL: Small gastric fundal diverticulum again seen. Bowel nondilated. Visualized proximal appendix unremarkable. Colonic diverticulosis without focal inflammatory change. PERITONEUM: 1.3 x 2.1 cm portal caval lymph node, prevascular 1.1 x 1.8 cm. New 1.4 x 2 cm aortocaval lymph node with mild mass effect on the inferior vena cava. No significant ascites. LIVER: No enhancing mass. 19.3 cm in length. GALLBLADDER/BILIARY TREE: Gallbladder present. SPLEEN/PANCREAS/ADRENAL GLANDS: Homogeneous and nonenlarged. KIDNEYS: Stable 5.8 cm simple cyst in the right kidney; no follow-up required. No hydronephrosis. VESSELS: 2.8 cm infrarenal abdominal aortic aneurysm containing mild-moderate mural thrombus. No acute retroperitoneal hematoma. Advanced atherosclerosis of the aortic bifurcation with chronic occlusion or near occlusion of the left common iliac artery. BONES: Mild degenerative change without suspicious osteoblastic or osteolytic lesion. CT/CT Chest AND Abd W/ Contrast IMPRESSION: No significant interval change in the chest. Stable 1 cm left upper lobe scar or residual mass. Unchanged wall thickening or filling defect possible cardiac thrombus of the left ventricle. Mildly enlarged portocaval and aortocaval lymph nodes, possible andres metastases. Recommend correlation with PET/CT or close follow-up. Chronic hepatomegaly without enhancing mass. Stable simple right renal cyst. Mild aneurysmal dilatation and mural thrombus of the infrarenal abdominal aorta. Colonic diverticulosis without acute diverticulitis. Electronically Signed: Debi Lai MD at 9:20 EDT ,
[2024-05-16] MEDS: 0.9 % NaCl (Sterile) Posiflush 10 mL IV (14:15)
[2024-05-16] MEDS: 0.9% Saline Lock 10 ML Syringe IV (14:25)
== END | disposition home or self-care (01) ==
LOC: CT 13:54
PROVIDERS: Referring Provider Nurse Practitioner Family; Visit Provider Nurse Practitioner Family
DX: C34.12 Malignant neoplasm of upper lobe, left bronchus or lung (principal)
CPT/HCPCS: 71260; 74160; Q9967; A4216

== ENCOUNTER → 2024-07-11 | Outpatient (CLI) | payer MEDICARE, SELFPAY ==
--- NOTE | 2024-07-11 09:01 | MRI_ITS ---
HISTORY: acute N/V x 2 weeks, mNSCLC -- r/o brain mets. TECHNIQUE: Multiplanar and multisequence MR images of the brain were obtained before and after the intravenous administration of 12 mL Clariscan. 675 images. COMPARISON: 10/14/2023. FINDINGS: BRAIN PARENCHYMA: New 7 mm ring-enhancing lesion in the left frontal parasagittal cortex with mild associated vasogenic edema. Mild foci of increased T2 FLAIR signal in the bilateral cerebral white matter. No abnormal focus of restricted diffusion. No acute intracranial hemorrhage identified. CSF SPACES: Cerebral ventricles, cortical sulci, and other extra-axial CSF spaces within normal limits in size for age. No significant midline shift or other mass effect.No extra-axial fluid collection. VASCULAR SYSTEM: Major intracranial flow voids are maintained. PARANASAL SINUSES AND MASTOID AIR CELLS: Mild fluid in the mastoid air cells. Small nasopharyngeal cysts again seen. ORBITS: Symmetric contents. MRI/Brain W/WO Contrast IMPRESSION: 7 mm ring-enhancing lesion in the left frontal lobe, concerning for metastasis. Mild chronic white matter changes. No evidence for acute infarct. Electronically Signed: Debi Lai MD at 10:58 EDT ,
[2024-07-11] MEDS: 0.9% Saline Lock 10 ML Syringe IV (10:00)
== END | disposition home or self-care (01) ==
LOC: MRI 08:56
PROVIDERS: Referring Provider Nurse Practitioner Family; Visit Provider Nurse Practitioner Family
DX: R11.2 Nausea with vomiting, unspecified (principal)
CPT/HCPCS: 70553; A9575; A4216

== ENCOUNTER → 2024-08-10 | Outpatient (CLI) | payer MEDICARE, SELFPAY ==
[2024-08-10] MEDS: 0.9 % NaCl (Sterile) Posiflush 10 mL IV (08:00)
--- NOTE | 2024-08-10 08:07 | CT_ITS ---
EXAM: CT CHEST AND ABDOMEN WITH INTRAVENOUS CONTRAST CLINICAL INDICATION: m NSCLC assess response to treatment TECHNIQUE: Helically acquired images were obtained of the chest and abdomen with intravenous contrast. This CT exam was performed using one or more of the following dose reduction techniques: automated exposure control, adjustment of the mA and/or kV according to patient size, and/or use of iterative reconstruction technique. CONTRAST: IV 100mL Isovue-300 RADIATION DOSE: CTDIvol = 12.13 mGy, DLP = 745.48 mGy-cm COMPARISON: May 16, 2024. FINDINGS: CHEST: LUNGS AND PLEURAL SPACES: No pulmonary nodules. Emphysematous changes of the lung apices are again noted. Mildly thick-walled appearance of central airways appear similar, no central airway obstruction. No pleural effusion or thickening. HEART: Unremarkable. Heart size is normal. No pericardial effusion. MEDIASTINUM: Only a few very small mediastinal lymph nodes, not necessarily pathologic. Esophagus is unremarkable. No hiatal hernia. THYROID: Unremarkable. No thyroid lesions. ABDOMEN: LIVER: New or better seen hypodense lesion in the anterior-lateral right lobe of the liver, roughly 0.9 cm x 1 cm. Tiny hypodensity more inferiorly in the right lobe of the liver of 4 mm may have been present on prior exam. Similar liver size, right lobe is 19.4 cm craniocaudal, mildly enlarged. GALLBLADDER AND BILE DUCTS: Unremarkable. No calcified gallstones. No gallbladder distention or wall edema. No intra- or extrahepatic biliary ductal dilation. PANCREAS: Unremarkable. No focal cystic or solid mass. SPLEEN: Unremarkable. Normal size without focal cystic or solid mass. ADRENALS: Unremarkable. No nodules. KIDNEYS AND URETERS: Stable large right renal cyst. Mild fluid and gas in the right colon, mild stool and gas in the transverse colon. Collapsed segments of mid to distal descending colon. Normal renal size and position. STOMACH AND BOWEL: There is no visible enhancement in the left common iliac artery, similar to prior exam. There is recanalized or reconstituted flow in the left external iliac artery. Presumed gastric diverticulum projecting posteriorly. INTRAPERITONEAL SPACE: Unremarkable. No ascites or other fluid collection. No free air. CHEST and ABDOMEN: BONES/JOINTS: Unremarkable. No suspicious lytic or blastic abnormality. SOFT TISSUES: Unremarkable. No discrete abdominal wall hernia. VASCULATURE: Stable appearance of mildly aneurysmal infrarenal aorta of 3 cm x 2.9 cm. Similar curvilinear presumed thrombus in the left ventricle apex. No PE or aortic dissection. LYMPH NODES: There is significantly larger periportal lymph node, now 2.8 cm AP by 3.1 cm transverse, previously 1.4 cm AP by 2.3 cm transverse. Larger right pericardial-juxtadiaphragmatic lymph node, it was round and roughly 6 mm, now ovoid and 1.1 cm x 8 mm. Smaller but more centrally hypodense aortocaval lymph node, roughly 1.6 cm x 1.4 cm, it was 1.7 cm x 1.7 cm. Small gastrohepatic lymph nodes appear similar. TUBES, LINES AND DEVICES: Right jugular [id number] catheter remains well positioned. OTHER FINDINGS: The pelvis is not included. CT/CT Chest AND Abd W/ Contrast IMPRESSION: 1. Suspicion of mild disease progression compared to May 16, 2024. 2. Mildly larger periportal and right juxtacardiac nodes. 3. New small hypodensity in the lateral right lobe of the liver. Electronically Signed: Eri Good MD at 23:58 EST ,
[2024-08-10] MEDS: 0.9% Saline Lock 10 ML Syringe IV (08:10)
== END | disposition home or self-care (01) ==
LOC: CT 07:51
PROVIDERS: Referring Provider Nurse Practitioner Family; Visit Provider Nurse Practitioner Family
DX: C34.12 Malignant neoplasm of upper lobe, left bronchus or lung (principal); C78.7 Secondary malignant neoplasm of liver and intrahepatic bile duct; C77.9 Secondary and unspecified malignant neoplasm of lymph node, unspecified
CPT/HCPCS: 71260; 74160; Q9967; A4216

== ENCOUNTER → 2024-10-01 | Outpatient (CLI) | payer MEDICARE, SELFPAY ==
--- NOTE | 2024-10-01 08:13 | MRI_ITS ---
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 SRS completed 08/02/2024. Evaluate treatment response left frontal metastases. TECHNIQUE: Multiplanar and multisequence MR images of the brain were obtained without and with intravenous contrast. CONTRAST: IV 13ml Clariscan COMPARISON: MRI brain with and without contrast 07/11/2024. FINDINGS: BRAIN AND EXTRA-AXIAL SPACES: Interval decrease in size of solitary ring enhancing brain metastases in the medial surface of the left superior frontal gyrus. This measures 4.5 mm, previously 9 mm. Subcortical white matter T2 FLAIR hyperintensity foci in both cerebral hemispheres are chronic white matter ischemic changes. No intra- or extra-axial hemorrhage. No intracranial mass or mass effect. Posterior fossa structures are unremarkable. Basal cisterns are patent. SELLA: Unremarkable. Normal sella turcica, pituitary gland, infundibular stalk, optic chiasm and hypothalamus. AUDITORY SYSTEM: Unremarkable. The internal auditory canals are patent. BONES/JOINTS: Unremarkable. No discrete lytic or blastic abnormalities. SINUSES: Unremarkable as visualized. Clear. MASTOID AIR CELLS: Unremarkable as visualized. Clear. ORBITS: Unremarkable as visualized. Both globes, extraocular muscles, optic nerves and retrobulbar fat appear unremarkable. VASCULATURE: Unremarkable as visualized. Normal flow voids in the major intracranial circulation. MRI/Brain W/WO Contrast IMPRESSION: 1. Interval decrease in size of solitary ring enhancing brain metastases in the medial surface of the left superior frontal gyrus measuring 4.5 mm, previously 9 mm. 2. No MRI evidence of new brain metastases. 3. Chronic subcortical white ischemic changes in both cerebral hemispheres are unchanged. Electronically Signed: Moshe Aguirre MD at 9:56 EST ,
[2024-10-01] MEDS: 0.9 % NaCl (Sterile) Posiflush 10 mL IV (09:05)
[2024-10-01] MEDS: 0.9% Saline Lock 10 ML Syringe IV (09:05)
== END | disposition home or self-care (01) ==
PROVIDERS: Referring Provider Nurse Practitioner; Visit Provider Nurse Practitioner
DX: C79.31 Secondary malignant neoplasm of brain (principal); Z92.3 Personal history of irradiation
CPT/HCPCS: 70553; A9575; A4216

== ENCOUNTER 2024-11-08 17:27 | Emergency (ER) | payer MEDICARE, SELFPAY ==
[2024-11-08 17:27] VITALS: BP 127/84; PULSE 100; RESP 16; TEMP 36.4; O2SAT 97; BMI 23.3
[2024-11-08 17:29] VITALS: BP 127/84; PULSE 100; RESP 16; TEMP 36.4; O2SAT 98
--- NOTE | 2024-11-08 18:23 | RAD_ITS ---
PROCEDURE: Pelvis radiograph REASON FOR EXAM: Pain TECHNIQUE: Frontal view of the pelvis COMPARISON: None FINDINGS: See impression RAD/Pelvis 1 or 2 Views IMPRESSION: Negative for acute displaced fracture or malalignment. No significant arthropa thy. Reading [facility]
[2024-11-08 18:29] LABS: Absolute Neutrophil Count 9.6 X10^3/uL (2.0-7.7); Basophil# 0.05 X10^3/uL; Basophil% 0.4 % (0-1); Eosinophil# 0.04 X10^3/uL; Eosinophils% 0.3 % (0-5); Hemoglobin 12.3 g/dL (12.0-15.0); Lymphocyte % 16.2 % (19-41); Mean Corp Hgb Conc 33.2 g/dL (32-36); Mean Corpuscular Hgb 32.5 pg (27.0-32.0); Mean Corpuscular Volume 97.6 fL (81-99); Mean Platelet Vol. 9.3 fl (6.2-12.0); Monocyte# 1.19 X10^3/uL; Monocyte% 9.2 % (0-10); NRBC Flagged by Analyzer 0 % (0-5); Neutrophil # 9.57 X10^3/uL (2.7-7.7); Neutrophil % 73.5 % (47-70); Platelet Count 504 K/mm3 (150-450); RBC Distribution Width CV 14.4 % (11.6-14.6); RBC Distribution Width SD 52.2 fl (35.1-43.9); Red Blood Count 3.79 M/mm3 (4.2-5.4)
[2024-11-08] MEDS: Morphine 4 MG/ML Syringe IV (18:29)
[2024-11-08] MEDS: Ondansetron 4 MG/2 ML Vial IV (18:29)
--- NOTE | 2024-11-08 18:30 | RAD_ITS ---
PROCEDURE: Lumbar spine radiographs REASON FOR EXAM: Pain TECHNIQUE: Three views of the lumbar spine COMPARISON: None. FINDINGS: See impression RAD/Lumbar Spine 2 or 3 Views IMPRESSION: Mild dextroscoliosis. Alignment is otherwise intact. Vertebral body heights a re within normal limits. Mild disc space narrowing at L5-S1. Moderate facet arthrosis from L4 through S1. Mild degener ative changes of the sacroiliac joints. Calcified abdominal aorta. Reading Location: [facility]
[2024-11-08 18:55] LABS: Anion Gap 12 (5-15); BUN 6 mg/dL (4-19); BUN/Creat Ratio 9.2 RATIO (10-20); Calcium 9.2 mg/dL (7.6-11.0); Carbon Dioxide 26.2 mmol/L (22.0-29.0); Chloride 95 mmol/L (96-108); Creatinine, Serum 0.61 mg/dL (0.70-1.20); EST Glomerular Filtration Rate 98 (>60); Estimated Creatinine Clearance 56.45 ml/min; Glucose 110 mg/dL (70-99); Potassium 3.3 mmol/L (3.3-5.1); Sodium Level 133 mmol/L (133-145)
[2024-11-08 19:27] VITALS: BP 137/87; PULSE 76; RESP 18; O2SAT 96
--- NOTE | 2024-11-08 19:43 | EX.ED.DYSGE1 ---
HPI History of Present Illness Chief Complaint: Nausea/Vomiting Detail of Chief Complaint: Chief complaint is nausea and back pain Informant: patient and family Onset/Context/Timing Onset: Days Context: Sudden Onset Timing: Continuous Quality: Pain Location: Lumbar and right pelvic region Current Severity: Mild Maximum Severity: Moderate Worsened by: Movement Relieved by: Nothing Associated Symptoms Associated Symptoms: None Narrative Narrative: Patient with metastatic lung cancer. Patient had PET scan October 04, 2023 which revealed uptake left upper lung field, left upper lobe neutrophils criteria for malignant transformation, left thoracic perihilar focus, left and right lobe of the hepatic parenchyma and evidence of pelvic adenopathy that meets criteria for viable neoplasm. Son states she also has metastasis to brain. Read Dr. Zimmerman's's note. There is evidence of metastasis to brain as well as liver and pelvic lymph nodes. There was no uptake noted in the bones. She presents because of atraumatic pain in her lower back left iliac wing area. She denies any direct or indirect trauma. She denies bowel or bladder dysfunction. She denies saddle paresthesia or anesthesia. Patient is not a good informant. Family had to supplement. She has not had a good appetite recently. Prior similar symptoms: No Recent Illness/Hospitalization: [facility] Medical History Hypothyroidism (acquired) Encounter for antineoplastic immunotherapy Lung cancer metastatic to brain Hypothyroidism Brain lesion Nausea & vomiting Encounter for immunotherapy Hypomagnesemia Anemia CINV (chemotherapy-induced nausea and vomiting) Dehydration Hypokalemia Oral candidiasis Angular cheilitis Encounter for chemotherapy management Wears glasses Wears dentures Post-menopausal Cancer High cholesterol Asthma History of echocardiogram H/O pulmonary function tests Cardiology follow-up encounter History of heart attack Encounter for education Metastasis to liver Regional lymph node metastasis present Myocardial infarct Chest pain Nicotine dependence, cigarettes, uncomplicated Coronary artery disease COPD (chronic obstructive pulmonary disease) Nicotine dependence Hypertension Left ventricular aneurysm Left ventricular systolic dysfunction (LVSD) Smoker STEMI (ST elevation myocardial infarction) Bronchitis Home Medications ?Medication ?Instructions ?Recorded ?Last Taken ?Type aspirin 81 mg tablet,delayed 81 mg PO DAILY [facility] HE[facility] 30 07/08/23 11/07/23 Rx release days #30 tabs Disability Placard #1 ea 09/30/23 Unknown Rx lidocaine-prilocaine 2.5 %-2.5 % 1 applic topical ONCE PRN port 10/24/23 Unknown Rx topical cream access 30 days #30 grams lisinopril 5 mg tablet 5 mg PO DAILY #90 tabs 10/26/23 11/08/23 Rx prochlorperazine maleate 10 mg 10 mg PO Q6H PRN nausea and 12/27/23 Unknown Rx tablet vomiting #30 tabs Held on 07/10/24. Instructions: Home Medication placed on hold at Doctor's office tramadol 50 mg tablet 50 mg PO BID PRN 04/10/24 Unknown History budesonide 1 mg/2 mL suspension 1 mg (2 mL) inhalation BID #120 mL 07/10/24 Unknown Rx for nebulization famotidine 20 mg tablet (Pepcid) 20 mg PO QDAY 07/10/24 Unknown History ipratropium 0.5 mg-albuterol 3 mg 3 ml inhalation Q4-6H #180 mL 07/10/24 Unknown Rx (2.5 mg base)/3 mL nebulization soln ondansetron 8 mg disintegrating 8 mg PO Q8H PRN nausea and 07/10/24 Unknown Rx tablet vomiting #30 tabs atorvastatin 10 mg tablet 10 mg PO QHS CHOLESTEROL #90 tabs 07/24/24 Unknown Rx carvedilol 3.125 mg tablet 3.125 mg PO BID HIGH BLOOD 07/24/24 Unknown Rx PRESSURE 30 days #180 tabs clopidogrel 75 mg tablet 75 mg PO DAILY BLOOD THINNER 30 07/24/24 Unknown Rx days #90 tabs albuterol sulfate 90 mcg/actuation 2 puff inhalation Q6H PRN 09/11/24 Unknown Rx aerosol inhaler shortness of breath or wheezing #8.5 grams levothyroxine 50 mcg capsule 50 mcg PO QDAY #30 caps 09/27/24 Unknown Rx oxycodone-acetaminophen 5 mg-325 1 tab PO Q8H PRN cancer 7 days #20 11/08/24 Unknown Rx mg tablet (Percocet) tabs Allergy/AdvReac Type Severity Reaction Status Date / Time No Known Allergies Allergy Verified 11/08/24 17:29 Surgical History Hx of tooth extraction History of liver biopsy History of lung biopsy Hx of cardiac catheterization (~07/06/23) H/O coronary angioplasty (~07/06/23) H/O tubal ligation Social History household members: none Smoking Status: Current every day smoker tobacco type: cigarettes Tobacco: How many years used: 55 quit status: considering quitting alcohol intake: never substance use type: does not use caffeine: Yes Type: carbonated beverages Number of servings: 1 ROS ROS ED Constitutional Constitutional ED: Reports weight loss; Denies chills, fever(s), subjective or sweats Eyes Eyes: Denies blurry vision or change in vision ENT ENT ED: Denies rhinorrhea or sore throat Cardiovascular Cardiovascular: Denies chest pain, orthopnea or palpitations Respiratory/Chest Respiratory/Chest: Denies cough, dyspnea, dyspnea on exertion or orthopnea Gastrointestinal Gastrointestinal: Reports nausea; Denies abdominal pain, constipation, diarrhea or vomiting Genitourinary Genitourinary ED: Denies dysuria, hematuria or urinary frequency Musculoskeletal Musculoskeletal: Reports back pain; Denies arthralgias or myalgias Integumentary Denies rash Neurologic Neurologic: Reports weakness Psychiatric Psychiatric: Reports depression Hematologic/Lymphatic Hematologic/Lymphatic: Reports systems reviewed and no addt'l complaints, except as documented EXAM Physical Exam Const Vital Signs: 11/08/24 17:27 11/08/24 17:29 11/08/24 19:27 Temperature 97.6 F L 97.6 F L Temperature Source Temporal Temporal Pulse Rate 100 100 76 Respiratory Rate 16 16 18 Blood Pressure 127/84 H 127/84 H 137/87 H Blood Pressure Mean 98 98 103 Pulse Ox 97 98 96 Oxygen Delivery Method Room Air Room Air Room Air 11/08/24 21:00 Temperature Temperature Source Pulse Rate Respiratory Rate Blood Pressure 146/83 H Blood Pressure Mean 101 Pulse Ox 91 Oxygen Delivery Method Positive well nourished and well developed Constitutional Narrative: Patient does not appear well. She appears slightly pale. She is no obvious distress. General Appearance ED: well developed, NAD and pallor; Negative for cyanotic or diaphoretic HEENT Reports moist mucous membranes HEENT Narrative: Head is atraumatic normocephalic. Ears normal. Nares patent. Posterior pharynx is normal. Eyes PERRL and EOMs intact bilaterally General Eye ED: Negative for pale conjunctiva or scleral icterus Neck no lymphadenopathy, supple and no JVD Chest Wall inspection of chest normal and palpation of chest normal Resp normal respiratory effort and clear to auscultation bilaterally Cardio regular rate, regular rhythm, S1 normal heart sound, S2 normal heart sound and no murmurs GI normal to inspection, nondistended, normoactive bowel sounds, non-tender, non-distended and no masses; Negative for hepatosplenomegaly Back/Spine no CVA tenderness Cervical Spine: Negative for cervical spine tenderness Thoracic Spine / Upper Back: Negative for thoracic spinal tenderness Lumbar Spine / Lower Back: lumbar spinal tenderness L3, L4 and L5 Extremity normal to inspection General Extremety ED: Negative for tenderness Neuro oriented x3 and CN's II-XII intact bilaterally Sensorium / Orientation: Negative for alert Motor Exam: strength 5/5 throughout Psych Mood & Affect: depressed Skin no rashes or lesions noted, no wounds and No skin turgor normal General Skin Exam: pallor MDM MDM MDM Narrative Medical decision making narrative: With metastatic lung cancer complaining of back pain will need to evaluate for muscular versus metastasis causing her pain. Will obtain CBC to assess white count and H&H. Basic metabolic panel to assess calcium and liver profile to assess alkaline phosphatase and liver enzymes. Patient was medicated with morphine for her pain. Lab Data Attestation: I reviewed the patient's lab results. Lab results narrative: White count slightly elevated 13,000. There is a slight shift with no bandemia. H&H is normal. Basic metabolic panel is remarkable for slight elevation of glucose at 110. Calcium is normal. Labs: Laboratory Results - last 24 hr 11/08/24 18:16 WBC 13.0 H RBC 3.79 L Hgb 12.3 Hct 37.0 MCV 97.6 MCH 32.5 H MCHC 33.2 RDW Std Deviation 52.2 H RDW Coeff of Fidel 14.4 Plt Count 504 H MPV 9.3 Immature Gran % (Auto) 0.400 Neut % (Auto) 73.5 H Lymph % (Auto) 16.2 L [place] % (Auto) 9.2 Eos % (Auto) 0.3 Baso % (Auto) 0.4 Absolute Neuts (auto) 9.6 H Absolute Lymphs (auto) 2.10 Nucleated RBC % 0 Sodium 133 Potassium 3.3 Chloride Direct 95 L Carbon Dioxide 26.2 Anion Gap 12 BUN 6 Creatinine 0.61 L Estim Creat Clear Calc 56.45 Est GFR (MDRD) Non-Af 98 BUN/Creatinine Ratio 9.2 L Glucose 110 H Calcium 9.2 Total Bilirubin 0.27 Direct Bilirubin 0.14 AST 22 ALT < 5 Alkaline Phosphatase 94 Total Protein 6.8 Albumin 3.4 Globulin 3.4 Radiography Chest X-Ray - ED: 1 View (Single view x-ray of the pelvis reveals no fracture, lytic lesions or any significant abnormality. There is some mild arthritic changes.) and Read by ED Physician (Three-view x-ray of the LS spine reveals some mild degenerative changes and calcification of the aorta with slight dilatation of the aorta. There is no evidence of fracture, or lytic lesions.) Diagnostic Testing: Clinical Impression(s) from Imaging Studies Pelvis X-Ray 11/08/24 18:23 IMPRESSION: Negative for acute displaced fracture or malalignment. No significant arthropathy. Reading Location: [facility] Lumbar Spine X-Ray 11/08/24 18:30 IMPRESSION: Mild dextroscoliosis. Alignment is otherwise intact. Vertebral body heights are within normal limits. Mild disc space narrowing at L5-S1. Moderate facet arthrosis from L4 through S1. Mild degenerative changes of the sacroiliac joints. Calcified abdominal aorta. Reading Location: [facility] Treatment and Re-Evaluation :: Patient and family was made aware of the x-rays. She is scheduled for follow-up with Dr. Betancourt. She was discharged home with pain medicine. 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, Regional lymph node metastasis present, Back pain Instructions: ED Back and Neck Pain, General Prescriptions: New oxycodone-acetaminophen [Percocet] 5-325 mg tablet 1 tab PO Q8H PRN (Reason: cancer) 7 Days Qty: 20 0RF No Action (DME) Disability Placard See Rx Instructions .ROUTE .MEDSUPPLY Qty: 1 0RF Rx Instructions: expires 09/30/2028 lidocaine-prilocaine 2.5-2.5 % cream 1 applic topical ONCE PRN (Reason: port access) 30 Days Qty: 30 2RF prochlorperazine maleate 10 mg tablet 10 mg PO Q6H PRN (Reason: nausea and vomiting) Qty: 30 2RF ipratropium-albuterol 0.5 mg-3 mg(2.5 mg base)/3 mL solution for nebulization 3 ml inhalation Q4-6H Qty: 180 6RF budesonide 1 mg/2 mL suspension for nebulization 1 mg inhalation BID Qty: 120 11RF Rx Instructions: rinse mouth after tramadol 50 mg tablet 50 mg PO BID PRN famotidine [Pepcid] 20 mg tablet 20 mg PO QDAY ondansetron 8 mg tablet,disintegrating 8 mg PO Q8H PRN (Reason: nausea and vomiting) Qty: 30 2RF aspirin 81 mg Tablet,Delayed Release (Dr/Ec) 81 mg PO DAILY 30 Days Qty: 30 0RF lisinopril 5 mg tablet 5 mg PO DAILY Qty: 90 3RF clopidogrel 75 mg tablet 75 mg PO DAILY 30 Days Qty: 90 3RF Patient Comments: last dose 11/04/[address] bergeron carvedilol 3.125 mg tablet 3.125 mg PO BID 30 Days Qty: 180 3RF atorvastatin 10 mg tablet 10 mg PO QHS Qty: 90 3RF albuterol sulfate 90 mcg/actuation HFA aerosol inhaler 2 puff inhalation Q6H PRN (Reason: shortness of breath or wheezing) Qty: 8.5 3RF Rx Instructions: administer with spacer levothyroxine 50 mcg capsule 50 mcg PO QDAY Qty: 30 2RF Primary Care Provider: Care Physician,No Primary Referrals: David Bradley MD [Med Staff - Active Staff] - [facility] appointment Care Physician,No Primary [Primary Care Provider] - Print Language: German Disposition Disposition: Home, Self Care
[2024-11-08 20:59] LABS: AST(SGOT) 22 U/L (<=31); Alanine Aminotransfer ALT/SGPT < 5 U/L (<=34); Albumin, Serum 3.4 g/dL (3.4-4.8); Alkaline Phosphatase 94 U/L (35-104); Bilirubin, Direct 0.14 mg/dL (0.00-0.30); Globulin 3.4 g/dL (2.2-4.2); Protein, Total 6.8 g/dL (5.9-8.4); Total Bilirubin 0.27 mg/dL (0.00-1.30)
[2024-11-08 21:00] VITALS: BP 146/83; O2SAT 91
[2024-11-08 21:31] VITALS: BP 150/84; RESP 18; O2SAT 94
[2024-11-08] MEDS: oxyCODONE 5 MG Tablet PO (22:43)
[2024-11-08] MEDS: Acetaminophen 325 MG Tablet PO (22:44)
== END 2024-11-08 22:54 | disposition home or self-care (01) ==
PROVIDERS: Emergency Provider Emergency Medicine; Visit Provider Emergency Medicine
DX: C79.31 Secondary malignant neoplasm of brain (principal); C78.7 Secondary malignant neoplasm of liver and intrahepatic bile duct; C77.5 Secondary and unspecified malignant neoplasm of intrapelvic lymph nodes; C34.12 Malignant neoplasm of upper lobe, left bronchus or lung; J44.9 Chronic obstructive pulmonary disease, unspecified; E78.00 Pure hypercholesterolemia, unspecified; R11.2 Nausea with vomiting, unspecified; F17.210 Nicotine dependence, cigarettes, uncomplicated; I25.10 Atherosclerotic heart disease of native coronary artery without angina pectoris; I10 Essential (primary) hypertension; F32.A Depression, unspecified; Z98.51 Tubal ligation status; I25.2 Old myocardial infarction; Z79.82 Long term (current) use of aspirin; E03.9 Hypothyroidism, unspecified; M54.50 Low back pain, unspecified
CPT/HCPCS: 72100; 72170; 80048; 80076; 85025; 96374; 96375; 99283; A4216; J2405

== ENCOUNTER → 2024-11-14 | Outpatient (CLI) | payer MEDICARE, SELFPAY ==
--- NOTE | 2024-11-14 14:23 | CT_ITS ---
PROCEDURE: CT CHEST AND ABD W/ CONTRAST REASON FOR EXAM: Follow-up [id number]-wwegy-rwdx lung cancer. TECHNIQUE: Chest and abdomen CT with intravenous contrast. CONTRAST: COMPARISON: CT chest, and abdomen 08/10/2024 FINDINGS: CT CHEST: Hardware: Right chest wall port catheter. Lymph nodes: Interval enlargement 27 mm necrotic right hilar lymph node (image 57), previously 6 mm.. Otherwise, no other suspicious rosemary or axillary lymph nodes. Heart and Vasculature: Normal heart size. No pericardial effusion. Thoracic aorta and pulmonary arteries are unremarkable. Lungs and Airways: Central airways are patent without endobronchial lesions. Moderate upper lobe predominant centrilobular emphysema. Multiple pulmonary nodules are noted bilaterally. For example a new 19 mm right lower lobe subpleural nodule (axial series image 69), and unchanged 5 mm right lower lobe subpleural nodule (image 90), 5 mm left upper lobe nodule (image 36). Several upper lobe predominant ground-glass opacities are also noted. No pneumothorax. No pleural effusion. Mediastinum: Esophagus is nondilated. Thyroid gland is unremarkable. CT ABDOMEN: Liver: Homogeneous attenuation. Several bilobar hypoenhancing lesions are noted highly concerning for metastasis. Compared with the prior examination, there has been interval increase in size and number for example a 9 mm left hepatic lobe lesion (image 32); 16 mm lateral right hepatic lobe lesion (image 25) 7 mm and 8 mm right hepatic lobe lesions (image 18). Multiple other lesions are noted. Gallbladder: Unremarkable. Spleen: Unremarkable. Pancreas: Unremarkable. Adrenals: Unremarkable. Kidneys: 6 cm right upper pole simple renal cyst. No suspicious mass or enhancement. No calculi or hydronephrosis. Bowel: No bowel dilation or wall thickening. Moderate colonic stool. Lymph nodes: A few suspicious necrotic lymph nodes are noted. For example an unchanged 25 mm necrotic portacaval node (axial series image 30); on 8 mm right common iliac chain node (image 63); a 17 mm left para-aortic and 8 mm aortocaval node (image 37). The para-aortic lymph node is new since prior while the aortocaval lymph node has increased in size when it measured 16 mm Vasculature: Major vascular structures at the upper abdomen are unremarkable. Peritoneum / Retroperitoneum: No ascites or free air at the upper abdomen. Bones: No suspicious osseous lesions. Degenerative changes of the thoracolumbar spine. CT/CT Chest AND Abd W/ Contrast IMPRESSION: Thorax: 1. Multiple new-enlarged pulmonary nodules, the largest in the right lower lobe measures 19 mm, concerning for prominent lung malignancy with metastasis. 2. Upper lobe predominant centrilobular nodules. Differential considerations i nclude an infectious or inflammatory process or metastatic disease. 3. 27 mm necrotic right hilar metastatic lymph node. Abdomen and pelvis: 1. Multiple hypoenhancing hepatic metastatic lesions increased in size and numb er, since prior, compatible with progressive metastasis. 2. Multiple necrotic retroperitoneal lymph nodes new-enlarged since 08/10/2024. One or more dose reduction techniques were used (e.g., Automated exposure contr ol, adjustment of the mA and/or kV according to patient size, use of iterative reconstruction technique). Reading Location: [facility]
[2024-11-14] MEDS: 0.9% Saline Lock 10 ML Syringe IV (14:51)
== END | disposition home or self-care (01) ==
LOC: CT 14:18
PROVIDERS: Referring Provider Internal Medicine Hematology & Oncology; Visit Provider Internal Medicine Hematology & Oncology
DX: C77.9 Secondary and unspecified malignant neoplasm of lymph node, unspecified (principal); C78.7 Secondary malignant neoplasm of liver and intrahepatic bile duct; C79.31 Secondary malignant neoplasm of brain; C34.12 Malignant neoplasm of upper lobe, left bronchus or lung
CPT/HCPCS: 71260; 74160; Q9967; A4216

== ENCOUNTER → 2024-11-23 | Outpatient (CLI) | payer MEDICARE, SELFPAY ==
--- NOTE | 2024-11-23 08:31 | NM_ITS ---
PROCEDURE: BONE SCAN WHOLE BODY REASON FOR EXAM: F/U LUNG CANCER TECHNIQUE: Delayed phase imaging of the whole-body \ RADIOPHARMACEUTICAL: 27.1 mCi Technetium-99m MDP IV COMPARISON: Imaging of the whole-body was obtained. FINDINGS: Asymmetrical focal uptake is seen in the region of the right parietal bone. Filling defect is seen along the lateral upper aspect of the right kidney. Correlation with ultrasound is recommended to rule out mass lesion. NM/Bone Scan Whole Body IMPRESSION: Focal asymmetric uptake in the right parietal bone. Questionable mass in the lateral aspect of the right kidney. Correlation with ultrasound recommended. Reading Location: [place] [id number]
== END | disposition home or self-care (01) ==
LOC: NM 08:27
PROVIDERS: Referring Provider Internal Medicine Hematology & Oncology; Visit Provider Internal Medicine Hematology & Oncology
DX: C34.12 Malignant neoplasm of upper lobe, left bronchus or lung (principal); C78.7 Secondary malignant neoplasm of liver and intrahepatic bile duct; C79.31 Secondary malignant neoplasm of brain; C77.9 Secondary and unspecified malignant neoplasm of lymph node, unspecified
CPT/HCPCS: 78306; A9503

== ENCOUNTER → 2024-12-11 | Outpatient (CLI) | payer MEDICARE, SELFPAY ==
--- NOTE | 2024-12-11 13:05 | VDLE_ITS ---
Reason For Study Reason For Study: SWELLING RIGHT LEFT CFV is compressible, spontaneous, phasic, competent GSV is NONCOMPRESSIBLE and DILATED C/W acute and demonstrates normal augmentation. superficial venous thrombosis. Procedure Acute deep vein thrombosis is noted in the left SFJ. This is a venous duplex using B-mode, color flow and Acute deep vein thrombosis is noted in the left T/P spectral Doppler. TRUNK. Exam performed in department. Acute deep vein thrombosis is noted in the left A preliminary report was called and/or faxed to PT to common femoral vein. return to Makayla Briones's office for treatment plan Acute deep vein thrombosis is noted in the left 13:20. femoral vein. Acute deep vein thrombosis is noted in the left popliteal vein. Acute deep vein thrombosis is noted in the left peroneal vein. Acute deep vein thrombosis is noted in the left posterior tibial vein. VL/Venous Duplex US, Unilateral Interpretation Summary Acute deep vein thrombosis noted in the left common femoral vein, femoral vein, popliteal vein, peroneal vein, posterior tibial vein, tibioperoneal trunk vein. Acute superficial vein thrombosis noted in the left saphenofemoral junction and great saphenous vein. Ordering Physician: Makayla Briones Referring Physician: NO PCP Performed By: Ashley Latham, JAMMIE, RVT
== END | disposition home or self-care (01) ==
LOC: CVS 13:03
PROVIDERS: Referring Provider Nurse Practitioner Family; Visit Provider Nurse Practitioner Family
DX: M79.89 Other specified soft tissue disorders (principal); Z91.89 Other specified personal risk factors, not elsewhere classified
CPT/HCPCS: 93971

== ENCOUNTER 2024-12-24 09:58 | Inpatient (IN) | payer MEDICARE, SELFPAY ==
[2024-12-24] VITALS (37 sets, daily range): BP systolic 45–183; BP diastolic 27–97; PULSE 82–117; RESP 11–31; TEMP 35.3–37.4; O2SAT 87–100; BMI 23.8; BMI 23.6
--- NOTE | 2024-12-24 10:07 | EKG12_ITS ---
Test Reason : RESP DISTRESS Blood Pressure : */* mmHG Vent. Rate : 100 BPM Atrial Rate : 100 BPM P-R Int : 146 ms QRS Dur : 88 ms QT Int : 342 ms P-R-T Axes : 80 60 75 degrees QTcB Int : 441 ms Normal sinus rhythm Inferior infarct , age undetermined Abnormal ECG Confirmed by Gerry Bruce ([id number]), metropolitan editor MARISELA RAMIREZ ([id number]) on 12/25/2024 11:27:11 AM Referred By: Confirmed By: Gerry Bruce
--- NOTE | 2024-12-24 10:08 | EX.ED.DYSGE1 ---
HPI History of Present Illness Chief Complaint: Weakness Detail of Chief Complaint: Weakness and mental status change Informant: patient, family and EMS Narrative Narrative: Patient presents via EMS from home. Patient apparently was relatively unresponsive this morning as family had a hard time getting her up. Family noted she had black tarry stool this morning. Patient was started on Eliquis recently. She has history of stage IV cancer including lung with liver mets and brain mets. Patient is a poor historian but when asked about intubation she shakes her head that she does not want to be intubated. Family states she is a full go. EMS had a hard time obtaining a good blood pressure. Fingerstick blood sugar per EMS was 147. She has not had recent illness otherwise. [facility] Medical History Left leg DVT Constipation At high risk for deep venous thrombosis Left leg swelling Hypothyroidism (acquired) Encounter for antineoplastic immunotherapy Lung cancer metastatic to brain Hypothyroidism Brain lesion Nausea & vomiting Encounter for immunotherapy Hypomagnesemia Anemia CINV (chemotherapy-induced nausea and vomiting) Dehydration Hypokalemia Oral candidiasis Angular cheilitis Encounter for chemotherapy management Wears glasses Wears dentures Post-menopausal Cancer High cholesterol Asthma History of echocardiogram H/O pulmonary function tests Cardiology follow-up encounter History of heart attack Encounter for education Metastasis to liver Regional lymph node metastasis present Myocardial infarct Chest pain Nicotine dependence, cigarettes, uncomplicated Coronary artery disease COPD (chronic obstructive pulmonary disease) Nicotine dependence Hypertension Left ventricular aneurysm Left ventricular systolic dysfunction (LVSD) Smoker STEMI (ST elevation myocardial infarction) Bronchitis Home Medications ?Medication ?Instructions ?Recorded ?Last Taken ?Type aspirin 81 mg tablet,delayed 81 mg PO DAILY HEART HEALTH 30 07/08/23 11/07/23 Rx release days #30 tabs Disability Placard #1 ea 09/30/23 Unknown Rx lidocaine-prilocaine 2.5 %-2.5 % 1 applic topical ONCE PRN port 10/24/23 Unknown Rx topical cream access 30 days #30 grams budesonide 1 mg/2 mL suspension 1 mg (2 mL) inhalation BID #120 mL 07/10/24 Unknown Rx for nebulization famotidine 20 mg tablet (Pepcid) 20 mg PO QDAY 07/10/24 Unknown History ipratropium 0.5 mg-albuterol 3 mg 3 ml inhalation Q4-6H #180 mL 07/10/24 Unknown Rx (2.5 mg base)/3 mL nebulization soln atorvastatin 10 mg tablet 10 mg PO QHS CHOLESTEROL #90 tabs 07/24/24 Unknown Rx carvedilol 3.125 mg tablet 3.125 mg PO BID HIGH BLOOD 07/24/24 Unknown Rx PRESSURE 30 days #180 tabs albuterol sulfate 90 mcg/actuation 2 puff inhalation Q6H PRN 09/11/24 Unknown Rx aerosol inhaler shortness of breath or wheezing #8.5 grams oxycodone-acetaminophen 5 mg-325 1 tab PO Q8H PRN cancer 7 days #20 11/08/24 Unknown Rx mg tablet (Percocet) tabs ondansetron 8 mg disintegrating 8 mg PO Q8H PRN nausea and 11/20/24 Unknown Rx tablet vomiting #30 tabs levothyroxine 50 mcg tablet 50 mcg PO QDAY #30 tabs 11/29/24 Unknown Rx potassium chloride 20 mEq 20 meq PO QDAY #7 tabs 12/04/24 Unknown Rx tablet,extended release apixaban 5 mg (74 tabs) tablets in See Rx Instructions PO PER PKG DIR 12/11/24 Unknown Rx a dose pack (Eliquis DVT-PE Treat #74 tabs 30D Start) Allergy/AdvReac Type Severity Reaction Status Date / Time No Known Allergies Allergy Verified 12/24/24 11:47 Family History no significant family his Surgical History Hx of tooth extraction History of liver biopsy History of lung biopsy Hx of cardiac catheterization (~07/06/23) H/O coronary angioplasty (~07/06/23) H/O tubal ligation Social History household members: none Smoking Status: Current every day smoker tobacco type: cigarettes Tobacco: How many years used: 55 quit status: considering quitting alcohol intake: never substance use type: does not use and marijuana caffeine: Yes Type: carbonated beverages Number of servings: 2 ROS ROS ED Review of Systems ROS Unobtainable: other Constitutional Constitutional ED: Reports lethargy; Denies chills, fever(s), sweats or weight loss Eyes Eyes: Denies blurry vision, change in vision or diplopia ENT ENT ED: Denies rhinorrhea or sore throat Cardiovascular Cardiovascular: Denies chest pain, orthopnea or racing heartbeat Respiratory/Chest Respiratory/Chest: Reports dyspnea and dyspnea on exertion; Denies cough, orthopnea or sputum Gastrointestinal Gastrointestinal: Reports melena; Denies abdominal pain, diarrhea, nausea or vomiting Genitourinary Genitourinary ED: Denies dysuria, hematuria or urinary frequency Musculoskeletal Musculoskeletal: Denies arthralgias, back pain, myalgias or neck pain Integumentary Denies abscess, Abrasions or rash Neurologic Neurologic: Reports weakness and other Details: Mental status change/confusion ; Denies headache(s) Psychiatric Psychiatric: Denies anxiety, depression or suicidal thoughts Endocrine Endocrinology: Denies polydipsia, polyphagia or polyuria Hematologic/Lymphatic Hematologic/Lymphatic: Denies easy bleeding, easy bruising or lymphadenopathy Allergic/Immunologic Allergic/Immunologic ED: Denies mouth swelling, tongue swelling or urticaria EXAM Physical Exam Const Vital Signs: 12/24/24 09:59 12/24/24 10:01 12/24/24 10:20 Temperature 97.3 F L Temperature Source Core Pulse Rate 117 H Respiratory Rate 30 H Respiratory Effort Short of Breath Labored Accessory Muscle Use Retracting Respiratory Pattern Tachypnea Blood Pressure 45/27 L 123/69 H Blood Pressure Mean 33 87 Blood Pressure Source Pulse Ox Oxygen Delivery Method Oxygen Flow Rate (L/min) Fraction of Inspired Oxygen (FIO2) 12/24/24 10:21 12/24/24 10:22 12/24/24 10:28 Temperature 97.4 F L 95.6 F L Temperature Source Core Core Pulse Rate 117 H 106 H 101 H Respiratory Rate 31 H 19 H 25 H Respiratory Effort Respiratory Pattern Tachypnea Blood Pressure 116/73 183/97 H Blood Pressure Mean 87 125 Blood Pressure Source Monitor Pulse Ox 87 92 Oxygen Delivery Method Bi-pap Bi-pap Oxygen Flow Rate (L/min) Fraction of Inspired Oxygen (FIO2) 40 12/24/24 10:59 12/24/24 11:00 12/24/24 12:00 Temperature 95.6 F L Temperature Source Core Pulse Rate 98 98 89 Respiratory Rate 26 H 26 H 17 Respiratory Effort Respiratory Pattern Blood Pressure 163/70 H 129/70 H 119/74 Blood Pressure Mean 101 89 89 Blood Pressure Source Pulse Ox 100 Oxygen Delivery Method Bi-pap Bi-pap Room Air Oxygen Flow Rate (L/min) Fraction of Inspired Oxygen (FIO2) 12/24/24 12:01 12/24/24 12:25 Temperature 96.8 F L Temperature Source Core Pulse Rate 88 Respiratory Rate 18 Respiratory Effort Respiratory Pattern Blood Pressure 119/74 Blood Pressure Mean 89 Blood Pressure Source Pulse Ox 100 100 Oxygen Delivery Method Nasal Cannula Nasal Cannula Oxygen Flow Rate (L/min) 2 2 Fraction of Inspired Oxygen (FIO2) Positive well nourished, well developed and cachectic Constitutional Narrative: Pale General Appearance ED: well developed, cachectic, cyanotic and NAD Nutritional Appearance: cachectic HEENT Reports TM's clear and moist mucous membranes normocephalic and atraumatic; Negative for trauma or tenderness Tympanic Membrane ED: Yes TM's clear Eyes PERRL and EOMs intact bilaterally General Eye ED: Yes pale conjunctiva; Negative for scleral icterus Neck no lymphadenopathy, supple and no JVD General: Negative for tenderness Chest Wall inspection of chest normal and palpation of chest normal Chest: Negative for tenderness Resp normal respiratory effort and clear to auscultation bilaterally Effort and Inspection: Negative for respiratory distress or pain with movement Auscultation: Negative for rhonchi, wheezes or diminished lung sounds Cardio regular rate, regular rhythm, S1 normal heart sound, S2 normal heart sound and no murmurs Peripheral Pulses: pulses 2+ throughout GI normal to inspection, nondistended, normoactive bowel sounds, soft to palpation, non-tender, non-distended and no masses GI Narrative: Black tarry stool with melena Back/Spine no CVA tenderness and no thoracic nor lumbar tenderness Extremity normal to inspection General Extremety ED: Negative for edema General Extremity: Negative for edema Neuro oriented x3, CN's II-XII intact bilaterally, no sensory deficits noted and gait normal Sensorium / Orientation: awake, alert, oriented to person, oriented to place and oriented to time Motor Exam: strength 5/5 throughout and strength abnormal Psych mental status grossly normal Skin no rashes or lesions noted and no wounds MDM MDM MDM Narrative Medical decision making narrative: Patient presents the emergency department via EMS from home. Patient presents hypotensive and tachycardic in clinically appears ill and pale. Rectal exam performed showed maroon to black tarry stool. Hemoccult positive. Patient on Eliquis therefore she was reversed with Kcentra. She was ordered 2 units packed red cells O- trauma blood. She was ordered normal saline fluid bolus. Initially we placed her on BiPAP as she was slow to respond and it was unclear if she was having CO2 retention as she does have history of COPD. She initially did have a hypotensive episode. She was placed in Trendelenburg position. After blood products and IV fluids her sensorium improved dramatically. She was placed on 2 L nasal cannula O2. CBC with differential obtained showed white count of 14.8 with hemoglobin 4.1 and platelet count of 21,000. Chemistries unremarkable. BUN was 25 and creatinine 0.87. LFTs unremarkable. Troponin minimally elevated at 20. Discussed case with broadcast maintenance engineer Dr. Penn. I did order a CTA of the chest and abdomen pelvis. Patient also had Protonix started IV. Patient did have an elevated white blood cell count and therefore blood cultures were ordered. Patient empirically started on Zosyn. Discussed case with Dr. Matamoros who is on for oncology who was comfortable with giving patient platelets as well as her platelet count has diminished from 87,000 on the eighth of the month to now 21,000. CT scan of the brain and CT scan of the chest abdomen pelvis with IV contrast ordered and currently pending. Patient will require admission for unstable GI bleed with anemia. CT scan of the chest abdomen pelvis with IV contrast was essentially unremarkable. CT scan of the brain without contrast unremarkable. Discussed case with GI once again with result findings as well as hospitalist. Hospitalist will admit to the ICU. Patient's mental status improved dramatically with blood and fluids. Patient with some concern for UTI as well and therefore given the leukocytosis and the fact that she is immune compromised after receiving chemotherapy. I did cover her with Zosyn and ordered blood cultures. Lab Data Attestation: I reviewed the patient's lab results. Labs: Laboratory Results - last 24 hr 12/24/24 12/24/24 12/24/24 10:05 10:07 10:08 WBC 14.8 H RBC 1.29 L Hgb 4.1 L* Hct 13.7 L MCV 106.2 H MCH 31.8 MCHC 29.9 L RDW Std Deviation 58.0 H RDW Coeff of Fidel 15.1 H Plt Count 21 L* MPV 13.4 H Immature Gran % (Auto) 2.500 H Neut % (Auto) 75.3 H Lymph % (Auto) 20.7 [place] % (Auto) 1.3 Eos % (Auto) 0.1 Baso % (Auto) 0.1 Absolute Neuts (auto) 11.2 H Absolute Lymphs (auto) 3.07 Nucleated RBC % 0 Differential Comment Diff Path Review May foll PT 25.3 H INR 2.2 Sodium 133 Potassium 5.0 Chloride 96 L Carbon Dioxide 9.2 L* Anion Gap 28 H BUN 25 H Creatinine 0.87 Estim Creat Clear Calc 51.91 Est GFR (MDRD) Non-Af 73 BUN/Creatinine Ratio 28.5 H Glucose 219 H Lactic Acid 16.3 H* Calcium 8.0 Total Bilirubin 0.17 AST 31 ALT 8 Alkaline Phosphatase 101 Troponin T High Sens 20 H Total Protein 5.0 L Albumin 2.3 L Globulin 2.7 Albumin/Globulin Ratio 0.9 Urine Color Urine Clarity Urine pH Ur Specific [place] Urine Protein Urine Glucose (UA) Urine Ketones Urine Occult Blood Urine Nitrite Urine Bilirubin Urine Urobilinogen Ur Leukocyte Esterase Urine RBC Urine WBC Ur Squamous Epith Cells Urine Bacteria Urine Mucus Blood Type O POSITIVE Antibody Screen NEGATIVE Crossmatch See Detail See Detail 12/24/24 11:47 WBC RBC Hgb Hct MCV MCH MCHC RDW Std Deviation RDW Coeff of Fidel Plt Count MPV Immature Gran % (Auto) Neut % (Auto) Lymph % (Auto) [place] % (Auto) Eos % (Auto) Baso % (Auto) Absolute Neuts (auto) Absolute Lymphs (auto) Nucleated RBC % Differential Comment Diff Path Review PT INR Sodium Potassium Chloride Carbon Dioxide Anion Gap BUN Creatinine Estim Creat Clear Calc Est GFR (MDRD) Non-Af BUN/Creatinine Ratio Glucose Lactic Acid Calcium Total Bilirubin AST ALT Alkaline Phosphatase Troponin T High Sens Total Protein Albumin Globulin Albumin/Globulin Ratio Urine Color Yellow Urine Clarity Sl. Cloudy Urine pH 6.0 Ur Specific [place] 1.010 Urine Protein 30 H Urine Glucose (UA) Normal Urine Ketones 5 H Urine Occult Blood 50 H Urine Nitrite Negative Urine Bilirubin 1 H Urine Urobilinogen Normal Ur Leukocyte Esterase 500 H Urine RBC 0-5 SEEN Urine WBC 10-25 SEEN Ur Squamous Epith Cells 0-5 SEEN Urine Bacteria 3+ Urine Mucus 0 SEEN Blood Type Antibody Screen Crossmatch ABG Data ABG results: ABG 12/24/24 10:19 Specimen Type ART Sample Site L Brach pH 7.14 L* Bicarbonate Actual 6.7 L Total CO2 7 Base Excess -22 L O2 Saturation 99 O2 % 40.0 ABG pCO2 19.6 L ABG pO2 188 H O2 Delivery Device BiPAP Vent Mode Not entered Crit Call To/Read Back Yes Blood Gas Notified Whom ru Blood Gas Notified Time 10:21:24 Radiography Diagnostic Testing: Clinical Impression(s) from Imaging Studies Chest/Abdomen/Pelvis CTA 12/24/24 10:27 IMPRESSION: Essentially stable pulmonary nodules. New 1 cm hypodense nodule in the left lobe of the liver medially. Remainder of the liver is unchanged. Stable right renal cyst. Retroperitoneal lymphadenopathy. Fibroid uterus. Omental metastasis. Sigmoid diverticulosis and possible colitis of the right hemicolon. Reading Location: [facility] 12/24/24 11:20 IMPRESSION: NO ACUTE FINDINGS Punctate calcifications in the region of the miladis. Reading Location: [facility] EKG Initial EKG: Attestation: I personally reviewed and interpreted this EKG as follows: Comments: Sinus rhythm with ventricular rate of 100 bpm with old inferior Critical Care Time Critical care time (excluding procedures): 30-74 minutes, Including time spent:, Discussing w/Patient &/or Family/Facilities Officer, Discussing w/Consultants, Arranging Admission or Transfer, Performing Direct Patient Care at Bedside and - (45 minutes) Discharge Plan Triage Chief Complaint: Weakness Other Complaint: Hypotension ED Provider: Soren Jones Dx/Rx/DC Orders Prescriptions: No Action (DME) Disability Placard See Rx Instructions .ROUTE .MEDSUPPLY Qty: 1 0RF Rx Instructions: expires 09/30/2028 lidocaine-prilocaine 2.5-2.5 % cream 1 applic topical ONCE PRN (Reason: port access) 30 Days Qty: 30 2RF ipratropium-albuterol 0.5 mg-3 mg(2.5 mg base)/3 mL solution for nebulization 3 ml inhalation Q4-6H Qty: 180 6RF budesonide 1 mg/2 mL suspension for nebulization 1 mg inhalation BID Qty: 120 11RF Rx Instructions: rinse mouth after famotidine [Pepcid] 20 mg tablet 20 mg PO QDAY ondansetron 8 mg tablet,disintegrating 8 mg PO Q8H PRN (Reason: nausea and vomiting) Qty: 30 2RF Eliquis DVT-PE Treat 30D Start 5 mg (74 tabs) tablets,dose pack See Rx Instructions PO PER PKG DIR Qty: 74 0RF Rx Instructions: PO PER PKG DIR aspirin 81 mg Tablet,Delayed Release (Dr/Ec) 81 mg PO DAILY 30 Days Qty: 30 0RF oxycodone-acetaminophen [Percocet] 5-325 mg tablet 1 tab PO Q8H PRN (Reason: cancer) 7 Days Qty: 20 0RF carvedilol 3.125 mg tablet 3.125 mg PO BID 30 Days Qty: 180 3RF atorvastatin 10 mg tablet 10 mg PO QHS Qty: 90 3RF albuterol sulfate 90 mcg/actuation HFA aerosol inhaler 2 puff inhalation Q6H PRN (Reason: shortness of breath or wheezing) Qty: 8.5 3RF Rx Instructions: administer with spacer levothyroxine 50 mcg tablet 50 mcg PO QDAY Qty: 30 2RF potassium chloride 20 mEq tablet extended release 20 meq PO QDAY Qty: 7 0RF Primary Care Provider: Care Physician,No Primary Referrals: Care Physician,No Primary [Primary Care Provider] - Print Language: Estonian
[2024-12-24] MEDS: 0.9% Normal Saline (1000mL) 1,000 ML 999 ML IV ×3 (10:15→16:11)
[2024-12-24 10:23] LABS: Base Excess -22 mmol/L (-2 to +2); Bicarbonate 6.7 mmol/L (22-26); Blood Gas Specimen Type ART; Mode Not entered; O2 Delivery Device BiPAP; PO2 188 mmHG (75-100); SITE L Brach; SO2 99 % (95-99); Time Given 10:21:24; Total Carbon Dioxide 7 mmol/L; pCO2 19.6 mmHg (35-45); pH 7.14 (7.35-7.45)
--- NOTE | 2024-12-24 10:27 | CT_ITS ---
PROCEDURE: CTA CHST, ABD, PEL W AND/OR WO 12/24/2024 REASON FOR EXAM: RECTAL BLEEDING Increased lethargy. History of metastatic carcinoma. TECHNIQUE: Chest abdomen and pelvis CT with intravenous contrast. Coronal and Sagittal reconstruction series were provided. One or more dose reduction techniques were used (e.g., Automated exposure control, adjustment of the mA and/or kV according to patient size, use of iterative reconstruction technique. PATIENT PREPARATION: Per protocol ORAL CONTRAST TYPE: None. CONTRAST: Isovue 370 VOLUME: 87 mL RADIATION DOSE SUMMARY: CTDlvol: 20 mGy DLP: 1365.29 mGycm COMPARISON: Comparison is made with prior study dated November 14, 2024. FINDINGS: CHEST: Lines and tubes: A right-sided port a catheter is seen with the tip in the superior vena cava. Mediastinum: Decreased size of the right hilar lymph node presently measuring 1.4 cm. Heart: Coronary artery calcifications are noted. Thoracic Aorta: No thoracic aortic aneurysm or dissection. Lungs and Airways: Stable 1.4 cm pleural-based nodule in the posterior aspect of the right upper lobe as seen on axial image number 81. stable 5 mm pleural-based nodule in the right lower lobe. Pleura: Unremarkable Bones: Degenerative changes of the spine. ABDOMEN AND PELVIS: Liver: There is a new 1 cm hypodense nodule in the medial aspect of the left lobe of the liver. Stable peripheral enhancing nodule in the anterior lateral aspect of the midportion of the right lobe of the liver measuring 7.7 mm. Stable 1 cm hypodense nodule in the lower aspect of the liver. Heterogeneous echotexture suggestive of fatty infiltration. Gallbladder: Unremarkable Spleen: Normal size. Pancreas: Normal size without evidence of mass surrounding inflammation or ductal dilation. Adrenals: Unremarkable Kidneys: Stable 6.4 cm cyst in the lateral aspect of the right kidney. Bladder: A Nam catheter is seen within a decompressed urinary bladder. Reproductive Organs: Fibroid uterus in the fundal portion of the uterus. Bowel: Colonic diverticulosis without diverticulitis. Mild thickening of the right hemicolon suggestive of possible colitis. Vasculature: Mild diffuse atherosclerotic calcifications are noted. Peritoneum / Retroperitoneum: Retroperitoneal lymphadenopathy. Findings suggestive of mesenteric metastasis along the omental portion of the upper abdomen. Bones: Degenerative changes of the spine. CT/CTA Chst, Abd, Pel W and/or WO IMPRESSION: Essentially stable pulmonary nodules. New 1 cm hypodense nodule in the left lobe of the liver medially. Remainder of the liver is unchanged. Stable right renal cyst. Retroperitoneal lymphadenopathy. Fibroid uterus. Omental metastasis. Sigmoid diverticulosis and possible colitis of the right hemicolon. Reading Location: [place] [id number]
[2024-12-24 10:38] LABS: Absolute Lymphocyte Count 3.07 X10^3/uL (0.83-4.51); Absolute Neutrophil Count 11.2 X10^3/uL (2.0-7.7); Basophil# 0.01 X10^3/uL; Basophil% 0.1 % (0-1); Eosinophil# 0.01 X10^3/uL; Eosinophils% 0.1 % (0-5); Hematocrit 13.7 % (37-47); Lymphocyte # 3.07 X10^3/ul (0.83-4.51); Lymphocyte % 20.7 % (19-41); Mean Corp Hgb Conc 29.9 g/dL (32-36); Mean Corpuscular Hgb 31.8 pg (27.0-32.0); Mean Corpuscular Volume 106.2 fL (81-99); Mean Platelet Vol. 13.4 fl (6.2-12.0); Monocyte% 1.3 % (0-10); NRBC Flagged by Analyzer 0 % (0-5); Neutrophil # 11.18 X10^3/uL (2.7-7.7); Neutrophil % 75.3 % (47-70); POSITIVE COUNT YES; POSITIVE MORPHOLOGY YES; RBC Distribution Width CV 15.1 % (11.6-14.6); Red Blood Count 1.29 M/mm3 (4.2-5.4); White Blood Count 14.8 K/mm3 (4.4-11.0)
[2024-12-24 10:42] LABS: Differential Indicated SCAN CRITERIA MET; Hemoglobin 4.1 g/dL (12.0-15.0); International Normalized Ratio 2.2; Platelet Count 21 K/mm3 (150-450); Prothrombin Time (Protime)PT. 25.3 SECONDS (11.7-14.9)
[2024-12-24] MEDS: HUM PROTHROMBIN CPLX(PCC)-LANS 3,120 UNIT in Viaflex Bag 1 BAG 438 UNIT IV (11:04)
[2024-12-24 11:05] LABS: Troponin T High Sensitivity 20 ng/L (<=14)
[2024-12-24 11:16] LABS: Pathologist Review May foll
[2024-12-24 11:19] LABS: ALB/GLOB Ratio 0.9 RATIO (0.9-2.4); AST(SGOT) 31 U/L (<=31); Alanine Aminotransfer ALT/SGPT 8 U/L (<=34); Albumin, Serum 2.3 g/dL (3.4-4.8); Alkaline Phosphatase 101 U/L (35-104); Anion Gap 28 (5-15); BUN 25 mg/dL (4-19); BUN/Creat Ratio 28.5 RATIO (10-20); Carbon Dioxide 9.2 mmol/L (21.0-32.0); Chloride 96 mmol/L (98-108); Creatinine, Serum 0.87 mg/dL (0.70-1.20); EST Glomerular Filtration Rate 73 (>60); Estimated Creatinine Clearance 51.91 ml/min (50-250); Globulin 2.7 g/dL (2.2-4.2); Glucose 219 mg/dL (70-99); Lactic Acid 16.3 mmol/L (0.0-2.0); Sodium Level 133 mmol/L (133-145); Total Bilirubin 0.17 mg/dL (0.00-1.30)
--- NOTE | 2024-12-24 11:20 | CT_ITS ---
PROCEDURE: BRAIN/HEAD WITHOUT CONTRAST 12/24/2024 REASON FOR EXAM: MENTAL STATUS CHANGE History of cerebral neoplasm. TECHNIQUE: Head CT without intravenous contrast. Coronal and Sagittal reconstruction series were provided. One or more dose reduction techniques were used (e.g., Automated exposure control, adjustment of the mA and/or kV according to patient size, use of iterative reconstruction technique. RADIATION DOSE SUMMARY: CTDlvol: 44.99 mGy DLP: 779.24 mGycm COMPARISON: None FINDINGS: Brain: Within normal limits for age mild degree of cerebellar atrophy. Focal decreased density seen in the insular cortex of the right temporal lobe suggestive of possible old ischemic changes. CSF Spaces: Mild generalized cerebral atrophy. Punctate calcification seen in the miladis. Sinuses/Mastoids: Clear at visualized levels Bones: Unremarkable CT/Brain/Head without Contrast IMPRESSION: NO ACUTE FINDINGS Punctate calcifications in the region of the miladis. Reading Location: [place] [id number]
--- NOTE | 2024-12-24 11:43 | PCM.HP.STD ---
HPI - General General Date of Admission: 12/24/24 Date of Service: 12/24/24 Chief Complaint: altered mental status HPI Narrative LEONOR RICKETTS, is a 69 F with a past medical history as outlined which includes metastatic lung cancer with mets to the brain and liver, currently undergoing chemotherapy. She was admitted with complaint of altered mental status. The time of my review patient was alert and could communicate. She says she has been feeling weak and had as well as dizzy and lightheaded for the past week. She had been started on Eliquis for the left lower extremity DVT in her calf. She said over the past week she had been having dark tarry stools which had gradually gotten worse. She denied any pain with bowel movements and denied any abdominal pain no shortness of breath or coffee-ground emesis. However she said her dizziness and weakness had been getting worse until she was found unresponsive by family today so she was brought into the ED. When she initially came into the ED she was very lethargic and unresponsive but subsequently became much more responsive. She had no other complaints. Her last session of chemotherapy was about a week ago. She was diagnosed with lung cancer 2 years ago. She continues to smoke. She denies any excessive pain med intake. Review of systems otherwise negative. Vitals in the ED were blood pressure 119/74, pulse rate of 88 and respiratory rate of 18. Temperature was 96.8 Fahrenheit and she was saturating at 100% on 2 L of oxygen. CBC showed hemoglobin of 4.1 with WBC of 14.8 and platelets of 21. INR was 2.2. ABG showed pH of 7.14 with bicarb of 6.7. Chemistry shows sodium of 133 with potassium of 5 and bicarb of 9.2. Anion gap was 28. Lactic acid was 16.3. Liver enzymes were normal and initial troponin was 20. Delta troponin was pending. Urinalysis showed 3+ bacteria. CT of the brain showed no acute intracranial pathology and CTA of the chest and abdomen showed essentially stable pulmonary nodules and new 1 cm hypodense nodule in the left lobe of the liver medially and retroperitoneal lymphadenopathy as well as omental metastasis and sigmoid diverticulosis and possible colitis of the right hemicolon. She has been admitted to the ICU to be managed for anion gap metabolic acidosis and acute pancytopenia in the setting of lung cancer. [facility] Medical History Left leg DVT Constipation At high risk for deep venous thrombosis Left leg swelling Hypothyroidism (acquired) Encounter for antineoplastic immunotherapy Lung cancer metastatic to brain Hypothyroidism Brain lesion Nausea & vomiting Encounter for immunotherapy Hypomagnesemia Anemia CINV (chemotherapy-induced nausea and vomiting) Dehydration Hypokalemia Oral candidiasis Angular cheilitis Encounter for chemotherapy management Wears glasses Wears dentures Post-menopausal Cancer High cholesterol Asthma History of echocardiogram H/O pulmonary function tests Cardiology follow-up encounter History of heart attack Encounter for education Metastasis to liver Regional lymph node metastasis present Myocardial infarct Chest pain Nicotine dependence, cigarettes, uncomplicated Coronary artery disease COPD (chronic obstructive pulmonary disease) Nicotine dependence Hypertension Left ventricular aneurysm Left ventricular systolic dysfunction (LVSD) Smoker STEMI (ST elevation myocardial infarction) Bronchitis Home Medications ?Medication ?Instructions ?Recorded ?Last Taken ?Type aspirin 81 mg tablet,delayed 81 mg PO DAILY HEART HEALTH 30 07/08/23 11/07/23 Rx release days #30 tabs Disability Placard #1 ea 09/30/23 Unknown Rx lidocaine-prilocaine 2.5 %-2.5 % 1 applic topical ONCE PRN port 10/24/23 Unknown Rx topical cream access 30 days #30 grams budesonide 1 mg/2 mL suspension 1 mg (2 mL) inhalation BID SOB 07/10/24 Unknown Rx for nebulization #120 mL famotidine 20 mg tablet (Pepcid) 20 mg PO QDAY acid reflux 07/10/24 Unknown History ipratropium 0.5 mg-albuterol 3 mg 3 ml inhalation Q4-6H SOB #180 mL 07/10/24 Unknown Rx (2.5 mg base)/3 mL nebulization soln atorvastatin 10 mg tablet 10 mg PO QHS CHOLESTEROL #90 tabs 07/24/24 Unknown Rx carvedilol 3.125 mg tablet 3.125 mg PO BID HIGH BLOOD 07/24/24 Unknown Rx PRESSURE 30 days #180 tabs albuterol sulfate 90 mcg/actuation 2 puff inhalation Q6H PRN 09/11/24 Unknown Rx aerosol inhaler shortness of breath or wheezing #8.5 grams oxycodone-acetaminophen 5 mg-325 1 tab PO Q8H PRN cancer 7 days #20 11/08/24 Unknown Rx mg tablet (Percocet) tabs ondansetron 8 mg disintegrating 8 mg PO Q8H PRN nausea and 11/20/24 Unknown Rx tablet vomiting #30 tabs levothyroxine 50 mcg tablet 50 mcg PO QDAY thyroid #30 tabs 11/29/24 Unknown Rx potassium chloride 20 mEq 20 meq PO QDAY electro,. #7 tabs 12/04/24 Unknown Rx tablet,extended release apixaban 5 mg (74 tabs) tablets in See Rx Instructions PO PER PKG DIR 12/11/24 Unknown Rx a dose pack (EliquRooster Teeth DVT-PE Treat DVT #74 tabs 30D Start) clopidogrel 75 mg tablet 75 mg PO DAILY blood clot 12/24/24 Unknown History magnesium oxide 400 mg (241.3 mg 400 mg PO DAILY orered 12/24/24 Unknown History magnesium) tablet pantoprazole 40 mg tablet,delayed 40 mg PO BID acid reflux 12/24/24 Unknown History release Allergy/AdvReac Type Severity Reaction Status Date / Time No Known Allergies Allergy Verified 12/24/24 11:47 Family History no significant family his Surgical History Hx of tooth extraction History of liver biopsy History of lung biopsy Hx of cardiac catheterization (~07/06/23) H/O coronary angioplasty (~07/06/23) H/O tubal ligation Social History household members: none Smoking Status: Current every day smoker tobacco type: cigarettes Tobacco: How many years used: 55 quit status: considering quitting alcohol intake: never substance use type: does not use and marijuana caffeine: Yes Type: carbonated beverages Number of servings: 2 ROS Constitutional Constitutional: Reports fatigue, malaise and weakness; Denies anorexia, chills or fever(s) Eyes Eyes: Denies change in vision ENT HEENT: Denies dysphagia, headache(s) or sore throat Cardiovascular Cardiovascular: Denies chest pain, edema, lightheadedness, orthopnea, palpitations, paroxysmal nocturnal dyspnea or rapid heart rate Respiratory/Chest Respiratory/Chest: Denies cough, excessive phlegm production, hemoptysis, productive cough, shortness of breath at rest or shortness of breath with exertion Gastrointestinal Gastrointestinal: Denies constipation, diarrhea, nausea or vomiting Genitourinary Genitourinary: Denies dysuria Neurologic Neurologic: Denies confusion, dizziness, focal weakness, headache(s) or numbness Psychiatric Psychiatric: Denies anxiety or depression Vital Signs Vital Signs Vital Signs: 12/24/24 09:59 12/24/24 10:01 12/24/24 10:21 Temperature 97.3 F L Temperature Source Core Pulse Rate 117 H 117 H Respiratory Rate 30 H 31 H Respiratory Pattern Tachypnea Blood Pressure 45/27 L 123/69 H Blood Pressure Mean 33 87 Blood Pressure Source Pulse Ox Oxygen Delivery Method Fraction of Inspired Oxygen (FIO2) 40 12/24/24 10:22 12/24/24 10:28 Temperature 97.4 F L 95.6 F L Temperature Source Core Core Pulse Rate 106 H 101 H Respiratory Rate 19 H 25 H Respiratory Pattern Blood Pressure 116/73 183/97 H Blood Pressure Mean 87 125 Blood Pressure Source Monitor Pulse Ox 87 92 Oxygen Delivery Method Bi-pap Bi-pap Fraction of Inspired Oxygen (FIO2) Weight Weight: 134 lb 4.184 oz Body Mass Index (BMI) 23.8 Physical Exam Const alert and oriented x3 Constitutional Narrative: very frail and weak Orientation / Consciousness: lethargic HEENT normocephalic and head/scalp atraumatic HEENT Narrative: dry oral mucosa Eyes PERRL, EOMs intact bilaterally and conjunctivae normal Neck no lymphadenopathy and supple Resp normal respiratory effort, no use of accessory muscles and clear to auscultation bilaterally Cardio regular rate, regular rhythm, S1 normal heart sound, S2 normal heart sound and no murmurs GI normal to inspection, nondistended, normoactive bowel sounds, soft to palpation, non-tender and non-distended Extremity normal to inspection, full ROM and no clubbing, cyanosis or edema Neuro oriented x3, CN's II-XII intact bilaterally, moves all extremities and no focal motor deficits Neuro Narrative: frail, lethargic Sensorium / Orientation: awake and alert Results Lab / Micro Data 12/24/24 10:08 12/24/24 14:58 Labs: Laboratory Results - last 24 hr 12/24/24 10:05: Crossmatch See Detail 12/24/24 10:07: Blood Type O POSITIVE, Antibody Screen NEGATIVE, Crossmatch See Detail 12/24/24 10:08: WBC 14.8 H, RBC 1.29 L, Hgb 4.1 L*, Hct 13.7 L, MCV 106.2 H, MCH 31.8, MCHC 29.9 L, RDW Std Deviation 58.0 H, RDW Coeff of Fidel 15.1 H, Plt Count 21 L*, MPV 13.4 H, Immature Gran % (Auto) 2.500 H, Neut % (Auto) 75.3 H, Lymph % (Auto) 20.7, [place] % (Auto) 1.3, Eos % (Auto) 0.1, Baso % (Auto) 0.1, Absolute Neuts (auto) 11.2 H, Absolute Lymphs (auto) 3.07, Nucleated RBC % 0, Differential Comment , Diff Path Review January foll, PT 25.3 H, INR 2.2, Sodium 133, Potassium 5.0, Chloride 96 L, Carbon Dioxide 9.2 L*, Anion Gap 28 H, BUN 25 H, Creatinine 0.87, Estim Creat Clear Calc 51.91, Est GFR (MDRD) Non-Af 73, BUN/Creatinine Ratio 28.5 H, Glucose 219 H, Lactic Acid 16.3 H*, Calcium 8.0, Total Bilirubin 0.17, AST 31, ALT 8, Alkaline Phosphatase 101, Troponin T High Sens 20 H, Total Protein 5.0 L, Albumin 2.3 L, Globulin 2.7, Albumin/Globulin Ratio 0.9 Micro: Microbiology 12/24/24 10:00 Stool Stool Occult Blood (LASHANDA) - Final Occult Blood Positive ABG Data ABG results: ABG 12/24/24 10:19 Specimen Type ART Sample Site L Brach pH 7.14 L* Bicarbonate Actual 6.7 L Total CO2 7 Base Excess -22 L O2 Saturation 99 O2 % 40.0 ABG pCO2 19.6 L ABG pO2 188 H O2 Delivery Device BiPAP Vent Mode Not entered Crit Call To/Read Back Yes Blood Gas Notified Whom ru Blood Gas Notified Time 10:21:24 Assessment & Plan Assessment/Plan (1) Lung cancer metastatic to brain: (2) High anion gap metabolic acidosis: (3) Lactic acidosis: PLAN: Plan #Acute anemia Likely due to chemotherapy. May also be having a GI bleed. Hemoglobin is 4.1. She did have chemotherapy last week and was told that her platelets and hemoglobin will likely drop. However she is also on Eliquis and has been having dark melena stools for about a week. Hold Eliquis. Transfuse patient with 2 units of packed red blood cells. IV pantoprazole drip. Consult gastroenterology. Keep patient n.p.o. for now. Hydrate with IV fluids normal saline at 150 cc/h. #Acute thrombocytopenia Platelets are 21. Were 83 a week ago when she had her last session of chemotherapy. ED discussed with oncology recommended that patient be transfused with platelets. Will consult hematology and monitor platelets. #Elevated anion gap metabolic acidosis pH of 7.14 with anion gap of 28. Bicarb is 9.2. This may be due to the lactic acidosis as lactic acid is 16. The elevated lactic acid may be due to the UTI and hypotension from the anemia. Should improve with hydration and as anemia resolves. Repeat CBC and CMP #UTI Urinalysis does show evidence of UTI with 3+ bacteria. Get urine cultures and blood cultures and start on IV cefepime. #Lactic acidosis Lactic acid is 16. She does meet the criteria of septic shock. Lactic acid criteria as she also has evidence of infection and lactic acid of 16. WBC is also elevated at 14.8. Patient be hydrated with IV fluids and also being transfused . Anemia likely also contributing to the lactic acidosis. Trend lactic acid. #Metastatic lung cancer Diagnosed with lung cancer 2 years ago. Follows with oncology. Has mets to the brain. Her last session of chemotherapy about a week ago. Consult oncology in light of the anemia and severe thrombocytopenia #History of DVT: Recently diagnosed with DVT in the calf and started on Eliquis. Will hold Eliquis due to GI bleed. #Hypothyroidism: On Synthroid #COPD: Not in exacerbation. Breathing treatments bronchodilators. Titrate oxygen as needed to maintain saturation above 90%. #CAD s/p stents: On aspirin and statin. Hold aspirin. Also on carvedilol and Plavix. Hold both. #Nicotine dependence: Patient still continues to smoke. Nicotine patch 21 mg daily. DVT prophylaxis: SCDs CODE STATUS: Patient and her son was by her bedside counseled about the different clinical status, DNR CC, DNR CCA and full code. Patient deferred to her son to make the decision for her. I counseled her son again about the differences in CODE STATUS and he requested that his mother have CPR or short-term intubation if needed. Patient is therefore full code. total face to face time: 18 mins Total critical care time spent: 75 minutes Charges/Coding Visit Charges Inpatient E&M: 15998 Init Hosp L3 Procedures Hospitalists Procedures: 38933 Advncd Care Plan 30 Min (42105)
[2024-12-24 11:49] LABS: Mucous, Urine 0 SEEN /hpf (<or=2+)
[2024-12-24 11:56] LABS: Color, Urine Yellow (Yellow); Glucose, Dipstick Normal (Normal); Ketone-Dipstick 5 mg/dl (Negative); Leukocyte Esterase-Dipstick 500 /ul (Negative); Nitrite-Dipstick Negative (Negative); Occult Blood-Urine 50 /ul (Negative); Protein-Dipstick 30 mg/dl (Negative); Urine Clarity Sl. Cloudy (Clear); Urine Urobilinogen Normal (Normal)
[2024-12-24 12:00] LABS: Urine Bilirubin Dipstick 1 mg/dL (Negative)
--- NOTE | 2024-12-24 12:01 | CPS ---
Per MD pt is off bipap and on NC at 2L
[2024-12-24 12:14] LABS: Bacteria 3+ /hpf (None Seen); Squamous Epithelial Cells - UA 0-5 SEEN /hpf (5-10); White Blood Cells 10-25 SEEN /hpf (0-5)
[2024-12-24 12:15] LABS: Red Blood Cells-Urine 0-5 SEEN /hpf (0-5)
[2024-12-24] MEDS: Pantoprazole Sodium 40 MG in 0.9% Normal Saline (100mL MB+) 100 ML 330 MG IV (12:19)
[2024-12-24] MEDS: Piperacil/Tazobactam 4.5 GM in 0.9% Normal Saline (100mL MB+) 100 ML IV (12:20)
--- NOTE | 2024-12-24 12:39 | CM.ED ---
Social work Patient arrived to [facility] ED via EMS with patient's daughter, Jeimy, and another support person behind. SW provided support to patient's daughter and support person as necessary. Jeimy stated not being ready to lose patient as Jeimy reported just having Jeimy's , Alan, unexpectedly pass away November 11. Jeimy stated it's too close and called patient's son, Luis Enrique, on the phone. SW supported patient's relatives in the waiting room to give [facility] staff room to work. Jeimy and support person took a walk outside the hospital and left Jeimy's number to call for when RNs were done and guests were allowed back in patient's room. SW reentered patient's room later to find patient's son, Luis Enrique, present; Luis Enrique states living with patient. SW called patient's daughter, Jeimy, when RN Marisol stated ability for patient to have one other support person. There is no HCPOA on file and Jeimy states there being no HCPOA. Patient unable to answer at this time. Per doctor's note, patient shook head 'no' when asked if patient would want intubation, but patient's children said 'yes.' Patient's doctor and nurses were able to stabilize patient without intubation being a current need. Plan: admission to acute; RN CM/SW to follow for discharge planning needs that may arise. Erin Thomas, DIV[employer] DE[employer]IT ENTRY CLERK, [employer]
[2024-12-24 13:17] LABS: Troponin T High Sens 2 HR 22 ng/L (<=14)
--- NOTE | 2024-12-24 14:08 | ED.RN ---
Report called to Eileen in ICU
[2024-12-24 14:29] LABS: Reflex Lactate? Y
[2024-12-24 14:36] LABS: Troponin T High Sens 4 HR 25 ng/L (<=14)
[2024-12-24 15:13] LABS: Hematocrit 25.8 % (37-47); Hemoglobin 8.8 g/dL (12.0-15.0); Mean Corp Hgb Conc 34.1 g/dL (32-36); Mean Corpuscular Hgb 31.9 pg (27.0-32.0); Mean Corpuscular Volume 93.5 fL (81-99); Mean Platelet Vol. 12.6 fl (6.2-12.0); POSITIVE COUNT YES; POSITIVE DIFFERENTIAL YES; POSITIVE MORPHOLOGY YES; RBC Distribution Width CV 13.9 % (11.6-14.6); RBC Distribution Width SD 47.4 fl (35.1-43.9); Red Blood Count 2.76 M/mm3 (4.2-5.4); White Blood Count 8.6 K/mm3 (4.4-11.0)
[2024-12-24 15:32] LABS: Allen Test Positive; Base Excess -4 mmol/L (-2 to +2); Bicarbonate 20.8 mmol/L (22-26); Blood Gas Specimen Type ART; Mode Not entered; O2 Delivery Device CPAP; PO2 93 mmHG (75-100); SITE R Brach; SO2 97 % (95-99); Total Carbon Dioxide 22 mmol/L; pCO2 33.5 mmHg (35-45)
[2024-12-24] MEDS: 0.9% Normal Saline (100mL Bag) 100 ML 15 ML IV (15:32)
[2024-12-24] MEDS: Cefepime HCl 2 GM in 0.9% Normal Saline (100mL MB+) 100 ML IV ×2 (15:34→22:00)
[2024-12-24] MEDS: 0.9% Saline Lock 10 ML Syringe IV ×3 (15:36→22:06)
[2024-12-24 15:49] LABS: ALB/GLOB Ratio 0.9 RATIO (0.9-2.4); AST(SGOT) 162 U/L (<=31); Alanine Aminotransfer ALT/SGPT 34 U/L (<=34); Albumin, Serum 2.4 g/dL (3.4-4.8); Alkaline Phosphatase 93 U/L (35-104); Anion Gap 15 (5-15); BUN 24 mg/dL (4-19); BUN/Creat Ratio 31.4 RATIO (10-20); Calcium,Total 7.3 mg/dL (7.6-11.0); Carbon Dioxide 18.6 mmol/L (21.0-32.0); Chloride 100 mmol/L (98-108); Creatinine, Serum 0.76 mg/dL (0.70-1.20); EST Glomerular Filtration Rate 86 (>60); Estimated Creatinine Clearance 56.45 ml/min (50-250); Globulin 2.6 g/dL (2.2-4.2); Glucose 165 mg/dL (70-99); Potassium 3.6 mmol/L (3.3-5.1); Protein, Total 4.9 g/dL (5.9-8.4); Sodium Level 133 mmol/L (133-145); Total Bilirubin 0.57 mg/dL (0.00-1.30)
[2024-12-24 15:50] LABS: Lactic Acid 4.9 mmol/L (0.0-2.0)
[2024-12-24] MEDS: Pantoprazole Sodium 80 MG in 0.9% Normal Saline (100mL Bag) 80 ML 10 MG CONT INF (17:07)
--- NOTE | 2024-12-24 17:48 | ONC.CONSULT ---
Assessment & Plan Assessment/Plan (1) Thrombocytopenia: Status: Acute Code(s): D69.6 - Thrombocytopenia, unspecified Plan: Thrombocytosis due to chemotherapy. Since patient has a GI bleed, she can get platelets transfusion to keep platelet count greater than 50,000. (2) Anemia: Status: Acute Code(s): D64.9 - Anemia, unspecified Qualifiers: Anemia type: unspecified type Qualified Code(s): D64.9 - Anemia, unspecified Plan: Prognosis is guarded. To transfuse PRBC as needed. (3) Left leg DVT: Status: Acute Code(s): I82.402 - Acute embolism and thrombosis of unspecified deep veins of left lower extremity Qualifiers: Affected thrombotic vein of extremity: unspecified vein of extremity Chronicity: acute Qualified Code(s): I82.402 - Acute embolism and thrombosis of unspecified deep veins of left lower extremity Plan: Since patient has GI bleed and cannot be anticoagulated, will suggest vascular consult for [place] filter placement. (4) Metastatic primary lung cancer: Status: Chronic Code(s): C34.90 - Malignant neoplasm of unspecified part of unspecified bronchus or lung Qualifiers: Laterality: left Qualified Code(s): C34.92 - Malignant neoplasm of unspecified part of left bronchus or lung Plan: Will hold chemotherapy while she is inpatient. To follow-up in the [place] [facility] after discharge. HPI Consult Data Date of Service:: 12/24/24 PCP / Referring Provider: Jessica Primary Care Phys Attending: Dr. Preeti Fagan MD Chief Complaint Chief Complaint: Asked to see patient for thrombocytopenia, history of DVT and GI bleed. History of Present Illness History of Present Illness: 69-year-old woman was diagnosed with Stage IV non-small cell lung cancer, squamous cell type in September 2023. She was treated with carboplatin, Taxol and Keytruda followed by Keytruda maintenance to October 2024. She developed brain metastasis and received SRS in July 2024. She had progressive disease and started gemcitabine on 12/04/2024. She developed DVT of the left leg on 12/11/2024 and started on Eliquis. She was found unresponsive at home and brought to the ER, where she was found to have black tarry stools, hemoglobin 4.1, platelets 21K. She was given PRBC and platelets. Advanced Directives Do you have a Healthcare Power of Stroke Program Coordinator?: No Living Will: No PFSH Medical History Left leg DVT Constipation At high risk for deep venous thrombosis Left leg swelling Hypothyroidism (acquired) Encounter for antineoplastic immunotherapy Lung cancer metastatic to brain Hypothyroidism Brain lesion Nausea & vomiting Encounter for immunotherapy Hypomagnesemia Anemia CINV (chemotherapy-induced nausea and vomiting) Dehydration Hypokalemia Oral candidiasis Angular cheilitis Encounter for chemotherapy management Wears glasses Wears dentures Post-menopausal Cancer High cholesterol Asthma History of echocardiogram H/O pulmonary function tests Cardiology follow-up encounter History of heart attack Encounter for education Metastasis to liver Regional lymph node metastasis present Myocardial infarct Chest pain Nicotine dependence, cigarettes, uncomplicated Coronary artery disease COPD (chronic obstructive pulmonary disease) Nicotine dependence Hypertension Left ventricular aneurysm Left ventricular systolic dysfunction (LVSD) Smoker STEMI (ST elevation myocardial infarction) Bronchitis Home Medications ?Medication ?Instructions ?Recorded ?Last Taken ?Type aspirin 81 mg tablet,delayed 81 mg PO DAILY HEART HEALTH 30 07/08/23 11/07/23 Rx release days #30 tabs Disability Placard #1 ea 09/30/23 Unknown Rx lidocaine-prilocaine 2.5 %-2.5 % 1 applic topical ONCE PRN port 10/24/23 Unknown Rx topical cream access 30 days #30 grams budesonide 1 mg/2 mL suspension 1 mg (2 mL) inhalation BID SOB 07/10/24 Unknown Rx for nebulization #120 mL famotidine 20 mg tablet (Pepcid) 20 mg PO QDAY acid reflux 07/10/24 Unknown History ipratropium 0.5 mg-albuterol 3 mg 3 ml inhalation Q4-6H SOB #180 mL 07/10/24 Unknown Rx (2.5 mg base)/3 mL nebulization soln atorvastatin 10 mg tablet 10 mg PO QHS CHOLESTEROL #90 tabs 07/24/24 Unknown Rx carvedilol 3.125 mg tablet 3.125 mg PO BID HIGH BLOOD 07/24/24 Unknown Rx PRESSURE 30 days #180 tabs albuterol sulfate 90 mcg/actuation 2 puff inhalation Q6H PRN 09/11/24 Unknown Rx aerosol inhaler shortness of breath or wheezing #8.5 grams oxycodone-acetaminophen 5 mg-325 1 tab PO Q8H PRN cancer 7 days #20 02/27/25 Unknown Rx mg tablet (Percocet) tabs ondansetron 8 mg disintegrating 8 mg PO Q8H PRN nausea and 11/20/24 Unknown Rx tablet vomiting #30 tabs levothyroxine 50 mcg tablet 50 mcg PO QDAY thyroid #30 tabs 11/29/24 Unknown Rx potassium chloride 20 mEq 20 meq PO QDAY electro,. #7 tabs 12/04/24 Unknown Rx tablet,extended release apixaban 5 mg (74 tabs) tablets in See Rx Instructions PO PER PKG DIR 12/11/24 Unknown Rx a dose pack ([email or web address] DVT-PE Treat DVT #74 tabs 30D Start) clopidogrel 75 mg tablet 75 mg PO DAILY blood clot 12/24/24 Unknown History magnesium oxide 400 mg (241.3 mg 400 mg PO DAILY orered 12/24/24 Unknown History magnesium) tablet pantoprazole 40 mg tablet,delayed 40 mg PO BID acid reflux 12/24/24 Unknown History release Allergy/AdvReac Type Severity Reaction Status Date / Time No Known Allergies Allergy Verified 12/24/24 11:47 Family History no significant family his Surgical History Hx of tooth extraction History of liver biopsy History of lung biopsy Hx of cardiac catheterization (~07/06/23) H/O coronary angioplasty (~07/06/23) H/O tubal ligation Social History household members: none Smoking Status: Current every day smoker tobacco type: cigarettes Tobacco: How many years used: 55 quit status: considering quitting alcohol intake: never substance use type: does not use and marijuana caffeine: Yes Type: carbonated beverages Number of servings: 2 Physical Exam Narrative Patient seen in bed Const alert, oriented x3 and no apparent distress HEENT normocephalic Eyes PERRL, conjunctivae normal and no scleral icterus Neck no lymphadenopathy Lymph Lymphatic: no lymphadenopathy noted Resp normal respiratory effort and clear to auscultation bilaterally Cardio regular rate, regular rhythm, S1 normal heart sound, S2 normal heart sound and no murmurs GI normal to inspection, nondistended, normoactive bowel sounds Extremity no clubbing, cyanosis or edema Skin no rashes or lesions noted Neuro CN's II-XII intact bilaterally, moves all extremities and no focal motor deficits Psych mental status grossly normal Vital Signs Temperature 98.5 F 12/24/24 17:06 Temperature Source Core 12/24/24 17:06 Pulse Rate 83 12/24/24 17:06 Respiratory Rate 19 H 12/24/24 17:06 Respiratory Effort Normal, Non-Labored 12/24/24 15:00 Respiratory Depth Normal 12/24/24 15:00 Respiratory Pattern Normal 12/24/24 15:00 Blood Pressure 109/55 L 12/24/24 17:06 Blood Pressure Mean 73 12/24/24 17:06 Blood Pressure Source Monitor 12/24/24 17:06 Blood Pressure Position Semi-Fowlers 12/24/24 17:06 Blood Pressure Location Left Arm 12/24/24 17:06 Pulse Ox 100 12/24/24 17:06 Oxygen Delivery Method Nasal Cannula 12/24/24 17:06 Oxygen Flow Rate (L/min) 2 12/24/24 17:06 Fraction of Inspired Oxygen (FIO2) 40 12/24/24 10:21 Laboratory Results - last 24 hr 12/24/24 10:05: Crossmatch See Detail 12/24/24 10:07: Blood Type O POSITIVE, Antibody Screen NEGATIVE, Crossmatch See Detail 12/24/24 10:08: WBC 14.8 H, RBC 1.29 L, Hgb 4.1 L*, Hct 13.7 L, MCV 106.2 H, MCH 31.8, MCHC 29.9 L, RDW Std Deviation 58.0 H, RDW Coeff of Fidel 15.1 H, Plt Count 21 L*, MPV 13.4 H, Immature Gran % (Auto) 2.500 H, Neut % (Auto) 75.3 H, Lymph % (Auto) 20.7, [place] % (Auto) 1.3, Eos % (Auto) 0.1, Baso % (Auto) 0.1, Absolute Neuts (auto) 11.2 H, Absolute Lymphs (auto) 3.07, Nucleated RBC % 0, Differential Comment , Diff Path Review January, PT 25.3 H, INR 2.2, Sodium 133, Potassium 5.0, Chloride 96 L, Carbon Dioxide 9.2 L*, Anion Gap 28 H, BUN 25 H, Creatinine 0.87, Estim Creat Clear Calc 51.91, Est GFR (MDRD) Non-Af 73, BUN/Creatinine Ratio 28.5 H, Glucose 219 H, Lactic Acid 16.3 H*, Calcium 8.0, Total Bilirubin 0.17, AST 31, ALT 8, Alkaline Phosphatase 101, Troponin T High Sens 20 H, Total Protein 5.0 L, Albumin 2.3 L, Globulin 2.7, Albumin/Globulin Ratio 0.9 12/24/24 11:47: Urine Color Yellow, Urine Clarity Sl. Cloudy, Urine pH 6.0, Ur Specific [place] 1.010, Urine Protein 30 H, Urine Glucose (UA) Normal, Urine Ketones 5 H, Urine Occult Blood 50 H, Urine Nitrite Negative, Urine Bilirubin 1 H, Urine Urobilinogen Normal, Ur Leukocyte Esterase 500 H, Urine RBC 0-5 SEEN, Urine WBC 10-25 SEEN, Ur Squamous Epith Cells 0-5 SEEN, Urine Bacteria 3+, Urine Mucus 0 SEEN 12/24/24 12:32: Troponin T Hi Sens 2 Hr 22 H 12/24/24 14:13: Troponin T Hi Sens 4Hr 25 H 12/24/24 14:14: Lactic Acid 4.9 H* 12/24/24 14:58: Sodium 133, Potassium 3.6, Chloride 100, Carbon Dioxide 18.6 L, Anion Gap 15, BUN 24 H, Creatinine 0.76, Estim Creat Clear Calc 56.45, Est GFR (MDRD) Non-Af 86, BUN/Creatinine Ratio 31.4 H, Glucose 165 H, Calcium 7.3 L, Total Bilirubin 0.57, AST 162 H, ALT 34, Alkaline Phosphatase 93, Total Protein 4.9 L, Albumin 2.4 L, Globulin 2.6, Albumin/Globulin Ratio 0.9 Microbiology 12/24/24 10:00 Stool Stool Occult Blood (LASHANDA) - Final Occult Blood Positive Diagnostic Data Chest/Abdomen/Pelvis CTA 12/24/24 10:27 IMPRESSION: Essentially stable pulmonary nodules. New 1 cm hypodense nodule in the left lobe of the liver medially. Remainder of the liver is unchanged. Stable right renal cyst. Retroperitoneal lymphadenopathy. Fibroid uterus. Omental metastasis. Sigmoid diverticulosis and possible colitis of the right hemicolon. Reading Location: [facility]-IR-[address] 12/24/24 11:20 IMPRESSION: NO ACUTE FINDINGS Punctate calcifications in the region of the miladis. Reading Location: [facility]
[2024-12-24 18:20] LABS: Lymphocyte 7 % (19-41); Monocyte 3 % (0-10); Neutrophil-Band 17 % (0-5); Neutrophil-Segmented 72 % (47-70); Total Cells Counted 100 (MANUAL DIFF)
[2024-12-24 18:24] LABS: Differential Indicated MANUAL DIFF
[2024-12-24 18:25] LABS: Absolute Neutrophil Count 7.7 X10^3/uL (2.0-7.7)
--- NOTE | 2024-12-24 18:26 | CON.PCM.GI_ITS ---
HPI Consult Data Date of Consult: 12/24/24 HPI Narrative Reason for Consultation: GI bleed HPI Narrative: LEONOR RICKETTS, is a 69 F who presented via EMS from home. Patient apparently was relatively unresponsive this morning as family had a hard time getting her up. Family noted she had black tarry stool this morning. Patient was started on Eliquis recently for left leg DVT. She has a past medical history of stage IV non-small cell lung cancer of the left upper lobe, squamous histology favored with radiologic evidence for metastases to the left mediastinal lymph node, liver. Metastasis to liver confirmed pathologically. She also has anemia and thrombocytopenia. She developed a severe lactic acidosis of 16 in the ED with a blood pressure of 40/20. She was able to be volume resuscitated and was started on PPI drip. Recent follow-up imaging November 2024 shows definitive progression in the chest as well as CT abdomen. She develop an acute GI bleed January 22, 2024 managed conservatively, no diagnostic endoscopy was done but treated empirically with PPI and resolved. Developed immune therapy induced hypothyroidism, started on Synthroid replacement therapy. Chronic comorbid condition: COPD, coronary artery disease status postmyocardial infarction June 2023, hypertension. [facility] Medical History Left leg DVT Constipation At high risk for deep venous thrombosis Left leg swelling Hypothyroidism (acquired) Encounter for antineoplastic immunotherapy Lung cancer metastatic to brain Hypothyroidism Brain lesion Nausea & vomiting Encounter for immunotherapy Hypomagnesemia Anemia CINV (chemotherapy-induced nausea and vomiting) Dehydration Hypokalemia Oral candidiasis Angular cheilitis Encounter for chemotherapy management Wears glasses Wears dentures Post-menopausal Cancer High cholesterol Asthma History of echocardiogram H/O pulmonary function tests Cardiology follow-up encounter History of heart attack Encounter for education Metastasis to liver Regional lymph node metastasis present Myocardial infarct Chest pain Nicotine dependence, cigarettes, uncomplicated Coronary artery disease COPD (chronic obstructive pulmonary disease) Nicotine dependence Hypertension Left ventricular aneurysm Left ventricular systolic dysfunction (LVSD) Smoker STEMI (ST elevation myocardial infarction) Bronchitis Home Medications ?Medication ?Instructions ?Recorded ?Last Taken ?Type aspirin 81 mg tablet,delayed 81 mg PO DAILY HEART HEAL 07/08/23 11/07/23 Rx release days #30 tabs Disability Placard #1 ea 09/30/23 Unknown Rx lidocaine-prilocaine 2.5 %-2.5 % 1 applic topical ONCE PRN port 02/12/24 Unknown Rx topical cream access 30 days #30 grams budesonide 1 mg/2 mL suspension 1 mg (2 mL) inhalation BID SOB 07/10/24 Unknown Rx for nebulization #120 mL famotidine 20 mg tablet (Pepcid) 20 mg PO QDAY acid re flux 07/10/24 Unknown History ipratropium 0.5 mg-albuterol 3 mg 3 ml inhalation Q4-6 H SOB #180 mL 07/10/24 Unknown Rx (2.5 mg base)/3 mL nebulization soln atorvastatin 10 mg tablet 10 mg PO QHS CHOLESTEROL #9 0 tabs 07/24/24 Unknown Rx carvedilol 3.125 mg tablet 3.125 mg PO BID HIGH BLOOD 07/24/24 Unknown Rx PRESSURE 30 days #180 tabs albuterol sulfate 90 mcg/actuation 2 puff inhalation Q 6H PRN 09/11/24 Unknown Rx aerosol inhaler shortness of breath or [place] ing #8.5 grams oxycodone-acetaminophen 5 mg-325 1 tab PO Q8H PRN canc er 7 days #20 11/08/24 Unknown Rx mg tablet (Percocet) tabs ondansetron 8 mg disintegrating 8 mg PO Q8H PRN nausea and 11/20/24 Unknown Rx tablet vomiting #30 tabs levothyroxine 50 mcg tablet 50 mcg PO QDAY thyroid #30 tabs 11/29/24 Unknown Rx potassium chloride 20 mEq 20 meq PO QDAY electro,. #7 tabs 12/04/24 Unknown Rx tablet,extended release apixaban 5 mg (74 tabs) tablets in See Rx Instructions PO PER PKG DIR 12/11/24 Unknown Rx a dose pack ([employer]liquis DVT-PE Treat DVT #74 tabs 30D Start) clopidogrel 75 mg tablet 75 mg PO DAILY blood clot Unknown History magnesium oxide 400 mg (241.3 mg 400 mg PO DAILY orere d 12/24/24 Unknown History magnesium) tablet pantoprazole 40 mg tablet,delayed 40 mg PO BID acid re flux 12/24/24 Unknown History release Allergy/AdvReac Type Severity Reaction Status Date / Time No Known Allergies Allergy Verified 12/24/24 11:47 Family History no significant family his Surgical History Hx of tooth extraction History of liver biopsy History of lung biopsy Hx of cardiac catheterization (~07/06/23) H/O coronary angioplasty (~07/06/23) H/O tubal ligation Social History household members: none Smoking Status: Current every day smoker tobacco type: cigarettes Tobacco: How many years used: 55 quit status: considering quitting alcohol intake: never substance use type: does not use and marijuana caffeine: Yes Type: carbonated beverages Number of servings: 2 ROS Constitutional Constitutional: Denies fatigue, fever(s), poor appetite, weight gain or weight loss Gastrointestinal Gastrointestinal: Denies belching, bloating, change in bowel habits, change in stool character, chewing difficulty, coffee ground emesis, constipation, cramping, diarrhea, dyspepsia, dysphagia, early satiety, excessive flatus, fecal incontinence, heartburn, hematemesis, hematochezia, hemorrhoids, loose stools, melena, nausea, odynophagia, rectal bleeding, tenesmus, vomiting or weight changes Physical Exam Const alert and oriented x3 General Appearance: cooperative GI normal to inspection, nondistended, normoactive bowel sounds, soft to palpation, non-tender and non-distended Percussion: normal to percussion Rectal Exam: deferred Lab / Micro Data 12/24/24 14:58 12/24/24 14:58 Labs: Laboratory Results - last 24 hr 12/24/24 10:05: Crossmatch See Detail 12/24/24 10:07: Blood Type O POSITIVE, Antibody Screen NEGATIVE, Crossmatch See Detail 12/24/24 10:08: WBC 14.8 H, RBC 1.29 L, Hgb 4.1 L*, Hct 13.7 L, MCV 106.2 H, MCH 31.8, MCHC 29.9 L, RDW Std Deviation 58.0 H, RDW Coeff of Fidel 15.1 H, Plt Count 21 L*, MPV 13.4 H, Immature Gran % (Auto) 2.500 H, Neut % (Auto) 75.3 H, Lymph % (Auto) 20.7, [place] % (Auto) 1.3, Eos % (Auto) 0.1, Baso % (Auto) 0.1, Absolute Neuts (auto) 11.2 H, Absolute Lymphs (auto) 3.07, Nucleated RBC % 0, Differential Comment , Diff Path Review January, PT 25.3 H, INR 2.2, Sodium 133, Potassium 5.0, Chloride 96 L, Carbon Dioxide 9.2 L*, Anion Gap 28 H, BUN 25 H, Creatinine 0.87, Estim Creat Clear Calc 51.91, Est GFR (MDRD) Non-Af 73, B UN/Creatinine Ratio 28.5 H, Glucose 219 H, Lactic Acid 16.3 H*, Calcium 8.0, Total Bilirubin 0.17, AST 31, ALT 8, Alkaline Phosphatase 101, Troponin T High Sens 20 H, Total Protein 5.0 L, Albumin 2.3 L, Globulin 2.7, Albumin/Globulin Ratio 0.9 12/24/24 11:47: Urine Color Yellow, Urine Clarity Sl. Cloudy, Urine pH 6.0, Ur Specific [place] 1.010, Urine Protein 30 H, Urine Glucose (UA) Normal, Urine Ketones 5 H, Urine Occult Blood 50 H, Urine Nitrite Negative, Urine Bilirubin 1 H, Urine Urobilinogen Normal, Ur Leukocyte Esterase 500 H, Urine RBC 0-5 SEEN, Urine WBC 10-25 SEEN, Ur Squamous Epith Cells 0-5 SEEN, Urine Bacteria 3+, Urine Mucus 0 SEEN 12/24/24 12:32: Troponin T Hi Sens 2 Hr 22 H 12/24/24 14:13: Troponin T Hi Sens 4Hr 25 H 12/24/24 14:14: Lactic Acid 4.9 H* 12/24/24 14:58: WBC 8.6, RBC 2.76 L, Hgb 8.8 L, Hct 25.8 L, MCV 93.5 D, MCH 31.9, MCHC 34.1 D, RDW Std Deviation 47.4 H, RDW Coeff of Fidel 13.9, Plt Count 16 L*, MPV 12.6 H, Neut % (Auto) Not Reportable, Absolute Neuts (auto) 7.7, A bsolute Lymphs (auto) 0.60 L, Total Counted 100, Neutrophils % (Manual) 72 H, B and Neutrophils % 17 H, Lymphocytes % (Manual) 7 L, Monocytes % (Manual) 3, Sodium 133, Potassium 3.6, Chloride 100, Carbon Dioxide 18.6 L, Anion Gap 15, B UN 24 H, Creatinine 0.76, Estim Creat Clear Calc 56.45, Est GFR (MDRD) Non-Af 86, BUN/Creatinine Ratio 31.4 H, Glucose 165 H, Calcium 7.3 L, Total Bilirubin 0.57, AST 162 H, ALT 34, Alkaline Phosphatase 93, Total Protein 4.9 L, Albumin 2.4 L, Globulin 2.6, Albumin/Globulin Ratio 0.9 Micro: Microbiology 12/24/24 10:00 Stool Stool Occult Blood (LASHANDA) - Final Occult Blood Positive ABG Data ABG results: ABG 12/24/24 12/24/24 10:19 15:28 Specimen Type ART ART Sample Site L Brach R Brach pH 7.14 L* 7.40 Bicarbonate Actual 6.7 L 20.8 L Total CO2 7 22 Base Excess -22 L -4 L O2 Saturation 99 97 O2 % 40.0 2.0 ABG pCO2 19.6 L 33.5 L ABG pO2 188 H 93 Shabbir Test Positive O2 Delivery Device BiPAP CPAP Vent Mode Not entered Not entered Crit Call To/Read Back Yes Blood Gas Notified Whom ru Blood Gas Notified Time 10:21:24 Imaging Radiology Impression Chest/Abdomen/Pelvis CTA 12/24/24 10:27 IMPRESSION: Essentially stable pulmonary nodules. New 1 cm hypodense nodule in the left lobe of the liver medially. Remainder of the liver is unchanged. Stable right renal cyst. Retroperitoneal lymphadenopathy. Fibroid uterus. Omental metastasis. Sigmoid diverticulosis and possible colitis of the right hemicolon. Reading Location: [facility]-[address] 12/24/24 11:20 IMPRESSION: NO ACUTE FINDINGS Punctate calcifications in the region of the miladis. Reading Location: [facility]-1 Assessment & Plan Assessment/Plan (1) Lung cancer metastatic to brain: (2) High anion gap metabolic acidosis: (3) Lactic acidosis: PLAN: Plan 69-year-old with diagnosis of stage IV non-small cell lung cancer of the left upper lobe, squamous histology favored with radiologic evidence for metastases to the left mediastinal lymph node, liver and history of upper GI bleed. She also has a severe anemia and thrombocytopenia. Presents with severe hypotension and lactic acidosis which is likely multifactorial in the setting of acute GI blood loss anemia. * Likely upper GI bleed resulting in hypotension, black stools and severe lactic acidosis. Hemoglobin was 4.1 with platelet count of 21k. * Agree with hold Carito. Transfuse patient with 2 units of packed red blood cells. IV pantoprazole drip. * Patient will need to undergo an upper endoscopy. I had a long talk with her and she wants to undergo an upper endoscopy. We will continue to reassess goals of care. Plan is for EGD in the morning. Charges/Coding Visit Charges Inpatient E&M: 16084 Init Hosp L3
[2024-12-24 18:29] LABS: Platelet Count 16 K/mm3 (150-450)
[2024-12-24 18:30] LABS: Basophil 1 % (0-1)
[2024-12-24] MEDS: Ipratropium/Albuterol Sulfate 3 ML AMPUL.NEB INHALATION ×2 (19:25→22:48)
[2024-12-25] VITALS (37 sets, daily range): BP systolic 96–124; BP diastolic 44–80; PULSE 75–99; RESP 13–25; TEMP 36.5–37.5; O2SAT 88–100; BMI 25.0
[2024-12-25] MEDS: Pantoprazole Sodium 80 MG in 0.9% Normal Saline (100mL Bag) 80 ML 10 MG CONT INF ×3 (02:14→22:25)
[2024-12-25] MEDS: Ipratropium/Albuterol Sulfate 3 ML AMPUL.NEB INHALATION ×3 (02:33→11:37)
[2024-12-25] MEDS: 0.9% Saline Lock 10 ML Syringe IV ×2 (04:14→20:57)
[2024-12-25 04:29] LABS: Hematocrit 18.7 % (37-47); Hemoglobin 6.7 g/dL (12.0-15.0); Mean Corp Hgb Conc 35.8 g/dL (32-36); Mean Corpuscular Hgb 32.8 pg (27.0-32.0); Mean Corpuscular Volume 91.7 fL (81-99); Mean Platelet Vol. 9.7 fl (6.2-12.0); POSITIVE COUNT YES; POSITIVE MORPHOLOGY YES; RBC Distribution Width CV 14.5 % (11.6-14.6); RBC Distribution Width SD 48.5 fl (35.1-43.9); Red Blood Count 2.04 M/mm3 (4.2-5.4); White Blood Count 5.9 K/mm3 (4.4-11.0)
[2024-12-25 04:31] LABS: Differential Indicated MANUAL DIFF; Platelet Count 29 K/mm3 (150-450)
[2024-12-25 04:55] LABS: Anion Gap 12 (5-15); BUN 20 mg/dL (4-19); BUN/Creat Ratio 34.8 RATIO (10-20); Carbon Dioxide 20.2 mmol/L (21.0-32.0); Chloride 104 mmol/L (98-108); Creatinine, Serum 0.59 mg/dL (0.70-1.20); EST Glomerular Filtration Rate 99 (>60); Estimated Creatinine Clearance 61.53 ml/min (50-250); Glucose 96 mg/dL (70-99); Potassium 2.8 mmol/L (3.3-5.1); Sodium Level 136 mmol/L (133-145)
[2024-12-25 05:02] LABS: Lymphocyte 10 % (19-41); Monocyte 3 % (0-10); Neutrophil-Band 3 % (0-5); Neutrophil-Segmented 84 % (47-70); Total Cells Counted 100 (MANUAL DIFF)
[2024-12-25 05:05] LABS: Absolute Neutrophil Count 5.1 X10^3/uL (2.0-7.7)
[2024-12-25 05:06] LABS: Absolute Lymphocyte Count 0.59 X10^3/uL (0.83-4.51); Dohle Bodies 3+; Platelet Estimate MKD DEC (ADEQ); Red Cell Morphology NORM C+C NORMAL (NORM C&C)
--- NOTE | 2024-12-25 07:38 | EX.PCM.CONCC ---
Assessment & Plan Assessment/Plan (1) Left leg DVT: QUALIFIERS: Affected thrombotic vein of extremity: unspecified vein of extremity Chronicity: acute Qualified Code(s): I82.402 - Acute embolism and thrombosis of unspecified deep veins of left lower extremity (2) Anemia: QUALIFIERS: Anemia type: unspecified type Qualified Code(s): D64.9 - Anemia, unspecified (3) Thrombocytopenia: (4) Metastatic primary lung cancer: QUALIFIERS: Laterality: left Qualified Code(s): C34.92 - Malignant neoplasm of unspecified part of left bronchus or lung (5) High anion gap metabolic acidosis: PLAN: Plan RECOMMENDATIONS: 1. Continue antimicrobials, pending culture results. 2. Transfuse blood products in an attempt to maintain a hemoglobin above 7 g/dL and platelet count of 50,000. 3. Continue PPI therapy with tentative plans for endoscopic evaluation by gastroenterology. 4. Aggressive electrolyte repletion. 5. Continue scheduled bronchodilators. 6. Recommended empiric BiPAP therapy with naps and nightly. 7. Consultation to vascular surgery for IVC filter placement. IMPRESSIONS: 1. Sepsis The patient presented with sepsis due to suspected UTI with acute sepsis related organ dysfunction as evidenced by lactic acidemia. The patient did receive supplemental IV fluid hydration was started on empiric antimicrobials, pending culture results. The patient remains otherwise hemodynamically stable. Continue current supportive care. 2. Acute blood loss anemia/thrombocytopenia Concern for underlying gastrointestinal bleed in the setting of systemic anticoagulation with Eliquis due to recent diagnosis of DVT. Plan to transfuse blood products as ordered. Gastroenterology consultation is pending. 3. 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 Oncology is currently following as well. 4. Recently diagnosed left lower extremity DVT Given contraindication to ongoing systemic anticoagulation, recommend vascular surgery consultation with consideration for IVC filter placement. 5. History of COPD Continue scheduled bronchodilator therapy as ordered. 6. History of hypothyroidism/coronary artery disease/nicotine dependency Complicates care, management, recovery and prognosis. Continue home medications as indicated. CODE STATUS: DNR CCA without intubation This note was generated with [employer] software. It may contain incorrect words, spelling, and punctuation that were not noted in checking the note before signing. HPI Consult Data Date of Consult: 12/25/24 HPI Narrative Reason for Consultation: Anion gap metabolic acidosis HPI Narrative: The patient is a 69-year-old female, with a history as outlined below, who presented to the emergency department on December 24 with altered mental status. The patient has a known history of stage IV non-small cell lung cancer with distant metastatic disease, currently followed on an outpatient basis by Dr. Bradley of oncology. In addition, the patient has a known history of COPD and is followed in our pulmonary medicine office on an outpatient basis. She is currently being maintained on nebulized DuoNebs and budesonide. In addition to the aforementioned, the patient was diagnosed with a lower extremity DVT earlier this month. She was subsequently placed on Eliquis. On presentation to the emergency department, the patient was documented to be afebrile and hemodynamically stable. Laboratory evaluation was notable for a white blood cell count of 15,000 with a hemoglobin of 4.1 g/dL and platelet count of 21,000. Coagulation profile revealed an INR of 2.2. Arterial blood gas was notable for a pH of 7.14 with a pCO2 of 20 and pO2 of 188. Chemistry profile was notable for a bicarbonate of 9, anion gap of 28, BUN of 25 and creatinine of 0.87. Lactate was elevated at 16.3. Urine analysis was positive for leukocyte esterase and 3+ urine bacteria. CT chest/abdomen/pelvis demonstrated stable pulmonary nodules with a hypodense nodule in the liver along with retroperitoneal lymphadenopathy and sigmoid diverticulosis with possible colitis involving the right hemicolon. Stool for occult blood was positive. Blood and urine cultures were collected. The patient was ultimately placed on BiPAP and admitted to the medical intensive care unit for further management. This morning, the patient was able to be weaned from BiPAP support and is maintaining appropriate oxygen saturations on 2 L/min via nasal cannula. She remains hemodynamically stable and is currently receiving her third unit of packed red blood cells. Hemoglobin this morning was noted to be 6.7 g/dL with a platelet count of 29,000. The patient remains on antimicrobials. In light of her recent history of DVT, coupled with contraindication to systemic anticoagulation, consultation was placed to vascular surgery for possible IVC filter placement. [facility] Medical History Left leg DVT Constipation At high risk for deep venous thrombosis Left leg swelling Hypothyroidism (acquired) Encounter for antineoplastic immunotherapy Lung cancer metastatic to brain Hypothyroidism Brain lesion Nausea & vomiting Encounter for immunotherapy Hypomagnesemia Anemia CINV (chemotherapy-induced nausea and vomiting) Dehydration Hypokalemia Oral candidiasis Angular cheilitis Encounter for chemotherapy management Wears glasses Wears dentures Post-menopausal Cancer High cholesterol Asthma History of echocardiogram H/O pulmonary function tests Cardiology follow-up encounter History of heart attack Encounter for education Metastasis to liver Regional lymph node metastasis present Myocardial infarct Chest pain Nicotine dependence, cigarettes, uncomplicated Coronary artery disease COPD (chronic obstructive pulmonary disease) Nicotine dependence Hypertension Left ventricular aneurysm Left ventricular systolic dysfunction (LVSD) Smoker STEMI (ST elevation myocardial infarction) Bronchitis Home Medications ?Medication ?Instructions ?Recorded ?Last Taken ?Type aspirin 81 mg tablet,delayed 81 mg PO DAILY HEART HEALTH 30 07/08/23 11/07/23 Rx release days #30 tabs Disability Placard #1 ea 09/30/23 Unknown Rx lidocaine-prilocaine 2.5 %-2.5 % 1 applic topical ONCE PRN port 10/24/23 Unknown Rx topical cream access 30 days #30 grams budesonide 1 mg/2 mL suspension 1 mg (2 mL) inhalation BID SOB 07/10/24 Unknown Rx for nebulization #120 mL famotidine 20 mg tablet (Pepcid) 20 mg PO QDAY acid reflux 07/10/24 Unknown History ipratropium 0.5 mg-albuterol 3 mg 3 ml inhalation Q4-6H SOB #180 mL 07/10/24 Unknown Rx (2.5 mg base)/3 mL nebulization soln atorvastatin 10 mg tablet 10 mg PO QHS CHOLESTEROL #90 tabs 07/24/24 Unknown Rx carvedilol 3.125 mg tablet 3.125 mg PO BID HIGH BLOOD 07/24/24 Unknown Rx PRESSURE 30 days #180 tabs albuterol sulfate 90 mcg/actuation 2 puff inhalation Q6H PRN 09/11/24 Unknown Rx aerosol inhaler shortness of breath or wheezing #8.5 grams oxycodone-acetaminophen 5 mg-325 1 tab PO Q8H PRN cancer 7 days #20 11/08/24 Unknown Rx mg tablet (Percocet) tabs ondansetron 8 mg disintegrating 8 mg PO Q8H PRN nausea and 11/20/24 Unknown Rx tablet vomiting #30 tabs levothyroxine 50 mcg tablet 50 mcg PO QDAY thyroid #30 tabs 11/29/24 Unknown Rx potassium chloride 20 mEq 20 meq PO QDAY electro,. #7 tabs 12/04/24 Unknown Rx tablet,extended release apixaban 5 mg (74 tabs) tablets in See Rx Instructions PO PER PKG DIR 12/11/24 Unknown Rx a dose pack (Eliquis DVT-PE Treat DVT #74 tabs 30D Start) clopidogrel 75 mg tablet 75 mg PO DAILY blood clot 12/24/24 Unknown History magnesium oxide 400 mg (241.3 mg 400 mg PO DAILY orered 12/24/24 Unknown History magnesium) tablet pantoprazole 40 mg tablet,delayed 40 mg PO BID acid reflux 12/24/24 Unknown History release Allergy/AdvReac Type Severity Reaction Status Date / Time No Known Allergies Allergy Verified 12/24/24 11:47 Family History no significant family his Surgical History Hx of tooth extraction History of liver biopsy History of lung biopsy Hx of cardiac catheterization (~07/06/23) H/O coronary angioplasty (~07/06/23) H/O tubal ligation Social History household members: none Smoking Status: Current every day smoker tobacco type: cigarettes Tobacco: How many years used: 55 quit status: considering quitting alcohol intake: never substance use type: does not use and marijuana caffeine: Yes Type: carbonated beverages Number of servings: 2 ROS ROS Narrative 10 systems were reviewed with pertinent positives as noted in the HPI above. Physical Exam Const alert and no apparent distress Constitutional Narrative: Resting comfortably in bed. General Appearance: cooperative HEENT normocephalic and head/scalp atraumatic Eyes PERRL, EOMs intact bilaterally and conjunctivae normal Neck supple General: trachea midline Chest inspection of chest normal Resp normal respiratory effort Auscultation: diminished lung sounds; Negative for rales, rhonchi or wheezes Cardio regular rate and regular rhythm GI normal to inspection, nondistended, normoactive bowel sounds Extremity no clubbing, cyanosis or edema Skin no rashes or lesions noted Neuro CN's II-XII intact bilaterally, moves all extremities and no focal motor deficits Psych cooperative and affect normal Lab / Micro Data 12/25/24 04:10 12/25/24 04:10 Labs: Laboratory Results - last 24 hr 12/24/24 10:05: Crossmatch See Detail 12/24/24 10:07: Blood Type O POSITIVE, Antibody Screen NEGATIVE, Crossmatch See Detail 12/24/24 10:08: WBC 14.8 H, RBC 1.29 L, Hgb 4.1 L*, Hct 13.7 L, MCV 106.2 H, MCH 31.8, MCHC 29.9 L, RDW Std Deviation 58.0 H, RDW Coeff of Fidel 15.1 H, Plt Count 21 L*, MPV 13.4 H, Immature Gran % (Auto) 2.500 H, Neut % (Auto) 75.3 H, Lymph % (Auto) 20.7, [place] % (Auto) 1.3, Eos % (Auto) 0.1, Baso % (Auto) 0.1, Absolute Neuts (auto) 11.2 H, Absolute Lymphs (auto) 3.07, Nucleated RBC % 0, Differential Comment , Diff Path Review January, PT 25.3 H, INR 2.2, Sodium 133, Potassium 5.0, Chloride 96 L, Carbon Dioxide 9.2 L*, Anion Gap 28 H, BUN 25 H, Creatinine 0.87, Estim Creat Clear Calc 51.91, Est GFR (MDRD) Non-Af 73, BUN/Creatinine Ratio 28.5 H, Glucose 219 H, Lactic Acid 16.3 H*, Calcium 8.0, Total Bilirubin 0.17, AST 31, ALT 8, Alkaline Phosphatase 101, Troponin T High Sens 20 H, Total Protein 5.0 L, Albumin 2.3 L, Globulin 2.7, Albumin/Globulin Ratio 0.9 12/24/24 11:47: Urine Color Yellow, Urine Clarity Sl. Cloudy, Urine pH 6.0, Ur Specific [place] 1.010, Urine Protein 30 H, Urine Glucose (UA) Normal, Urine Ketones 5 H, Urine Occult Blood 50 H, Urine Nitrite Negative, Urine Bilirubin 1 H, Urine Urobilinogen Normal, Ur Leukocyte Esterase 500 H, Urine RBC 0-5 SEEN, Urine WBC 10-25 SEEN, Ur Squamous Epith Cells 0-5 SEEN, Urine Bacteria 3+, Urine Mucus 0 SEEN 12/24/24 12:32: Troponin T Hi Sens 2 Hr 22 H 12/24/24 14:13: Troponin T Hi Sens 4Hr 25 H 12/24/24 14:14: Lactic Acid 4.9 H* 12/24/24 14:58: WBC 8.6, RBC 2.76 L, Hgb 8.8 L, Hct 25.8 L, MCV 93.5 D, MCH 31.9, MCHC 34.1 D, RDW Std Deviation 47.4 H, RDW Coeff of Fidel 13.9, Plt Count 16 L*, MPV 12.6 H, Neut % (Auto) Not Reportable, Absolute Neuts (auto) 7.7, Absolute Lymphs (auto) 0.60 L, Total Counted 100, Neutrophils % (Manual) 72 H, Band Neutrophils % 17 H, Lymphocytes % (Manual) 7 L, Monocytes % (Manual) 3, Basophils % (Manual) 1, Sodium 133, Potassium 3.6, Chloride 100, Carbon Dioxide 18.6 L, Anion Gap 15, BUN 24 H, Creatinine 0.76, Estim Creat Clear Calc 56.45, Est GFR (MDRD) Non-Af 86, BUN/Creatinine Ratio 31.4 H, Glucose 165 H, Calcium 7.3 L, Total Bilirubin 0.57, AST 162 H, ALT 34, Alkaline Phosphatase 93, Total Protein 4.9 L, Albumin 2.4 L, Globulin 2.6, Albumin/Globulin Ratio 0.9 12/25/24 04:10: WBC 5.9, RBC 2.04 L, Hgb 6.7 L, Hct 18.7 L, MCV 91.7, MCH 32.8 H, MCHC 35.8, RDW Std Deviation 48.5 H, RDW Coeff of Fidel 14.5, Plt Count 29 L*, MPV 9.7, Neut % (Auto) Not Reportable, Absolute Neuts (auto) 5.1, Absolute Lymphs (auto) 0.59 L, Total Counted 100, Neutrophils % (Manual) 84 H, Band Neutrophils % 3, Lymphocytes % (Manual) 10 L, Monocytes % (Manual) 3, Diff Path Review May hope Dohle Bodies 3+, Platelet Estimate MKD DEC, RBC Morphology NORM C+C, Sodium 136, Potassium 2.8 L, Chloride 104, Carbon Dioxide 20.2 L, Anion Gap 12, BUN 20 H, Creatinine 0.59 L, Estim Creat Clear Calc 61.53, Est GFR (MDRD) Non-Af 99, BUN/Creatinine Ratio 34.8 H, Glucose 96, Calcium 7.0 L Micro: Microbiology 12/24/24 10:00 Stool Stool Occult Blood (LASHANDA) - Final Occult Blood Positive ABG Data ABG results: ABG 12/24/24 12/24/24 10:19 15:28 Specimen Type ART ART Sample Site L Brach R Brach pH 7.14 L* 7.40 Bicarbonate Actual 6.7 L 20.8 L Total CO2 7 22 Base Excess -22 L -4 L O2 Saturation 99 97 O2 % 40.0 2.0 ABG pCO2 19.6 L 33.5 L ABG pO2 188 H 93 Shabbir Test Positive O2 Delivery Device BiPAP CPAP Vent Mode Not entered Not entered Crit Call To/Read Back Yes Blood Gas Notified Whom ru Blood Gas Notified Time 10:21:24 Imaging Radiology Impression Chest/Abdomen/Pelvis CTA 12/24/24 10:27 IMPRESSION: Essentially stable pulmonary nodules. New 1 cm hypodense nodule in the left lobe of the liver medially. Remainder of the liver is unchanged. Stable right renal cyst. Retroperitoneal lymphadenopathy. Fibroid uterus. Omental metastasis. Sigmoid diverticulosis and possible colitis of the right hemicolon. Reading Location: [facility]-IR-[address] 12/24/24 11:20 IMPRESSION: NO ACUTE FINDINGS Punctate calcifications in the region of the miladis. Reading [facility] Charges/Coding Visit Charges Inpatient E&M: 82762 Init Hosp L3
[2024-12-25] MEDS: Morphine 2 MG/ML Syringe IV ×3 (08:01→17:55)
[2024-12-25] MEDS: Potassium Chloride 10mEq/100mL 10 MEQ/100 ML IV.SOLN. 100 MEQ IV BOLUS ×4 (08:02→12:05)
[2024-12-25] MEDS: Ondansetron 4 MG/2 ML Vial IV (08:13)
[2024-12-25] MEDS: Cefepime HCl 2 GM in 0.9% Normal Saline (100mL MB+) 100 ML IV ×3 (10:27→20:51)
--- NOTE | 2024-12-25 10:42 | EX.PCM.CON.S ---
Assessment & Plan Assessment/Plan (1) Left leg DVT: QUALIFIERS: Affected thrombotic vein of extremity: unspecified vein of extremity Chronicity: acute Qualified Code(s): I82.402 - Acute embolism and thrombosis of unspecified deep veins of left lower extremity (2) Anemia: QUALIFIERS: Anemia type: unspecified type Qualified Code(s): D64.9 - Anemia, unspecified PLAN: Plan She is an appropriate candidate for IVC filter placement. Discussed filter placement procedure details including risks, benefits, and recovery with the patient. All of her questions were addressed and she does wish to proceed. Will plan for IVC filter placement today in the cardiac cath lab radiology technologist, anticipate availability in cardiac cath lab radiology technologist around 2-3 PM if this will not interfere with endoscopy timing. HPI Consult Data Date of Consult: 12/25/24 HPI Narrative HPI Narrative: LEONOR RICKETTS, is a 69 F who presented to [facility] ER via EMS with hypotension, tachycardia; found to have acute blood loss anemia with Hgb 4.1 suspected due to GI bleeding with report of tarry black stools at home. She was recently placed on Eliquis for extensive LLE DVT identified on duplex 12/11/24. DVT secondary to malignancy; she is diagnosed with Stage IV non-small cell lung cancer currently on chemotherapy. At present, anticoagulation is held. Plan is for endoscopy with GI sometime today. We are consulted for consideration of IVC filter. Patient reports she is feeling much better today than she had been. This morning, Hgb 6.7, PLT 29. She is currently receiving 1 unit PRBC/1unit PLTs. She reports that her LLE has been doing much better, edema seems to have resolved. She denies any VTE prior to this episode. [facility] Medical History Left leg DVT Constipation At high risk for deep venous thrombosis Left leg swelling Hypothyroidism (acquired) Encounter for antineoplastic immunotherapy Lung cancer metastatic to brain Hypothyroidism Brain lesion Nausea & vomiting Encounter for immunotherapy Hypomagnesemia Anemia CINV (chemotherapy-induced nausea and vomiting) Dehydration Hypokalemia Oral candidiasis Angular cheilitis Encounter for chemotherapy management Wears glasses Wears dentures Post-menopausal Cancer High cholesterol Asthma History of echocardiogram H/O pulmonary function tests Cardiology follow-up encounter History of heart attack Encounter for education Metastasis to liver Regional lymph node metastasis present Myocardial infarct Chest pain Nicotine dependence, cigarettes, uncomplicated Coronary artery disease COPD (chronic obstructive pulmonary disease) Nicotine dependence Hypertension Left ventricular aneurysm Left ventricular systolic dysfunction (LVSD) Smoker STEMI (ST elevation myocardial infarction) Bronchitis Home Medications ?Medication ?Instructions ?Recorded ?Last Taken ?Type aspirin 81 mg tablet,delayed 81 mg PO DAILY HEART HEALTH 30 07/08/23 11/07/23 Rx release days #30 tabs Disability Placard #1 ea 09/30/23 Unknown Rx lidocaine-prilocaine 2.5 %-2.5 % 1 applic topical ONCE PRN port 10/24/23 Unknown Rx topical cream access 30 days #30 grams budesonide 1 mg/2 mL suspension 1 mg (2 mL) inhalation BID SOB 07/10/24 Unknown Rx for nebulization #120 mL famotidine 20 mg tablet (Pepcid) 20 mg PO QDAY acid reflux 07/10/24 Unknown History ipratropium 0.5 mg-albuterol 3 mg 3 ml inhalation Q4-6H SOB #180 mL 07/10/24 Unknown Rx (2.5 mg base)/3 mL nebulization soln atorvastatin 10 mg tablet 10 mg PO QHS CHOLESTEROL #90 tabs 07/24/24 Unknown Rx carvedilol 3.125 mg tablet 3.125 mg PO BID HIGH BLOOD 07/24/24 Unknown Rx PRESSURE 30 days #180 tabs albuterol sulfate 90 mcg/actuation 2 puff inhalation Q6H PRN 09/11/24 Unknown Rx aerosol inhaler shortness of breath or wheezing #8.5 grams oxycodone-acetaminophen 5 mg-325 1 tab PO Q8H PRN cancer 7 days #20 11/08/24 Unknown Rx mg tablet (Percocet) tabs ondansetron 8 mg disintegrating 8 mg PO Q8H PRN nausea and 11/20/24 Unknown Rx tablet vomiting #30 tabs levothyroxine 50 mcg tablet 50 mcg PO QDAY thyroid #30 tabs 11/29/24 Unknown Rx potassium chloride 20 mEq 20 meq PO QDAY electro,. #7 tabs 12/04/24 Unknown Rx tablet,extended release apixaban 5 mg (74 tabs) tablets in See Rx Instructions PO PER PKG DIR 12/11/24 Unknown Rx a dose pack (Eliquis DVT-PE Treat DVT #74 tabs 30D Start) clopidogrel 75 mg tablet 75 mg PO DAILY blood clot 12/24/24 Unknown History magnesium oxide 400 mg (241.3 mg 400 mg PO DAILY orered 12/24/24 Unknown History magnesium) tablet pantoprazole 40 mg tablet,delayed 40 mg PO BID acid reflux 12/24/24 Unknown History release Allergy/AdvReac Type Severity Reaction Status Date / Time No Known Allergies Allergy Verified 12/24/24 11:47 Family History no significant family his Surgical History Hx of tooth extraction History of liver biopsy History of lung biopsy Hx of cardiac catheterization (~07/06/23) H/O coronary angioplasty (~07/06/23) H/O tubal ligation Social History household members: none Smoking Status: Current every day smoker tobacco type: cigarettes Tobacco: How many years used: 55 quit status: considering quitting alcohol intake: never substance use type: does not use and marijuana caffeine: Yes Type: carbonated beverages Number of servings: 2 Physical Exam Const alert, oriented x3 and no apparent distress HEENT normocephalic, head/scalp atraumatic, TM's normal bilaterally and external nose normal Eyes General Eye: normal appearance of both eyes Neck General: normal visual inspection Resp normal respiratory effort and no retractions Effort and Inspection: able to speak in complete sentences Cardio Rate: regular rate Rhythm: regular rhythm Extremity Extremity Narrative: Trace LLE edema Palpable pedal pulses Skin no rashes or lesions noted Psych mental status grossly normal Appearance: grossly normal Lab / Micro Data 12/25/24 04:10 12/25/24 04:10 Labs: Laboratory Results - last 24 hr 12/24/24 10:05: Crossmatch See Detail 12/24/24 10:07: Blood Type O POSITIVE, Antibody Screen NEGATIVE, Crossmatch See Detail 12/24/24 10:08: WBC 14.8 H, RBC 1.29 L, Hgb 4.1 L*, Hct 13.7 L, MCV 106.2 H, MCH 31.8, MCHC 29.9 L, RDW Std Deviation 58.0 H, RDW Coeff of Fidel 15.1 H, Plt Count 21 L*, MPV 13.4 H, Immature Gran % (Auto) 2.500 H, Neut % (Auto) 75.3 H, Lymph % (Auto) 20.7, [place] % (Auto) 1.3, Eos % (Auto) 0.1, Baso % (Auto) 0.1, Absolute Neuts (auto) 11.2 H, Absolute Lymphs (auto) 3.07, Nucleated RBC % 0, Differential Comment , Diff Path Review January, PT 25.3 H, INR 2.2, Sodium 133, Potassium 5.0, Chloride 96 L, Carbon Dioxide 9.2 L*, Anion Gap 28 H, BUN 25 H, Creatinine 0.87, Estim Creat Clear Calc 51.91, Est GFR (MDRD) Non-Af 73, BUN/Creatinine Ratio 28.5 H, Glucose 219 H, Lactic Acid 16.3 H*, Calcium 8.0, Total Bilirubin 0.17, AST 31, ALT 8, Alkaline Phosphatase 101, Troponin T High Sens 20 H, Total Protein 5.0 L, Albumin 2.3 L, Globulin 2.7, Albumin/Globulin Ratio 0.9 12/24/24 11:47: Urine Color Yellow, Urine Clarity Sl. Cloudy, Urine pH 6.0, Ur Specific [place] 1.010, Urine Protein 30 H, Urine Glucose (UA) Normal, Urine Ketones 5 H, Urine Occult Blood 50 H, Urine Nitrite Negative, Urine Bilirubin 1 H, Urine Urobilinogen Normal, Ur Leukocyte Esterase 500 H, Urine RBC 0-5 SEEN, Urine WBC 10-25 SEEN, Ur Squamous Epith Cells 0-5 SEEN, Urine Bacteria 3+, Urine Mucus 0 SEEN 12/24/24 12:32: Troponin T Hi Sens 2 Hr 22 H 12/24/24 14:13: Troponin T Hi Sens 4Hr 25 H 12/24/24 14:14: Lactic Acid 4.9 H* 12/24/24 14:58: WBC 8.6, RBC 2.76 L, Hgb 8.8 L, Hct 25.8 L, MCV 93.5 D, MCH 31.9, MCHC 34.1 D, RDW Std Deviation 47.4 H, RDW Coeff of Fidel 13.9, Plt Count 16 L*, MPV 12.6 H, Neut % (Auto) Not Reportable, Absolute Neuts (auto) 7.7, Absolute Lymphs (auto) 0.60 L, Total Counted 100, Neutrophils % (Manual) 72 H, Band Neutrophils % 17 H, Lymphocytes % (Manual) 7 L, Monocytes % (Manual) 3, Basophils % (Manual) 1, Sodium 133, Potassium 3.6, Chloride 100, Carbon Dioxide 18.6 L, Anion Gap 15, BUN 24 H, Creatinine 0.76, Estim Creat Clear Calc 56.45, Est GFR (MDRD) Non-Af 86, BUN/Creatinine Ratio 31.4 H, Glucose 165 H, Calcium 7.3 L, Total Bilirubin 0.57, AST 162 H, ALT 34, Alkaline Phosphatase 93, Total Protein 4.9 L, Albumin 2.4 L, Globulin 2.6, Albumin/Globulin Ratio 0.9 12/25/24 04:10: WBC 5.9, RBC 2.04 L, Hgb 6.7 L, Hct 18.7 L, MCV 91.7, MCH 32.8 H, MCHC 35.8, RDW Std Deviation 48.5 H, RDW Coeff of Fidel 14.5, Plt Count 29 L*, MPV 9.7, Neut % (Auto) Not Reportable, Absolute Neuts (auto) 5.1, Absolute Lymphs (auto) 0.59 L, Total Counted 100, Neutrophils % (Manual) 84 H, Band Neutrophils % 3, Lymphocytes % (Manual) 10 L, Monocytes % (Manual) 3, Diff Path Review May foll, Dohle Bodies 3+, Platelet Estimate MKD DEC, RBC Morphology NORM C+C, Sodium 136, Potassium 2.8 L, Chloride 104, Carbon Dioxide 20.2 L, Anion Gap 12, BUN 20 H, Creatinine 0.59 L, Estim Creat Clear Calc 61.53, Est GFR (MDRD) Non-Af 99, BUN/Creatinine Ratio 34.8 H, Glucose 96, Calcium 7.0 L Micro: Microbiology 12/24/24 10:00 Stool Stool Occult Blood (LASHANDA) - Final Occult Blood Positive ABG Data ABG results: ABG 12/24/24 15:28 Specimen Type ART Sample Site R Brach pH 7.40 Bicarbonate Actual 20.8 L Total CO2 22 Base Excess -4 L O2 Saturation 97 O2 % 2.0 ABG pCO2 33.5 L ABG pO2 93 Shabbir Test Positive O2 Delivery Device CPAP Vent Mode Not entered Imaging Radiology Impression Chest/Abdomen/Pelvis CTA 12/24/24 10:27 IMPRESSION: Essentially stable pulmonary nodules. New 1 cm hypodense nodule in the left lobe of the liver medially. Remainder of the liver is unchanged. Stable right renal cyst. Retroperitoneal lymphadenopathy. Fibroid uterus. Omental metastasis. Sigmoid diverticulosis and possible colitis of the right hemicolon. Reading Location: [facility]-IR-[address] 12/24/24 11:20 IMPRESSION: NO ACUTE FINDINGS Punctate calcifications in the region of the miladis. Reading Location: [facility]-IR-1 Charges/Coding Visit Charges Inpatient E&M: 50837 Init Hosp L1
--- NOTE | 2024-12-25 11:02 | PN_ITS ---
Subjective Subjective Patient seen and examined. She had no active complaints and was much better today. She is off Airvo and on 2L of oxygen. She denied any fever, chills, cough, chest pain, palpitations, dizziness, nausea, vomiting or any other symptoms. She does have a mild fever of 99.3F today. Review of systems is otherwise negative. She has remained hemodynamically stable. Objective Data Objective Data Vital Signs: Vital Signs Temp Pulse Resp BP Pulse Ox O2 Del Method O2 Flow Rate 99.3 F H 90 21 H 122/59 H 95 Nasal Cannula 2 12/25/24 10:52 12/25/24 10:52 12/25/24 10:52 12/25/24 10:52 12/25/24 10:52 12/25/24 10:52 12/25/24 10:52 FiO2 40 12/24/24 10:21 Oxygen Flow Rate (L/min) 2 Oxygen Delivery Method Nasal Cannula Weight: 141 lb 8.588 oz Body Mass Index (BMI) 25.0 Intake & Output: Intake and Output for Last 24 Hours 12/23/24 12/24/24 12/25/24 23:59 23:59 23:59 Intake Total 5358.25 / 5718.25 651.17 / 651.17 Output Total 650 / 1150 1325 / 1325 Balance 4708.25 / 4568.25 -673.83 / -673.83 Lab / Micro Data 12/25/24 04:10 12/25/24 04:10 Labs: Laboratory Results - last 24 hr 12/24/24 10:05: Crossmatch See Detail 12/24/24 10:07: Crossmatch See Detail 12/24/24 10:08: Hgb 4.1 L*, Plt Count 21 L*, Differential Comment , Diff Path Review January, Sodium 133, Potassium 5.0, Chloride 96 L, Carbon Dioxide 9.2 L* , Anion Gap 28 H, BUN 25 H, Creatinine 0.87, Estim Creat Clear Calc 51.91, Est GFR (MDRD) Non-Af 73, BUN/Creatinine Ratio 28.5 H, Glucose 219 H, Lactic Acid 16.3 H*, Calcium 8.0, Total Bilirubin 0.17, AST 31, ALT 8, Alkaline Phosphatase 101, Troponin T High Sens 20 H, Total Protein 5.0 L, Albumin 2.3 L, Globulin 2.7, Albumin/Globulin Ratio 0.9 12/24/24 11:47: Urine Color Yellow, Urine Clarity Sl. Cloudy, Urine pH 6.0, Ur Specific Post 1.010, Urine Protein 30 H, Urine Glucose (UA) Normal, Urine Ketones 5 H, Urine Occult Blood 50 H, Urine Nitrite Negative, Urine Bilirubin 1 H, Urine Urobilinogen Normal, Ur Leukocyte Esterase 500 H, Urine RBC 0-5 SEEN, Urine WBC 10-25 SEEN, Ur Squamous Epith Cells 0-5 SEEN, Urine Bacteria 3+, Urine Mucus 0 SEEN 12/24/24 12:32: Troponin T Hi Sens 2 Hr 22 H 12/24/24 14:13: Troponin T Hi Sens 4Hr 25 H 12/24/24 14:14: Lactic Acid 4.9 H* 12/24/24 14:58: WBC 8.6, RBC 2.76 L, Hgb 8.8 L, Hct 25.8 L, MCV 93.5 D, MCH 31.9, MCHC 34.1 D, RDW Std Deviation 47.4 H, RDW Coeff of Fidel 13.9, Plt Count 16 L*, MPV 12.6 H, Neut % (Auto) Not Reportable, Absolute Neuts (auto) 7.7, A bsolute Lymphs (auto) 0.60 L, Total Counted 100, Neutrophils % (Manual) 72 H, B and Neutrophils % 17 H, Lymphocytes % (Manual) 7 L, Monocytes % (Manual) 3, Basophils % (Manual) 1, Sodium 133, Potassium 3.6, Chloride 100, Carbon Dioxide 18.6 L, Anion Gap 15, BUN 24 H, Creatinine 0.76, Estim Creat Clear Calc 56.45, Est GFR (MDRD) Non-Af 86, BUN/Creatinine Ratio 31.4 H, Glucose 165 H, Calcium 7.3 L, Total Bilirubin 0.57, AST 162 H, ALT 34, Alkaline Phosphatase 93, Total Protein 4.9 L, Albumin 2.4 L, Globulin 2.6, Albumin/Globulin Ratio 0.9 12/25/24 04:10: WBC 5.9, RBC 2.04 L, Hgb 6.7 L, Hct 18.7 L, MCV 91.7, MCH 32.8 H , MCHC 35.8, RDW Std Deviation 48.5 H, RDW Coeff of Fidel 14.5, Plt Count 29 L*, MPV 9.7, Neut % (Auto) Not Reportable, Absolute Neuts (auto) 5.1, Absolute Lymphs (auto) 0.59 L, Total Counted 100, Neutrophils % (Manual) 84 H, Band Neutrophils % 3, Lymphocytes % (Manual) 10 L, Monocytes % (Manual) 3, Diff Path Review May foll, Dohle Bodies 3+, Platelet Estimate MKD DEC, RBC Morphology NORM C+C, Sodium 136, Potassium 2.8 L, Chloride 104, Carbon Dioxide 20.2 L, Anion Gap 12, BUN 20 H, Creatinine 0.59 L, Estim Creat Clear Calc 61.53, Est GFR (MDRD) Non-Af 99, BUN/Creatinine Ratio 34.8 H, Glucose 96, Calcium 7.0 L Micro: Microbiology 12/24/24 10:00 Stool Stool Occult Blood (LASHANDA) - Final Occult Blood Positive ABG Data ABG results: ABG 12/24/24 15:28 Specimen Type ART Sample Site R Brach pH 7.40 Bicarbonate Actual 20.8 L Total CO2 22 Base Excess -4 L O2 Saturation 97 O2 % 2.0 ABG pCO2 33.5 L ABG pO2 93 Shabbir Test Positive O2 Delivery Device CPAP Vent Mode Not entered Radiography Diagnostic Testing: Radiology Impression Chest/Abdomen/Pelvis CTA 12/24/24 10:27 IMPRESSION: Essentially stable pulmonary nodules. New 1 cm hypodense nodule in the left lobe of the liver medially. Remainder of the liver is unchanged. Stable right renal cyst. Retroperitoneal lymphadenopathy. Fibroid uterus. Omental metastasis. Sigmoid diverticulosis and possible colitis of the right hemicolon. Reading Location: [facility] 12/24/24 11:20 IMPRESSION: NO ACUTE FINDINGS Punctate calcifications in the region of the miladis. Reading Location: [facility] Physical Exam Const alert and oriented x3 Constitutional Narrative: frail and weak General Appearance: cooperative HEENT normocephalic and head/scalp atraumatic Eyes PERRL, EOMs intact bilaterally and conjunctivae normal Neck no lymphadenopathy and supple Resp Resp Narrative: mildly diminished breath sounds bibasally, no wheezes or crackles. on 2L of oxygen by nasal canula Cardio regular rate, regular rhythm, S1 normal heart sound, S2 normal heart sound and no murmurs GI normal to inspection, nondistended, normoactive bowel sounds, soft to palpation, non-tender and non-distended Extremity normal to inspection, full ROM and no clubbing, cyanosis or edema General Extremity: no tenderness to palpation of joints or extremities Neuro oriented x3, CN's II-XII intact bilaterally, moves all extremities and no focal motor deficits Neuro Narrative: frail, lethargic Sensorium / Orientation: awake and alert Motor Exam: general weakness Psych thought process normal and cooperative Appearance: appropriate Assessment & Plan Assessment/Plan (1) Lung cancer metastatic to brain: (2) High anion gap metabolic acidosis: (3) Lactic acidosis: PLAN: Plan #Acute anemia * Likely due to chemotherapy and an ongoing GI bleed. Hemoglobin was 4.1 on admission and is now 6.7. was transfused with 2 units of PRBC. * She did have chemotherapy last week and was told that her platelets and hemoglobin will likely drop. However she is also on Eliquis and has been having dark melena stools for about a week. * eliquis on hold. * Hb today is 6.7. On IV pantoprazole drip. * will transfuse one more unit of PRBC today. * GI on board. For EGD today * currently NPO * transfuse to maintain Hb >7 * * #Acute thrombocytopenia * Platelets are up to 29 today. Was 21 yesterday and was transfused with platelets. * Will transfuse with platelets today also. * oncology on board; reocmmend to transfuse to keep platelets >50k. * #Elevated anion gap metabolic acidosis * pH of 7.14 with anion gap of 28. * Bicarb is 9.2. This may be due to the lactic acidosis as lactic acid is 16. * The elevated lactic acid may be due to the UTI and hypotension from the anemia. * resolved with hydration. Anion gap is now 12 and bicarb is 20. * lactic acid came down from 16 to 4.9. * #UTI * Urinalysis does show evidence of UTI with 3+ bacteria. * on IV cefepime. Urine cultures pending. #Lactic acidosis * Lactic acid is 16. She does meet the criteria of septic shock. Lactic acid criteria as she also has evidence of infection and lactic acid of 16. WBC is also elevated at 14.8. Patient be hydrated with IV fluids and also being transfused * . Anemia likely also contributing to the lactic acidosis. * Trend lactic acid. #Metastatic lung cancer * Diagnosed with lung cancer 2 years ago. Follows with oncology. Has mets to the brain. * Her last session of chemotherapy about a week ago. Consult oncology in light of the anemia and severe thrombocytopenia #History of DVT: * Recently diagnosed with DVT in the calf and started on Eliquis. * Will hold Eliquis due to GI bleed. Vascular surgery consulted for IVC filter insertion. #Hypothyroidism: On Synthroid #COPD: Not in exacerbation. Breathing treatments bronchodilators. Titrate oxygen as needed to maintain saturation above 90%. #CAD s/p stents: On aspirin and statin. Hold aspirin. Also on carvedilol and Plavix. Hold both. #Nicotine dependence: Patient still continues to smoke. Nicotine patch 21 mg daily. DVT prophylaxis: SCDs CODE STATUS: * full code Charges/Coding Visit Charges Inpatient E&M: 14892 Subs Hosp L2
--- NOTE | 2024-12-25 11:32 | CASEMGMT ---
AMY BURCH Assessment Face to Face with patient for initial transition planning/care coordination assessment. RN MARCIN introduced self and role at [facility], pt voices understanding. Pt is A&Ox4 and is resting comfortably in bed and is calm. Pt son, Luis Enrique, at bedside. Care providers, pharmacy, and demographics verified. Admitting dx: Acute Pancytopenia, Acute anion gap metabolic acidosis LACE Strata: 3 PCP: Pt states that she does not have a PCP. Pt states that she does not want to get established with a PCP right now but was willing to accept the provider directory handout. Pt son states that he is a pt of [facility]. Pt encouraged to get established with a PCP VENESSA. Pt is aware that HHC will not be an option due to this and states that she is OK with this. Specialists: Kirk (Oncology - Pt states that she had an OP appt today and that Luis Enrique already talked to the Oncology department regarding the pt's current admission), [facility], Dr. Daley (PM) Preferred Pharmacy: [facility] Insurance: [employer] A[employer]B Prescription Benefit: Pt states she gets assistance sometimes. Pt states that she mainly uses [facility]. Pt also reports that she had a recent new Rx for Eliquis and already used the savings card. Pt states that it is now 800$ and that she cannot afford it. Pt states, I think they are taking me off of it. CM to follow. LNOK: Luis Enrique Clayton (Son), Juliette Miller (Daughter) Living Arrangements: Pt lives with her son, Luis Enrique, in a mobile home with 2 steps to enter ADLs/IADLs: Pt states that she is mostly independent but reports that Luis Enrique is able to assist as needed. Transportation: Luis Enrique and other family members. Denies concerns DME: Luis Enrique states that he has a PAP machine @ home but the pt denies her own. Pt states that she does not use additional oxygen at home. Pt is currently requiring additional oxygen and may qualify for home oxygen use. A verbal list of local in-network DME companies were provided to the pt at this time. Pt prefers [employer]. Pt states that she does not have a medical alert system and denies resources regarding this. Pt does state that she has a nebulizer, FWW, Cane, rollator, W/C, scooter, shower chair, grab bars, BP machine, and pulse oximeter. HHC/SNF: denies history Ca/Smoking: Per chart review, pt was diagnosed with Lung Cancer x 2 years ago. Pt states that she continues to smoke 1 PPD of cigarettes and declines wanting any resources regarding this issue. Pt?s goal: Return to PLOF Plan: TBD. During the pt admission, Dr. Penn (GI) plans for an EGD. Dr. Santana (Vascular) plans for IVC Filter placement. Oncology is also consulted. Therapy evaluations are ordered and pending. Follow for new blood thinning Rx and other Rx costs. Follow for new oxygen needs. At this time, the pt denies SNF needs and states that she plans to return home with her son once medically ready. Pt states that she may be open to attending OP therapy if needed. Pt denies further questions or concerns at this time. MARCIN and SW to follow. Fernanda Valenzuela RN, CM
--- NOTE | 2024-12-25 12:01 | CHAPLAIN ---
Type of Pastoral Visit _x__ Initial Visit ___ Follow-up Visit ___ On-call Visit ___ General Patient Visit ___ Spiritual Assessment ___ Family Conference ___ Bereavement ___ Rapid Response ___ Code Blue ___ Other (describe below) Pastoral Care Referral From _x__ Patient ___ Family ___ Nurse ___ Physician ___ Rigger Chief ___ Booster Assembler ___ Other (describe below) Sacrament/Intervention ___ Active listening ___ Anointing ___ Rastafarian ___ Bereavement ___ Communion ___ Araceli exploration ___ ___ Life review ___ Prayer ___ Reconciliation ___ Sacrament of Sick _x__ Supportive presence ___ Wedding ___ Other (describe below) Pastoral Comments this post doctoral researcher sat at the bedside with the patient; a son is also present; explanation of role and offer of support; pt quickly denies having any needs and says that she is fine; this post doctoral researcher asked a couple of questions to evaluate pt's coping and desire for support but she again states that she is just fine; son thanks the post doctoral researcher for coming
--- NOTE | 2024-12-25 14:57 | OP.PCM_ITS ---
Operative Report (Standard) Operative Information Date of Procedure: 12/25/24 Pre-Operative Diagnosis: DVT, GI bleed Post-Operative Diagnosis: same Surgery/Procedure Performed: insertion inferior vena cava filter guest service manager: No Type of Anesthesia: Local and Sedation,Conscious RN Documented Start/Stop Times: Operation Date: 12/26/24 13:15 <No data on this case meets the specified criteria> Procedure Start Time: 14:30 Procedure Stop Time: 14:45 Select all DRAINS/GRAFTS/IMPLANTS that apply: Implanted device Implanted device details: Cook Tulip Filter Estimated Blood Loss: 2 Specimen collected: No Description of surgery: HPI: Patient is a 69-year-old female with significant medical comorbidities including extensive malignancy and a relatively recent history of proximal left lower extremity deep vein thrombosis. She been placed on Eliquis and has subsequently developed bloody stools and anemia so she presents now for filter placement. Description of procedure: Upon obtaining form consent and verification correct patient procedure site patient taken to the [facility] where she was positioned prepped and draped in usual sterile fashion. Timeouts performed consultation administered with fentanyl. Skin overlying the right common femoral vein was Nestabs 1% lidocaine the vessel accessed under ultrasound guidance with a micropuncture needle wire. This was exchanged for micropuncture sheath through which hand-injection ilio caval venogram was performed revealing satisfactory positioning no extravasation or dissection. This also revealed patent right iliac vein system with normal caliber patent vena cava. Through the micropuncture sheath J-wire was advanced and the micropuncture sheath exchanged for the Cook Tulip delivery sheath which was advanced and positioned at the L2 vertebral body. From this position subtraction venacavogram was performed which revealed the location of the renal vein confluence as well as the IVC confluence. The tulip filter was then advanced in the position at the lowest renal vein and deployed. Completion venacavogram was performed which revealed satisfactory positioning no extravasation or dissection no significant tilt. The delivery sheath was then withdrawn and pressure held for 5 minutes until hemostasis was obtained. The patient was then returned to the intensive care unit for bedrest and ongoing care for her GI bleed. Surgical Findings: see above Complications Complications: No
[2024-12-25] MEDS: Acetaminophen 325 MG Tablet 650 MG PO (16:03)
[2024-12-25] MEDS: oxyCODONE 5 MG Tablet PO (16:03)
[2024-12-25] MEDS: 0.9% Normal Saline (100mL Bag) 100 ML 15 ML IV (20:57)
[2024-12-26] VITALS (19 sets, daily range): BP systolic 95–130; BP diastolic 48–61; PULSE 72–89; RESP 14–21; TEMP 36.2–37.1; O2SAT 88–99; BMI 25.7
[2024-12-26] MEDS: Morphine 2 MG/ML Syringe IV ×2 (03:33→08:49)
[2024-12-26] MEDS: 0.9% Saline Lock 10 ML Syringe IV ×2 (03:34→08:51)
[2024-12-26 03:39] LABS: Hematocrit 21.7 % (37-47); Hemoglobin 7.8 g/dL (12.0-15.0); Mean Corp Hgb Conc 35.9 g/dL (32-36); Mean Corpuscular Hgb 32.1 pg (27.0-32.0); Mean Corpuscular Volume 89.3 fL (81-99); Mean Platelet Vol. 9.1 fl (6.2-12.0); POSITIVE COUNT YES; POSITIVE MORPHOLOGY YES; RBC Distribution Width CV 16.1 % (11.6-14.6); RBC Distribution Width SD 51.8 fl (35.1-43.9); Red Blood Count 2.43 M/mm3 (4.2-5.4); White Blood Count 7.5 K/mm3 (4.4-11.0)
[2024-12-26 03:41] LABS: Differential Indicated MANUAL DIFF; Platelet Count 44 K/mm3 (150-450)
[2024-12-26 04:05] LABS: Lymphocyte 20 % (19-41); Monocyte 8 % (0-10); Myelocyte 1 % (0-0); Neutrophil-Band 4 % (0-5); Neutrophil-Segmented 66 % (47-70); Promyelocyte 1 % (0-0); Total Cells Counted 100 (MANUAL DIFF)
[2024-12-26 04:15] LABS: Absolute Neutrophil Count 5.3 X10^3/uL (2.0-7.7)
[2024-12-26 04:16] LABS: Acanthocytes RARE; Atypical Lymphocyte 1+ %; Dohle Bodies 2+; Pathologist Review May foll; Platelet Estimate MKD DEC (ADEQ); Polychromasia 1+; Schistocytes RARE
[2024-12-26 05:04] LABS: Anion Gap 14 (5-15); BUN 8 mg/dL (4-19); Calcium,Total 7.5 mg/dL (7.6-11.0); Carbon Dioxide 20.6 mmol/L (21.0-32.0); Chloride 101 mmol/L (98-108); Creatinine, Serum 0.62 mg/dL (0.70-1.20); EST Glomerular Filtration Rate 98 (>60); Estimated Creatinine Clearance 61.53 ml/min (50-250); Glucose 80 mg/dL (70-99); Potassium 2.9 mmol/L (3.3-5.1); Sodium Level 136 mmol/L (133-145)
[2024-12-26] MEDS: Cefepime HCl 2 GM in 0.9% Normal Saline (100mL MB+) 100 ML IV (05:29)
--- NOTE | 2024-12-26 07:36 | PN.SURG_ITS ---
Subjective Subjective I saw patient this morning; she was sleeping in bed but woke easily. She reports no discomfort at the R groin puncture site. She denies abdominal pain or other complaints this morning. She reports she tolerated the procedure well yesterday. She is scheduled for endoscopy later today. Objective Data Objective Data Vital Signs: Vital Signs Temp Pulse Resp BP Pulse Ox O2 Del Method O2 Flow Rate 98.6 F 82 15 130/59 H 88 Nasal Cannula 2 12/26/24 07:00 12/26/24 07:00 12/26/24 07:00 12/26/24 07:00 12/26/24 07:00 12/26/24 07:00 12/26/24 07:00 FiO2 40 12/24/24 10:21 Oxygen Flow Rate (L/min) 2 Oxygen Delivery Method Nasal Cannula Weight: 145 lb 8.081 oz Body Mass Index (BMI) 25.7 Intake & Output: Intake and Output for Last 24 Hours 12/24/24 12/25/24 12/26/24 23:59 23:59 23:59 Intake Total 5358.25 / 5718.25 1655.25 / 1655.25 100 / 100 Output Total 650 / 1150 2075 / 2075 300 / 300 Balance 4708.25 / 4568.25 -419.75 / -419.75 -200 / -200 Lab / Micro Data 12/26/24 03:30 12/26/24 03:30 Labs: Laboratory Results - last 24 hr 12/24/24 10:05: Crossmatch See Detail 12/25/24 04:10: Diff Path Review N/A 12/26/24 03:30: WBC 7.5, RBC 2.43 L, Hgb 7.8 L, Hct 21.7 L, MCV 89.3, MCH 32.1 H , MCHC 35.9, RDW Std Deviation 51.8 H, RDW Coeff of Fidel 16.1 H, Plt Count 44 L*, MPV 9.1, Neut % (Auto) Not Reportable, Absolute Neuts (auto) 5.3, Absolute Lymphs (auto) 1.50, Total Counted 100, Neutrophils % (Manual) 66, Band Neutrophils % 4, Lymphocytes % (Manual) 20, Monocytes % (Manual) 8, Myelocytes % 1 H, Promyelocytes % 1 H, Diff Path Review May foll, Atypical Lymphocytes 1+, Dohle Bodies 2+, Platelet Estimate MKD DEC, Polychromasia 1+, Acanthocytes (Spur) RARE, Schistocytes RARE, Sodium 136, Potassium 2.9 L, Chloride 101, C arbon Dioxide 20.6 L, Anion Gap 14, BUN 8, Creatinine 0.62 L, Estim Creat Clear Calc 61.53, Est GFR (MDRD) Non-Af 98, BUN/Creatinine Ratio 13.0, Glucose 80, C alcium 7.5 L Micro: Microbiology 12/24/24 11:47 Urine Catheter - Catheter Urine Culture - Final Presumptive E. coli 12/24/24 10:00 Stool Stool Occult Blood (LASHANDA) - Final Occult Blood Positive Physical Exam Const alert, oriented x3 and no apparent distress General Appearance: cooperative and comfortable HEENT head/scalp atraumatic and hearing grossly normal bilaterally Eyes General Eye: normal appearance of both eyes Resp normal respiratory effort, no retractions and no use of accessory muscles Effort and Inspection: able to speak in complete sentences Cardio regular rate and regular rhythm Extremity Extremity Narrative: R groin access site with dry dressing C/D/I; no bleed-through, mild ecchymosis, no focal edema, soft to palpation. Skin no rashes or lesions noted Neuro oriented x3 and moves all extremities Speech: speech normal Psych mental status grossly normal Appearance: grossly normal Attitude: calm and engaged Activity / Motor Behavior: appropriate eye contact Speech: normal speech Assessment & Plan Assessment/Plan (1) Left leg DVT: QUALIFIERS: Affected thrombotic vein of extremity: unspecified vein of extremity Chronicity: acute Qualified Code(s): I82.402 - Acute embolism and thrombosis of unspecified deep veins of left lower extremity (2) Anemia: QUALIFIERS: Anemia type: unspecified type Qualified Code(s): D 64.9 - Anemia, unspecified (3) S/P IVC filter: PLAN: Plan She had successful IVC filter placement yesterday, she tolerated this well. R groin puncture site satisfactory in appearance without hematoma. Can remove dressing in 24 hours then OK to be open to air. Plan for outpatient follow-up in 3-4 weeks. Charges/Coding Visit Charges Inpatient E&M: 95536 Subs Hosp L1
--- NOTE | 2024-12-26 07:37 | PN.CC_ITS ---
Assessment & Plan Assessment/Plan (1) Left leg DVT: QUALIFIERS: Affected thrombotic vein of extremity: unspecified vein of extremity Chronicity: acute Qualified Code(s): I82.402 - Acute embolism and thrombosis of unspecified deep veins of left lower extremity (2) Anemia: QUALIFIERS: Anemia type: unspecified type Qualified Code(s): D 64.9 - Anemia, unspecified (3) Thrombocytopenia: (4) Metastatic primary lung cancer: QUALIFIERS: Laterality: left Qualified Code(s): C34.92 - Malignant neoplasm of unspecified part of left bronchus or lung (5) High anion gap metabolic acidosis: PLAN: Plan RECOMMENDATIONS: 1. Continue antimicrobials, pending finalized culture results. 2. Continue to monitor blood counts and transfuse if hemoglobin drops below 7 g/dL. 3. Continue PPI therapy with tentative plans for endoscopic evaluation by gastroenterology. 4. Aggressive electrolyte repletion. 5. Continue scheduled bronchodilators. 6. Recommended empiric BiPAP therapy with naps and nightly. IMPRESSIONS: 1. Sepsis The patient presented with sepsis due to suspected UTI with acute sepsis related organ dysfunction as evidenced by lactic acidemia. The patient did receive supplemental IV fluid hydration was started on empiric antimicrobials, pending culture results. The patient remains otherwise hemodynamically stable. Continue current supportive care. 2. Acute blood loss anemia/thrombocytopenia Concern for underlying gastrointestinal bleed in the setting of systemic anticoagulation with Eliquis due to recent diagnosis of DVT. Continue to monitor blood counts and transfuse if hemoglobin drops below 7 g/dL. Continue PPI therapy while awaiting endoscopic evaluation by gastroenterology. 3. 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 Oncology is currently following as well. 4. Recently diagnosed left lower extremity DVT Given contraindication to ongoing systemic anticoagulation, the patient underwent successful IVC filter placement on December 25. 5. History of COPD Continue scheduled bronchodilator therapy as ordered. 6. History of hypothyroidism/coronary artery disease/nicotine dependency Complicates care, management, recovery and prognosis. Continue home medications as indicated. CODE STATUS: DNR CCA without intubation This note was generated with [employer] software. It may contain incorrect words, spelling, and punctuation that were not noted in checking the note before signing. Subjective Subjective The patient was seen and examined at the bedside this morning. Events from the last 24 hours have been reviewed. The patient is currently afebrile, hemodynamically stable and maintaining appropriate oxygen saturations on 2 L/min via nasal cannula. No overnight issues were identified. The patient has no specific complaints this morning. She is documented to be overall net positive for liter for the hospitalization. There are plans for upper endoscopy later today. The patient underwent successful IVC filter placement yesterday. Hemoglobin this morning was noted to be 7.8 g/dL. Platelet count has improved to 44,000. Potassium is low at 2.9 with a magnesium of 1.0. Objective Data Objective Data The patient's most recent lab work, culture data and imaging studies have all been personally reviewed. Preliminary urine culture is demonstrating growth of E. coli. Vital Signs: Vital Signs Temp Pulse Resp BP Pulse Ox O2 Del Method O2 Flow Rate 98.6 F 82 15 130/59 H 88 Nasal Cannula 2 12/26/24 07:00 12/26/24 07:00 12/26/24 07:00 12/26/24 07:00 12/26/24 07:00 12/26/24 07:00 12/26/24 07:00 FiO2 40 12/24/24 10:21 Oxygen Flow Rate (L/min) 2 Oxygen Delivery Method Nasal Cannula Weight: 145 lb 8.081 oz Body Mass Index (BMI) 25.7 Intake & Output: Intake and Output for Last 24 Hours 12/24/24 12/25/24 12/26/24 23:59 23:59 23:59 Intake Total 5358.25 / 5718.25 1655.25 / 1655.25 100 / 100 Output Total 650 / 1150 2075 / 2075 300 / 300 Balance 4708.25 / 4568.25 -419.75 / -419.75 -200 / -200 Lab / Micro Data Attestation: I reviewed the patient's lab results. 12/26/24 03:30 12/26/24 03:30 Labs: Laboratory Results - last 24 hr 12/24/24 10:05: Crossmatch See Detail 12/25/24 04:10: Diff Path Review N/A 12/26/24 03:30: WBC 7.5, RBC 2.43 L, Hgb 7.8 L, Hct 21.7 L, MCV 89.3, MCH 32.1 H , MCHC 35.9, RDW Std Deviation 51.8 H, RDW Coeff of Fidel 16.1 H, Plt Count 44 L*, MPV 9.1, Neut % (Auto) Not Reportable, Absolute Neuts (auto) 5.3, Absolute Lymphs (auto) 1.50, Total Counted 100, Neutrophils % (Manual) 66, Band Neutrophils % 4, Lymphocytes % (Manual) 20, Monocytes % (Manual) 8, Myelocytes % 1 H, Promyelocytes % 1 H, Diff Path Review May foll, Atypical Lymphocytes 1+, Dohle Bodies 2+, Platelet Estimate MKD DEC, Polychromasia 1+, Acanthocytes (Spur) RARE, Schistocytes RARE, Sodium 136, Potassium 2.9 L, Chloride 101, C arbon Dioxide 20.6 L, Anion Gap 14, BUN 8, Creatinine 0.62 L, Estim Creat Clear Calc 61.53, Est GFR (MDRD) Non-Af 98, BUN/Creatinine Ratio 13.0, Glucose 80, C alcium 7.5 L Micro: Microbiology 12/24/24 11:47 Urine Catheter - Catheter Urine Culture - Final Presumptive E. coli 12/24/24 10:00 Stool Stool Occult Blood (LASHANDA) - Final Occult Blood Positive Physical Exam Const alert and no apparent distress Constitutional Narrative: Resting comfortably in bed. General Appearance: cooperative HEENT normocephalic and head/scalp atraumatic Eyes PERRL, EOMs intact bilaterally and conjunctivae normal Neck supple General: trachea midline Chest inspection of chest normal Resp normal respiratory effort Auscultation: diminished lung sounds; Negative for rales, rhonchi or wheezes Cardio regular rate and regular rhythm GI normal to inspection, nondistended, normoactive bowel sounds Extremity no clubbing, cyanosis or edema Skin no rashes or lesions noted Neuro CN's II-XII intact bilaterally, moves all extremities and no focal motor deficits Psych cooperative and affect normal Charges/Coding Visit Charges Inpatient E&M: 52088 Subs Hosp L2
[2024-12-26] MEDS: Potassium Chloride 10mEq/100mL 10 MEQ/100 ML IV.SOLN. 100 MEQ IV BOLUS ×4 (08:06→11:06)
[2024-12-26] MEDS: Pantoprazole Sodium 80 MG in 0.9% Normal Saline (100mL Bag) 80 ML 10 MG CONT INF ×2 (08:46→16:54)
[2024-12-26] MEDS: Magnesium Sulfate 4gm/100mL 4 GM/100 ML IV.SOLN. IV (09:30)
--- NOTE | 2024-12-26 11:46 | PN_ITS ---
Subjective Subjective Patient seen and examined. She had no active complaints today. Review of systems otherwise negative. She is for EGD today. Hemoglobin today is 7.8. Platelets up to 44. Potassium is 2.9 today. Objective Data Objective Data Vital Signs: Vital Signs Temp Pulse Resp BP Pulse Ox O2 Del Method O2 Flow Rate 98.5 F 80 15 118/59 L 96 Nasal Cannula 2 12/26/24 10:01 12/26/24 10:01 12/26/24 10:01 12/26/24 10:01 12/26/24 10:01 12/26/24 10:01 12/26/24 10:01 FiO2 40 12/24/24 10:21 Oxygen Flow Rate (L/min) 2 Oxygen Delivery Method Nasal Cannula Weight: 145 lb 8.081 oz Body Mass Index (BMI) 25.7 Intake & Output: Intake and Output for Last 24 Hours 12/24/24 12/25/24 12/26/24 23:59 23:59 23:59 Intake Total 5358.25 / 5718.25 1655.25 / 1655.25 495 / 495 Output Total 650 / 1150 2075 / 2075 600 / 600 Balance 4708.25 / 4568.25 -419.75 / -419.75 -105 / -105 Lab / Micro Data 12/26/24 03:30 12/26/24 03:30 Labs: Laboratory Results - last 24 hr 12/24/24 10:05: Crossmatch See Detail 12/25/24 04:10: Diff Path Review N/A 12/26/24 03:30: WBC 7.5, RBC 2.43 L, Hgb 7.8 L, Hct 21.7 L, MCV 89.3, MCH 32.1 H , MCHC 35.9, RDW Std Deviation 51.8 H, RDW Coeff of Fidel 16.1 H, Plt Count 44 L*, MPV 9.1, Neut % (Auto) Not Reportable, Absolute Neuts (auto) 5.3, Absolute Lymphs (auto) 1.50, Total Counted 100, Neutrophils % (Manual) 66, Band Neutrophils % 4, Lymphocytes % (Manual) 20, Monocytes % (Manual) 8, Myelocytes % 1 H, Promyelocytes % 1 H, Diff Path Review May foll, Atypical Lymphocytes 1+, Dohle Bodies 2+, Platelet Estimate MKD DEC, Polychromasia 1+, Acanthocytes (Spur) RARE, Schistocytes RARE, Sodium 136, Potassium 2.9 L, Chloride 101, C arbon Dioxide 20.6 L, Anion Gap 14, BUN 8, Creatinine 0.62 L, Estim Creat Clear Calc 61.53, Est GFR (MDRD) Non-Af 98, BUN/Creatinine Ratio 13.0, Glucose 80, C alcium 7.5 L, Magnesium 1.0 L Micro: Microbiology 12/24/24 11:47 Urine Catheter - Catheter Urine Culture - Final Presumptive E. coli 12/24/24 10:00 Stool Stool Occult Blood (LASHANDA) - Final Occult Blood Positive Physical Exam Const alert and oriented x3 Constitutional Narrative: frail and weak General Appearance: cooperative Orientation / Consciousness: lethargic HEENT normocephalic and head/scalp atraumatic Eyes PERRL, EOMs intact bilaterally and conjunctivae normal Neck no lymphadenopathy and supple Resp normal respiratory effort, no use of accessory muscles and clear to auscultation bilaterally Resp Narrative: mildly diminished breath sounds bibasally, no wheezes or crackles. on 2L of oxygen by nasal canula Cardio regular rate, regular rhythm, S1 normal heart sound, S2 normal heart sound and no murmurs GI normal to inspection, nondistended, normoactive bowel sounds, soft to palpation, non-tender and non-distended Extremity normal to inspection, full ROM and no clubbing, cyanosis or edema General Extremity: no tenderness to palpation of joints or extremities Skin General Skin Exam: no breakdown Neuro oriented x3, CN's II-XII intact bilaterally, moves all extremities and no focal motor deficits Neuro Narrative: frail,weak Sensorium / Orientation: awake and alert Motor Exam: general weakness Psych thought process normal and cooperative Appearance: appropriate Assessment & Plan Assessment/Plan (1) Lung cancer metastatic to brain: (2) High anion gap metabolic acidosis: (3) Lactic acidosis: PLAN: Plan #Acute anemia * Likely due to chemotherapy and an ongoing GI bleed. * She did have chemotherapy last week and was told that her platelets and hemoglobin will likely drop. However she is also on Eliquis and has been having dark melena stools for about a week. * eliquis on hold. * Hemoglobin today is up to 7.8. * For EGD today. GI on board. * On PPI drip * transfuse to maintain Hb >7 * * #Acute thrombocytopenia * Platelets up to 44 today. Has been transfused with platelets during this admission. * Hematology recommends to keep platelets more than 50 in light of active bleeding. * #Elevated anion gap metabolic acidosis * Resolved. * #UTI * Urinalysis does show evidence of UTI with 3+ bacteria. * on IV cefepime. Urine growing E. coli. Blood cultures pending. * Will de-escalate antibiotics to IV trazodone. #Lactic acidosis * Resolved. #Metastatic lung cancer * Diagnosed with lung cancer 2 years ago. Follows with oncology. Has mets to the brain. * Her last session of chemotherapy about a week ago. Consult oncology in light of the anemia and severe thrombocytopenia #History of DVT: * Recently diagnosed with DVT in the calf and started on Eliquis. * Eliquis held due to GI bleed. Vascular surgery consulted for IVC filter insertion. #Hypothyroidism: On Synthroid #COPD: Not in exacerbation. Breathing treatments bronchodilators. Titrate oxygen as needed to maintain saturation above 90%. #CAD s/p stents: On aspirin and statin. Hold aspirin. Also on carvedilol and Plavix. Hold both. #Nicotine dependence: Patient still continues to smoke. Nicotine patch 21 mg daily. DVT prophylaxis: SCDs CODE STATUS: * full code Charges/Coding Visit Charges Inpatient E&M: 87372 Subs Hosp L2
--- NOTE | 2024-12-26 11:51 | PCM.PRE.AN2 ---
ASA Classification* ASA Classification ASA Classification: 3 Assessment & Plan Anesthesia* Anesthesia Assessment Anesthesia Assessment: Discussed sedation and/or anesthesia options, risks, benefits, and alternatives with patient/parents/legal guardian/POA. Questions invited. The patient/parents/legal guardian/POA seems to understand and agrees to proceed with anesthesia plan. Reviewed the physical assessment, medical history, allergy history and patient home medications list prior to surgery/procedure/anesthetic and documented any changes. Performed airway and anesthesia risk assessments. Anesthesia Type Anesthesia Type: MAC (received kcl today) Anesthesia Focused Assessment* Temperature: 98.5 F Pulse Rate: 80 Blood Pressure: 118/59 Respiratory Rate: 15 Pulse Ox: 96 Oxygen Flow Rate (L/min): 2 Fraction of Inspired Oxygen (FIO2): 40 Airway Assessment Mouth opens: >3 cm Mallampati Score: II Focused Labs Anesthesia Preop lab: CBC WBC 7.5 K/mm3 (4.4-11.0) 12/26/24 03:30 12/26/24 RBC 2.43 M/mm3 (4.2-5.4) L 12/26/24 03:30 12/26/24 Hgb 7.8 g/dL (12.0-15.0) L 12/26/24 03:30 12/26/24 Hct 21.7 % (37-47) L 12/26/24 03:30 12/26/24 Plt Count 44 K/mm3 (150-450) L* 12/26/24 03:30 12/26/24 CHEMISTRY Potassium 2.9 mmol/L (3.3-5.1) L 12/26/24 03:30 12/26/24 Sodium 136 mmol/L (133-145) 12/26/24 03:30 12/26/24 Magnesium 1.0 mg/dL (1.5-2.2) L 12/26/24 03:30 12/26/24 Phosphorus 3.3 mg/dL (2.7-4.5) 12/04/24 09:53 12/04/24 BUN 8 mg/dL (4-19) 12/26/24 03:30 12/26/24 Creatinine 0.62 mg/dL (0.70-1.20) L 12/26/24 03:30 12/26/24 Glucose 80 mg/dL (70-99) 12/26/24 03:30 12/26/24 POC Glucose 134 mg/dL (74-106) H 09/29/23 11:53 09/29/23 TSH 0.376 uIU/mL (0.358-3.740) 10/23/24 13:16 10/23/24 COAG PT 25.3 SECONDS (11.7-14.9) H 12/24/24 10:08 12/24/24 Pre-Assessment Diagnosis/Proposed Procedure Planned Operative Procedure(s): EGD Anesthesia History Anesthesia History - skein straightener: Anesthesia History - skein straightener Hx Hospitalization Yes: LUNG BX 11/07/23 08:27 Any Problems With Anesthesia No 12/26/24 10:00 Cholinesterase deficiency No 12/26/24 10:00 You/Your Family Experience No 12/26/24 10:00 fever (hyperthermia) with Relationship Recent Exposure to Contagious No 12/26/24 10:00 Disease Does patient have nerve No 12/26/24 10:00 stimulator Patient instructed to have No 12/26/24 10:00 device shut off --Does patient have Pacemaker No 12/25/24 12:32 or ICD? When Was Last Pacemaker Check QUESTION #4 FULL TEXT: You/Your Family Experience fever (hyperthermia) with Anesthesia Last Oral Intake Last Oral intake: Last Oral Intake NPO since 00:00 12/26/24 10:01 Meds taken in AM with sips of No 12/26/24 10:01 water? Meds patient instructed to take am of surgery PONV PONV - skein straightener: PONV - skein straightener Female HX of Motion Sickness HX of N/V After Surgery Non-Smoker Duration of Surgery greater than 60 minutes Number of Risk Factors PONV Score Height & Weight Height & Weight: Anesthesia: Height & Weight Height 5 ft 3 in 12/26/24 10:01 Weight: 66 kg 12/26/24 10:01 Body Mass Index (BMI) 25.7 12/26/24 10:01 Respiratory Assessment Respiratory Assessment - skein straightener: Respiratory Tract Infection Hx - skein straightener Hx Respiratory Tract Infection No 12/26/24 10:00 STOP Sleep Apnea STOP Sleep Apnea - skein straightener: STOP Sleep Apnea - skein straightener Hx Hypertension Yes: CONTROLLED ON MED 12/25/24 16:20 Hx Sleep Apnea No 12/24/24 14:17 CPAP BIPAP Do you snore loudly (louder No 12/24/24 14:17 than talking or can be heard Do you often feel tired/ Yes 12/24/24 14:17 fatigued/ sleepy during daytime? Has anyone observed you stop No 12/24/24 14:17 breathing during sleep? STOP Results Positive 12/24/24 14:17 QUESTION #5 FULL TEXT : Do you snore loudly (louder than talking or can be heard through closed doors)? 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 Specify any problems Hx of Preganancy in last 3 No 12/24/24 14:17 Months Nurse Filling Out Transfusion ANGIE 12/24/24 14:17 & Questions: Date: 12/24/24 12/24/24 14:17 Time: 14:41 12/24/24 14:17 Patient unable to answer at this time (ie. confused, unrespo /Reproduction History /Reproductive History - skein straightener: /Reproductive Hx- skein straightener Hx Now No 12/26/24 10:00 Gestational Age (in weeks): EDC: Hx Hx Para Hx Section SAB No 12/26/24 10:00 Active Medications Active Medications: Current Medications Generic Name Dose Route Start Last Admin Trade Name Freq PRN Reason Stop Dose Admin Acetaminophen 650 mg 12/24/24 14:26 12/25/24 16:03 Acetaminophen 325 Mg Tablet PO 650 mg Q6H PRN PRN Administration Pain 1-10 Or Fever >100.7 Albuterol/Ipratropium 3 ml 12/24/24 18:30 12/25/24 11:37 Ipratropium/Albuterol Sulfate 3 Ml Ampul.Neb INHALATION 3 ml Q4H.RT KENNY Administration Sodium Chloride 100 mls @ 15 mls/hr 12/24/24 14:37 12/25/24 21:30 IV 0 mls/hr .Q6H40M PRN Infusion Saline Flush Sodium Chloride 100 mls @ 15 mls/hr 12/24/24 14:37 IV .Q6H40M PRN Additional IVPB Infusion Pantoprazole Sodium 80 mg/ 100 mls @ 10 mls/hr 12/24/24 16:10 12/26/24 08:46 Sodium Chloride CONT INF 10 mls/hr Q10H KENNY Administration Potassium Chloride 10 meq in 100 mls @ 100 mls/hr 12/26/24 08:00 12/26/24 11:06 IV BOLUS 12/26/24 11:59 100 mls/hr Q1H KENNY Administration Ceftriaxone Sodium 1 gm in 50 mls @ 100 mls/hr 12/26/24 10:00 Rocephin IV Q24 KENNY Magnesium Sulfate 4 gm in 100 mls @ 25 mls/hr 12/26/24 08:58 12/26/24 09:30 IV 12/26/24 12:57 25 mls/hr X1 ONE Administration Lidocaine/Prilocaine 1 gm 12/24/24 16:13 Lidocaine/Prilocaine Hcl 5 Gm Tube TOPICAL X1 PRN PORT ACCESS Protocol Morphine Sulfate 2 - 4 mg 12/24/24 14:26 12/26/24 08:49 Morphine 2 Mg/Ml Syringe IV 2 mg Q3H PRN PRN Administration Pain Score 6-10 Nitroglycerin 0.4 mg 12/24/24 14:26 Nitroglycerin (Inpatient Use) 0.4 Mg Tab.Subl SL Q5M PRN CARDIAC/CHEST PAIN Ondansetron HCl 4 mg 12/24/24 14:26 12/25/24 08:13 Ondansetron 4 Mg/2 Ml Vial IV 4 mg Q8H PRN PRN Administration NAUSEA/VOMITING Oxycodone HCl 5 mg 12/24/24 14:26 12/25/24 16:03 Oxycodone 5 Mg Tablet PO 5 mg Q4H PRN PRN Administration Pain Score 4-10 Sodium Chloride 10 - 40 ml 12/24/24 14:37 12/26/24 08:51 0.9% Saline Lock 10 Ml Syringe IV 10 ml UD PRN Administration SALINE FLUSH PFSH Medical History Left leg DVT Constipation At high risk for deep venous thrombosis Left leg swelling Hypothyroidism (acquired) Encounter for antineoplastic immunotherapy Lung cancer metastatic to brain Hypothyroidism Brain lesion Nausea & vomiting Encounter for immunotherapy Hypomagnesemia Anemia CINV (chemotherapy-induced nausea and vomiting) Dehydration Hypokalemia Oral candidiasis Angular cheilitis Encounter for chemotherapy management Wears glasses Wears dentures Post-menopausal Cancer High cholesterol Asthma History of echocardiogram H/O pulmonary function tests Cardiology follow-up encounter History of heart attack Encounter for education Metastasis to liver Regional lymph node metastasis present Myocardial infarct Chest pain Nicotine dependence, cigarettes, uncomplicated Coronary artery disease COPD (chronic obstructive pulmonary disease) Nicotine dependence Hypertension Left ventricular aneurysm Left ventricular systolic dysfunction (LVSD) Smoker STEMI (ST elevation myocardial infarction) Bronchitis Home Medications ?Medication ?Instructions ?Recorded ?Last Taken ?Type aspirin 81 mg tablet,delayed 81 mg PO DAILY HEART HEALTH 30 07/08/23 11/07/23 Rx release days #30 tabs Disability Placard #1 ea 09/30/23 Unknown Rx lidocaine-prilocaine 2.5 %-2.5 % 1 applic topical ONCE PRN port 10/24/23 Unknown Rx topical cream access 30 days #30 grams budesonide 1 mg/2 mL suspension 1 mg (2 mL) inhalation BID SOB 07/10/24 Unknown Rx for nebulization #120 mL famotidine 20 mg tablet (Pepcid) 20 mg PO QDAY acid reflux 07/10/24 Unknown History ipratropium 0.5 mg-albuterol 3 mg 3 ml inhalation Q4-6H SOB #180 mL 07/10/24 Unknown Rx (2.5 mg base)/3 mL nebulization soln atorvastatin 10 mg tablet 10 mg PO QHS CHOLESTEROL #90 tabs 07/24/24 Unknown Rx carvedilol 3.125 mg tablet 3.125 mg PO BID HIGH BLOOD 07/24/24 Unknown Rx PRESSURE 30 days #180 tabs albuterol sulfate 90 mcg/actuation 2 puff inhalation Q6H PRN 09/11/24 Unknown Rx aerosol inhaler shortness of breath or wheezing #8.5 grams oxycodone-acetaminophen 5 mg-325 1 tab PO Q8H PRN cancer 7 days #20 11/08/24 Unknown Rx mg tablet (Percocet) tabs ondansetron 8 mg disintegrating 8 mg PO Q8H PRN nausea and 11/20/24 Unknown Rx tablet vomiting #30 tabs levothyroxine 50 mcg tablet 50 mcg PO QDAY thyroid #30 tabs 11/29/24 Unknown Rx potassium chloride 20 mEq 20 meq PO QDAY electro,. #7 tabs 12/04/24 Unknown Rx tablet,extended release apixaban 5 mg (74 tabs) tablets in See Rx Instructions PO PER PKG DIR 12/11/24 Unknown Rx a dose pack (Eliquis DVT-PE Treat DVT #74 tabs 30D Start) clopidogrel 75 mg tablet 75 mg PO DAILY blood clot 12/24/24 Unknown History magnesium oxide 400 mg (241.3 mg 400 mg PO DAILY orered 12/24/24 Unknown History magnesium) tablet pantoprazole 40 mg tablet,delayed 40 mg PO BID acid reflux 12/24/24 Unknown History release Allergy/AdvReac Type Severity Reaction Status Date / Time No Known Allergies Allergy Verified 12/24/24 11:47 Family History no significant family his Surgical History Hx of tooth extraction History of liver biopsy History of lung biopsy Hx of cardiac catheterization (~07/06/23) H/O coronary angioplasty (~07/06/23) H/O tubal ligation Social History household members: none Smoking Status: Current every day smoker tobacco type: cigarettes Tobacco: How many years used: 55 quit status: considering quitting alcohol intake: never substance use type: does not use and marijuana caffeine: Yes Type: carbonated beverages Number of servings: 2 Review of Systems (Anesthesia) ROS Narrative System reviewed and no additional complaints, except as documented.
--- NOTE | 2024-12-26 12:12 | PCM.PN.BLA ---
Progress Note Patient underwent IVC filter placement yesterday. She has been n.p.o. past midnight. Physical Exam Const alert and oriented x3 Constitutional Narrative: frail and weak General Appearance: cooperative Orientation / Consciousness: lethargic HEENT normocephalic and head/scalp atraumatic Eyes PERRL, EOMs intact bilaterally and conjunctivae normal Neck no lymphadenopathy and supple Resp normal respiratory effort, no use of accessory muscles and clear to auscultation bilaterally Resp Narrative: mildly diminished breath sounds bibasally, no wheezes or crackles. on 2L of oxygen by nasal canula Cardio regular rate, regular rhythm, S1 normal heart sound, S2 normal heart sound and no murmurs GI normal to inspection, nondistended, normoactive bowel sounds, soft to palpation, non-tender and non-distended Extremity normal to inspection, full ROM and no clubbing, cyanosis or edema General Extremity: no tenderness to palpation of joints or extremities Skin General Skin Exam: no breakdown Neuro oriented x3, CN's II-XII intact bilaterally, moves all extremities and no focal motor deficits Neuro Narrative: frail,weak Sensorium / Orientation: awake and alert Motor Exam: general weakness Psych thought process normal and cooperative Appearance: appropriate Assessment & Plan Assessment/Plan (1) GI bleed: PLAN: Patient was explained alternatives, risk, benefits include not withstanding bleeding, infection, sepsis, perforation, need for emergent urgent . She will have an ASA 3.' Visit Charges Inpatient E&M: 90864 [facility] Hosp L3
--- NOTE | 2024-12-26 12:52 | OP.EGD_ITS ---
Patient Name: Maggi Smith Procedure Date: 12/26/2024 12:17 PM Date of : 1955 Age: 69 Procedure: Upper GI endoscopy Indications: Melena Providers: Toy Penn DO Medicines: Monitored Anesthesia Care Patient Profile: This is a 69 year old female. Refer to note in patient chart for documentation of history and physical. Patient has symptoms of acute epigastric abdominal pain. Complications: No immediate complications. Procedure: Pre-Anesthesia Assessment: - Prior to the procedure, a History and Physical was performed, and patient medications and allergies were reviewed. The patient is competent. The risks and benefits of the procedure and the sedation options and risks were discussed with the patient. All questions were answered and informed consent was obtained. Patient identification and proposed procedure were verified by the physician in the pre-procedure area. Mental Status Examination: alert and oriented. Airway Examination: normal oropharyngeal airway and neck mobility. Respiratory Examination: clear to auscultation. CV Examination: normal. Prophylactic Antibiotics: The patient does not require prophylactic antibiotics. Prior Anticoagulants: The patient has taken no anticoagulant or antiplatelet agents except for NSAID medication. ASA Grade Assessment: II - A patient with mild systemic disease. After reviewing the risks and benefits, the patient was deemed in satisfactory condition to undergo the procedure. The anesthesia plan was to use monitored anesthesia care (MAC). Immediately prior to administration of medications, the patient was re-assessed for adequacy to receive sedatives. The heart rate, respiratory rate, oxygen saturations, blood pressure, adequacy of pulmonary ventilation, and response to care were monitored throughout the procedure. The physical status of the patient was re-assessed after the procedure. After obtaining informed consent, the endoscope was passed under direct vision. Throughout the procedure, the patient's blood pressure, pulse, and oxygen saturations were monitored continuously. The gastroscope was introduced through the mouth, and advanced to the fourth part of the duodenum. Small bowel enteroscopy was deemed necessary. The upper GI endoscopy was accomplished without difficulty. The patient tolerated the procedure well. Scope In: 12:37:01 PM Scope Out: 12:45:54 PM Total Procedure Duration Time 0 hours 8 minutes 53 seconds Findings: No gross lesions were noted in the entire esophagus. A small hiatal hernia was present. One non-bleeding cratered gastric ulcer with no stigmata of bleeding was found at the pylorus. The lesion was 20 mm in largest dimension. Biopsies were taken with a cold forceps for histology. Verification of patient identification for the specimen was done. Estimated blood loss was minimal. One oozing linear gastric ulcer with a visible vessel was found in the gastric body. The lesion was 15 mm in largest dimension. Coagulation for hemostasis using heater probe was successful. Estimated blood loss was minimal. No gross lesions were noted in the entire examined duodenum. Impression: - No gross lesions in the entire esophagus. - Small hiatal hernia. - Non-bleeding gastric ulcer with no stigmata of bleeding. Biopsied. - Oozing gastric ulcer with a visible vessel. Treated with a heater probe. - No gross lesions in the entire examined duodenum. Recommendation: - Return patient to [facility] for ongoing care. - Full liquid diet today. - Use sucralfate tablets 1 gram PO QID for 1 month. - Continue present medications. Procedure Code(s): --- Professional --- 29822, 59, Small intestinal endoscopy, enteroscopy beyond second portion of duodenum, not including ileum; with control of bleeding (eg, injection, bipolar cautery, unipolar cautery, laser, heater probe, stapler, plasma factorer) 15753, 51, Small intestinal endoscopy, enteroscopy beyond second portion of duodenum, not including ileum; with biopsy, single or multiple CPT copyright 2021 [employer]. All rights reserved. The codes documented in this report are preliminary and upon director security management review may be revised to meet current compliance requirements. Toy Penn DO 12/26/2024 12:52:17 PM This report has been signed electronically. Number of Addenda: 0 Note Initiated On: 12/26/2024 12:17 PM
--- NOTE | 2024-12-26 12:52 | OP.CCLET_ITS ---
12/26/2024 No Primary Care Physician Re : [facility] This procedure was performed on Thursday, December 26, 2024. My impressions and recommendations are as follows: Impressions : - No gross lesions in the entire esophagus. - Small hiatal hernia. - Non-bleeding gastric ulcer with no stigmata of bleeding. Biopsied. - Oozing gastric ulcer with a visible vessel. Treated with a heater probe. - No gross lesions in the entire examined duodenum. Recommendations : - Return patient to [facility] for ongoing care. - Full liquid diet today. - Use sucralfate tablets 1 gram PO QID for 1 month. - Continue present medications. My findings are described in the full procedure note, which is enclosed. If I can be of further assistance, please feel free to contact me at . Sincerely, Toy Penn, 12/26/2024 12:52:17 PM This report has been signed electronically.
--- NOTE | 2024-12-26 13:11 | PCM.POST.ANE ---
Anesthesia: Postop Eval I Current Vital Signs Temperature: 98.5 F Pulse Rate: 72 Blood Pressure: 102/59 Respiratory Rate: 16 Pulse Ox: 97 Oxygen Delivery Method: Nasal Cannula Oxygen Flow Rate (L/min): 4 Assessment Airway patent: Yes Spontaneous unlabored respirations: Yes Mental status: Awake and Calm nausea: No Vomiting: No Anesthesia Complication: No Fluid Hydration Crystalloid volume administer (ml): 30 Total IV fluid infused: 30 Progress Note Anesthesia document: Postop Eval 1 completed: Yes
--- NOTE | 2024-12-26 13:15 | EGD_PTH ---
PATIENT: LEONOR RICKETTS LOC: MS3 U#:[id number] AGE/SX: 69/F ROOM: MS309 RE12/24/[address]: Dr. Holli Loving DO : 1955 BED: 1 DIS: 01/02/2025 SPEC #: [id number] RECD: 12/26/24 15:45 STATUS: SOUT REQ #: [id number] JORGE ALBERTO: 12/26/24 13:[address]: Toy Penn DEPT: SURGICAL PATHOLOGY RECD BY: Christopher Blanton ENTERED: 12/27/24 06:55 SP TYPE: EGD BIOPSY OTHR DR: MD Dr. Alexandre Siegel MD Dr. Bruce Arthur, MD Dr. Derek Brown, MD Dr. Mahin Guardado Dr., MD Dr. Edward Matheis, MD Dr. Eric Turney, MD Dr. Gautam Baskaran, MD Dr. Yordanos Habtegebriel, MD Dr. Hemant Dand, MD Dr. Jose Ochoa, MD Dr. Joseph Prah, MD Dr. Joel Simmons, MD Dr. Justin Wong, MD Dr. Kimber Foust, MD Dr. Lamia Aljundi, MD Dr. Mansour Isckarus, MD Dr. Marisa Magana, MD Dr. Nana Yaa Koram, MD Dr. Pritam Ghosh, MD Dr. Pavan Irukulla, MD Dr. Robert Field, MD Dr. Ryan Jin, MD Dr. Roger Macklis, MD Dr. Saad Farooqi, MD Dr. Sukhdeep Dhesi, DO Dr. Sujoy Gill, MD Dr. Soleyah Groves, MD Dr. Steve Walston, DO Dr. Rosarioothy Fernstrom, DO Dr. Jesus Rambo, MD Dr. Yaya Tone, MD Primary Care Phys SHERLY Gomez Tissues: A - Pylorus Procedures: Immunohistochemical Stains Surgery Specimen Level IV HEADER OPERATION: EGD with biopsy and bipolar electrohemostasis PRE-OP DIAGNOSIS: GI bleed TISSUE SUBMITTED: A- Pyloric channel ulcer biopsy MICROSCOPIC DIAGNOSIS A. Stomach, pyloric channel, ulcer, biopsy: * Pyloroduodenal mucosa with mild chronic focal active inflammation with reactive changes (See note) Note: An immunostain for Helicobacter pylori organisms is in progress and will be reported as an addendum MICROSCOPIC DESCRIPTION Slides are reviewed. These tests were developed and their performance characteristics determined by [facility]. They may not have been cleared or approved by the U.S. Food and Drug Administration. The FDA has determined that such clearance or approval is not necessary. The above immunohistochemical/dualISH markers are ordered and reviewed by the Pathologist. GROSS DESCRIPTION A. Received in formalin in a container labeled with the patient's name, date of , and pyloric channel ulcer biopsy are multiple terry-pink fragments of mucosal tissue measuring 0.9 x 0.5 x 0.2 cm in aggregate. Submitted in toto in A1. [facility] 12/28/2024 CPT:[id number] ADDENDUM ADDENDUM 12/28/2024 16:38 ADDENDUM 12/28/2024 16:38 ADDENDUM 12/28/2024 16:38 ADDENDUM 12/28/2024 16:38 ADDENDUM 12/28/2024 16:38 The immunostain for Helicobacter pylori organisms is negative
[2024-12-26] MEDS: Ceftriaxone 1 GM/50 ML BAG IV (14:40)
--- NOTE | 2024-12-26 14:51 | PCM.POSTANE2 ---
Anesthesia Postop Eval I Sum Postop Eval Completion status Anesthesia document: Postop Eval 1 completed: Yes Anesthesia Postop Eval I Summary Anesthesia Postop Eval I Summary: Anesthesia Postop Eval I: Assessment Summary Airway patent Yes 12/26/24 13:12 [email or web address] Spontaneous unlabored Yes 12/26/24 13:12 [email or web address] respirations Mental status Awake,Calm 12/26/24 13:12 [email or web address] nausea No 12/26/24 13:12 [email or web address] Vomiting No 12/26/24 13:12 [email or web address] Anesthesia Postop Eval I: Fluid Summary Crystalloid volume administer 30 12/26/24 13:12 [email or web address] (ml) Colloids volume administered ( ml) Blood Product volume administered (ml) Total IV fluid infused 30 12/26/24 13:12 [email or web address] Anesthesia Postop Eval I: Summary Notes Anesthesia Complication No 12/26/24 13:12 [email or web address] Anesthesia Complication Comment: Post-operative progress note Anesthesia: Postop Eval II Evaluation Mental status: Awake Pain Level: 0 nausea: No Vomiting: No
[2024-12-26] MEDS: oxyCODONE 5 MG Tablet PO ×2 (14:55→20:38)
[2024-12-26] MEDS: Acetaminophen 325 MG Tablet 650 MG PO (18:41)
[2024-12-27] VITALS (9 sets, daily range): BP systolic 86–119; BP diastolic 38–62; PULSE 71–87; RESP 16–17; TEMP 36.4–36.8; O2SAT 97–100; BMI 25.6
[2024-12-27] MEDS: Morphine 2 MG/ML Syringe IV (01:39)
[2024-12-27] MEDS: Pantoprazole Sodium 80 MG in 0.9% Normal Saline (100mL Bag) 80 ML 10 MG CONT INF (03:45)
[2024-12-27 03:48] LABS: Hematocrit 21.4 % (37-47); Hemoglobin 7.5 g/dL (12.0-15.0); Mean Corpuscular Hgb 31.5 pg (27.0-32.0); Mean Corpuscular Volume 89.9 fL (81-99); POSITIVE COUNT YES; POSITIVE DIFFERENTIAL YES; POSITIVE MORPHOLOGY YES; Platelet Count 28 K/mm3 (150-450); RBC Distribution Width CV 16.4 % (11.6-14.6); RBC Distribution Width SD 53.4 fl (35.1-43.9); Red Blood Count 2.38 M/mm3 (4.2-5.4)
--- NOTE | 2024-12-27 03:56 | CPS ---
Patient refusing breathing Tx's, order D/C'd per dr. rodriguez
[2024-12-27 04:07] LABS: Differential Indicated MANUAL DIFF
--- NOTE | 2024-12-27 04:17 | NURSING ---
Critical Low Plt count 28K. notified and aware. Not a new finding, Pt is status post chemo 12/18. No acute evidence of bleeding noted at this time. Awaiting further orders at this time.
[2024-12-27 04:30] LABS: Anion Gap 10 (5-15); BUN 5 mg/dL (4-19); BUN/Creat Ratio 8.1 RATIO (10-20); Calcium,Total 7.8 mg/dL (7.6-11.0); Carbon Dioxide 24.9 mmol/L (21.0-32.0); Chloride 99 mmol/L (98-108); Creatinine, Serum 0.59 mg/dL (0.70-1.20); EST Glomerular Filtration Rate 99 (>60); Estimated Creatinine Clearance 62.31 ml/min (50-250); Glucose 102 mg/dL (70-99); Sodium Level 134 mmol/L (133-145)
[2024-12-27 05:40] LABS: Metamyelocyte 1 % (0-1); Monocyte 9 % (0-10); Myelocyte 8 % (0-0); Neutrophil-Band 21 % (0-5); Neutrophil-Segmented 40 % (47-70); Promyelocyte 8 % (0-0); Total Cells Counted 100 (MANUAL DIFF)
[2024-12-27 05:42] LABS: Lymphocyte 13 % (19-41)
[2024-12-27 05:43] LABS: Platelet Estimate MKD DEC (ADEQ)
[2024-12-27 05:46] LABS: Differential Comment SCANNED
[2024-12-27 05:48] LABS: Absolute Lymphocyte Count 1.55 X10^3/uL (0.83-4.51); Absolute Neutrophil Count 7.3 X10^3/uL (2.0-7.7)
[2024-12-27 05:52] LABS: Stomatocyte 1+
--- NOTE | 2024-12-27 07:38 | PCM.PN.INT ---
Assessment & Plan Assessment/Plan (1) Left leg DVT: QUALIFIERS: Affected thrombotic vein of extremity: unspecified vein of extremity Chronicity: acute Qualified Code(s): I82.402 - Acute embolism and thrombosis of unspecified deep veins of left lower extremity (2) Anemia: QUALIFIERS: Anemia type: unspecified type Qualified Code(s): D64.9 - Anemia, unspecified (3) Thrombocytopenia: (4) Metastatic primary lung cancer: QUALIFIERS: Laterality: left Qualified Code(s): C34.92 - Malignant neoplasm of unspecified part of left bronchus or lung (5) High anion gap metabolic acidosis: PLAN: Plan RECOMMENDATIONS: 1. Continue antimicrobials to complete 7 days of therapy. 2. Continue to monitor blood counts and transfuse if hemoglobin drops below 7 g/dL. 3. Continue PPI therapy. 4. Aggressive electrolyte repletion. 5. Continue scheduled bronchodilators. 6. Recommended empiric BiPAP therapy with naps and nightly. 7. Follow-up in the pulmonary medicine clinic on January 08, as scheduled. 8. Will sign off from a critical care perspective. Please call with any additional questions. IMPRESSIONS: 1. Sepsis The patient presented with sepsis due to suspected UTI with acute sepsis related organ dysfunction as evidenced by lactic acidemia. The patient did receive supplemental IV fluid hydration was started on empiric antimicrobials. Urine culture has demonstrated growth of pansensitive E. coli. Recommend completing 7 days of antimicrobial therapy. The patient remains otherwise hemodynamically stable. Continue current supportive care. 2. Acute blood loss anemia/thrombocytopenia Concern for underlying gastrointestinal bleed in the setting of systemic anticoagulation with Eliquis due to recent diagnosis of DVT. Continue to monitor blood counts and transfuse if hemoglobin drops below 7 g/dL. Endoscopic evaluation demonstrated an oozing gastric ulcer which was treated with a heater probe. Continue PPI therapy. 3. 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 Oncology is currently following as well. 4. Recently diagnosed left lower extremity DVT Given contraindication to ongoing systemic anticoagulation, the patient underwent successful IVC filter placement on December 25. 5. History of COPD Continue scheduled bronchodilator therapy as ordered. Recommend outpatient pulmonary follow-up as scheduled. 6. History of hypothyroidism/coronary artery disease/nicotine dependency Complicates care, management, recovery and prognosis. Continue home medications as indicated. CODE STATUS: DNR CCA without intubation This note was generated with Dragon dictation software. It may contain incorrect words, spelling, and punctuation that were not noted in checking the note before signing. Subjective Subjective The patient was seen and examined at the bedside this morning. Events from the last 24 hours have been reviewed. The patient is currently afebrile, hemodynamically stable and maintaining appropriate oxygen saturations on 2 L/min via nasal cannula. The patient underwent EGD yesterday which revealed an oozing gastric ulcer which was treated with a heater probe. Hemoglobin is stable at 7.5 g/dL with a platelet count of 28,000. Potassium is low at 3.0 with a creatinine of 0.59. Objective Data Objective Data The patient's most recent lab work, culture data and imaging studies have all been personally reviewed. Urine culture was positive for pansensitive E. coli. Blood cultures have not demonstrated any growth to date. Vital Signs: Vital Signs Temp Pulse Resp BP Pulse Ox O2 Del Method O2 Flow Rate 98.3 F 71 16 86/38 L 98 Nasal Cannula 2 12/27/24 02:00 12/27/24 02:00 12/27/24 02:00 12/27/24 02:00 12/27/24 02:00 12/27/24 06:00 12/27/24 06:00 FiO2 40 12/26/24 11:51 Oxygen Flow Rate (L/min) 2 Oxygen Delivery Method Nasal Cannula Weight: 144 lb 9.972 oz Body Mass Index (BMI) 25.6 Intake & Output: Intake and Output for Last 24 Hours 12/25/24 12/26/24 12/27/24 23:59 23:59 23:59 Intake Total 1655.25 / 1655.25 1076.33 / 1076.33 100 / 100 Output Total 5 / 2074 1350 / 1350 Balance -419.75 / -419.75 -273.67 / -273.67 100 / 100 Lab / Micro Data Attestation: I reviewed the patient's lab results. 12/27/24 03:40 12/27/24 03:40 Labs: Laboratory Results - last 24 hr 12/24/24 10:05: Crossmatch See Detail 12/26/24 03:30: Magnesium 1.0 L 12/27/24 03:40: WBC 12.0 H, RBC 2.38 L, Hgb 7.5 L, Hct 21.4 L, MCV 89.9, MCH 31.5, MCHC 35.0, RDW Std Deviation 53.4 H, RDW Coeff of Fidel 16.4 H, Plt Count 28 L*, MPV 10.0, Neut % (Auto) Not Reportable, Absolute Neuts (auto) 7.3, Absolute Lymphs (auto) 1.55, Total Counted 100, Neutrophils % (Manual) 40 L, Band Neutrophils % 21 H, Lymphocytes % (Manual) 13 L, Monocytes % (Manual) 9, Metamyelocytes % 1, Myelocytes % 8 H, Promyelocytes % 8 H, Differential Comment SCANNED, Diff Path Review January foll, Platelet Estimate MKD DEC, Stomatocytes 1+, Sodium 134, Potassium 3.0 L, Chloride 99, Carbon Dioxide 24.9, Anion Gap 10, BUN 5, Creatinine 0.59 L, Estim Creat Clear Calc 62.31, Est GFR (MDRD) Non-Af 99, BUN/Creatinine Ratio 8.1 L, Glucose 102 H, Calcium 7.8 Micro: Microbiology 12/24/24 11:47 Urine Catheter - Catheter Urine Culture - Final Presumptive E. coli 12/24/24 10:00 Stool Stool Occult Blood (LASHANDA) - Final Occult Blood Positive Physical Exam Const alert and no apparent distress Constitutional Narrative: Resting comfortably in bed. General Appearance: cooperative HEENT normocephalic and head/scalp atraumatic Eyes PERRL, EOMs intact bilaterally and conjunctivae normal Neck supple General: trachea midline Chest inspection of chest normal Resp normal respiratory effort Auscultation: diminished lung sounds; Negative for rales, rhonchi or wheezes Cardio regular rate and regular rhythm GI normal to inspection, nondistended, normoactive bowel sounds Extremity no clubbing, cyanosis or edema Skin no rashes or lesions noted Neuro CN's II-XII intact bilaterally, moves all extremities and no focal motor deficits Psych cooperative and affect normal Charges/Coding Visit Charges Inpatient E&M: 67308 Subs Hosp L2
[2024-12-27] MEDS: Potassium Chloride 10mEq/100mL 10 MEQ/100 ML IV.SOLN. 100 MEQ IV BOLUS ×4 (08:01→11:23)
[2024-12-27 10:28] LABS: Magnesium 1.6 mg/dL (1.5-2.2)
--- NOTE | 2024-12-27 10:44 | PN_ITS ---
Subjective Subjective Patient seen and examined. She was lying comfortably in bed and had no complaints. She has remained hemodynamically stable. Review of systems otherwise negative. She did have EGD yesterday which showed nonbleeding gastric ulcers with no stigmata of bleeding and oozing gastric ulcer with a visible vessel which was treated with a heater probe. There were no gross lesions in the entire examined duodenum and esophagus. Objective Data Objective Data Vital Signs: Vital Signs Temp Pulse Resp BP Pulse Ox O2 Del Method O2 Flow Rate 98.1 F 79 17 106/57 L 98 Nasal Cannula 2 12/27/24 08:00 12/27/24 08:00 12/27/24 08:00 12/27/24 08:00 12/27/24 08:00 12/27/24 08:00 12/27/24 08:00 FiO2 40 12/26/24 11:51 Oxygen Flow Rate (L/min) 2 Oxygen Delivery Method Nasal Cannula Weight: 144 lb 9.972 oz Body Mass Index (BMI) 25.6 Intake & Output: Intake and Output for Last 24 Hours 12/25/24 12/26/24 12/27/24 23:59 23:59 23:59 Intake Total 1655.25 / 1655.25 1076.33 / 1076.33 300 / 300 Output Total 2075 / 2075 1350 / 1350 Balance -419.75 / -419.75 -273.67 / -273.67 300 / 300 Lab / Micro Data 12/27/24 03:40 12/27/24 03:40 Labs: Laboratory Results - last 24 hr 12/24/24 10:05: Crossmatch See Detail 12/26/24 03:30: Magnesium 1.0 L 12/27/24 03:40: WBC 12.0 H, RBC 2.38 L, Hgb 7.5 L, Hct 21.4 L, MCV 89.9, MCH 31.5, MCHC 35.0, RDW Std Deviation 53.4 H, RDW Coeff of Fidel 16.4 H, Plt Count 28 L*, MPV 10.0, Neut % (Auto) Not Reportable, Absolute Neuts (auto) 7.3, Absolute Lymphs (auto) 1.55, Total Counted 100, Neutrophils % (Manual) 40 L, Band Neutrophils % 21 H, Lymphocytes % (Manual) 13 L, Monocytes % (Manual) 9, Metamyelocytes % 1, Myelocytes % 8 H, Promyelocytes % 8 H, Differential Comment SCANNED, Diff Path Review May foll, Platelet Estimate MKD DEC, Stomatocytes 1+, Sodium 134, Potassium 3.0 L, Chloride 99, Carbon Dioxide 24.9, Anion Gap 10, BUN 5, Creatinine 0.59 L, Estim Creat Clear Calc 62.31, Est GFR (MDRD) Non-Af 99, B UN/Creatinine Ratio 8.1 L, Glucose 102 H, Calcium 7.8, Magnesium 1.6 12/27/24 09:10: Blood Type O POSITIVE Micro: Microbiology 12/24/24 11:47 Urine Catheter - Catheter Urine Culture - Final Presumptive E. coli 12/24/24 10:00 Stool Stool Occult Blood (LASHANDA) - Final Occult Blood Positive Physical Exam Const alert and oriented x3 Constitutional Narrative: frail and weak General Appearance: cooperative Orientation / Consciousness: lethargic HEENT normocephalic and head/scalp atraumatic Eyes PERRL, EOMs intact bilaterally and conjunctivae normal Neck no lymphadenopathy and supple Resp Resp Narrative: mildly diminished breath sounds bibasally, no wheezes or crackles. on 2L of oxygen by nasal canula Cardio regular rate, regular rhythm, S1 normal heart sound, S2 normal heart sound and no murmurs GI normal to inspection, nondistended, normoactive bowel sounds, soft to palpation, non-tender and non-distended Extremity normal to inspection, full ROM and no clubbing, cyanosis or edema General Extremity: no tenderness to palpation of joints or extremities Skin General Skin Exam: no breakdown Neuro oriented x3, CN's II-XII intact bilaterally, moves all extremities and no focal motor deficits Neuro Narrative: frail,weak Sensorium / Orientation: awake and alert Motor Exam: general weakness Psych thought process normal and cooperative Appearance: appropriate Assessment & Plan Assessment/Plan (1) Lung cancer metastatic to brain: (2) High anion gap metabolic acidosis: (3) Lactic acidosis: PLAN: Plan #Acute anemia * Likely due to chemotherapy and an ongoing GI bleed. * She did have chemotherapy last week and was told that her platelets and hemoglobin will likely drop. However she is also on Eliquis and has been having dark melena stools for about a week. * eliquis on hold. * Hemoglobin today is up to 7.8. * She had EGD yesterday which showed evidence of an oozing gastric ulcer with a visible vessel with was treated with a heater probe, and a nonbleeding gastric ulcer with no stigmata of bleeding * On PPI drip * transfuse to maintain Hb >7 * * #Acute thrombocytopenia * Platelets are down to 28 today, from 44 yesterday. Has been transfused with platelets during this admission. * Hematology recommends to keep platelets more than 50 in light of active bleeding. * will transfuse with another units of platelets. * #Elevated anion gap metabolic acidosis * Resolved. * #UTI * Urinalysis does show evidence of UTI with 3+ bacteria. * Urine growing E. coli. Blood cultures pending. * on IV ceftriaxone #Lactic acidosis * Resolved. #Metastatic lung cancer * Diagnosed with lung cancer 2 years ago. Follows with oncology. Has mets to the brain. * Her last session of chemotherapy about a week ago. Consult oncology in light of the anemia and severe thrombocytopenia #History of DVT: * Recently diagnosed with DVT in the calf and started on Eliquis. * Eliquis held due to GI bleed. Vascular surgery consulted for IVC filter insertion. #Hypothyroidism: On Synthroid #COPD: Not in exacerbation. Breathing treatments bronchodilators. Titrate oxygen as needed to maintain saturation above 90%. #CAD s/p stents: On aspirin and statin. Hold aspirin. Also on carvedilol and Plavix. Hold both. #Nicotine dependence: Patient still continues to smoke. Nicotine patch 21 mg daily. DVT prophylaxis: SCDs CODE STATUS: * full code Disposition; transfer out of ICU to med surg today. Charges/Coding Visit Charges Inpatient E&M: 53033 Subs Hosp L2
[2024-12-27] MEDS: Ceftriaxone 1 GM/50 ML BAG IV (11:55)
[2024-12-27] MEDS: oxyCODONE 5 MG Tablet PO ×2 (16:08→22:09)
[2024-12-27] MEDS: Acetaminophen 325 MG Tablet 650 MG PO ×2 (16:08→22:08)
[2024-12-27] MEDS: Pantoprazole Sodium 40 MG Tablet PO (22:05)
[2024-12-28] VITALS (7 sets, daily range): BP systolic 96–118; BP diastolic 49–64; PULSE 73–86; RESP 15–16; TEMP 36.6–36.9; O2SAT 97–100; BMI 25.7
[2024-12-28] MEDS: oxyCODONE 5 MG Tablet PO ×3 (03:22→18:26)
[2024-12-28] MEDS: Acetaminophen 325 MG Tablet 650 MG PO ×2 (04:10→15:13)
[2024-12-28 06:25] LABS: Hemoglobin 7.4 g/dL (12.0-15.0); Mean Corp Hgb Conc 35.2 g/dL (32-36); Mean Corpuscular Hgb 31.9 pg (27.0-32.0); Mean Corpuscular Volume 90.5 fL (81-99); Mean Platelet Vol. 10.3 fl (6.2-12.0); POSITIVE COUNT YES; POSITIVE DIFFERENTIAL YES; POSITIVE MORPHOLOGY YES; Platelet Count 51 K/mm3 (150-450); RBC Distribution Width CV 16.1 % (11.6-14.6); RBC Distribution Width SD 52.5 fl (35.1-43.9); Red Blood Count 2.32 M/mm3 (4.2-5.4); White Blood Count 25.3 K/mm3 (4.4-11.0)
[2024-12-28 06:57] LABS: Lymphocyte 19 % (19-41); Metamyelocyte 3 % (0-1); Monocyte 4 % (0-10); Myelocyte 2 % (0-0); Neutrophil-Band 11 % (0-5); Neutrophil-Segmented 55 % (47-70); Promyelocyte 6 % (0-0); Total Cells Counted 100 (MANUAL DIFF)
[2024-12-28 06:58] LABS: Anion Gap 9 (5-15); BUN 4 mg/dL (4-19); BUN/Creat Ratio 7.4 RATIO (10-20); Calcium,Total 7.7 mg/dL (7.6-11.0); Carbon Dioxide 25.7 mmol/L (21.0-32.0); Chloride 98 mmol/L (98-108); Creatinine, Serum 0.48 mg/dL (0.70-1.20); EST Glomerular Filtration Rate 104 (>60); Estimated Creatinine Clearance 62.18 ml/min (50-250); Glucose 94 mg/dL (70-99); Potassium 3.2 mmol/L (3.3-5.1); Sodium Level 132 mmol/L (133-145)
[2024-12-28 06:59] LABS: Anisocytosis 2+; Differential Indicated MANUAL DIFF; Platelet Estimate MKD DEC (ADEQ); Red Cell Morphology N CHROM NORMAL (NORM C&C)
[2024-12-28 07:00] LABS: Absolute Lymphocyte Count 4.81 X10^3/uL (0.83-4.51); Absolute Neutrophil Count 16.7 X10^3/uL (2.0-7.7)
[2024-12-28] MEDS: Potassium Chloride Oral Tablet 20 MEQ 40 MEQ PO (09:48)
[2024-12-28] MEDS: 0.9% Saline Lock 10 ML Syringe IV (11:00)
[2024-12-28] MEDS: Ceftriaxone 1 GM/50 ML BAG IV (11:00)
[2024-12-28] MEDS: Pantoprazole Sodium 40 MG Tablet PO ×2 (11:00→21:00)
--- NOTE | 2024-12-28 11:46 | PN_ITS ---
Subjective Subjective Patient seen and examined. She had no complaints and had an uneventful night. She is on 2 L of oxygen. Review of systems otherwise negative. She was hoping to go home today but her white cell count is down to 25. She denies any coughing or chest pain, wheezing, nausea vomiting or any other symptoms. Objective Data Objective Data Vital Signs: Vital Signs Temp Pulse Resp BP Pulse Ox O2 Del Method O2 Flow Rate 98.5 F 73 16 111/57 L 98 Nasal Cannula 2 12/28/24 08:15 12/28/24 08:15 12/28/24 08:15 12/28/24 08:15 12/28/24 08:15 12/28/24 09:15 12/28/24 09:15 FiO2 40 12/26/24 11:51 Oxygen Flow Rate (L/min) 2 Oxygen Delivery Method Nasal Cannula Weight: 144 lb 13.499 oz Body Mass Index (BMI) 25.7 Intake & Output: Intake and Output for Last 24 Hours 12/26/24 12/27/24 12/28/24 23:59 23:59 23:59 Intake Total 1076.33 / 1076.33 890 / 890 50 / 50 Output Total 1350 / 1350 300 / 300 Balance -273.67 / -273.67 590 / 590 50 / 50 Lab / Micro Data 12/28/24 06:05 12/28/24 06:05 Labs: Laboratory Results - last 24 hr 12/27/24 09:10: Blood Type O POSITIVE 12/28/24 06:05: WBC 25.3 H, RBC 2.32 L, Hgb 7.4 L, Hct 21.0 L, MCV 90.5, MCH 31.9, MCHC 35.2, RDW Std Deviation 52.5 H, RDW Coeff of Fidel 16.1 H, Plt Count 51 L, MPV 10.3, Neut % (Auto) Not Reportable, Absolute Neuts (auto) 16.7 H, A bsolute Lymphs (auto) 4.81 H, Total Counted 100, Neutrophils % (Manual) 55, Band Neutrophils % 11 H, Lymphocytes % (Manual) 19, Monocytes % (Manual) 4, M etamyelocytes % 3 H, Myelocytes % 2 H, Promyelocytes % 6 H, Platelet Estimate MKD DEC, RBC Morphology N CHROM, Anisocytosis 2+, Sodium 132 L, Potassium 3.2 L, Chloride 98, Carbon Dioxide 25.7, Anion Gap 9, BUN 4, Creatinine 0.48 L, Estim Creat Clear Calc 62.18, Est GFR (MDRD) Non-Af 104, BUN/Creatinine Ratio 7.4 L, Glucose 94, Calcium 7.7 Micro: Microbiology 12/24/24 11:47 Urine Catheter - Catheter Urine Culture - Final Presumptive E. coli 12/24/24 10:00 Stool Stool Occult Blood (LASHANDA) - Final Occult Blood Positive Physical Exam Const alert and oriented x3 Constitutional Narrative: frail and weak General Appearance: cooperative HEENT normocephalic and head/scalp atraumatic Eyes PERRL, EOMs intact bilaterally and conjunctivae normal Neck no lymphadenopathy and supple Resp Resp Narrative: mildly diminished breath sounds bibasally, no wheezes or crackles. on 2L of oxygen by nasal canula Cardio regular rate, regular rhythm, S1 normal heart sound, S2 normal heart sound and no murmurs GI normal to inspection, nondistended, normoactive bowel sounds, soft to palpation, non-tender and non-distended Extremity normal to inspection, full ROM and no clubbing, cyanosis or edema General Extremity: no tenderness to palpation of joints or extremities Skin General Skin Exam: no breakdown Neuro oriented x3, CN's II-XII intact bilaterally, moves all extremities and no focal motor deficits Sensorium / Orientation: awake and alert Motor Exam: general weakness Psych thought process normal and cooperative Appearance: appropriate Assessment & Plan Assessment/Plan (1) Lung cancer metastatic to brain: (2) High anion gap metabolic acidosis: (3) Lactic acidosis: PLAN: Plan #Acute anemia * Likely due to chemotherapy and an ongoing GI bleed. * She did have chemotherapy last week and was told that her platelets and hemoglobin will likely drop. However she is also on Eliquis and has been having dark melena stools for about a week. * eliquis on hold. * Hemoglobin today is 7.4 * She had EGD which showed evidence of an oozing gastric ulcer with a visible vessel with was treated with a heater probe, and a nonbleeding gastric ulcer with no stigmata of bleeding * On PPI drip * transfuse to maintain Hb >7 * * #Acute thrombocytopenia * Platelets today of 51. Has been transfused with multiple units of platelets during this admission. * #Elevated anion gap metabolic acidosis * Resolved. * #UTI * Urinalysis does show evidence of UTI with 3+ bacteria. * Urine growing E. coli. * on IV ceftriaxone * WBC today has jumped to 25.3. Blood culture still pending. Continue with antibiotics and monitor WBC to see if it trends downwards. #Lactic acidosis * Resolved. #Metastatic lung cancer * Diagnosed with lung cancer 2 years ago. Follows with oncology. Has mets to the brain. * Her last session of chemotherapy about a week ago. Consult oncology in light of the anemia and severe thrombocytopenia #History of DVT: * Recently diagnosed with DVT in the calf and started on Eliquis. * Eliquis held due to GI bleed. Vascular surgery consulted for IVC filter insertion. #Hypothyroidism: On Synthroid #COPD: Not in exacerbation. Breathing treatments bronchodilators. Titrate oxygen as needed to maintain saturation above 90%. #CAD s/p stents: On aspirin and statin. Hold aspirin. Also on carvedilol and Plavix. Hold both. #Nicotine dependence: Patient still continues to smoke. Nicotine patch 21 mg daily. DVT prophylaxis: SCDs CODE STATUS: * full code Disposition; anticipate dc home within the next 48 hours. Charges/Coding Visit Charges Inpatient E&M: 88878 Subs Hosp L2
--- NOTE | 2024-12-28 13:35 | CASEMGMT ---
AMY CM into pt room, pt sitting up in chair in no distress with family at bedside. Pt agreeable to discussion with family present. Pt feels she is doing ok with therapy and denies need for OP therapy at ct. Pt states many of her grandchildren are [employer]'s who can help her. Pt denies any further homegoing needs. Green sheet on chart for home oxygen.
[2024-12-28 15:05] LABS: Pathologist Review Reviewed
[2024-12-29] VITALS (8 sets, daily range): BP systolic 112–125; BP diastolic 50–76; PULSE 71–81; RESP 15–18; TEMP 36.6–37.1; O2SAT 97–100; BMI 24.6
[2024-12-29] MEDS: Acetaminophen 325 MG Tablet 650 MG PO ×4 (00:14→21:06)
[2024-12-29] MEDS: oxyCODONE 5 MG Tablet PO ×5 (00:15→21:06)
[2024-12-29 06:34] LABS: Hematocrit 21.6 % (37-47); Hemoglobin 7.4 g/dL (12.0-15.0); Mean Corp Hgb Conc 34.3 g/dL (32-36); Mean Corpuscular Hgb 31.6 pg (27.0-32.0); Mean Corpuscular Volume 92.3 fL (81-99); Mean Platelet Vol. 10.7 fl (6.2-12.0); POSITIVE COUNT YES; POSITIVE DIFFERENTIAL YES; POSITIVE MORPHOLOGY YES; RBC Distribution Width CV 15.9 % (11.6-14.6); RBC Distribution Width SD 53.3 fl (35.1-43.9); Red Blood Count 2.34 M/mm3 (4.2-5.4); White Blood Count 35.9 K/mm3 (4.4-11.0)
[2024-12-29 06:39] LABS: Differential Indicated MANUAL DIFF; Platelet Count 47 K/mm3 (150-450)
[2024-12-29 07:25] LABS: Anion Gap 7 (5-15); BUN 5 mg/dL (4-19); BUN/Creat Ratio 10.7 RATIO (10-20); Calcium,Total 7.6 mg/dL (7.6-11.0); Carbon Dioxide 29.1 mmol/L (21.0-32.0); Chloride 98 mmol/L (98-108); Creatinine, Serum 0.51 mg/dL (0.70-1.20); EST Glomerular Filtration Rate 102 (>60); Estimated Creatinine Clearance 61.02 ml/min (50-250); Glucose 98 mg/dL (70-99); Potassium 3.4 mmol/L (3.3-5.1); Sodium Level 134 mmol/L (133-145)
[2024-12-29 07:26] LABS: Lymphocyte 3 % (19-41); Metamyelocyte 15 % (0-1); Monocyte 2 % (0-10); Myelocyte 19 % (0-0); Neutrophil-Band 6 % (0-5); Neutrophil-Segmented 55 % (47-70); Total Cells Counted 100 (MANUAL DIFF)
[2024-12-29 07:27] LABS: Platelet Estimate MKD DEC (ADEQ); Red Cell Morphology NORM C+C NORMAL (NORM C&C)
[2024-12-29 07:28] LABS: Absolute Neutrophil Count 21.9 X10^3/uL (2.0-7.7)
[2024-12-29] MEDS: Pantoprazole Sodium 40 MG Tablet PO ×2 (09:40→21:05)
[2024-12-29] MEDS: Ceftriaxone 1 GM/50 ML BAG IV (09:40)
--- NOTE | 2024-12-29 14:32 | PN_ITS ---
Subjective Subjective Patient seen and examined. She had no active complaints and felt much better. Her wbc has however trended up to 35.6 today. Review of systems is otherwise negative. Objective Data Objective Data Vital Signs: Vital Signs Temp Pulse Resp BP Pulse Ox O2 Del Method O2 Flow Rate 98.1 F 81 18 112/53 L 99 Nasal Cannula 2 12/29/24 08:00 12/29/24 10:00 12/29/24 10:00 12/29/24 08:00 12/29/24 10:00 12/29/24 10:00 12/29/24 10:00 FiO2 40 12/26/24 11:51 Oxygen Flow Rate (L/min) 2 Oxygen Delivery Method Nasal Cannula Weight: 138 lb 14.259 oz Body Mass Index (BMI) 24.6 Intake & Output: Intake and Output for Last 24 Hours 12/27/24 12/28/24 12/29/24 23:59 23:59 23:59 Intake Total 890 / 890 850 / 850 50 / 50 Output Total 300 / 300 Balance 590 / 590 850 / 850 50 / 50 Lab / Micro Data 12/29/24 05:49 12/29/24 05:49 Labs: Laboratory Results - last 24 hr 12/27/24 03:40: Diff Path Review Reviewed 12/29/24 05:49: WBC 35.9 H*, RBC 2.34 L, Hgb 7.4 L, Hct 21.6 L, MCV 92.3, MCH 31.6, MCHC 34.3, RDW Std Deviation 53.3 H, RDW Coeff of Fidel 15.9 H, Plt Count 47 L*, MPV 10.7, Neut % (Auto) Not Reportable, Absolute Neuts (auto) 21.9 H, Absolute Lymphs (auto) 1.10, Total Counted 100, Neutrophils % (Manual) 55, Band Neutrophils % 6 H, Lymphocytes % (Manual) 3 L, Monocytes % (Manual) 2, M etamyelocytes % 15 H, Myelocytes % 19 H, Platelet Estimate MKD DEC, RBC Morphology NORM C+C, Sodium 134, Potassium 3.4, Chloride 98, Carbon Dioxide 29.1, Anion Gap 7, BUN 5, Creatinine 0.51 L, Estim Creat Clear Calc 61.02, Est GFR (MDRD) Non-Af 102, BUN/Creatinine Ratio 10.7, Glucose 98, Calcium 7.6 Micro: Microbiology 12/24/24 12:04 Blood Culture (Wb) - Port Blood Culture - Final No growth in 5 days. 12/24/24 12:04 Blood Culture (Wb) - Anticubital Right Blood Culture - Final No growth in 5 days. 12/24/24 11:47 Urine Catheter - Catheter Urine Culture - Final Presumptive E. coli 12/24/24 10:00 Stool Stool Occult Blood (LASHANDA) - Final Occult Blood Positive Physical Exam Const alert and oriented x3 Constitutional Narrative: frail and weak General Appearance: cooperative HEENT normocephalic and head/scalp atraumatic Eyes PERRL, EOMs intact bilaterally and conjunctivae normal Neck no lymphadenopathy and supple Resp normal respiratory effort, no use of accessory muscles and clear to auscultation bilaterally Resp Narrative: mildly diminished breath sounds bibasally, no wheezes or crackles. still on 2L of oxygen by nasal canula Cardio regular rate, regular rhythm, S1 normal heart sound, S2 normal heart sound and no murmurs GI normal to inspection, nondistended, normoactive bowel sounds, soft to palpation, non-tender and non-distended Extremity normal to inspection, full ROM, normal capillary refill and no clubbing, cyanosis or edema General Extremity: no tenderness to palpation of joints or extremities Skin General Skin Exam: no breakdown Neuro oriented x3, CN's II-XII intact bilaterally, moves all extremities and no focal motor deficits Neuro Narrative: frail,weak Sensorium / Orientation: awake and alert Motor Exam: general weakness Psych thought process normal and cooperative Appearance: appropriate Assessment & Plan Assessment/Plan (1) Lung cancer metastatic to brain: (2) High anion gap metabolic acidosis: (3) Lactic acidosis: PLAN: Plan #Acute anemia * Likely due to chemotherapy and an ongoing GI bleed. * She did have chemotherapy last week and was told that her platelets and hemoglobin will likely drop. However she is also on Eliquis and has been having dark melena stools for about a week. * eliquis on hold. * Hemoglobin today remains 7.4 * She had EGD which showed evidence of an oozing gastric ulcer with a visible vessel with was treated with a heater probe, and a nonbleeding gastric ulcer with no stigmata of bleeding * Now on PO pantoprazole 40mg bid * transfuse to maintain Hb >7 * * #Acute thrombocytopenia * Platelets are 47 today. Will continue to monitor. Has been transfused with multiple units of platelets during this admission. * #Elevated anion gap metabolic acidosis * Resolved. * #UTI * Urinalysis does show evidence of UTI with 3+ bacteria. * Urine growing E. coli. * on IV ceftriaxone * wbc is further up to 35.8 today. Was 24 yesterday. * blood cultures are negative after 5 days. * I am unsure why her wbc is trending upwards. It is mainly neutrophilic also. I did discuss with Dr Echols who stated patient did receive neulasta on 12/19/2024 * CTA of the chest, abdomen and pelvis on admission showed stable pulmonary nodules, a new 1cm hypodense nodule in the left lobe of the liver medially and retroperitoneal lymphadenopathy, as well as omental metastasis and sigmoid diverituculosis with possible colitis of the right hemicolon * will broaden antibiotics to IV zosyn. She denies any abdominal pain, and has had no fever or chills. * will repeat blood cultures and get a CXR also out of an abundance of precautions. * #Lactic acidosis * Resolved. #Metastatic lung cancer * Diagnosed with lung cancer 2 years ago. Follows with oncology. Has mets to the brain. * Her last session of chemotherapy about a week ago. Consult oncology in light of the anemia and severe thrombocytopenia #History of DVT: * Recently diagnosed with DVT in the calf and started on Eliquis. * Eliquis held due to GI bleed. * she had IVC filter insertion on 12/25/2024. #Hypothyroidism: On Synthroid #COPD: Not in exacerbation. Breathing treatments bronchodilators. Titrate oxygen as needed to maintain saturation above 90%. #CAD s/p stents: On aspirin and statin. Hold aspirin. Also on carvedilol and Plavix. These remain on hold #Nicotine dependence: Patient still continues to smoke. Nicotine patch 21 mg daily. DVT prophylaxis: SCDs CODE STATUS: * full code Charges/Coding Visit Charges Inpatient E&M: 97842 Subs Hosp L3
--- NOTE | 2024-12-29 15:50 | RAD_ITS ---
PROCEDURE: CHEST PA AND LATERAL 12/29/2024 REASON FOR EXAM: PNEUMONIA TECHNIQUE: Frontal and lateral views of the chest. COMPARISON: Chest radiograph dated 11/08/2023 FINDINGS: Hardware: Right-sided Port-A-Cath with its tip in the SVC. Heart: The heart size is normal. Mediastinum: The mediastinal contour is unremarkable. Lungs: The lungs are clear. Bones: The bones are unremarkable. RAD/Chest PA and Lateral IMPRESSION: NO ACUTE FINDINGS. Reading Location: [facility]
[2024-12-29] MEDS: Piperacil/Tazobactam 3.375 GM in 0.9% Normal Saline (50mL MB+) 50 ML IV (21:05)
[2024-12-30 02:15] VITALS: BP 100/54; PULSE 75; RESP 18; TEMP 36.4; O2SAT 100
[2024-12-30] MEDS: Acetaminophen 325 MG Tablet 650 MG PO ×2 (03:16→10:25)
[2024-12-30] MEDS: oxyCODONE 5 MG Tablet PO ×2 (03:16→15:30)
[2024-12-30 05:50] VITALS: BMI 22.4
[2024-12-30] MEDS: Levothyroxine 50 MCG Tablet PO (06:20)
[2024-12-30] MEDS: Piperacil/Tazobactam 3.375 GM in 0.9% Normal Saline (50mL MB+) 50 ML IV ×3 (06:20→21:27)
[2024-12-30 06:34] LABS: Absolute Lymphocyte Count 3.28 X10^3/uL (0.83-4.51); Basophil# 0.04 X10^3/uL; Basophil% 0.1 % (0-1); Eosinophil# 0.01 X10^3/uL; Hematocrit 21.8 % (37-47); Hemoglobin 7.4 g/dL (12.0-15.0); Lymphocyte # 3.28 X10^3/ul (0.83-4.51); Lymphocyte % 7.8 % (19-41); Mean Corp Hgb Conc 33.9 g/dL (32-36); Mean Corpuscular Hgb 31.8 pg (27.0-32.0); Mean Corpuscular Volume 93.6 fL (81-99); Mean Platelet Vol. 11.1 fl (6.2-12.0); Monocyte# 4.16 X10^3/uL; Monocyte% 9.9 % (0-10); NRBC Flagged by Analyzer 0.6 % (0-5); Neutrophil # 23.03 X10^3/uL (2.7-7.7); Neutrophil % 54.5 % (47-70); POSITIVE COUNT YES; POSITIVE DIFFERENTIAL YES; POSITIVE MORPHOLOGY YES; Platelet Count 61 K/mm3 (150-450); RBC Distribution Width CV 15.7 % (11.6-14.6); RBC Distribution Width SD 52.8 fl (35.1-43.9); Red Blood Count 2.33 M/mm3 (4.2-5.4); White Blood Count 42.2 K/mm3 (4.4-11.0)
[2024-12-30 06:51] LABS: Anion Gap 7 (5-15); BUN 6 mg/dL (4-19); BUN/Creat Ratio 13.8 RATIO (10-20); Calcium,Total 7.5 mg/dL (7.6-11.0); Carbon Dioxide 30.6 mmol/L (21.0-32.0); Chloride 96 mmol/L (98-108); Creatinine, Serum 0.46 mg/dL (0.70-1.20); EST Glomerular Filtration Rate 105 (>60); Estimated Creatinine Clearance 56.45 ml/min (50-250); Glucose 98 mg/dL (70-99); Potassium 3.7 mmol/L (3.3-5.1); Sodium Level 134 mmol/L (133-145)
[2024-12-30 07:33] VITALS: O2SAT 97
[2024-12-30 08:00] VITALS: BP 90/49; PULSE 84; RESP 18; TEMP 36.8; O2SAT 100
[2024-12-30 08:07] LABS: Lymphocyte 3 % (19-41); Metamyelocyte 6 % (0-1); Monocyte 5 % (0-10); Myelocyte 9 % (0-0); Neutrophil-Band 12 % (0-5); Neutrophil-Segmented 65 % (47-70); Total Cells Counted 100 (MANUAL DIFF)
[2024-12-30 08:08] LABS: Hypochromasia 1+; Platelet Estimate MOD DEC (ADEQ); Polychromasia RARE
[2024-12-30 08:09] LABS: Red Cell Morphology N CYTIC NORMAL (NORM C&C)
[2024-12-30] MEDS: Pantoprazole Sodium 40 MG Tablet PO ×2 (10:25→21:27)
--- NOTE | 2024-12-30 10:32 | PCM.PROGNOTE ---
Subjective Subjective Patient seen and examined. She had no complaints and had an uneventful night. BP is low this morning at 90/49. She remains on 2L of oxygen. Review of systems is otherwise negative. Objective Data Objective Data Vital Signs: Vital Signs Temp Pulse Resp BP Pulse Ox O2 Del Method O2 Flow Rate 98.2 F 84 18 90/49 L 100 Nasal Cannula 2 12/30/24 08:00 12/30/24 08:00 12/30/24 08:00 12/30/24 08:00 12/30/24 08:00 12/30/24 08:00 12/30/24 08:00 FiO2 40 12/26/24 11:51 Oxygen Flow Rate (L/min) 2 Oxygen Delivery Method Nasal Cannula Weight: 126 lb 5.198 oz Body Mass Index (BMI) 22.4 Intake & Output: Intake and Output for Last 24 Hours 12/28/24 12/29/24 12/30/24 23:59 23:59 23:59 Intake Total 850 / 850 950 / 1150 400 / 400 Balance 850 / 850 950 / 1150 400 / 400 Lab / Micro Data 12/30/24 05:49 12/30/24 05:49 Labs: Laboratory Results - last 24 hr 12/30/24 05:49: WBC 42.2 H*, RBC 2.33 L, Hgb 7.4 L, Hct 21.8 L, MCV 93.6, MCH 31.8, MCHC 33.9, RDW Std Deviation 52.8 H, RDW Coeff of Fiedl 15.7 H, Plt Count 61 L, MPV 11.1, Immature Gran % (Auto) 27.700 H, Neut % (Auto) 54.5, Lymph % (Auto) 7.8 L, [place] % (Auto) 9.9, Eos % (Auto) 0.0, Baso % (Auto) 0.1, Absolute Neuts (auto) 23.0 H, Absolute Lymphs (auto) 3.28, Total Counted 100, Neutrophils % (Manual) 65, Band Neutrophils % 12 H, Lymphocytes % (Manual) 3 L, Monocytes % (Manual) 5, Metamyelocytes % 6 H, Myelocytes % 9 H, Nucleated RBC % 0.6, Platelet Estimate MOD DEC, RBC Morphology N CYTIC, Polychromasia RARE, Hypochromasia 1+, Sodium 134, Potassium 3.7, Chloride 96 L, Carbon Dioxide 30.6, Anion Gap 7, BUN 6, Creatinine 0.46 L, Estim Creat Clear Calc 56.45, Est GFR (MDRD) Non-Af 105, BUN/Creatinine Ratio 13.8, Glucose 98, Calcium 7.5 L Micro: Microbiology 12/24/24 12:04 Blood Culture (Wb) - Port Blood Culture - Final No growth in 5 days. 12/24/24 12:04 Blood Culture (Wb) - Anticubital Right Blood Culture - Final No growth in 5 days. 12/24/24 11:47 Urine Catheter - Catheter Urine Culture - Final Presumptive E. coli 12/24/24 10:00 Stool Stool Occult Blood (LASHANDA) - Final Occult Blood Positive Radiography Diagnostic Testing: Radiology Impression Chest X-Ray 12/29/24 15:50 IMPRESSION: NO ACUTE FINDINGS. Reading [facility] Physical Exam Const alert, oriented x3 and no apparent distress Constitutional Narrative: frail General Appearance: cooperative HEENT normocephalic, head/scalp atraumatic and moist oral mucous membranes Eyes PERRL, EOMs intact bilaterally and conjunctivae normal Neck no lymphadenopathy and supple Lymph Lymphatic: no lymphadenopathy noted and no lymphedema noted Resp normal respiratory effort, normal air movement, no use of accessory muscles and clear to auscultation bilaterally Resp Narrative: mildly diminished breath sounds bibasally, no wheezes or crackles. still on 2L of oxygen by nasal canula Cardio regular rate, regular rhythm, S1 normal heart sound, S2 normal heart sound and no murmurs GI normal to inspection, nondistended, normoactive bowel sounds, soft to palpation, non-tender and non-distended Extremity normal to inspection, full ROM, normal capillary refill and no clubbing, cyanosis or edema General Extremity: no tenderness to palpation of joints or extremities Skin General Skin Exam: no breakdown Neuro oriented x3, CN's II-XII intact bilaterally, moves all extremities and no focal motor deficits Neuro Narrative: frail,weak Sensorium / Orientation: awake and alert Motor Exam: general weakness Psych thought process normal and cooperative Appearance: appropriate Assessment & Plan Assessment/Plan (1) Lung cancer metastatic to brain: (2) High anion gap metabolic acidosis: (3) Lactic acidosis: PLAN: Plan #Acute anemia Likely due to chemotherapy and an ongoing GI bleed. She did have chemotherapy last week and was told that her platelets and hemoglobin will likely drop. However she is also on Eliquis and has been having dark melena stools for about a week. eliquis on hold. Hemoglobin is 7.4. She had EGD which showed evidence of an oozing gastric ulcer with a visible vessel with was treated with a heater probe, and a nonbleeding gastric ulcer with no stigmata of bleeding Now on PO pantoprazole 40mg bid transfuse to maintain Hb >7 #UTI Urinalysis does show evidence of UTI with 3+ bacteria. Urine growing E. coli which is pansensitive. Blood cultures are negative. wbc has trended up further to 42 today, from 35 yesterday. I am unsure why her wbc is trending upwards. It is mainly neutrophilic also. I did discuss with Dr Echols who stated patient did receive neulasta on 12/19/2024 I do wonder if this leucocytosis is due to the delayed response to the neulasta CTA of the chest, abdomen and pelvis on admission showed stable pulmonary nodules, a new 1cm hypodense nodule in the left lobe of the liver medially and retroperitoneal lymphadenopathy, as well as omental metastasis and sigmoid diverticulosis with possible colitis of the right hemicolon antibiotics broadened to IV zosyn. Repeat CXR showed no acute cardiopulmonary pathology repeat blood cultures ordered. will consult ID #Acute thrombocytopenia Platelets are 61 today. Will continue to monitor. Has been transfused with multiple units of platelets during this admission. #Elevated anion gap metabolic acidosis Resolved. #Lactic acidosis Resolved. #Metastatic lung cancer Diagnosed with lung cancer 2 years ago. Follows with oncology. Has mets to the brain. Her last session of chemotherapy about a week ago. Consult oncology in light of the anemia and severe thrombocytopenia #History of DVT: Recently diagnosed with DVT in the calf and started on Eliquis. Eliquis held due to GI bleed. she had IVC filter insertion on 12/25/2024. #Hypothyroidism: On Synthroid #COPD: Not in exacerbation. Breathing treatments bronchodilators. Titrate oxygen as needed to maintain saturation above 90%. #CAD s/p stents: On aspirin and statin. Hold aspirin. Also on carvedilol and Plavix. These remain on hold #Nicotine dependence: Patient still continues to smoke. Nicotine patch 21 mg daily. DVT prophylaxis: SCDs CODE STATUS: full code Charges/Coding Visit Charges Inpatient E&M: 60567 Subs Hosp L2
[2024-12-30 14:37] VITALS: BP 107/46; PULSE 86; RESP 18; TEMP 36.5; O2SAT 100
[2024-12-30 20:19] VITALS: BP 109/42; PULSE 97; RESP 18; TEMP 36.6; O2SAT 100
[2024-12-30 20:20] VITALS: RESP 18
[2024-12-30] MEDS: Polyethylene Glycol 3350 17 GM PACKET PO (21:27)
[2024-12-31] MEDS: Acetaminophen 325 MG Tablet 650 MG PO ×3 (00:21→22:42)
[2024-12-31] MEDS: oxyCODONE 5 MG Tablet PO ×5 (00:21→22:42)
[2024-12-31 02:43] VITALS: BP 122/67; PULSE 85; RESP 18; TEMP 37.2; O2SAT 99
[2024-12-31] MEDS: Piperacil/Tazobactam 3.375 GM in 0.9% Normal Saline (50mL MB+) 50 ML IV (05:08)
[2024-12-31] MEDS: 0.9% Saline Lock 10 ML Syringe IV ×2 (05:08→22:48)
[2024-12-31] MEDS: Levothyroxine 50 MCG Tablet PO (05:09)
[2024-12-31 06:00] VITALS: BMI 23.6
[2024-12-31 07:16] VITALS: O2SAT 99
--- NOTE | 2024-12-31 07:23 | PN.HOSP_ITS ---
Reason for Visit Reason for Visit: Altered mental status Subjective Subjective Patient states overall she is feeling much better than she did previously. Is anxious to go home if possible. We did discuss that her white count is markedly elevated. She states she did get that shot after her last chemo. Sounds like she got Neulasta. Objective Data Objective Data Vital Signs: Vital Signs Temp Pulse Resp BP Pulse Ox O2 Del Method O2 Flow Rate 98.9 F 85 18 122/67 H 99 Nasal Cannula 2 12/31/24 02:43 12/31/24 02:43 12/31/24 02:43 12/31/24 02:43 12/31/24 07:16 12/31/24 07:16 12/31/24 07:16 FiO2 40 12/26/24 11:51 Oxygen Flow Rate (L/min) 2 Oxygen Delivery Method Nasal Cannula Weight: 60.4 kg Body Mass Index (BMI) 23.6 Intake & Output: Intake and Output for Last 24 Hours 12/29/24 12/30/24 12/31/24 23:59 23:59 23:59 Intake Total 950 / 1150 1590 / 1590 170 / 170 Balance 950 / 1150 1590 / 1590 170 / 170 Lab / Micro Data 12/31/24 07:30 12/31/24 07:30 Labs: Laboratory Results - last 24 hr 12/30/24 05:49: WBC 42.2 H*, RBC 2.33 L, Hgb 7.4 L, Hct 21.8 L, MCV 93.6, MCH 31.8, MCHC 33.9, RDW Std Deviation 52.8 H, RDW Coeff of Fidel 15.7 H, Plt Count 61 L, MPV 11.1, Immature Gran % (Auto) 27.700 H, Neut % (Auto) 54.5, Lymph % (Auto) 7.8 L, Loving % (Auto) 9.9, Eos % (Auto) 0.0, Baso % (Auto) 0.1, Absolute Neuts (auto) 23.0 H, Absolute Lymphs (auto) 3.28, Total Counted 100, Neutrophils % (Manual) 65, Band Neutrophils % 12 H, Lymphocytes % (Manual) 3 L, Monocytes % (Manual) 5, Metamyelocytes % 6 H, Myelocytes % 9 H, Nucleated RBC % 0.6, Platelet Estimate MOD DEC, RBC Morphology N CYTIC, Polychromasia RARE, Hypochromasia 1+ Micro: Microbiology 12/24/24 12:04 Blood Culture (Wb) - Port Blood Culture - Final No growth in 5 days. 12/24/24 12:04 Blood Culture (Wb) - Anticubital Right Blood Culture - Final No growth in 5 days. 12/24/24 11:47 Urine Catheter - Catheter Urine Culture - Final Presumptive E. coli 12/24/24 10:00 Stool Stool Occult Blood (LASHANDA) - Final Occult Blood Positive Physical Exam Const alert, oriented x3 and well nourished; Negative for healthy appearing Constitutional Narrative: Upper middle-aged, white female, who appears much older than stated age, sitting up on the side of the bed, appears comfortable, does not look toxic HEENT head/scalp atraumatic and moist oral mucous membranes Head and Scalp: normocephalic Resp normal respiratory effort, no retractions, no use of accessory muscles and clear to auscultation bilaterally Auscultation: Negative for rales, rhonchi or wheezes Cardio regular rate, regular rhythm, S1 normal heart sound, S2 normal heart sound, no murmurs, no rub, no gallops and no clicks GI normal to inspection, nondistended, normoactive bowel sounds, soft to palpation and non-tender Extremity no clubbing, cyanosis or edema Neuro oriented x3, moves all extremities and no focal motor deficits Speech: speech normal Psych affect normal Psych Narrative: eye contact is good, pt interacts appropriately Assessment & Plan Assessment/Plan (1) Leukocytosis: (2) GI bleed: (3) Thrombocytopenia: (4) Anemia: QUALIFIERS: Anemia type: unspecified type Qualified Code(s): D 64.9 - Anemia, unspecified (5) Left leg DVT: QUALIFIERS: Affected thrombotic vein of extremity: unspecified vein of extremity Chronicity: acute Qualified Code(s): I82.402 - Acute embolism and thrombosis of unspecified deep veins of left lower extremity (6) S/P IVC filter: (7) Peptic ulcer disease: PLAN: Plan Sepsis secondary to E. coli UTI -Sepsis has resolved -Patient had organ dysfunction related to lactic acidosis -cultures from 12/24/2024 -antibiotics completed GIB 2/2 Peptic Ulcer Disease -EGD done on 12/26/2024 that showed no lesions in the esophagus, small hiatal hernia, nonbleeding gastric ulcer with no stigmata of bleeding that was biopsied and oozing gastric ulcer with a visible vessel that was treated with heater probe - Recommendations were to start Carafate 1 g 4 times daily x 1 month--> start today - Continue Protonix 40 mg p.o. twice daily - Patient was previously on Plavix and Eliquis--> I have asked GI further recommendations regarding anticoagulation and antiplatelet therapy - Patient reports her most recent cardiac stent was placed 2 years ago Acute anemia -baseline hemoglobin looks to run between 12 and 13 -hemoglobin on presentation was 4.1 -Transfused multiple units of packed red blood cells -hemoglobin appears to be stabilizing in the 7 range -Continue to hold anticoagulation and antiplatelet therapy Leukocytosis - Marked - Per documentation the case was discussed with oncology and she did receive Neulasta on 12/19/2024 so this could be contributing -check procalcitonin - ID has been consulted for antibiotic recommendations -Cultures thus far unremarkable - UA was initially suggestive of infection but culture only shows Crystal albicans Abnormal UA -Repeat UA was suggestive of infection -cultures unremarkable other than Crystal albicans -ID has been consulted due to worsening leukocytosis and recommended holding antibiotics for now History of DVT - Eliquis had to be held due to GI bleed and will continue to hold as patient is high risk for bleed and less GI is okay with reinitiation - IVC filter placed by vascular surgery on 12/25/2024 Thrombocytopenia - Suspect multifactorial--> consumption with bleeding and recent chemotherapy -count seems to be recovering - Platelet count up to 102,000 today - Repeat CBC in a.m. 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) -Diagnosed in September 2019 for -Has received carboplatin, Taxol, and Keytruda for maintenance until October 2024 -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 for and progressive disease noted 12/04/2024 and was started on gemcitabine - Chemo is to be held until she is discharged from the hospital - Received Neulasta on 12/19/2024 after her last cycle - Per oncology documentation from 12/24/2024 overall prognosis is guarded Hypothyroidism - Continue home Synthroid COPD - Continue aerosols - Continue home inhalers - no signs of acute exacerbation at this time -Patient is on room air at baseline GERD -treatment with Protonix as noted above -Will discontinue famotidine and discharge CAD/hyperlipidemia/history of left ventricular aneurysm - Previous stent placement with most recent 2 years ago - Hold aspirin and Plavix with no plan to reinitiate - Will discuss with cardiology--> patient sees Dr. Chawla - Last stent placement was about 2 years ago per patient Tobacco abuse - Recommend cessation - Nicotine patch if needed DVT prophylaxis - SCDs - Chemoprophylaxis is contraindicated CODE STATUS -DNR CCA with no intubation Charges/Coding Visit Charges Inpatient E&M: 39659 Subs Hosp L2
[2024-12-31 07:44] LABS: Hematocrit 21.8 % (37-47); Hemoglobin 7.4 g/dL (12.0-15.0); Mean Corp Hgb Conc 33.9 g/dL (32-36); Mean Corpuscular Hgb 31.4 pg (27.0-32.0); Mean Corpuscular Volume 92.4 fL (81-99); Mean Platelet Vol. 10.7 fl (6.2-12.0); POSITIVE COUNT YES; POSITIVE DIFFERENTIAL YES; POSITIVE MORPHOLOGY YES; Platelet Count 102 K/mm3 (150-450); RBC Distribution Width CV 15.3 % (11.6-14.6); RBC Distribution Width SD 51.1 fl (35.1-43.9); Red Blood Count 2.36 M/mm3 (4.2-5.4)
[2024-12-31 07:46] LABS: Differential Indicated MANUAL DIFF
[2024-12-31 07:49] LABS: White Blood Count 51.7 K/mm3 (4.4-11.0)
[2024-12-31 08:14] LABS: ALB/GLOB Ratio 0.8 RATIO (0.9-2.4); AST(SGOT) 41 U/L (<=31); Alanine Aminotransfer ALT/SGPT 14 U/L (<=34); Albumin, Serum 2.3 g/dL (3.4-4.8); Alkaline Phosphatase 159 U/L (35-104); Anion Gap 9 (5-15); BUN 5 mg/dL (4-19); Calcium,Total 7.3 mg/dL (7.6-11.0); Carbon Dioxide 29.4 mmol/L (21.0-32.0); Chloride 94 mmol/L (98-108); Creatinine, Serum 0.45 mg/dL (0.70-1.20); EST Glomerular Filtration Rate 105 (>60); Estimated Creatinine Clearance 56.45 ml/min (50-250); Globulin 2.7 g/dL (2.2-4.2); Glucose 93 mg/dL (70-99); Potassium 3.4 mmol/L (3.3-5.1); Procalcitonin 3.48 ng/mL (<=0.10); Protein, Total 4.9 g/dL (5.9-8.4); Sodium Level 132 mmol/L (133-145); Total Bilirubin 0.22 mg/dL (0.00-1.30)
[2024-12-31 08:17] LABS: Lymphocyte 6 % (19-41); Metamyelocyte 7 % (0-1); Monocyte 9 % (0-10); Neutrophil-Band 10 % (0-5); Neutrophil-Segmented 65 % (47-70); Promyelocyte 3 % (0-0); Total Cells Counted 100 (MANUAL DIFF)
[2024-12-31 08:18] LABS: Red Cell Morphology NORM C+C NORMAL (NORM C&C)
[2024-12-31 08:19] LABS: Absolute Neutrophil Count 38.8 X10^3/uL (2.0-7.7); Platelet Estimate SLT DEC (ADEQ)
[2024-12-31 08:50] VITALS: O2SAT 95
[2024-12-31 09:00] VITALS: BP 109/52; PULSE 84; RESP 16; TEMP 36.6; O2SAT 99
[2024-12-31] MEDS: Pantoprazole Sodium 40 MG Tablet PO ×2 (09:08→22:43)
[2024-12-31] MEDS: Polyethylene Glycol 3350 17 GM PACKET PO ×2 (09:08→22:43)
[2024-12-31] MEDS: Menthol/Lanolin/Calamine/Znox 113 GM Tube 1 APPLIC TOPICAL ×2 (09:09→22:44)
--- NOTE | 2024-12-31 11:12 | CON.PCM.ID_ITS ---
Assessment & Plan Assessment/Plan (1) GI bleed: (2) Metastatic primary lung cancer: QUALIFIERS: Laterality: left Qualified Code(s): C34.92 - Malignant neoplasm of unspecified part of left bronchus or lung (3) Leukocytosis: PLAN: No clear sign of new infection. Rising wbc may be related to neulasta on 12/19/24. Infectious workup neg so far. Some yeast in urine, but no urinary sx. CXR clear. Will monitor off of abx. Completed 5 days coverage for ecoli uti. Will follow, thank you HPI Consult Data Date of Consult: 12/31/24 HPI Narrative Reason for Consultation: leukocytosis HPI Narrative: LEONOR RICKETTS, is a 69 F with metastatic lung cancer, last chemo via R chest port 12/18 with neulasta 12/19, presented 12/24 after being found down at home. Had been on eliquis for new DVT. Had one week dark tarry stool. Admitted here with GI bleed, seen by ICU, surgery, GI, oncology. Ucx with ecoli, started on ceftriaxone 12/27, now with continued rising wbc, changed to zosyn 12/30. Feeling better overall, no fever, no dysuria, no abd pain. Full ROS performed and neg except as noted above. FORMERLY [facility], [facility] Medical History Gastrointestinal bleed Left leg DVT Constipation At high risk for deep venous thrombosis Left leg swelling Hypothyroidism (acquired) Encounter for antineoplastic immunotherapy Lung cancer metastatic to brain Hypothyroidism Brain lesion Nausea & vomiting Encounter for immunotherapy Hypomagnesemia Anemia CINV (chemotherapy-induced nausea and vomiting) Dehydration Hypokalemia Oral candidiasis Angular cheilitis Encounter for chemotherapy management Wears glasses Wears dentures Post-menopausal Cancer High cholesterol Asthma History of echocardiogram H/O pulmonary function tests Cardiology follow-up encounter History of heart attack Encounter for education Metastasis to liver Regional lymph node metastasis present Myocardial infarct Chest pain Nicotine dependence, cigarettes, uncomplicated Coronary artery disease COPD (chronic obstructive pulmonary disease) Nicotine dependence Hypertension Left ventricular aneurysm Left ventricular systolic dysfunction (LVSD) Smoker STEMI (ST elevation myocardial infarction) Bronchitis Home Medications ?Medication ?Instructions ?Recorded ?Last Taken ?Type aspirin 81 mg tablet,delayed 81 mg PO DAILY HEART HEAL 07/08/23 11/07/23 Rx release days #30 tabs Disability Placard #1 ea 09/30/23 Unknown Rx lidocaine-prilocaine 2.5 %-2.5 % 1 applic topical ONCE PRN port 10/24/23 Unknown Rx topical cream access 30 days #30 grams budesonide 1 mg/2 mL suspension 1 mg (2 mL) inhalation BID SOB 07/10/24 Unknown Rx for nebulization #120 mL famotidine 20 mg tablet (Pepcid) 20 mg PO QDAY acid re flux 07/10/24 Unknown History ipratropium 0.5 mg-albuterol 3 mg 3 ml inhalation Q4-6 H SOB #180 mL 07/10/24 Unknown Rx (2.5 mg base)/3 mL nebulization soln atorvastatin 10 mg tablet 10 mg PO QHS CHOLESTEROL #9 0 tabs 07/24/24 Unknown Rx carvedilol 3.125 mg tablet 3.125 mg PO BID HIGH BLOOD 07/24/24 Unknown Rx PRESSURE 30 days #180 tabs albuterol sulfate 90 mcg/actuation 2 puff inhalation Q 6H PRN 09/11/24 Unknown Rx aerosol inhaler shortness of breath or wheez ing #8.5 grams oxycodone-acetaminophen 5 mg-325 1 tab PO Q8H PRN canc er 7 days #20 11/08/24 Unknown Rx mg tablet (Percocet) tabs ondansetron 8 mg disintegrating 8 mg PO Q8H PRN nausea and 11/20/24 Unknown Rx tablet vomiting #30 tabs levothyroxine 50 mcg tablet 50 mcg PO QDAY thyroid #30 tabs 11/29/24 Unknown Rx potassium chloride 20 mEq 20 meq PO QDAY electro,. #7 tabs 12/04/24 Unknown Rx tablet,extended release apixaban 5 mg (74 tabs) tablets in See Rx Instructions PO PER PKG DIR 12/11/24 Unknown Rx a dose pack (Eliquis DVT-PE Treat DVT #74 tabs 30D Start) clopidogrel 75 mg tablet 75 mg PO DAILY blood clot Unknown History magnesium oxide 400 mg (241.3 mg 400 mg PO DAILY orere d 12/24/24 Unknown History magnesium) tablet pantoprazole 40 mg tablet,delayed 40 mg PO BID acid re flux 12/24/24 Unknown History release Allergy/AdvReac Type Severity Reaction Status Date / Time No Known Allergies Allergy Verified 12/24/24 11:47 Family History no significant family his Surgical History Hx of tooth extraction History of liver biopsy History of lung biopsy Hx of cardiac catheterization (~07/06/23) H/O coronary angioplasty (~07/06/23) H/O tubal ligation Social History household members: none Smoking Status: Current every day smoker tobacco type: cigarettes Tobacco: How many years used: 55 quit status: considering quitting alcohol intake: never substance use type: does not use and marijuana caffeine: Yes Type: carbonated beverages Number of servings: 2 Physical Exam Const alert, oriented x3 and no apparent distress General Appearance: cooperative HEENT normocephalic and head/scalp atraumatic Eyes PERRL and EOMs intact bilaterally Neck supple and No nodes Resp normal air movement and clear to auscultation bilaterally Cardio regular rate and regular rhythm GI soft to palpation, non-tender and non-distended Extremity General Extremity: Negative for edema Skin no rashes or lesions noted Skin Narrative: R chest port no inflammation Neuro CN's II-XII intact bilaterally Lab / Micro Data Attestation: I reviewed the patient's lab results. 12/31/24 07:30 12/31/24 07:30 Labs: Laboratory Results - last 24 hr 12/31/24 07:30: WBC 51.7 H*, RBC 2.36 L, Hgb 7.4 L, Hct 21.8 L, MCV 92.4, MCH 31.4, MCHC 33.9, RDW Std Deviation 51.1 H, RDW Coeff of Fidel 15.3 H, Plt Count 102 L, MPV 10.7, Neut % (Auto) Not Reportable, Absolute Neuts (auto) 38.8 H, Absolute Lymphs (auto) 3.10, Total Counted 100, Neutrophils % (Manual) 65, Band Neutrophils % 10 H, Lymphocytes % (Manual) 6 L, Monocytes % (Manual) 9, M etamyelocytes % 7 H, Promyelocytes % 3 H, Diff Path Review January, Platelet Estimate SLT DEC, RBC Morphology NORM C+C, Sodium 132 L, Potassium 3.4, Chloride 94 L, Carbon Dioxide 29.4, Anion Gap 9, BUN 5, Creatinine 0.45 L, Estim Creat Clear Calc 56.45, Est GFR (MDRD) Non-Af 105, BUN/Creatinine Ratio 11.0, Glucose 93, Calcium 7.3 L, Total Bilirubin 0.22, AST 41 H, ALT 14, Alkaline Phosphatase 159 H, Total Protein 4.9 L, Albumin 2.3 L, Globulin 2.7, Albumin/Globulin Ratio 0.8 L, Procalcitonin 3.48 H Micro: Microbiology 12/29/24 18:07 Urine, Clean Catch Urine Culture - Preliminary Presumptive C albicans
[2024-12-31] MEDS: Sucralfate 1 GM Tablet PO ×3 (12:58→22:42)
[2024-12-31 15:00] VITALS: BP 134/90; PULSE 89; RESP 16; TEMP 36.7; O2SAT 95
--- NOTE | 2024-12-31 17:30 | PN_ITS ---
Progress Note Patient does not have any complaints at this time. Physical Exam Const alert, oriented x3 and no apparent distress General Appearance: cooperative HEENT normocephalic and head/scalp atraumatic Eyes PERRL and EOMs intact bilaterally Neck supple and No nodes Resp normal air movement and clear to auscultation bilaterally Cardio regular rate and regular rhythm GI soft to palpation, non-tender and non-distended Extremity General Extremity: Negative for edema Skin no rashes or lesions noted Skin Narrative: R chest port no inflammation Neuro CN's II-XII intact bilaterally Assessment & Plan Assessment/Plan (1) Lung cancer metastatic to brain: (2) High anion gap metabolic acidosis: (3) Lactic acidosis: (4) GI bleed: (5) Thrombocytopenia: (6) Anemia: QUALIFIERS: Anemia type: unspecified type Qualified Code(s): D64.9 - Anemia, unspecified PLAN: Plan Patient underwent an upper endoscopy due to history of upper GI bleed secondary to likely peptic ulcer disease. Findings: No gross lesions were noted in the entire esophagus. A small hiatal hernia was present. One non-bleeding cratered gastric ulcer with no stigmata of bleeding was found at the pylorus. The lesion was 20 mm in largest dimension. Biopsies were taken with a cold forceps for histology. Verification of patient identification for the specimen was done. Estimated blood loss was minimal. One oozing linear gastric ulcer with a visible vessel was found in the gastric body. The lesion was 15 mm in largest dimension. Coagulation for hemostasis using heater probe was successful. Estimated blood loss was minimal. No gross lesions were noted in the entire examined duodenum. Impression: - No gross lesions in the entire esophagus. - Small hiatal hernia. - Non-bleeding gastric ulcer with no stigmata of bleeding. Biopsied. - Oozing gastric ulcer with a visible vessel. Treated with a heater probe. - No gross lesions in the entire examined duodenum. Recommendation: - Use sucralfate tablets 1 gram PO QID for 1 month. - Protonix 40 mg p.o. twice daily (watch for worsening thrombocytopenia secondary to PPI therapy ) - Patient should not go back on aspirin therapy due to thrombo cytopenia and history of recurrent GI blood loss secondary to peptic ulcers. She she is high risk for recurrent GI bleeding secondary to aspirin, Plavix, Eliquis, poor nutrition, chemotherapy, thrombocytopenia and metastatic cancer. -HAS-BLED Score for Major Bleeding Risk : 3?points Risk was 5.8% in one validation study (Anthony 2011) and 3.72 bleeds per 100 patient-years in another validation study (Pisters 2010). Alternatives to anticoagulation should be considered: Patient is at high risk for major bleeding. *
[2024-12-31 22:34] VITALS: BP 103/60; PULSE 85; RESP 16; TEMP 36.9; O2SAT 97
[2025-01-01] VITALS (10 sets, daily range): BP systolic 104–116; BP diastolic 49–85; PULSE 70–99; RESP 16–20; TEMP 36.8–37.2; O2SAT 84–99; BMI 23.7
[2025-01-01] MEDS: oxyCODONE 5 MG Tablet PO ×4 (03:38→18:17)
[2025-01-01] MEDS: Levothyroxine 50 MCG Tablet PO (06:44)
[2025-01-01] MEDS: Sucralfate 1 GM Tablet PO ×4 (06:44→21:50)
[2025-01-01 07:47] LABS: Hematocrit 21.8 % (37-47); Hemoglobin 7.4 g/dL (12.0-15.0); Mean Corp Hgb Conc 33.9 g/dL (32-36); Mean Corpuscular Hgb 31.6 pg (27.0-32.0); Mean Corpuscular Volume 93.2 fL (81-99); Mean Platelet Vol. 10.6 fl (6.2-12.0); POSITIVE COUNT YES; POSITIVE DIFFERENTIAL YES; POSITIVE MORPHOLOGY YES; Platelet Count 168 K/mm3 (150-450); RBC Distribution Width CV 15.6 % (11.6-14.6); RBC Distribution Width SD 51.4 fl (35.1-43.9); Red Blood Count 2.34 M/mm3 (4.2-5.4)
[2025-01-01 07:49] LABS: Differential Indicated MANUAL DIFF
[2025-01-01 07:50] LABS: White Blood Count 53.8 K/mm3 (4.4-11.0)
[2025-01-01 08:34] LABS: ALB/GLOB Ratio 0.8 RATIO (0.9-2.4); AST(SGOT) 39 U/L (<=31); Alanine Aminotransfer ALT/SGPT 15 U/L (<=34); Albumin, Serum 2.3 g/dL (3.4-4.8); Alkaline Phosphatase 168 U/L (35-104); Anion Gap 9 (5-15); BUN 5 mg/dL (4-19); BUN/Creat Ratio 10.4 RATIO (10-20); Calcium,Total 7.3 mg/dL (7.6-11.0); Carbon Dioxide 31.7 mmol/L (21.0-32.0); Chloride 94 mmol/L (98-108); EST Glomerular Filtration Rate 103 (>60); Estimated Creatinine Clearance 56.45 ml/min (50-250); Globulin 2.7 g/dL (2.2-4.2); Glucose 88 mg/dL (70-99); Phosphorus 1.8 mg/dL (2.7-4.5); Potassium 3.3 mmol/L (3.3-5.1); Sodium Level 134 mmol/L (133-145); Total Bilirubin 0.19 mg/dL (0.00-1.30)
[2025-01-01 08:35] LABS: Blast 3 % (0-0); Lymphocyte 6 % (19-41); Metamyelocyte 1 % (0-1); Monocyte 4 % (0-10); Myelocyte 1 % (0-0); Neutrophil-Band 8 % (0-5); Neutrophil-Segmented 69 % (47-70); Platelet Estimate ADEQUATE (ADEQ); Promyelocyte 8 % (0-0); Total Cells Counted 100 (MANUAL DIFF)
[2025-01-01 08:36] LABS: Absolute Neutrophil Count 41.4 X10^3/uL (2.0-7.7); Anisocytosis 1+; Polychromasia RARE
[2025-01-01 08:37] LABS: Absolute Lymphocyte Count 3.23 X10^3/uL (0.83-4.51); Pathologist Review May foll
[2025-01-01] MEDS: Polyethylene Glycol 3350 17 GM PACKET PO ×2 (08:37→21:48)
[2025-01-01] MEDS: Pantoprazole Sodium 40 MG Tablet PO ×2 (08:37→21:50)
[2025-01-01] MEDS: Menthol/Lanolin/Calamine/Znox 113 GM Tube 1 APPLIC TOPICAL ×2 (08:38→21:50)
[2025-01-01 09:54] LABS: Procalcitonin 3.24 ng/mL (<=0.10)
--- NOTE | 2025-01-01 10:31 | PCM.PN.ID ---
Physical Exam Narrative Feeling ok today, no fever, no cough. Denies dyspnea, abd pain, n/v/d, dysuria, rash. Const alert and no apparent distress General Appearance: cooperative Resp normal air movement and clear to auscultation bilaterally Cardio regular rate and regular rhythm GI soft to palpation, non-tender and non-distended Skin no rashes or lesions noted Skin Narrative: Rchest port ID ID: Route of nutrition/ use of supplements: [] Nutritional Intake: [] IV Site: [] Nam Catheter: [] Assessment & Plan Assessment/Plan (1) GI bleed: (2) Metastatic primary lung cancer: QUALIFIERS: Laterality: left Qualified Code(s): C34.92 - Malignant neoplasm of unspecified part of left bronchus or lung (3) Leukocytosis: PLAN: No clear sign of new infection. Rising wbc may be related to neulasta on 12/19/24. Infectious workup neg so far. Some yeast in urine, but no urinary sx. CXR clear. Will cont monitor off of abx. Completed 5 days coverage for ecoli uti. Procal slightly better this AM. Will follow
[2025-01-01] MEDS: Potassium Phosphate 21 MM in 0.9% Normal Saline (250mL Bag) 250 ML 84 MM IV (10:57)
[2025-01-01] MEDS: 0.9% Saline Lock 10 ML Syringe IV ×4 (12:21→21:48)
[2025-01-01] MEDS: Magnesium Sulfate 4gm/100mL 4 GM/100 ML IV.SOLN. IV (12:21)
[2025-01-01] MEDS: 0.9% Normal Saline (100mL Bag) 100 ML 15 ML IV (12:22)
--- NOTE | 2025-01-01 12:41 | PN.HOSP_ITS ---
Reason for Visit Reason for Visit: Altered mental status Subjective Subjective Patient states she is really feeling good overall. It does seem that her white count is stabilizing as the rate of rise has significantly declined. Plan is to continue to watch off antibiotics. I suspect if things are stable tomorrow we should be able to discharge her and patient states that clinically from a functional standpoint she feels like she should be able to home with no problem. She is declining home health and outpatient rehab at this time. Objective Data Objective Data Vital Signs: Vital Signs Temp Pulse Resp BP Pulse Ox O2 Del Method O2 Flow Rate 98.2 F 70 20 H 110/49 L 84 Room Air 2 01/01/25 08:31 01/01/25 09:06 01/01/25 08:31 01/01/25 08:31 01/01/25 11:26 01/01/25 11:26 01/01/25 08:31 FiO2 40 12/26/24 11:51 Oxygen Flow Rate (L/min) 2 Oxygen Delivery Method Room Air Weight: 60.7 kg Body Mass Index (BMI) 23.7 Intake & Output: Intake and Output for Last 24 Hours 12/30/24 12/31/24 01/01/25 23:59 23:59 23:59 Intake Total 1590 / 1590 220 / 220 400 / 400 Balance 1590 / 1590 220 / 220 400 / 400 Lab / Micro Data 01/01/25 07:19 01/01/25 07:19 Labs: Laboratory Results - last 24 hr 01/01/25 07:19: WBC 53.8 H*, RBC 2.34 L, Hgb 7.4 L, Hct 21.8 L, MCV 93.2, MCH 31.6, MCHC 33.9, RDW Std Deviation 51.4 H, RDW Coeff of Fidel 15.6 H, Plt Count 168, MPV 10.6, Neut % (Auto) Not Reportable, Absolute Neuts (auto) 41.4 H, Absolute Lymphs (auto) 3.23, Total Counted 100, Neutrophils % (Manual) 69, Band Neutrophils % 8 H, Lymphocytes % (Manual) 6 L, Monocytes % (Manual) 4, Metamyelocytes % 1, Myelocytes % 1 H, Promyelocytes % 8 H, Blast Cells % 3 H*, Diff Path Review May foll, Platelet Estimate ADEQUATE, Polychromasia RARE, Anisocytosis 1+, Sodium 134, Potassium 3.3, Chloride 94 L, Carbon Dioxide 31.7, Anion Gap 9, BUN 5, Creatinine 0.50 L, Estim Creat Clear Calc 56.45, Est GFR (MDRD) Non-Af 103, BUN/Creatinine Ratio 10.4, Glucose 88, Calcium 7.3 L, P hosphorus 1.8 L, Magnesium 1.0 L, Total Bilirubin 0.19, AST 39 H, ALT 15, A lkaline Phosphatase 168 H, Total Protein 5.0 L, Albumin 2.3 L, Globulin 2.7, A lbumin/Globulin Ratio 0.8 L, Procalcitonin 3.24 H Micro: Microbiology 12/29/24 18:07 Urine, Clean Catch Urine Culture - Final Presumptive C albicans Mixed Gram Positive Organisms 12/29/24 15:14 Blood Culture (Wb) - Right Wrist Blood Culture - Preliminary No growth in 48 hours. 12/29/24 15:06 Blood Culture (Wb) - Anticubital Left Blood Culture - Preliminary No growth in 48 hours. 12/24/24 12:04 Blood Culture (Wb) - Port Blood Culture - Final No growth in 5 days. 12/24/24 12:04 Blood Culture (Wb) - Anticubital Right Blood Culture - Final No growth in 5 days. 12/24/24 11:47 Urine Catheter - Catheter Urine Culture - Final Presumptive E. coli 12/24/24 10:00 Stool Stool Occult Blood (LASHANDA) - Final Occult Blood Positive Physical Exam Const alert, oriented x3, no apparent distress and well nourished; Negative for healthy appearing Constitutional Narrative: Upper middle-aged, white female, who appears much older than stated age, lying in bed reclined and watching television, appears comfortable, does not look toxic General Appearance: cooperative Orientation / Consciousness: lethargic HEENT normocephalic, head/scalp atraumatic and moist oral mucous membranes HEENT Narrative: Patient is edentulous, no thrush, Mallampati is 3 Resp normal respiratory effort, normal air movement, no retractions, no use of accessory muscles and clear to auscultation bilaterally Resp Narrative: mildly diminished breath sounds bibasally, no wheezes or crackles. still on 2L of oxygen by nasal canula Auscultation: Negative for rales, rhonchi or wheezes Cardio regular rate, regular rhythm, S1 normal heart sound, S2 normal heart sound, no murmurs, no rub, no gallops and no clicks GI normal to inspection, nondistended, normoactive bowel sounds, soft to palpation and non-tender Extremity no clubbing, cyanosis or edema Extremity Narrative: Pedal and radial pulses are 2+ Skin General Skin Exam: no breakdown Neuro oriented x3, moves all extremities and no focal motor deficits Neuro Narrative: Bed mobility is independent, patient has some mild generalized weakness but no specific focal deficits Speech: speech normal Psych affect normal Psych Narrative: eye contact is good, pt interacts appropriately Assessment & Plan Assessment/Plan (1) Leukocytosis: (2) GI bleed: (3) Thrombocytopenia: (4) Anemia: QUALIFIERS: Anemia type: unspecified type Qualified Code(s): D 64.9 - Anemia, unspecified (5) Left leg DVT: QUALIFIERS: Affected thrombotic vein of extremity: unspecified vein of extremity Chronicity: acute Qualified Code(s): I82.402 - Acute embolism and thrombosis of unspecified deep veins of left lower extremity (6) S/P IVC filter: (7) Peptic ulcer disease: PLAN: Plan Sepsis secondary to E. coli UTI -Sepsis has resolved -Patient had organ dysfunction related to lactic acidosis -cultures from 12/24/2024 -antibiotics completed GIB 10/14 Peptic Ulcer Disease -EGD done on 12/26/2024 that showed no lesions in the esophagus, small hiatal hernia, nonbleeding gastric ulcer with no stigmata of bleeding that was biopsied and oozing gastric ulcer with a visible vessel that was treated with heater probe - Recommendations were to start Carafate 1 g 4 times daily x 1 month--> started 12/31/2024 - Continue Protonix 40 mg p.o. twice daily - Patient was previously on Plavix and Eliquis--> patient does have a high has bled score - With previous stents patient should either be on aspirin Plavix--> discussed with GI and okay to restart Plavix 75 mg today - Will discontinue aspirin and Eliquis on discharge Acute anemia -baseline hemoglobin looks to run between 12 and 13 -hemoglobin on presentation was 4.1 -Transfused multiple units of packed red blood cells - Hemoglobin remained stable in the 7-8 range - Restart Plavix today - Plan is for complete discontinuation of aspirin and Eliquis at discharge - Repeat CBC in a.m. guero Hypomagnesemia -magnesium level is 1.0 -4 g given - Recheck lab in a.m. Hypophosphatemia -Will give a mixture of K and sodium Phos -phosphorus levels 1.8 - Repeat lab in a.m. Leukocytosis - Per documentation the case was discussed with oncology and she did receive Neulasta on 12/19/2024 so this could be contributing -Rate of rise for her white count seems to be improving so hopefully were stabilizing we will start to see a trend down -I think once we see a trend down we can feel more comfortable discharging her - Procalcitonin is slightly better today - ID following and has recommended holding antibiotics and monitoring clinically at this time - Cultures are unremarkable History of DVT - Eliquis to be discontinued at discharge and held indefinitely - IVC filter placed by vascular surgery on 12/25/2024 Thrombocytopenia - Resolved 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) -Diagnosed in September 2019 for -Has received carboplatin, Taxol, and Keytruda for maintenance until October 2024 -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 for and progressive disease noted 12/04/2024 and was started on gemcitabine - Chemo is to be held until she is discharged from the hospital - Received Neulasta on 12/19/2024 after her last cycle - Per oncology documentation from 12/24/2024 overall prognosis is guarded Hypothyroidism - Continue home Synthroid COPD - Continue aerosols - Continue home inhalers - no signs of acute exacerbation at this time -Patient is on room air at baseline GERD -treatment with Protonix as noted above -Will discontinue famotidine and discharge CAD/hyperlipidemia/history of left ventricular aneurysm - Previous stent placement with most recent 2 years ago - Hold aspirin and Plavix with no plan to reinitiate - Will discuss with cardiology--> patient sees Dr. Chawla - Last stent placement was about 2 years ago per patient Tobacco abuse - Recommend cessation - Nicotine patch if needed DVT prophylaxis - SCDs - Chemoprophylaxis is contraindicated CODE STATUS -DNR CCA with no intubation Charges/Coding Visit Charges Inpatient E&M: 38513 Subs Hosp L2
--- NOTE | 2025-01-01 12:57 | CASEMGMT ---
AMY BURCH into pt room, pt lying in bed in no distress. Pt states she still feels safe to dc home should she dc tomorrow. Pt denies need for outpt therapy. Pt states that she does not need/want assistance in setting up a PCP. Pt denies further needs at this time. AMY BURCH to follow for oxygen.
[2025-01-01] MEDS: Furosemide 40 MG/4 ML Vial IV (14:19)
[2025-01-01] MEDS: Sodium Phosphate/Na Biphos 40 MMOL in 0.9% Normal Saline (500mL Bag) 500 ML 62.5 MMOL IV (14:48)
[2025-01-01 15:25] LABS: Pathologist Review Reviewed
[2025-01-01] MEDS: Carvedilol 3.125 MG TABLET PO (15:56)
[2025-01-02] VITALS (8 sets, daily range): BP systolic 100–145; BP diastolic 57–94; PULSE 77–86; RESP 16–18; TEMP 36.7–37.1; O2SAT 86–98; BMI 23.7
[2025-01-02] MEDS: oxyCODONE 5 MG Tablet PO ×2 (01:11→06:07)
[2025-01-02] MEDS: Sucralfate 1 GM Tablet PO ×2 (06:06→11:22)
[2025-01-02] MEDS: Levothyroxine 50 MCG Tablet PO (06:06)
[2025-01-02 06:55] LABS: Hematocrit 21.4 % (37-47); Hemoglobin 7.3 g/dL (12.0-15.0); Mean Corp Hgb Conc 34.1 g/dL (32-36); Mean Corpuscular Volume 93.9 fL (81-99); Mean Platelet Vol. 10.3 fl (6.2-12.0); POSITIVE COUNT YES; POSITIVE DIFFERENTIAL YES; POSITIVE MORPHOLOGY YES; Platelet Count 249 K/mm3 (150-450); RBC Distribution Width CV 15.3 % (11.6-14.6); RBC Distribution Width SD 52.2 fl (35.1-43.9); Red Blood Count 2.28 M/mm3 (4.2-5.4)
[2025-01-02 07:09] LABS: Differential Indicated MANUAL DIFF
[2025-01-02 07:30] LABS: Anion Gap 10 (5-15); BUN 6 mg/dL (4-19); BUN/Creat Ratio 12.1 RATIO (10-20); Carbon Dioxide 31.2 mmol/L (21.0-32.0); Chloride 92 mmol/L (98-108); Creatinine, Serum 0.47 mg/dL (0.70-1.20); EST Glomerular Filtration Rate 104 (>60); Estimated Creatinine Clearance 56.45 ml/min (50-250); Glucose 103 mg/dL (70-99); Magnesium 1.6 mg/dL (1.5-2.2); Phosphorus 3.3 mg/dL (2.7-4.5); Potassium 3.4 mmol/L (3.3-5.1); Sodium Level 133 mmol/L (133-145)
[2025-01-02 08:02] LABS: Lymphocyte 7 % (19-41); Metamyelocyte 4 % (0-1); Monocyte 6 % (0-10); Myelocyte 1 % (0-0); Neutrophil-Band 11 % (0-5); Neutrophil-Segmented 64 % (47-70); Other WBC Type 1 %; Promyelocyte 6 % (0-0); Total Cells Counted 100 (MANUAL DIFF)
[2025-01-02 08:03] LABS: Hypochromasia 1+; Platelet Estimate ADEQUATE (ADEQ); Polychromasia RARE
[2025-01-02 08:04] LABS: Absolute Neutrophil Count 40.5 X10^3/uL (2.0-7.7); Anisocytosis 2+
[2025-01-02 08:05] LABS: Absolute Lymphocyte Count 3.78 X10^3/uL (0.83-4.51)
[2025-01-02] MEDS: Pantoprazole Sodium 40 MG Tablet PO (08:08)
[2025-01-02] MEDS: Menthol/Lanolin/Calamine/Znox 113 GM Tube 1 APPLIC TOPICAL (08:09)
[2025-01-02] MEDS: Carvedilol 3.125 MG TABLET PO (08:09)
[2025-01-02] MEDS: Polyethylene Glycol 3350 17 GM PACKET PO (08:09)
[2025-01-02] MEDS: Clopidogrel Bisulfate 75 MG Tablet PO (08:09)
--- NOTE | 2025-01-02 14:03 | CASEMGMT ---
Addendum entered by Shaye Eugene 01/02/25 15:20: Pt with dc order in. Pt continues to deny any homegoing needs. Original Note: Pt does not qualify for home oxygen. Hospitalist aware.
--- NOTE | 2025-01-02 14:45 | DS.PCM_ITS ---
Providers Date of Admission: 12/24/24 Date of Discharge: 01/02/25 Primary Care Physician: Jessica [facility] Phys Consultations 12/24/24 14:26 Consult: Berry Picker Machine Operator / Pulmonary Medicine Routine Consulting Provider: Intensivists/Pulmonary Med Reason for Consult: severe anion gap metabolic acidosis, anemia EMERGENT Consult: No MD Notified: Yes Date Notified: 12/24/24 Time Notified: 14:20 Method of Notification: Text Consult: Oncology/Hematology Routine Consulting Provider: [facility]) Reason for Consult: acute thrombocytopenia EMERGENT Consult: No MD Notified: Yes Date Notified: 12/24/24 Time Notified: 14:23 Method of Notification: Paged via bundling machine operator 12/24/24 16:16 Consult: Gastroenterology Routine Consulting Provider: [facility] Reason for Consult: acute anemia EMERGENT Consult: No MD Notified: Yes Date Notified: 12/24/24 Time Notified: 16:16 Method of Notification: ED Physician Initiated 12/25/24 08:19 Consult: Vascular Surgery Routine Consulting Provider: Cheikh Santana Reason for Consult: IVC Filter EMERGENT Consult: No Notified: Yes Date Notified: 12/25/24 Time Notified: 08:19 Method of Notification: Verbal 12/30/24 16:01 Consult: Infectious Disease Routine Consulting Provider: Bimal Leyva Reason for Consult: leucocytosis EMERGENT Consult: No MD Notified: Yes Date Notified: 12/31/24 Time Notified: 06:44 Method of Notification: Text Reason For Visit: ACUTE PANCYTOPENIA, ACUTE ANION GAP METABOLIC ACID Diagnosis Discharge Diagnosis (1) Leukocytosis: Status: Acute Code(s): D72.829 - Elevated white blood cell count, unspecified (2) GI bleed: Status: Acute Code(s): K92.2 - Gastrointestinal hemorrhage, unspecified (3) Thrombocytopenia: Status: Acute Code(s): D69.6 - Thrombocytopenia, unspecified (4) Anemia: Status: Acute Code(s): D64.9 - Anemia, unspecified Qualifiers: Anemia type: unspecified type Qualified Code(s): D64.9 - Anemia, unspecified (5) Left leg DVT: Status: Acute Code(s): I82.402 - Acute embolism and thrombosis of unspecified deep veins of left lower extremity Qualifiers: Affected thrombotic vein of extremity: unspecified vein of extremity C hronicity: acute Qualified Code(s): I82.402 - Acute embolism and thrombosis of unspecified deep veins of left lower extremity (6) S/P IVC filter: Status: Acute Code(s): Z95.828 - Presence of other vascular implants and grafts (7) Peptic ulcer disease: Status: Acute Code(s): K27.9 - Peptic ulcer, site unspecified, unspecified as acute or chronic, without hemorrhage or perforation Medications at Discharge Home Medications Disability Placard #1 ea 09/30/23 lidocaine-prilocaine 2.5 %-2.5 % topical cream 1 applic topical ONCE PRN port access 30 days #30 grams 10/24/23 budesonide 1 mg/2 mL suspension for nebulization 1 mg (2 mL) inhalation BID SOB #120 mL 07/10/24 ipratropium 0.5 mg-albuterol 3 mg (2.5 mg base)/3 mL nebulization soln 3 ml inhalation Q4-6H SOB #180 mL 07/10/24 atorvastatin 10 mg tablet 10 mg PO QHS CHOLESTEROL #90 tabs 07/24/24 carvedilol 3.125 mg tablet 3.125 mg PO BID HIGH BLOOD PRESSURE 30 days #180 tabs 07/24/24 albuterol sulfate 90 mcg/actuation aerosol inhaler 2 puff inhalation Q6H PRN shortness of breath or wheezing #8.5 grams 09/11/24 oxycodone-acetaminophen 5 mg-325 mg tablet (Percocet) 1 tab PO Q8H PRN cancer 7 days #20 tabs 11/08/24 ondansetron 8 mg disintegrating tablet 8 mg PO Q8H PRN nausea and vomiting #30 tabs 11/20/24 levothyroxine 50 mcg tablet 50 mcg PO QDAY thyroid #30 tabs 11/29/24 potassium chloride 20 mEq tablet,extended release 20 meq PO QDAY electro,. #7 tabs 12/04/24 clopidogrel 75 mg tablet 75 mg PO DAILY blood clot 12/24/24 magnesium oxide 400 mg (241.3 mg magnesium) tablet 400 mg PO DAILY orered 12/24/24 pantoprazole 40 mg tablet,delayed release 40 mg PO BID acid reflux 12/24/24 sucralfate 1 gram tablet 1 g PO 1HR_ACHS #120 tabs 01/02/25 Hospital Course Operations - (IVC filter placement) Procedures Blood transfusion, EGD, EKG and - (CTA chest abdomen and pelvis/CT brain/chest x-ray) Summary of Care Provided Minutes Spent on Discharge: 39 Hospital Course: Patient is a 69-year-old white female who presented to the emergency department at [facility] on 12/24/2024 with a chief complaint of altered mental status. Patient has known history of metastatic lung cancer that includes mets to the brain and liver and has been undergoing chemotherapy. She follows with [facility] oncology and sees Dr. Matamoros. She was recently diagnosed with an acute lower extremity DVT and placed on anticoagulation. It appears she is currently on gemcitabine. On admission she reported that she had been feeling weak and dizzy and lightheaded for about a week prior to presentation. She also reported that she was having dark tarry stools which had gradually gotten worse. She denied abdominal pain or shortness of breath. She denied any coffee-ground emesis. She was found unresponsive by family on the day of presentation. She was initially lethargic and unresponsive but became more responsive as her time in the emergency department progressed. Her last chemo session was about a week prior to presentation. Vital signs on arrival to the emergency department showed temperature of 97.3, heart rate 117, respiratory rate 30, blood pressure initially was 45/27 and a repeat was 123/69, pulse ox was initially 87% on BiPAP. Her initial CBC showed a white count of 14.8 with a hemoglobin of 4.1, platelet count of 21,000 and a left shift with a 75.3% neutrophilia. Chemistry panel showed a low serum bicarb at 9.2 with an anion gap of 28 BUN/creatinine ratio was elevated with a normal renal function and her initial lactic acid was 16.3. Blood sugar was 219. Initial troponin was 20 with subsequent delta at 22-1/[address] of the chest abdomen pelvis was performed and showed stable pulmonary nodules with a new 1 cm hypodense nodule in the left lobe of the liver medially, retroperitoneal lymphadenopathy, fibroid uterus, omental metastasis and sigmoid diverticulosis with possible colitis in the right hemicolon. CT the brain was unremarkable for acute findings. She was admitted to the intensive care unit and consultations to oncology, gastroenterology, and critical care medicine were placed. In light of her recent DVT diagnosis and ongoing anticoagulation with severe anemia suspected related to GI bleed it was recommended that a IVC filter was placed and this was done by vascular surgery on 12/25/2024. Her aspirin, Plavix, and Eliquis were held at the time of admission. EGD was performed on 12/26/2024 when she was a bit more hemodynamically stable and received packed red blood cells. EGD did show no gross lesions in the esophagus, small hiatal hernia, nonbleeding gastric ulcer with no stigmata of bleeding that was biopsied, oozing gastric ulcer with a visible vessel that was treated with heater probe and she was transferred back to the intensive care unit placed on a full liquid diet and started on Carafate. She was to continue Carafate for 1 month at the time of discharge and Protonix 40 mg p.o. twice daily until told otherwise by gastroenterology. Her has bled score was high and per discussion with gastroenterology it was felt that anticoagulating her would be high risk. Given her stent placement previously we agreed to keep her on her Plavix but hold her aspirin and Eliquis at the time of discharge. She was also found to be septic related to urinary tract infection with E. coli. She did have organ dysfunction and lactic acidosis that was probably related to both her UTI and her profound anemia on presentation. Antibiotics were completed during her hospital course and clinically she was doing well with regards to this at discharge. Her hemoglobin is stabilized at the time of discharge between 7 and 8.0. She remained stable despite reinitiating her Plavix prior to discharge. She had profound electrolyte abnormalities that were corrected. She was also found to have a worsening leukocytosis trended up and peaked at 54,000. Repeat cultures were obtained and were all negative. Infectious disease was consulted and recommended following her off antibiotics and she remained clinically stable despite her markedly elevated white count. She did receive Neulasta on 12/19/2024 for her chemotherapy and it was felt that this was probably the nidus for her elevated white count in addition to leukemoid reaction. I discussed the case at the time of discharge on 01/02/2025 with infectious disease and they felt she was stable for discharge and could follow-up with a repeat CBC in about a week. She did have normal cytopenia at the time of presentation however this resolved prior to discharge. This was probably related to consumption as well as related to her chemotherapy. Ambulatory pulse ox was done prior to discharge and the patient did not require oxygen at rest or with ambulation. Given her clinical improvement/stability it was felt she was stable for discharge on 01/02/2025. Physical and Occupational Therapy recommended outpatient therapy versus home health however the patient declined. We have asked her to follow-up with gastroenterology in the next month, her oncologist within the next week, and [facility] within the next week as well. Patient was able to be discharged home in stable condition on 01/02/2025. Prescription for Carafate was written for. She was already on twice daily Protonix and she was instructed to discontinue her aspirin and Eliquis at the time of discharge. Patient voiced understanding with instructions. Overall prognosis is extremely poor and given patient's baseline comorbidities her overall risk for readmission is extremely high. Discharge diagnoses: Sepsis E. 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 Hypothyroidism COPD GERD CAD Hyperlipidemia History of left ventricular aneurysm Tobacco abuse-ongoing Chronic pain Essential hypertension Physical Exam Const alert, oriented x3, no apparent distress, average body habitus, no limitations and well nourished; Negative for healthy appearing Constitutional Narrative: Upper middle-aged, white female, who appears much older than stated age, lying in bed reclined and watching television, appears comfortable, does not look toxic General Appearance: cooperative, comfortable, well kempt and well developed Orientation / Consciousness: lethargic Exam Limitations: no limitations HEENT normocephalic, head/scalp atraumatic and moist oral mucous membranes; Negative for hearing grossly normal bilaterally HEENT Narrative: Mild hearing loss, Mallampati 2, dentures in place, no thrush Eyes EOMs intact bilaterally and conjunctivae normal Eyes Narrative: No scleral icterus Neck no lymphadenopathy and supple Neck Narrative: Trachea midline Resp normal respiratory effort, normal air movement, no retractions, no use of accessory muscles and clear to auscultation bilaterally Resp Narrative: mildly diminished breath sounds bibasally, no wheezes or crackles Auscultation: Negative for rales, rhonchi or wheezes Cardio regular rate, regular rhythm, S1 normal heart sound, S2 normal heart sound, no murmurs, no rub, no gallops and no clicks GI normal to inspection, nondistended, normoactive bowel sounds, soft to palpation and non-tender Extremity no clubbing, cyanosis or edema Extremity Narrative: Pedal and radial pulses are 2+ Skin General Skin Exam: no breakdown Neuro oriented x3, moves all extremities and no focal motor deficits Neuro Narrative: Mild generalized weakness noted but no focal deficits Speech: speech normal Psych affect normal Psych Narrative: eye contact is good, pt interacts appropriately Weight / BMI Weight Weight: 60.7 kg Body Mass Index (BMI) 23.7 ABG / Lab / Microbiology Data 01/02/25 06:39 01/02/25 06:39 Laboratory: Laboratory Results - last 24 hr 01/02/25 06:39: WBC 54.0 H*, RBC 2.28 L, Hgb 7.3 L, Hct 21.4 L, MCV 93.9, MCH 32.0, MCHC 34.1, RDW Std Deviation 52.2 H, RDW Coeff of Fidel 15.3 H, Plt Count 249, MPV 10.3, Neut % (Auto) Not Reportable, Absolute Neuts (auto) 40.5 H, Absolute Lymphs (auto) 3.78, Total Counted 100, Neutrophils % (Manual) 64, Band Neutrophils % 11 H, Lymphocytes % (Manual) 7 L, Monocytes % (Manual) 6, M etamyelocytes % 4 H, Myelocytes % 1 H, Promyelocytes % 6 H, Other Cells % 1, Platelet Estimate ADEQUATE, Polychromasia RARE, Hypochromasia 1+, Anisocytosis 2+, Sodium 133, Potassium 3.4, Chloride 92 L, Carbon Dioxide 31.2, Anion Gap 10, BUN 6, Creatinine 0.47 L, Estim Creat Clear Calc 56.45, Est GFR (MDRD) Non-Af 104, BUN/Creatinine Ratio 12.1, Glucose 103 H, Calcium 7.0 L, Phosphorus 3.3, Magnesium 1.6 Microbiology: Microbiology 12/29/24 18:07 Urine, Clean Catch Urine Culture - Final Presumptive C albicans Mixed Gram Positive Organisms 12/29/24 15:14 Blood Culture (Wb) - Right Wrist Blood Culture - Preliminary No growth in 48 hours. 12/29/24 15:06 Blood Culture (Wb) - Anticubital Left Blood Culture - Preliminary No growth in 48 hours. 12/24/24 12:04 Blood Culture (Wb) - Port Blood Culture - Final No growth in 5 days. 12/24/24 12:04 Blood Culture (Wb) - Anticubital Right Blood Culture - Final No growth in 5 days. 12/24/24 11:47 Urine Catheter - Catheter Urine Culture - Final Presumptive E. coli 12/24/24 10:00 Stool Stool Occult Blood (LASHANDA) - Final Occult Blood Positive D/C Instructions Discharge Diet: No restrictions Discharge Activity: Return to Normal Activity DC O2, CPAP, BIPAP Needs Home O2 Discharge instructions: No Meaningful Use Info Meaningful Use Meaningful Use Diagnoses (Choose all that apply): None applicable Ischemic Stroke Statin Dosing Therapy Reference: STATIN DOSE THERAPY REFERENCE: * Patients > 75 years receive moderate or high dose statin therapy. * Patients 75 years or YOUNGER should receive HIGH intensity statin dose unless contraindicated. You will be required to document reason for non-treatment if statin daily dose does not meet guidelines. HIGH DOSE STATIN THERAPY DAILY Atorvastatin > than or = to 40 mg Rosuvastatin > than or = to 20 mg Amlodipine + Atorvastatin > than or = to 2.5/40 mg Ezetimibe + Simvastatin 10/80 mg Simvastatin 80mg Discharge Plan Admission Admit Date/Time: 12/24/24 12:57 Primary Reason for Your Visit: Altered mental status Attending Provider: Holli Loving Primary Care Provider: Care Physician,No Primary Consulting Providers: Mahin Oliveira; Oziel Matamoros; Indio Wang; David Bradley; Bimal Woods; Yves Lopez; Viraj Forte; Pk Iqbal; Makayla Briones NP; Cheikh Santana; Bimal Leyva; Preeti Fagan Instructions Additional Instructions / Restrictions: 1. Please call tomorrow morning and schedule follow-up appointments to be seen as noted below 2. Stop aspirin and Eliquis. Okay to continue Plavix Discharge Orders/Prescriptions Prescriptions: New sucralfate 1 gram Tablet 1 g PO 1HR_ACHS Qty: 120 2RF Continued (DME) Disability Placard See Rx Instructions .ROUTE .MEDSUPPLY Qty: 1 0RF Rx Instructions: expires 09/30/2028 lidocaine-prilocaine 2.5-2.5 % cream 1 applic topical ONCE PRN (Reason: port access) 30 Days Qty: 30 2RF ipratropium-albuterol 0.5 mg-3 mg(2.5 mg base)/3 mL solution for nebulization 3 ml inhalation Q4-6H Qty: 180 6RF budesonide 1 mg/2 mL suspension for nebulization 1 mg inhalation BID Qty: 120 11RF Rx Instructions: rinse mouth after ondansetron 8 mg tablet,disintegrating 8 mg PO Q8H PRN (Reason: nausea and vomiting) Qty: 30 2RF oxycodone-acetaminophen [Percocet] 5-325 mg tablet 1 tab PO Q8H PRN (Reason: cancer) 7 Days Qty: 20 0RF pantoprazole 40 mg tablet,delayed release (DR/EC) 40 mg PO BID clopidogrel 75 mg tablet 75 mg PO DAILY magnesium oxide 400 mg (241.3 mg magnesium) tablet 400 mg PO DAILY carvedilol 3.125 mg tablet 3.125 mg PO BID 30 Days Qty: 180 3RF atorvastatin 10 mg tablet 10 mg PO QHS Qty: 90 3RF albuterol sulfate 90 mcg/actuation HFA aerosol inhaler 2 puff inhalation Q6H PRN (Reason: shortness of breath or wheezing) Qty: 8.5 3RF Rx Instructions: administer with spacer levothyroxine 50 mcg tablet 50 mcg PO QDAY Qty: 30 2RF potassium chloride 20 mEq tablet extended release 20 meq PO QDAY Qty: 7 0RF Discontinued famotidine [Pepcid] 20 mg tablet 20 mg PO QDAY Eliquis DVT-PE Treat 30D Start 5 mg (74 tabs) tablets,dose pack See Rx Instructions PO PER PKG DIR Qty: 74 0RF Rx Instructions: PO PER PKG DIR aspirin 81 mg Tablet,Delayed Release (Dr/Ec) 81 mg PO DAILY 30 Days Qty: 30 0RF Referrals / Follow Up: David Bradley MD [Med Staff - Active Staff] - In 1 Week Toy Penn DO [Med Staff - Active Staff] - Within 1 Month (Hospital follow- up) Care Physician,No Primary [Primary Care Provider] - Jessica De Los Santos, EYE CARE PROFESSIONAL-C [[facility]] - In 1 Week (Please call for appointment) Disposition Disposition (needs filled in before D/C Order can be placed): Home, Self Care Charges/Coding Visit Charges Inpatient E&M: 53189 Disch Hosp >30min
== END 2025-01-02 15:59 | disposition home or self-care (01) | DRG 871 ==
LOC: ED 11:03 → ICU 13:21 → MS3 12-27 12:16
PROVIDERS: Internal Medicine Gastroenterology; Internal Medicine Infectious Disease; Admitting Provider Student in an Organized Health Care Education/Training Program; Emergency Provider Emergency Medicine; Visit Provider Internal Medicine
PROC: 0DJ08ZZ Inspection of Upper Intestinal Tract, Via Natural or Artificial Opening Endoscopic (ICD-10-PCS; CPT 43235; principal; 2024-12-26 13:10)
DX: A41.51 Sepsis due to Escherichia coli [E. coli] (principal); R65.21 Severe sepsis with septic shock; K25.4 Chronic or unspecified gastric ulcer with hemorrhage; I82.402 Acute embolism and thrombosis of unspecified deep veins of left lower extremity; C78.6 Secondary malignant neoplasm of retroperitoneum and peritoneum; C77.1 Secondary and unspecified malignant neoplasm of intrathoracic lymph nodes; C79.31 Secondary malignant neoplasm of brain; E87.29 Other acidosis; D68.32 Hemorrhagic disorder due to extrinsic circulating anticoagulants; D62 Acute posthemorrhagic anemia; C34.12 Malignant neoplasm of upper lobe, left bronchus or lung; K57.32 Diverticulitis of large intestine without perforation or abscess without bleeding; N39.0 Urinary tract infection, site not specified; B96.20 Unspecified Escherichia coli [E. coli] as the cause of diseases classified elsewhere; J44.9 Chronic obstructive pulmonary disease, unspecified; I10 Essential (primary) hypertension; E03.9 Hypothyroidism, unspecified; K76.89 Other specified diseases of liver; D63.0 Anemia in neoplastic disease; F17.210 Nicotine dependence, cigarettes, uncomplicated; E78.00 Pure hypercholesterolemia, unspecified; I25.10 Atherosclerotic heart disease of native coronary artery without angina pectoris; K44.9 Diaphragmatic hernia without obstruction or gangrene; K21.9 Gastro-esophageal reflux disease without esophagitis; Z66 Do not resuscitate; K25.9 Gastric ulcer, unspecified as acute or chronic, without hemorrhage or perforation; D69.6 Thrombocytopenia, unspecified; Z79.02 Long term (current) use of antithrombotics/antiplatelets; Z79.82 Long term (current) use of aspirin; Z86.718 Personal history of other venous thrombosis and embolism; Z79.891 Long term (current) use of opiate analgesic; T45.1X5A Adverse effect of antineoplastic and immunosuppressive drugs, initial encounter; Z79.01 Long term (current) use of anticoagulants; Z79.51 Long term (current) use of inhaled steroids; Z79.890 Hormone replacement therapy; Z92.21 Personal history of antineoplastic chemotherapy
CPT/HCPCS: 36415; 36600; 37191; 70450; 71046; 71275; 74174; 76937; 80048; 80053; 81001; 82274; 82803; 83605; 83735; 84100; 84145; 84484; 85025; 85610; 86850; 86900; 86901; 86920; 86965; 87040; 87086; 87088; 87186; 88305; 88342; 93005; 94002; 94640; 94762; 97116; 97162; 97166; 97530; 97535; 97803; 99152; 99285; 99406; C1880; C1889; C1894; P9016; P9035; P9040; Q9967; A4216; C1769; J1940; J2405; J7165

== ENCOUNTER 2025-01-04 23:45 | Inpatient (IN) | payer MEDICARE, SELFPAY ==
[2025-01-04 23:45] VITALS: BP 134/88; PULSE 91; RESP 17; TEMP 36.5; O2SAT 99; BMI 25.0
[2025-01-05] VITALS (10 sets, daily range): BP systolic 100–132; BP diastolic 50–70; PULSE 65–77; RESP 15–19; TEMP 36.7–37.1; O2SAT 95–100; BMI 24.0
--- NOTE | 2025-01-05 00:43 | EDS_ITS ---
HPI History of Present Illness Chief Complaint: Shortness of Breath Informant: patient and EMS Narrative Narrative: 69-year-old with a history of metastatic lung cancer on chemotherapy states for almost 24 hours now, she has had cough with sputum that she is not able to get up, and worsening dyspnea. Tonight before calling EMS, she was getting very dyspneic and her pulse ox was in the low 80s at home. She is not on oxygen. She does have COPD. She denies any fevers, chills, chest pain, GI symptoms, syncope, orthopnea or lower extremity edema. She was just discharged from the hospital recently after a 9-day stay where she states she received an IVC filter and treatment for upper GI bleeding. Looking into the details of this recent admission, she had a severe upper GI bleed and had a hemoglobin down to 4.1, and recently was diagnosed with a DVT and had a cardiac stent placed a while before that, so she was on aspirin, clopidogrel, and Eliquis which is why the IVC filter was placed so that they could discontinue the anticoagulants. She has been having no more melena now. She states she did some nebulizer treatments at home, they were helping her breathing a little, but she really got a lot of help for her dyspnea once EMS put her on oxygen, she states she feels a lot better now and does not need another breathing treatment. [facility] Medical History Brain cancer Left leg DVT Constipation At high risk for deep venous thrombosis Left leg swelling Hypothyroidism (acquired) Encounter for antineoplastic immunotherapy Lung cancer metastatic to brain Hypothyroidism Brain lesion Nausea & vomiting Encounter for immunotherapy Gastrointestinal bleed Hypomagnesemia Anemia CINV (chemotherapy-induced nausea and vomiting) Dehydration Hypokalemia Oral candidiasis Angular cheilitis Encounter for chemotherapy management Wears glasses Wears dentures Post-menopausal Cancer High cholesterol Asthma History of echocardiogram H/O pulmonary function tests Cardiology follow-up encounter History of heart attack Encounter for education Metastasis to liver Regional lymph node metastasis present Myocardial infarct Chest pain Nicotine dependence, cigarettes, uncomplicated Coronary artery disease COPD (chronic obstructive pulmonary disease) Nicotine dependence Hypertension Left ventricular aneurysm Left ventricular systolic dysfunction (LVSD) Smoker STEMI (ST elevation myocardial infarction) Bronchitis Home Medications ?Medication ?Instructions ?Recorded ?Last Taken ?Type Disability Placard #1 ea 09/30/23 Unknown Rx lidocaine-prilocaine 2.5 %-2.5 % 1 applic topical ONCE PRN port 10/24/23 Unknown Rx topical cream access 30 days #30 grams budesonide 1 mg/2 mL suspension 1 mg (2 mL) inhalation BID SOB 07/10/24 Unknown Rx for nebulization #120 mL ipratropium 0.5 mg-albuterol 3 mg 3 ml inhalation Q4-6 H SOB #180 mL 07/10/24 Unknown Rx (2.5 mg base)/3 mL nebulization soln atorvastatin 10 mg tablet 10 mg PO QHS CHOLESTEROL #9 0 tabs 07/24/24 Unknown Rx carvedilol 3.125 mg tablet 3.125 mg PO BID HIGH BLOOD 07/24/24 Unknown Rx PRESSURE 30 days #180 tabs albuterol sulfate 90 mcg/actuation 2 puff inhalation Q 6H PRN 09/11/24 Unknown Rx aerosol inhaler shortness of breath or wheez ing #8.5 grams oxycodone-acetaminophen 5 mg-325 1 tab PO Q8H PRN canc er 7 days #20 11/08/24 Unknown Rx mg tablet (Percocet) tabs ondansetron 8 mg disintegrating 8 mg PO Q8H PRN nausea and 11/20/24 Unknown Rx tablet vomiting #30 tabs levothyroxine 50 mcg tablet 50 mcg PO QDAY thyroid #30 tabs 11/29/24 Unknown Rx potassium chloride 20 mEq 20 meq PO QDAY electro,. #7 tabs 12/04/24 Unknown Rx tablet,extended release clopidogrel 75 mg tablet 75 mg PO DAILY blood clot Unknown History magnesium oxide 400 mg (241.3 mg 400 mg PO DAILY orere d 12/24/24 Unknown History magnesium) tablet pantoprazole 40 mg tablet,delayed 40 mg PO BID acid re flux 12/24/24 Unknown History release sucralfate 1 gram tablet 1 g PO 1HR_ACHS #120 tabs Unknown Rx Allergy/AdvReac Type Severity Reaction Status Date / Time No Known Allergies Allergy Verified 01/04/25 23:54 Family History no significant family his Surgical History Hx of tooth extraction History of liver biopsy History of lung biopsy Hx of cardiac catheterization (~07/06/23) H/O coronary angioplasty (~07/06/23) H/O tubal ligation Social History household members: none Smoking Status: Current every day smoker tobacco type: cigarettes Tobacco: How many years used: 55 quit status: considering quitting alcohol intake: never substance use type: does not use and marijuana caffeine: Yes Type: carbonated beverages Number of servings: 2 ROS ROS ED Constitutional Constitutional ED: Reports fatigue; Denies chills or fever(s) Eyes Eyes: Denies change in vision or diplopia ENT ENT ED: Denies rhinorrhea or sore throat Cardiovascular Cardiovascular: Denies chest pain or palpitations Respiratory/Chest Respiratory/Chest: Reports cough and dyspnea; Denies sputum Gastrointestinal Gastrointestinal: Denies abdominal pain, diarrhea, nausea or vomiting Genitourinary Genitourinary ED: Denies dysuria or hematuria Musculoskeletal Musculoskeletal: Denies back pain or neck pain Integumentary Denies abscess or rash Neurologic Neurologic: Denies headache(s), paresthesias or weakness EXAM Physical Exam Const Vital Signs: 01/04/25 23:45 01/04/25 23:59 01/05/25 00:50 Temperature 97.7 F L 98.8 F Temperature Source Oral Oral Pulse Rate 91 73 Respiratory Rate 17 19 H Respiratory Effort Normal Blood Pressure 134/88 H 101/56 L Blood Pressure Mean 103 71 Pulse Ox 99 100 Oxygen Delivery Method Nasal Cannula Nasal Cannula Oxygen Flow Rate (L/min) 4 2 01/05/25 00:52 01/05/25 01:00 01/05/25 01:45 Temperature 98.8 F Temperature Source Oral Pulse Rate 74 75 Respiratory Rate 16 Respiratory Effort Blood Pressure 101/56 L Blood Pressure Mean 71 Pulse Ox 100 Oxygen Delivery Method Nasal Cannula Nasal Cannula Oxygen Flow Rate (L/min) 4 3 01/05/25 01:56 Temperature 98.8 F Temperature Source Pulse Rate 75 Respiratory Rate 15 Respiratory Effort Blood Pressure 101/56 L Blood Pressure Mean 71 Pulse Ox 99 Oxygen Delivery Method Oxygen Flow Rate (L/min) Positive well nourished and well developed General Appearance ED: well developed and NAD HEENT Reports moist mucous membranes normocephalic and atraumatic Eyes PERRL and EOMs intact bilaterally Neck full ROM, supple and no JVD Resp normal respiratory effort Resp Narrative: Diffusely diminished, symmetrically. Trachea midline. Mild end expiratory wheezes diffusely. Possibly a few Rales in the right base. Cardio regular rate, regular rhythm and no murmurs GI non-tender and non-distended Auscultation: normoactive bowel sounds Palpation: soft Back/Spine no CVA tenderness General Back: other FROM Extremity normal to inspection General Extremety ED: Negative for edema, pulses abnormal or tenderness General Extremity: Negative for edema or pulses abnormal Neuro oriented x3, CN's II-XII intact bilaterally and no sensory deficits noted Neuro Narrative: No focal motor deficits. Normal speech. Not confused. Sensorium / Orientation: awake and alert Motor Exam: general weakness Skin no rashes or lesions noted and no wounds MDM MDM MDM Narrative Medical decision making narrative: Patient had a significant leukocytosis before she was discharged from the hospital 3 days ago, it is higher now at 71.1. She had a Neulasta injection on 12/19, which may be continuing to cause this. Hemoglobin is stable at 8.5, little higher than when she was discharged after blood transfusions. Chest x-ray here 2 views of my interpretation does not show focal pneumonia, radiology in agreement. She has a persistent right lower lobe pulmonary nodule, emphysema, and mild bilateral basilar atelectasis. COVID/influenza/RSV swab is negative. Her pro-BNP is high, at 15,000. Her EKG is only remarkable for precordial T wave inversions but no acute injury pattern or signs of strain noted, sinus rhythm at 78. The last echo that she has on our records was from 07/06/2023, showing an ejection fraction of 45%, some aneurysmal dyskinesis in the LV, mild- moderate global RV systolic dysfunction and hypertrophy of the right ventricle. She does not sound or look overly wet right now but I am not able to rule out cardiomyopathy involvement with regards to her dyspnea. I suspect it is probably more likely her COPD. For these reasons I am holding off on giving her steroids, but since she was hypoxic and does not have oxygen at home, plan will be to readmit her for further evaluation and treatment. History & Record Review Additional record(s) reviewed:: Prior inpatient record (Discharge summary) and Other (Prior echocardiogram 2022) Lab Data Attestation: I reviewed the patient's lab results. Labs: Laboratory Results - last 24 hr 01/05/25 00:10 WBC 71.1 H* RBC 2.64 L Hgb 8.5 L Hct 24.8 L MCV 93.9 MCH 32.2 H MCHC 34.3 RDW Std Deviation 50.9 H RDW Coeff of Fidel 15.4 H Plt Count 590 H MPV 9.8 Immature Gran % (Auto) REGISTERED NURSE CARDIAC TELEMETRY Neut % (Auto) REGISTERED NURSE CARDIAC TELEMETRY Lymph % (Auto) REGISTERED NURSE CARDIAC TELEMETRY Mccracken % (Auto) REGISTERED NURSE CARDIAC TELEMETRY Eos % (Auto) REGISTERED NURSE CARDIAC TELEMETRY Baso % (Auto) REGISTERED NURSE CARDIAC TELEMETRY Absolute Neuts (auto) 51.2 H Absolute Lymphs (auto) 4.26 Total Counted 100 Neutrophils % (Manual) 55 Band Neutrophils % 17 H Lymphocytes % (Manual) 6 L Monocytes % (Manual) 4 Metamyelocytes % 6 H Myelocytes % 16 H Nucleated RBC % REGISTERED NURSE CARDIAC TELEMETRY Differential Comment SCANNED Atypical Lymphocytes 1+ Platelet Estimate MOD INC RBC Morphology NORM C+C Sodium 131 L Potassium 4.1 Chloride 93 L Carbon Dioxide 27.2 Anion Gap 11 BUN 6 Creatinine 0.66 L Estim Creat Clear Calc 61.53 Est GFR (MDRD) Non-Af 96 BUN/Creatinine Ratio 8.9 L Glucose 103 H [place] 8.3 [place] [address] H Radiography Diagnostic Testing: Clinical Impression(s) from Imaging Studies Chest X-Ray 01/05/25 00:48 IMPRESSION: 1. Right Port-A-Cath is in good position with its tip in the superior vena cava. 2. The cardiac silhouette is not enlarged. 3. Unchanged emphysema. 4. Unchanged mild bilateral basilar atelectatic pulmonary changes. 5. Unchanged right lower lobe pulmonary nodule. Reading Location: [place] [id number] Rhythm Strip Rhythm Strip: Sinus Rhythm Rate: 78 Ectopy: None EKG Initial EKG: Attestation: I personally reviewed and interpreted this EKG as follows: Interpretation: Sinus Rhythm, No Acute Injury Pattern and Inverted T-Waves (Across precordium) Comments: Nml axis & intervals; nml EKG Management Discussion w/another healthcare provider: Hospitalist Discharge Plan Triage Chief Complaint: Shortness of Breath ED Provider: Devante Rodriguez Dx/Rx/DC Orders Clinical Impression: Hypoxemia, Metastatic primary lung cancer, Dyspnea, Cardiomyopathy, COPD (chronic obstructive pulmonary disease) Prescriptions: No Action (DME) Disability Placard See Rx Instructions .ROUTE .MEDSUPPLY Qty: 1 0RF Rx Instructions: expires 09/30/2028 lidocaine-prilocaine 2.5-2.5 % cream 1 applic topical ONCE PRN (Reason: port access) 30 Days Qty: 30 2RF ipratropium-albuterol 0.5 mg-3 mg(2.5 mg base)/3 mL solution for nebulization 3 ml inhalation Q4-6H Qty: 180 6RF budesonide 1 mg/2 mL suspension for nebulization 1 mg inhalation BID Qty: 120 11RF Rx Instructions: rinse mouth after ondansetron 8 mg tablet,disintegrating 8 mg PO Q8H PRN (Reason: nausea and vomiting) Qty: 30 2RF oxycodone-acetaminophen [Percocet] 5-325 mg tablet 1 tab PO Q8H PRN (Reason: cancer) 7 Days Qty: 20 0RF pantoprazole 40 mg tablet,delayed release (DR/EC) 40 mg PO BID clopidogrel 75 mg tablet 75 mg PO DAILY magnesium oxide 400 mg (241.3 mg magnesium) tablet 400 mg PO DAILY sucralfate 1 gram Tablet 1 g PO 1HR_ACHS Qty: 120 2RF carvedilol 3.125 mg tablet 3.125 mg PO BID 30 Days Qty: 180 3RF atorvastatin 10 mg tablet 10 mg PO QHS Qty: 90 3RF albuterol sulfate 90 mcg/actuation HFA aerosol inhaler 2 puff inhalation Q6H PRN (Reason: shortness of breath or wheezing) Qty: 8.5 3RF Rx Instructions: administer with spacer levothyroxine 50 mcg tablet 50 mcg PO QDAY Qty: 30 2RF potassium chloride 20 mEq tablet extended release 20 meq PO QDAY Qty: 7 0RF Primary Care Provider: Care Physician,No Primary Referrals: Care Physician,No Primary [Primary Care Provider] - Print Language: Russian
[2025-01-05 00:48] LABS: Hematocrit 24.8 % (37-47); Hemoglobin 8.5 g/dL (12.0-15.0); Mean Corp Hgb Conc 34.3 g/dL (32-36); Mean Corpuscular Hgb 32.2 pg (27.0-32.0); Mean Corpuscular Volume 93.9 fL (81-99); Mean Platelet Vol. 9.8 fl (6.2-12.0); POSITIVE COUNT YES; POSITIVE DIFFERENTIAL YES; POSITIVE MORPHOLOGY YES; Platelet Count 590 K/mm3 (150-450); RBC Distribution Width CV 15.4 % (11.6-14.6); RBC Distribution Width SD 50.9 fl (35.1-43.9); Red Blood Count 2.64 M/mm3 (4.2-5.4)
--- NOTE | 2025-01-05 00:48 | RAD_ITS ---
PROCEDURE: CHEST PA AND LATERAL 01/05/2025 REASON FOR EXAM: COUGH, SOB TECHNIQUE: Frontal and lateral views of the chest. COMPARISON: 12/29/2024. FINDINGS: Right Port-A-Cath is in good position with its tip in the superior vena cava. The cardiac silhouette is not enlarged. Unchanged emphysema. Unchanged mild bilateral basilar atelectatic pulmonary changes. Unchanged right lower lobe pulmonary nodule. There is no demonstrated pleural abnormality. Normal mediastinum and rosemary. Normal visualized pulmonary arteries. Normal visualized aortic arch and descending thoracic aorta. Normal visualized thoracic spine. Normal visualized ribs, clavicles, and shoulders. There is no demonstrated abnormality of the visualized soft tissue structures of the upper abdomen. RAD/Chest PA and Lateral IMPRESSION: 1. Right Port-A-Cath is in good position with its tip in the superior vena cava . 2. The cardiac silhouette is not enlarged. 3. Unchanged emphysema. 4. Unchanged mild bilateral basilar atelectatic pulmonary changes. 5. Unchanged right lower lobe pulmonary nodule. Reading [facility] [address]
[2025-01-05 00:55] LABS: White Blood Count 71.1 K/mm3 (4.4-11.0)
[2025-01-05 01:22] LABS: Lymphocyte 6 % (19-41); Monocyte 4 % (0-10); Neutrophil-Band 17 % (0-5); Total Cells Counted 100 (MANUAL DIFF)
[2025-01-05 01:23] LABS: Neutrophil-Segmented 55 % (47-70)
[2025-01-05 01:24] LABS: Atypical Lymphocyte 1+ %; Differential Comment SCANNED
[2025-01-05 01:25] LABS: Anion Gap 11 (5-15); BUN 6 mg/dL (4-19); BUN/Creat Ratio 8.9 RATIO (10-20); Calcium,Total 8.3 mg/dL (7.6-11.0); Carbon Dioxide 27.2 mmol/L (21.0-32.0); Chloride 93 mmol/L (98-108); Creatinine, Serum 0.66 mg/dL (0.70-1.20); Differential Indicated MANUAL DIFF; EST Glomerular Filtration Rate 96 (>60); Estimated Creatinine Clearance 61.53 ml/min (50-250); Glucose 103 mg/dL (70-99); Metamyelocyte 6 % (0-1); Myelocyte 16 % (0-0); Platelet Estimate MOD INC (ADEQ); Potassium 4.1 mmol/L (3.3-5.1); Red Cell Morphology NORM C+C NORMAL (NORM C&C); Sodium Level 131 mmol/L (133-145)
[2025-01-05 01:26] LABS: Absolute Neutrophil Count 51.2 X10^3/uL (2.0-7.7)
[2025-01-05 01:27] LABS: Absolute Lymphocyte Count 4.26 X10^3/uL (0.83-4.51)
[2025-01-05 01:39] LABS: Pro- Brain NATRIURETIC PEPTIDE 15058 pg/mL (<=900)
--- NOTE | 2025-01-05 02:03 | HP.PCM.HOS_ITS ---
[facility] - General General Date of Admission: 01/05/25 Date of Service: 01/05/25 Chief Complaint: Shortness of Breath and Productive Cough. [facility] Narrative LEONOR RICKETTS, is a 69 F with a past medical history of essential hypertension; on carvedilol, hyperlipidemia; on atorvastatin, hypothyroidism; on levothyroxine, CAD; s/p stents (2022) on clopidogrel, history of LV aneurysm, cardiomyopathy, chronic systolic CHF; with LVEF ~45% with mid to distal inferior and apical wall dyskinesis, aneurysmal with moderate RVH and [id number] global right ventricular systolic dysfunction (06/2023), ongoing tobacco abuse; with subsequent COPD (not on home oxygen), chronic constipation, GERD with very recent history of PUD; on pantoprazole twice daily plus sucralfate 1 hour before AC/HS, history of metastatic non-small cell lung cancer; with known mets to the brain and liver on chemotherapy followed by Dr. Matamoros of oncology and recent admission here from December 24, 2024 to January 02, 2025 for treatment of acute anemia with hemoglobin of 4.1 g/dL attributed to a combination of melanotic stools on apixaban for ~1 week plus chemotherapy complicated by acute thrombocytopenia of 21K present on admission and severe elevated anion gap metabolic acidosis with pH of 7.14 and anion gap of 28 with lactic acidosis of 16 and elevated white blood cell count of 14.8K compounded by acute Left lower extremity DVT; s/p IVC filter placement last admission with severe leukocytosis rising up to 54K after she was treated with Neulasta on December 19, 2024 for chemotherapy which was suspected to be the underlying cause due to triggering of leukemoid reaction who presents to [facility] ER complaining of shortness of breath and productive cough. Ms. Ricketts reports her symptoms began approximately 1 day prior to admission with a gradual-onset of dyspnea on exertion that progressed to shortness of breath at rest. She also admits to cough productive of white sputum that is very difficult for her to mobilize worsening her dyspnea. Before she called EMS she checked her pulse oximeter which revealed an oxygen saturation in the low 80% range which caused her to come back in to seek further evaluation and treatment. She states her symptoms are similar to her previous COPD exacerbations. She admits to associated fatigue and generalized weakness. She denies related fever, chills, changes in vision, runny nose, sore throat, ear pain, chest pain, palpitations, heart racing, lower extremity edema, abdominal pain, nausea, vomiting, diarrhea, dysuria, hematuria, arthralgias, myalgias, headache or rash. In the ER she was noted to have a CXR that revealed no acute pathologic changes but she was noted to have a highly elevated NT pro-BNP II of 15,058 pg/mL present on admission causing her to be diagnosed with a combination of AE COPD and AE CHF; of uncertain type complicated by clinical evidence of Acute Respiratory Insufficiency compounded by Critical Leukocytosis of 71.1K and Thrombocytosis of 590K (up from last admission at 54K and 249K respectively) suspecting to be due to Adverse Drug Reaction to Neulasta with the patient having no obvious gross source of infection and literature revealing reactions can persist 7-14 days. She was then admitted to the PCU for ongoing care for stay that is expected to extend beyond 2 midnights. [facility] Medical History Brain cancer Left leg DVT Constipation At high risk for deep venous thrombosis Left leg swelling Hypothyroidism (acquired) Encounter for antineoplastic immunotherapy Lung cancer metastatic to brain Hypothyroidism Brain lesion Nausea & vomiting Encounter for immunotherapy Gastrointestinal bleed Hypomagnesemia Anemia CINV (chemotherapy-induced nausea and vomiting) Dehydration Hypokalemia Oral candidiasis Angular cheilitis Encounter for chemotherapy management Wears glasses Wears dentures Post-menopausal Cancer High cholesterol Asthma History of echocardiogram H/O pulmonary function tests Cardiology follow-up encounter History of heart attack Encounter for education Metastasis to liver Regional lymph node metastasis present Myocardial infarct Chest pain Nicotine dependence, cigarettes, uncomplicated Coronary artery disease COPD (chronic obstructive pulmonary disease) Nicotine dependence Hypertension Left ventricular aneurysm Left ventricular systolic dysfunction (LVSD) Smoker STEMI (ST elevation myocardial infarction) Bronchitis Home Medications ?Medication ?Instructions ?Recorded ?Last Taken ?Type Disability Placard #1 ea 09/30/23 Unknown Rx lidocaine-prilocaine 2.5 %-2.5 % 1 applic topical ONCE PRN port 10/24/23 Unknown Rx topical cream access 30 days #30 grams budesonide 1 mg/2 mL suspension 1 mg (2 mL) inhalation BID SOB 07/10/24 Unknown Rx for nebulization #120 mL ipratropium 0.5 mg-albuterol 3 mg 3 ml inhalation Q4-6 H SOB #180 mL 07/10/24 Unknown Rx (2.5 mg base)/3 mL nebulization soln atorvastatin 10 mg tablet 10 mg PO QHS CHOLESTEROL #9 0 tabs 07/24/24 Unknown Rx carvedilol 3.125 mg tablet 3.125 mg PO BID HIGH BLOOD 07/24/24 Unknown Rx PRESSURE 30 days #180 tabs albuterol sulfate 90 mcg/actuation 2 puff inhalation Q 6H PRN 09/11/24 Unknown Rx aerosol inhaler shortness of breath or wheez ing #8.5 grams oxycodone-acetaminophen 5 mg-325 1 tab PO Q8H PRN canc er 7 days #20 11/08/24 Unknown Rx mg tablet (Percocet) tabs ondansetron 8 mg disintegrating 8 mg PO Q8H PRN nausea and 11/20/24 Unknown Rx tablet vomiting #30 tabs levothyroxine 50 mcg tablet 50 mcg PO QDAY thyroid #30 tabs 11/29/24 Unknown Rx potassium chloride 20 mEq 20 meq PO QDAY electro,. #7 tabs 12/04/24 Unknown Rx tablet,extended release clopidogrel 75 mg tablet 75 mg PO DAILY blood clot Unknown History magnesium oxide 400 mg (241.3 mg 400 mg PO DAILY orere d 12/24/24 Unknown History magnesium) tablet pantoprazole 40 mg tablet,delayed 40 mg PO BID acid re flux 12/24/24 Unknown History release sucralfate 1 gram tablet 1 g PO 1HR_ACHS #120 tabs Unknown Rx Allergy/AdvReac Type Severity Reaction Status Date / Time No Known Allergies Allergy Verified 01/04/25 23:54 Surgical History Hx of tooth extraction History of liver biopsy History of lung biopsy Hx of cardiac catheterization (~07/06/23) H/O coronary angioplasty (~07/06/23) H/O tubal ligation Social History household members: none Smoking Status: Current every day smoker tobacco type: cigarettes Tobacco: How many years used: 55 quit status: considering quitting alcohol intake: never substance use type: does not use and marijuana caffeine: Yes Type: carbonated beverages Number of servings: 2 ROS ROS Narrative Review of Systems Constitutional: Patient admits to fatigue but she denies fever or chills. Eyes: Patient denies change in vision or discharge from eyes. ENT: Patient denies runny nose, sore throat or ear pain. Resp: Patient admits to dyspnea on exertion that progressed to shortness of breath at rest with cough productive of white sputum as per HPI. CV: Patient denies chest pain, palpitations, heart racing or lower extremity edema. GI: Patient denies abdominal pain, nausea, vomiting, diarrhea or constipation. : Patient denies dysuria, hematuria or urinary frequency. MSK: Patient admits to generalized weakness she denies arthralgias or myalgias. Skin: Patient denies rash, abscess, wounds or jaundice. Psych: Patient denies symptoms of uncontrolled depression or anxiety. Neuro: Patient denies headache, paresthesias or focal neurologic deficits. Allergy: Patient denies lip swelling, tongue swelling or urticaria. Hematology: Patient denies any bleeding since leaving hospital. Endocrinology: Patient denies polyuria, polydipsia, polyphagia or heat/cold intolerance. 14 point ROS otherwise negative except for positives noted above in HPI. Vital Signs Vital Signs Vital Signs: 01/04/25 23:45 01/04/25 23:59 01/05/25 00:50 Temperature 97.7 F L 98.8 F Temperature Source Oral Oral Pulse Rate 91 73 Respiratory Rate 17 19 H Respiratory Effort Normal Blood Pressure 134/88 H 101/56 L Blood Pressure Mean 103 71 Pulse Ox 99 100 Oxygen Delivery Method Nasal Cannula Nasal Cannula Oxygen Flow Rate (L/min) 4 2 01/05/25 00:52 01/05/25 01:00 01/05/25 01:45 Temperature 98.8 F Temperature Source Oral Pulse Rate 74 75 Respiratory Rate 16 Respiratory Effort Blood Pressure 101/56 L Blood Pressure Mean 71 Pulse Ox 100 Oxygen Delivery Method Nasal Cannula Nasal Cannula Oxygen Flow Rate (L/min) 4 3 01/05/25 01:56 Temperature 98.8 F Temperature Source Pulse Rate 75 Respiratory Rate 15 Respiratory Effort Blood Pressure 101/56 L Blood Pressure Mean 71 Pulse Ox 99 Oxygen Delivery Method Oxygen Flow Rate (L/min) Weight Weight: 141 lb 8.588 oz Body Mass Index (BMI) 25.0 Physical Exam Const alert, oriented x3 and no apparent distress General Appearance: cooperative HEENT normocephalic, head/scalp atraumatic, hearing grossly normal bilaterally and moist oral mucous membranes Eyes PERRL and EOMs intact bilaterally Neck no lymphadenopathy, supple and no JVD Resp Resp Narrative: Diminished breath sounds throughout with scattered wheezing and rhonchi Auscultation: rhonchi and wheezes Cardio regular rate and regular rhythm GI normal to inspection, nondistended, normoactive bowel sounds, soft to palpation, non-tender and non-distended Extremity normal to inspection, full ROM and no clubbing, cyanosis or edema Skin Skin Narrative: Patient has no evidence of rash, abscess, wounds or jaundice Neuro oriented x3, CN's II-XII intact bilaterally, moves all extremities and no focal motor deficits Sensorium / Orientation: awake, alert, oriented to person, oriented to place and oriented to time Speech: speech normal Psych affect normal Results Medical Records Data Attestation: I reviewed the patient's medical records Lab / Micro Data Attestation: I reviewed the patient's lab results. 01/05/25 00:10 01/05/25 00:10 Labs: Laboratory Results - last 24 hr 01/05/25 00:10: WBC 71.1 H*, RBC 2.64 L, Hgb 8.5 L, Hct 24.8 L, MCV 93.9, MCH 32.2 H, MCHC 34.3, RDW Std Deviation 50.9 H, RDW Coeff of Fidel 15.4 H, Plt Count 590 H, MPV 9.8, Immature Gran % (Auto) CARDIOLOGY COORDINATOR, Neut % (Auto) CARDIOLOGY COORDINATOR, Lymph % (Auto) CARDIOLOGY COORDINATOR, [place] % (Auto) CARDIOLOGY COORDINATOR, Eos % (Auto) CARDIOLOGY COORDINATOR, Baso % (Auto) CARDIOLOGY COORDINATOR, Absolute Neuts (auto) 51.2 H, Absolute Lymphs (auto) 4.26, Total Counted 100, Neutrophils % (Manual) 55, B and Neutrophils % 17 H, Lymphocytes % (Manual) 6 L, Monocytes % (Manual) 4, M etamyelocytes % 6 H, Myelocytes % 16 H, Nucleated RBC % CARDIOLOGY COORDINATOR, Differential Comment SCANNED, Atypical Lymphocytes 1+, Platelet Estimate MOD INC, RBC Morphology NORM C+C, Sodium 131 L, Potassium 4.1, Chloride 93 L, Carbon Dioxide 27.2, Anion Gap 11, BUN 6, Creatinine 0.66 L, Estim Creat Clear Calc 61.53, Est GFR (MDRD) Non- Af 96, BUN/Creatinine Ratio 8.9 L, Glucose 103 H, Calcium 8.3, [place] [address] H Micro: Microbiology 01/05/25 00:50 Mucosa - Nasopharyngeal SARS-CoV-2, Influenza & RSV (PCR) - Final Rhythm Strip Rhythm Strip: Sinus Rhythm Rate: 78 Ectopy: None Imaging Radiology Impression Chest X-Ray 01/05/25 00:48 IMPRESSION: 1. Right Port-A-Cath is in good position with its tip in the superior vena cava. 2. The cardiac silhouette is not enlarged. 3. Unchanged emphysema. 4. Unchanged mild bilateral basilar atelectatic pulmonary changes. 5. Unchanged right lower lobe pulmonary nodule. Reading Location: [place] [id number] Assessment & Plan Assessment/Plan (1) COPD with exacerbation: (2) Acute bronchitis: QUALIFIERS: Bronchitis organism: unspecified organism Qualified Code(s): J20.9 - Acute bronchitis, unspecified (3) Tobacco abuse: (4) Acute CHF: QUALIFIERS: Heart failure type: systolic Qualified Code(s): I 50.21 - Acute systolic (congestive) heart failure (5) Acute respiratory insufficiency: (6) Leukocytosis: QUALIFIERS: Leukocytosis type: unspecified Qualified Code(s): D 72.829 - Elevated white blood cell count, unspecified (7) Thrombocytosis: (8) Adverse drug reaction: QUALIFIERS: Encounter type: initial encounter Qualified Code(s): T50.905A - Adverse effect of unspecified drugs, medicaments and biological substances, initial encounter (9) Left leg DVT: QUALIFIERS: Affected thrombotic vein of extremity: unspecified vein of extremity Chronicity: acute Qualified Code(s): I82.402 - Acute embolism and thrombosis of unspecified deep veins of left lower extremity (10) S/P IVC filter: (11) GI bleed: QUALIFIERS: GI bleed type/associated pathology: unspecified peptic ulcer Qualified Code(s): K27.4 - Chronic or unspecified peptic ulcer, site unspecified, with hemorrhage (12) Peptic ulcer disease: PLAN: Plan 1. AE COPD; in the setting of ongoing Tobacco Abuse - Admit to PCU. Give methylprednisolone IV plus scheduled and as needed nebulizers. Start doxycycline IV twice daily plus probiotic, vitamin D3, vitamin C and zinc for suspected superimposed Acute Bronchitis. Give acetaminophen as needed for [id number] (level 1-5/10) pain or fever. Give morphine IV as needed for severe (level 6-10/10) pain. Nicotine patch offered to control cravings with tobacco cessation very strongly encouraged. Finally, patient may need to be discharged home with as needed oxygen and she was warned not to smoke due to fire hazard, with patient verbalizing understanding in the presence of her son. 2. AE of chronic systolic CHF; with LVEF ~45% with [id number] inferior and apical wall dyskinesis, aneurysmal with moderate RVH and [id number] global RV systolic dysfunction (06/2023) with a highly elevated NT pro-BNP II of 15,058 pg/mL present on admission complicating #1 - Give IV furosemide daily and serialize NT pro-BNP II to follow trend with patient seeming to have no objective radiographic or clinical evidence of volume overload at this time. 3. Acute Respiratory Insufficiency due to #1 & #2 - Wean supplemental oxygen as tolerated. 4. Critical Leukocytosis of 71.1K and Thrombocytosis of 590K (up from last admission at 54K and 249K respectively) suspecting to be due to Adverse Drug Reaction to Neulasta with the patient having no obvious gross source of infection and literature revealing reactions can persist 7-14 days adding to the medical complexity of #1 - #3 - Serialize CBC daily to follow trend. 5. Recent admission here from December 24, 2024 to January 02, 2025 for treatment of acute anemia with hemoglobin of 4.1 g/dL attributed to a combination of melanotic stools on apixaban for ~1 week plus chemotherapy complicated by acute thrombocytopenia of 21K present on admission and severe elevated anion gap metabolic acidosis with pH of 7.14 and anion gap of 28 with lactic acidosis of 16 and elevated white blood cell count of 14.8K compounded by acute Left lower extremity DVT; s/p IVC filter placement last admission with severe leukocytosis rising up to 54K after she was treated with Neulasta on December 19, 2024 for chemotherapy which was suspected to be the underlying cause due to triggering of leukemoid reaction adding to the burden of disease outlined from #1 - #4 - Noted. 6. History of metastatic non-small cell lung cancer; with known mets to the brain and liver on chemotherapy followed by Dr. Matamoros of oncology amplifying the pathology outlined from #1 - #5 - Noted. 7. Newly diagnosed folate deficiency with level of 3.19 ng/mL present on admission - Start folate 1 mg IV daily and then transition to oral at the discretion of dayshift hospitalist. 8. Essential hypertension; on carvedilol - Home regimen to continue plus give as needed IV hydralazine for systolic blood pressure greater than 160 mmHg. 9. Hyperlipidemia; on atorvastatin - Continue statin. 10. Hypothyroidism; on levothyroxine - TSH was noted to be highly elevated at 60.9 present on admission indicating suspected poor absorption. Start IV levothyroxine. Check free T3 and free T4. 11. CAD; s/p stents (2022) on clopidogrel - Stable. Maintain clopidogrel as previous. 12. History of LV aneurysm and cardiomyopathy - New echocardiogram is pending for #2. 13. Chronic constipation - Stable with no complaints related to this issue at this time. Give laxatives as needed. 14. GERD; with very recent history of PUD; on pantoprazole twice daily plus sucralfate 1 hour before AC/HS - Continue PPI IV with addition of IV methylprednisolone to clopidogrel after recent GI bleed secondary to PUD. 15. DVT prophylaxis - Patient had recently diagnosed LLE DVT with IVC filter placement in addition to recent GI bleed due to PUD found on EGD last admission contraindicating chemoprophylaxis. Total time: Approximately (but not less than) 75 minutes. Charges/Coding Visit Charges Inpatient E&M: 98198 Init Hosp L3
--- NOTE | 2025-01-05 02:59 | ECHOCS_ITS ---
Reason For Study Reason For Study: CHF Procedure This was a 2D Doppler, Color Flow transthoracic echocardiogram. The study was technically difficult. Contrast injection was performed. Exam performed portable in patient room. Left Ventricle Normal size and thickness. Mid to distal inferior and apical akinesis. Posterior basal hypokinesis. Estimated LVEF 40%. Stage I diastolic dysfunction. Cannot exclude layered thrombus adjacent to the distal inferior wall. Recommend cardiac MRI for further evaluation. Right Ventricle Normal right ventricle. Atria The left and right atria are normal. Mitral Valve Trivial mitral valve insufficiency. Tricuspid Valve Trivial tricuspid valve insufficiency. Unable to estimate RV systolic pressure due to insufficient tricuspid regurgitant envelope. Aortic Valve Trisinus/trileaflet aortic valve. Pulmonic Valve The pulmonic valve is not well visualized. Great Vessels Normal sized aortic root. Pericardium/Pleural No pericardial effusion. Medication Diluted definity 1ml given slow IV push to enhance endocardial definition. MMode/2D Measurements & Calculations LVIDd: 4.6 cm IVSd: 0.78 cm LAV(MOD- bp): 32.2 ml LVIDs: 3.4 cm LVPWd: 0.73 cm FS: 24.8 % LAV(MOD- bp) Indexed: 19.6 ml/m2 LAV(MOD- sp2): 33.0 ml LAV(MOD- sp4): 28.7 ml SV(MOD-sp4): 66.7 ml SV(sp4- el): 71.2 ml LVAd ap4: 39.1 cm2 LVLd ap4: 8.4 cm SI(MOD-sp4): 40.6 ml/m2 EDV(MOD-sp4): 148.8 ml EDV(sp4-el): 154.5 ml LVAs ap4: 27.3 cm2 LVLs ap4: 7.6 cm ESV(MOD-sp4): 82.1 ml ESV(sp4-el): 83.3 ml EF(MOD-sp4): 44.8 % EF(sp4-el): 46.1 % LA dimension(2D): 2.7 cm LA A4 area: 13.2 cm2 RA A4 area: 10.8 cm2 TAPSE: 1.7 cm Time Measurements MV dec time: 0.21 sec Doppler Measurements & Calculations MV E max umberto: 53.0 cm/sec Lat Peak E' Umberto: 8.1 cm/sec Med Peak E' Umberto: 6.1 cm/sec MV A max umberto: 72.8 cm/sec E/E' lat: 6.5 E/E' med: 8.6 MV E/A: 0.73 MV V2 max: 113.0 cm/sec MV P1/2t max umberto: 93.2 cm/sec Ao V2 max: 113.1 cm/sec MV max P.1 mmHg MV P1/2t: 72.4 msec Ao max P.1 mmHg MV V2 mean: 57.6 cm/sec MV dec slope: 376.7 cm/sec2 Ao V2 mean: 78.9 cm/sec MV mean P.6 mmHg MVA(P1/2t): 3.0 cm2 Ao mean P.8 mmHg MV V2 VTI: 24.5 cm Ao V2 VTI: 27.4 cm AV (velocity ratio): 0.78 LV V1 max: 92.3 cm/sec MR max umberto: 528.4 cm/sec LV V1 max P.4 mmHg MR max P.7 mmHg LV V1 mean P.1 mmHg MR mean umberto: 394.0 cm/sec LV V1 mean: 70.3 cm/sec MR mean P.0 mmHg LV V1 VTI: 21.3 cm MR VTI: 200.7 cm ECHO/Echo Complete W/ Contrast Interpretation Summary Mid to distal inferior and apical akinesis. Posterior basal hypokinesis. Estima rosalind LVEF 40%. Stage I diastolic dysfunction. Cannot exclude layered thrombus adjacent to the distal inferior wall. Recommend cardiac MRI for further evaluation. Ordering Physician: Mahin Romero Performed By: Toribio Jacinto RCS
[2025-01-05] MEDS: MethylPREDNISolone 125 MG/2 ML Vial 60 MG IV (03:41)
[2025-01-05] MEDS: Pantoprazole Sodium 40 MG in 0.9% Normal Saline (100mL MB+) 100 ML 330 MG IV (03:47)
[2025-01-05] MEDS: 0.9% Saline Lock 10 ML Syringe IV ×6 (03:47→21:17)
[2025-01-05] MEDS: Furosemide 40 MG/4 ML Vial IV (03:47)
[2025-01-05] MEDS: Morphine 2 MG/ML Syringe IV ×3 (03:54→20:25)
[2025-01-05] MEDS: Ascorbic Acid 500 MG Tablet 1000 MG PO (03:57)
[2025-01-05] MEDS: Cholecalciferol (Vit D3) 125 MCG CAPSULE (5,000 UNITS) PO (03:57)
[2025-01-05 04:07] LABS: Blood Gas Specimen Type VEN; O2 Delivery Device Not entered; SITE Not entered; VBG BASE EXCESS 6 mmol/L (-1.0-3.5); VBG Bicarbonate 31 mmol/L (22-26); VBG PO2 55 mmHg (25-40); VBG SO2 89 % (50-70); VBG TCO2 32 mmol/L (23-33); VBG pCO2 47.3 mmHg (41-51); VBG pH 7.42 (7.32-7.42)
[2025-01-05] MEDS: Albumin Human 25% (100 mL) 25 GM/100 ML BAG IV (04:11)
[2025-01-05] MEDS: Doxycycline 100 MG in 0.9% Normal Saline (250mL Bag) 250 ML 250 MG IV (04:15)
[2025-01-05 04:32] LABS: FOLATES,SERUM (FOLIC ACID) 3.19 ng/mL (4.60-34.80)
[2025-01-05 04:33] LABS: Magnesium 1.5 mg/dL (1.5-2.2); Phosphorus 3.2 mg/dL (2.7-4.5); Troponin T High Sensitivity 51 ng/L (<=14)
[2025-01-05 05:01] LABS: Vitamin B12 3916 pg/mL (180-914)
[2025-01-05] MEDS: Levothyroxine 50 MCG Tablet PO (06:01)
[2025-01-05] MEDS: Sucralfate 1 GM Tablet PO ×4 (06:01→21:17)
[2025-01-05 06:15] LABS: Troponin T High Sens 2 HR 47 ng/L (<=14)
[2025-01-05] MEDS: Folic Acid 1 MG in 0.9% Normal Saline (50mL Bag) 50 ML 200 MG IV (06:35)
[2025-01-05 07:32] LABS: Cholesterol 136 mg/dL (<=200); High Density Lipoprotein 33 mg/dL; Low Density Lipoprotein Calc. 73 mg/dL; Triglycerides 149 mg/dL; Very Low Density Lipoprotein 30 mg/dL (5-40)
[2025-01-05 07:43] LABS: Troponin T High Sens 4 HR 47 ng/L (<=14)
--- NOTE | 2025-01-05 07:58 | PN.HOSP_ITS ---
Reason for Visit Reason for Visit: Shortness of breath Subjective Subjective Patient states she definitely is feeling better today. Less shortness of breath. States that her electricity went out and she did not have a fan. States that she started panicking get short of breath. States she was much better after the squad arrived and gave her breathing treatment but they brought her in anyway because she was hypoxic. Objective Data Objective Data Vital Signs: Vital Signs Temp Pulse Resp BP Pulse Ox O2 Del Method O2 Flow Rate 98.4 F 71 18 113/66 99 Nasal Cannula 2.5 01/05/25 03:30 01/05/25 03:30 01/05/25 03:30 01/05/25 03:30 01/05/25 03:30 01/05/25 05:15 01/05/25 05:15 Oxygen Flow Rate (L/min) 2.5 Oxygen Delivery Method Nasal Cannula Weight: 61.7 kg Body Mass Index (BMI) 24.0 Intake & Output: Intake and Output for Last 24 Hours 01/03/25 01/04/25 01/05/25 23:59 23:59 23:59 Intake Total 520.2 / 520.2 Balance 520.2 / 520.2 Lab / Micro Data 01/05/25 00:10 01/05/25 00:10 Labs: Laboratory Results - last 24 hr 01/05/25 00:10: WBC 71.1 H*, RBC 2.64 L, Hgb 8.5 L, Hct 24.8 L, MCV 93.9, MCH 32.2 H, MCHC 34.3, RDW Std Deviation 50.9 H, RDW Coeff of Fidel 15.4 H, Plt Count 590 H, MPV 9.8, Immature Gran % (Auto) WEB DEVELOPER, Neut % (Auto) WEB DEVELOPER, Lymph % (Auto) WEB DEVELOPER, Vernon % (Auto) WEB DEVELOPER, Eos % (Auto) WEB DEVELOPER, Baso % (Auto) WEB DEVELOPER, Absolute Neuts (auto) 51.2 H, Absolute Lymphs (auto) 4.26, Total Counted 100, Neutrophils % (Manual) 55, B and Neutrophils % 17 H, Lymphocytes % (Manual) 6 L, Monocytes % (Manual) 4, M etamyelocytes % 6 H, Myelocytes % 16 H, Nucleated RBC % WEB DEVELOPER, Differential Comment SCANNED, Atypical Lymphocytes 1+, Platelet Estimate MOD INC, RBC Morphology NORM C+C, Sodium 131 L, Potassium 4.1, Chloride 93 L, Carbon Dioxide 27.2, Anion Gap 11, BUN 6, Creatinine 0.66 L, Estim Creat Clear Calc 61.53, Est GFR (MDRD) Non- Af 96, BUN/Creatinine Ratio 8.9 L, Glucose 103 H, Calcium 8.3, [place] [address] H 01/05/25 03:39: Phosphorus 3.2, Magnesium 1.5, Troponin T High Sens 51 H D, Triglycerides 149, Cholesterol 136, LDL Cholesterol, Calc 73, VLDL Cholesterol 30, HDL Cholesterol 33 L, Cholesterol/HDL Ratio 4.10, Vitamin B12 3916 H, Serum Folate 3.19 L, TSH 60.900 H 01/05/25 03:40: Procalcitonin 0.60 H 01/05/25 05:24: Troponin T Hi Sens 2 Hr 47 H 01/05/25 07:11: Troponin T Hi Sens 4Hr 47 H, Free T3 pg/dL 1.0 L Micro: Microbiology 01/05/25 00:50 Mucosa - Nasopharyngeal SARS-CoV-2, Influenza & RSV (PCR) - Final ABG Data ABG results: ABG 01/05/25 04:04 Specimen Type RIA Sample Site Not entered VBG pH 7.42 VBG pO2 55 H VBG HCO3 31 H VBG Total CO2 32 VBG O2 Sat (Calc) 89 H VBG Base Excess 6 H POC Mix VBG pCO2 Pt Tmp 47.3 O2 Delivery Device Not entered Radiography Diagnostic Testing: Radiology Impression Chest X-Ray 01/05/25 00:48 IMPRESSION: 1. Right Port-A-Cath is in good position with its tip in the superior vena cava. 2. The cardiac silhouette is not enlarged. 3. Unchanged emphysema. 4. Unchanged mild bilateral basilar atelectatic pulmonary changes. 5. Unchanged right lower lobe pulmonary nodule. Reading [facility] [address] Rhythm Strip Rhythm Strip: Sinus Rhythm Rate: 78 Ectopy: None Assessment & Plan Assessment/Plan (1) Folic acid deficiency: (2) Thrombocytosis: (3) Leukocytosis: QUALIFIERS: Leukocytosis type: unspecified Qualified Code(s): D 72.829 - Elevated white blood cell count, unspecified (4) Hypoxia: (5) Acute on chronic HFrEF (heart failure with reduced ejection fraction): PLAN: Plan Acute hypoxia secondary to acute exacerbation of COPD/acute on chronic HFrEF -Hold off with antibiotics for now as patient was recently on a long course of antibiotics and has no signs or symptoms concerning for pneumonia -Continue aggressive pulmonary toilet -Transition steroids from 60 twice daily to 40 every 8 -Continue incentive spirometry and add Acapella -Currently patient on 2 L nasal cannula -Respiratory viral panel and COVID/flu/RSV are negative -Check echocardiogram -Bumex twice daily -Fluid restriction -Sodium restricted diet -Daily weights -Strict I's and O's Hypothyroidism with abnormal TSH -TSH is 60 -Did discuss with patient and she is taking her medication however son admits that she does not take it that she is supposed to in the morning on an empty stomach -I suspect she needs a higher dose so increase her dose from 50 mcg to 125 mcg for now -Repeat free T4 in 48 hours if still requiring hospitalization if not we will need outpatient follow-up for TSH in 6 weeks Folate deficiency - Folate level was low - P.o. folate added and will discharge with when she is medically ready GIB 2/2 Peptic Ulcer Disease -EGD done on 12/26/2024 that showed no lesions in the esophagus, small hiatal hernia, nonbleeding gastric ulcer with no stigmata of bleeding that was biopsied and oozing gastric ulcer with a visible vessel that was treated with heater probe -Continue Carafate for 1 month--> started 12/31/2024 - Continue Protonix 40 mg p.o. twice daily - Patient was previously on Plavix and Eliquis--> patient does have a high has bled score Acute on chronic anemia -baseline hemoglobin looks to run between 12 and 13 prior to being admitted with GI bleed -Currently 8.5 which is up from her time of discharge - Repeat CBC in a.m. Hypomagnesemia -magnesium level is 1.0 -4 g given - Recheck lab in a.m. Hypophosphatemia -Will give a mixture of K and sodium Phos -phosphorus levels 1.8 - Repeat lab in a.m. Leukocytosis -Patient has had elevated white count since she was hospitalized -Was evaluated by ID -Suspected be leukemoid reaction in conjunction with her Neupogen -Cultures were drawn several times and negative other than her urinary tract infection - Will monitor clinically but no antibiotics for now - If trends up further and patient still hospitalized tomorrow we will consult ID again Thrombocytosis - Appears to be reactive - Repeat lab in a.m. - Labs are significantly different from the time of discharge - Was previously thrombocytopenic History of DVT -Had previously been on Eliquis but due to GI bleed and bleeding risk this was discontinued - IVC filter placed by vascular surgery on 12/25/2024 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) -Diagnosed in September 2019 for -Has received carboplatin, Taxol, and Keytruda for maintenance until October 2024 -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 for and progressive disease noted 12/04/2024 and was started on gemcitabine - Chemo is to be held until she is discharged from the hospital - Received Neulasta on 12/19/2024 after her last cycle - Per oncology documentation from 12/24/2024 overall prognosis is guarded COPD - Continue aerosols -Treatment as above - Restart home inhalers at discharge -currently in exacerbation GERD -treatment with Protonix as noted above -Will discontinue famotidine and discharge CAD/hyperlipidemia/history of left ventricular aneurysm - Previous stent placement with most recent 2 years ago -Continue Plavix -patient no longer on aspirin due to GI bleed and high has bled score -Continue home statin Tobacco abuse - Recommend cessation - Nicotine patch if needed DVT prophylaxis - SCDs - Chemoprophylaxis is contraindicated with recent GI bleeding CODE STATUS -DNR CCA with no intubation - Patient's overall mortality risk and prognosis is extremely high. She is at high risk for recurrent admissions. I did discuss this with the patient and her son who was at the bedside today and they both agree that she still would like to pursue aggressive therapy for her cancer. She is on gemcitabine currently. Her last chemo was to be on 01/01/2025 but that was held because she was hospitalized. Will have follow-up after discharge with oncology. We did discuss hospice and option and she is currently not interested.
[2025-01-05] MEDS: Folic Acid 1 MG Tablet 2 MG PO (08:29)
[2025-01-05] MEDS: Bumetanide 1 MG/4 ML Vial 2 MG IV ×2 (08:29→16:57)
[2025-01-05] MEDS: Potassium Chloride Oral Tablet 20 MEQ PO (08:29)
[2025-01-05] MEDS: Magnesium Chloride 64 MG Delay Rel.Tablet 128 MG PO (08:29)
[2025-01-05] MEDS: Carvedilol 3.125 MG TABLET PO ×2 (08:29→16:55)
[2025-01-05] MEDS: Clopidogrel Bisulfate 75 MG Tablet PO (08:29)
[2025-01-05] MEDS: Pantoprazole Sodium 40 MG Tablet PO ×2 (08:29→21:18)
[2025-01-05] MEDS: LEVOTHYROXINE SODIUM 100 MCG VIAL 25 MCG IV (08:30)
[2025-01-05] MEDS: Menthol/Lanolin/Calamine/Znox 113 GM Tube 1 APPLIC TOPICAL ×2 (14:50→21:19)
[2025-01-05] MEDS: Methylprednisolone Sod Succ 40 MG/ML VIAL IV ×2 (14:50→21:17)
--- NOTE | 2025-01-05 16:11 | CASEMGMT ---
AMY BURCH chart review: Elías was admitted 12/24-01/02/25 for Leukocytosis, GI bleed, and anemia. See assessment from 12/25/24. Patient was discharged to home with family support. Patient did not qualify for home oxygen. Patient returned to [facility] ED on 01/05/25 for increased SOB and was admitted for COPD and CHF exacerbation. Hospitalist updated CM that patient is a candidate for hospice but patient declines services at this time, patient is at risk for frequent readmissions. AMY CM in to discuss readmission and needs at [facility]. Patient returned to [facility] prior to follow-up appts. Patient states she was taking her medications as prescribed. Patient denies needs at discharge and declines HHC. Patient states she has good family support at home. Will monitor for home oxygen at discharge, prefers [employer], green sheet placed on chart. CM will continue to follow this patient and plan for a safe discharge.
[2025-01-05] MEDS: Atorvastatin Calcium 10 MG Tablet PO (21:17)
[2025-01-06] VITALS (8 sets, daily range): BP systolic 115–144; BP diastolic 56–73; PULSE 64–75; RESP 16–18; TEMP 36.2–36.6; O2SAT 86–97; BMI 25.6
[2025-01-06 05:10] LABS: Hematocrit 20.3 % (37-47); Hemoglobin 6.8 g/dL (12.0-15.0); Mean Corp Hgb Conc 33.5 g/dL (32-36); Mean Corpuscular Hgb 31.6 pg (27.0-32.0); Mean Corpuscular Volume 94.4 fL (81-99); Mean Platelet Vol. 9.8 fl (6.2-12.0); POSITIVE COUNT YES; POSITIVE DIFFERENTIAL YES; POSITIVE MORPHOLOGY YES; Platelet Count 549 K/mm3 (150-450); RBC Distribution Width CV 15.2 % (11.6-14.6); RBC Distribution Width SD 50.4 fl (35.1-43.9); Red Blood Count 2.15 M/mm3 (4.2-5.4); White Blood Count 66.6 K/mm3 (4.4-11.0)
[2025-01-06 05:17] LABS: Differential Indicated MANUAL DIFF
[2025-01-06 05:40] LABS: ALB/GLOB Ratio 0.9 RATIO (0.9-2.4); AST(SGOT) 27 U/L (<=31); Alanine Aminotransfer ALT/SGPT 10 U/L (<=34); Albumin, Serum 2.8 g/dL (3.4-4.8); Alkaline Phosphatase 167 U/L (35-104); Anion Gap 13 (5-15); BUN 14 mg/dL (4-19); BUN/Creat Ratio 17.7 RATIO (10-20); Calcium,Total 8.5 mg/dL (7.6-11.0); Carbon Dioxide 28.5 mmol/L (21.0-32.0); Chloride 93 mmol/L (98-108); Creatinine, Serum 0.79 mg/dL (0.70-1.20); EST Glomerular Filtration Rate 82 (>60); Estimated Creatinine Clearance 62.18 ml/min (50-250); Globulin 3.1 g/dL (2.2-4.2); Glucose 152 mg/dL (70-99); Potassium 3.7 mmol/L (3.3-5.1); Protein, Total 5.9 g/dL (5.9-8.4); Sodium Level 134 mmol/L (133-145); Total Bilirubin 0.18 mg/dL (0.00-1.30)
[2025-01-06] MEDS: 0.9% Saline Lock 10 ML Syringe IV ×3 (05:58→21:42)
[2025-01-06] MEDS: Menthol/Lanolin/Calamine/Znox 113 GM Tube 1 APPLIC TOPICAL ×3 (05:58→21:41)
[2025-01-06 05:59] LABS: Total Cells Counted 100 (MANUAL DIFF)
[2025-01-06] MEDS: Acetaminophen 325 MG Tablet 650 MG PO ×3 (05:59→21:54)
[2025-01-06] MEDS: Methylprednisolone Sod Succ 40 MG/ML VIAL IV ×3 (05:59→21:40)
[2025-01-06] MEDS: Sucralfate 1 GM Tablet PO ×4 (05:59→21:42)
[2025-01-06] MEDS: Levothyroxine 125 MCG Tablet PO (05:59)
[2025-01-06 06:00] LABS: Absolute Neutrophil Count 51.3 X10^3/uL (2.0-7.7); Metamyelocyte 8 % (0-1); Monocyte 5 % (0-10); Myelocyte 10 % (0-0); Neutrophil-Band 29 % (0-5); Neutrophil-Segmented 48 % (47-70)
[2025-01-06 06:02] LABS: Anisocytosis 1+; Platelet Estimate MOD INC (ADEQ)
--- NOTE | 2025-01-06 07:28 | PN.HOSP_ITS ---
Reason for Visit Reason for Visit: Shortness of breath Subjective Subjective Patient states that overall she is feeling much better. States her breathing is easier. States she has been peeing a lot with the diuretics. Unfortunately I cannot anticoagulate her right now and there is concern of possible layered thrombus in the LV. Cardiology consultation is pending for recommendations. Had previously been on Eliquis but had severe GI bleed with a hemoglobin of 4.1. Objective Data Objective Data Vital Signs: Vital Signs Temp Pulse Resp BP Pulse Ox O2 Del Method O2 Flow Rate 97.8 F 72 18 135/72 H 95 Nasal Cannula 2 01/06/25 02:50 01/06/25 02:50 01/06/25 02:50 01/06/25 02:50 01/06/25 07:22 01/06/25 07:22 01/06/25 07:22 Oxygen Flow Rate (L/min) 2 Oxygen Delivery Method Nasal Cannula Weight: 65.7 kg Body Mass Index (BMI) 25.6 Intake & Output: Intake and Output for Last 24 Hours 01/04/25 01/05/25 01/06/25 23:59 23:59 23:59 Intake Total 1000.2 / 1000.2 60 / 60 Output Total 200 / 200 Balance 800.2 / 800.2 60 / 60 Lab / Micro Data 01/06/25 07:45 01/06/25 04:30 Labs: Laboratory Results - last 24 hr 01/05/25 03:39: Triglycerides 149, Cholesterol 136, LDL Cholesterol, Calc 73, VLDL Cholesterol 30, HDL Cholesterol 33 L, Cholesterol/HDL Ratio 4.10 01/05/25 03:40: Procalcitonin 0.60 H 01/05/25 07:11: Troponin T Hi Sens 4Hr 47 H, Free T4 0.40 L, Free T3 pg/dL 1.0 L 01/06/25 04:30: WBC 66.6 H*, RBC 2.15 L, Hgb 6.8 L, Hct 20.3 L, MCV 94.4, MCH 31.6, MCHC 33.5, RDW Std Deviation 50.4 H, RDW Coeff of Fidel 15.2 H, Plt Count 549 H, MPV 9.8, Neut % (Auto) Not Reportable, Absolute Neuts (auto) 51.3 H, A bsolute Lymphs (auto) 0.00 L, Total Counted 100, Neutrophils % (Manual) 48, Band Neutrophils % 29 H, Monocytes % (Manual) 5, Metamyelocytes % 8 H, Myelocytes % 10 H, Platelet Estimate MOD INC, Anisocytosis 1+, Sodium 134, Potassium 3.7, C hloride 93 L, Carbon Dioxide 28.5, Anion Gap 13, BUN 14, Creatinine 0.79, Estim Creat Clear Calc 62.18, Est GFR (MDRD) Non-Af 82, BUN/Creatinine Ratio 17.7, G lucose 152 H, Calcium 8.5, Total Bilirubin 0.18, AST 27, ALT 10, Alkaline Phosphatase 167 H, Total Protein 5.9, Albumin 2.8 L, Globulin 3.1, Albumin/Globulin Ratio 0.9 Micro: Microbiology 01/05/25 05:05 Mucosa - Nose Respiratory Panel (PCR) - Final 01/05/25 00:50 Mucosa - Nasopharyngeal SARS-CoV-2, Influenza & RSV (PCR) - Final Radiography Diagnostic Testing: Radiology Impression Echocardiogram 01/05/25 02:59 Interpretation Summary Mid to distal inferior and apical akinesis. Posterior basal hypokinesis. Estimated LVEF 40%. Stage I diastolic dysfunction. Cannot exclude layered thrombus adjacent to the distal inferior wall. Recommend cardiac MRI for further evaluation. Ordering Physician: Mahin Romero Performed By: Toribio Jacinto RCS Rhythm Strip Rhythm Strip: Sinus Rhythm Rate: 78 Ectopy: None Physical Exam Const alert, oriented x3, no apparent distress and average body habitus; Negative for healthy appearing Constitutional Narrative: Upper middle-aged, white female, sitting up in bed, appears comfortable, does not look toxic currently, on oxygen with no signs of extremis, son at bedside General Appearance: cooperative HEENT normocephalic, head/scalp atraumatic, hearing grossly normal bilaterally and moist oral mucous membranes HEENT Narrative: Edentulous, Mallampati 2, no thrush Resp normal respiratory effort, no retractions, no use of accessory muscles and clear to auscultation bilaterally Resp Narrative: Diffusely diminished but clear Auscultation: Negative for crackles, rhonchi or wheezes Cardio regular rate, regular rhythm, S1 normal heart sound, S2 normal heart sound, no murmurs, no rub, no gallops and no clicks GI normal to inspection, nondistended, normoactive bowel sounds, soft to palpation and non-tender Extremity Extremity Narrative: Trace bilateral lower extremity edema, no cyanosis or clubbing, pedal and radial pulses are 2+ Neuro oriented x3, moves all extremities and no focal motor deficits Speech: speech normal Psych affect normal Psych Narrative: Very pleasant, interacts appropriately Assessment & Plan Assessment/Plan (1) Folic acid deficiency: (2) Thrombocytosis: (3) Leukocytosis: QUALIFIERS: Leukocytosis type: unspecified Qualified Code(s): D 72.829 - Elevated white blood cell count, unspecified (4) Hypoxia: (5) Acute on chronic HFrEF (heart failure with reduced ejection fraction): PLAN: Plan Acute hypoxia secondary to acute exacerbation of COPD/acute on chronic HFrEF -Hold off with antibiotics for now as patient was recently on a long course of antibiotics and has no signs or symptoms concerning for pneumonia -Continue aggressive pulmonary toilet -Continue Solu-Medrol 40 every 8 -Continue incentive spirometry and Acapella -Currently patient on 2 L nasal cannula -Respiratory viral panel and COVID/flu/RSV are negative -Echocardiogram from 01/05/2025 shows an EF of 40% with stage I diastolic dysfunction and mid to distal inferior apical akinesis which is similar to previous echocardiogram. There is a noted layer of material on the distal inferior wall and is noted to say cannot exclude thrombus and MRI recommended for further evaluation -Continue Bumex twice daily -Continue fluid restriction -Continue sodium restricted diet -Daily weights -Strict I's and O's - Will need ambulatory pulse ox prior to discharge and I suspect patient will need oxygen at the time of going home Possible ventricular thrombus - Unable to anticoagulate due to recent severe GI bleed with hemoglobin down to 4.1 - Consult cardiology for recommendations - Cardiac MRI was recommended however we are unable to prove for those here as an inpatient to my knowledge Hypothyroidism with abnormal TSH -TSH is 60 -Did discuss with patient and she is taking her medication however son admits that she does not take it that she is supposed to in the morning on an empty stomach -Continue oral levothyroxine 125 mcg -I did discuss proper taking of this medication with patient and family -Repeat free T4 in a.m. Folate deficiency - Folate level was low -Continue p.o. folate and will discharge on folic acid orally GIB 2/2 Peptic Ulcer Disease -EGD done on 12/26/2024 that showed no lesions in the esophagus, small hiatal hernia, nonbleeding gastric ulcer with no stigmata of bleeding that was biopsied and oozing gastric ulcer with a visible vessel that was treated with heater probe -Continue Carafate for 1 month--> started 12/31/2024 - Continue Protonix 40 mg p.o. twice daily - Patient was previously on aspirin, Plavix, and Eliquis--> patient does have a high has bled score and per GI Plavix only was recommended Acute on chronic anemia -baseline hemoglobin looks to run between 12 and 13 prior to being admitted with GI bleed -Stable at 7.5 - Repeat CBC in a.m. Leukocytosis -Patient has had elevated white count since she was hospitalized -Was evaluated by ID -Suspected be leukemoid reaction in conjunction with her Neupogen -Counts are trending down now for the first time in several days -Cultures were drawn several times and negative other than her urinary tract infection - Will monitor clinically but no antibiotics for now -We will hold off on ID consult since now trending down Thrombocytosis - Appears to be reactive - Repeat lab in a.m. - Labs are significantly different from the time of discharge - Was previously thrombocytopenic - Trending down slowly History of DVT -Had previously been on Eliquis but due to GI bleed and bleeding risk this was discontinued - IVC filter placed by vascular surgery on 12/25/2024 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) -Diagnosed in September 2019 for -Has received carboplatin, Taxol, and Keytruda for maintenance until October 2024 -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 for and progressive disease noted 12/04/2024 and was started on gemcitabine - Chemo is to be held until she is discharged from the hospital - Received Neulasta on 12/19/2024 after her last cycle - Per oncology documentation from 12/24/2024 overall prognosis is guarded - Has an appointment on Tuesday COPD - Continue aerosols - Treatment as above - Restart home inhalers at discharge - currently in exacerbation GERD -treatment with Protonix as noted above -Will discontinue famotidine and discharge CAD/hyperlipidemia/history of left ventricular aneurysm - Previous stent placement with most recent 2 years ago - Continue Plavix - patient no longer on aspirin due to GI bleed and high has bled score - Continue home statin Tobacco abuse - Recommend cessation - Nicotine patch if needed DVT prophylaxis - SCDs - Chemoprophylaxis is contraindicated with recent GI bleeding CODE STATUS -DNR CCA with no intubation - Patient's overall mortality risk and prognosis is extremely high. She is at high risk for recurrent admissions. I did discuss this with the patient and her son who was at the bedside on 01/05/2025 and they both agree that she still would like to pursue aggressive therapy for her cancer. She is on gemcitabine currently. Her last chemo was to be on 01/01/2025 but that was held because she was hospitalized. Will have follow-up after discharge with oncology. We did discuss hospice and option and she is currently not interested. Charges/Coding Visit Charges Inpatient E&M: 17187 Subs Hosp L3
[2025-01-06 08:08] LABS: Hemoglobin 7.5 g/dL (12.0-15.0)
[2025-01-06] MEDS: Magnesium Chloride 64 MG Delay Rel.Tablet 128 MG PO (08:09)
[2025-01-06] MEDS: Folic Acid 1 MG Tablet 2 MG PO (08:09)
[2025-01-06] MEDS: Potassium Chloride Oral Tablet 20 MEQ PO (08:09)
[2025-01-06] MEDS: Carvedilol 3.125 MG TABLET PO ×2 (08:09→17:06)
[2025-01-06] MEDS: Pantoprazole Sodium 40 MG Tablet PO ×2 (08:09→21:42)
[2025-01-06] MEDS: Bumetanide 1 MG/4 ML Vial 2 MG IV ×2 (09:06→17:06)
[2025-01-06] MEDS: Clopidogrel Bisulfate 75 MG Tablet PO (09:06)
[2025-01-06] MEDS: oxyCODONE 5 MG Tablet PO ×3 (12:50→21:40)
[2025-01-06] MEDS: MELATONIN 3 MG TABLET PO (21:40)
[2025-01-06] MEDS: Atorvastatin Calcium 10 MG Tablet PO (21:42)
[2025-01-07] VITALS (10 sets, daily range): BP systolic 131–158; BP diastolic 63–77; PULSE 60–76; RESP 16–18; TEMP 36.4–36.7; O2SAT 94–100; BMI 24.9
[2025-01-07] MEDS: oxyCODONE 5 MG Tablet PO ×5 (03:47→22:31)
[2025-01-07] MEDS: Acetaminophen 325 MG Tablet 650 MG PO ×4 (03:54→22:32)
[2025-01-07] MEDS: 0.9% Saline Lock 10 ML Syringe IV ×3 (05:55→22:56)
[2025-01-07] MEDS: Methylprednisolone Sod Succ 40 MG/ML VIAL IV ×3 (05:55→22:56)
[2025-01-07] MEDS: Menthol/Lanolin/Calamine/Znox 113 GM Tube 1 APPLIC TOPICAL (05:57)
[2025-01-07] MEDS: Levothyroxine 125 MCG Tablet PO (05:57)
[2025-01-07] MEDS: Sucralfate 1 GM Tablet PO ×4 (05:59→22:36)
[2025-01-07 06:24] LABS: Hematocrit 20.8 % (37-47); Mean Corp Hgb Conc 33.7 g/dL (32-36); Mean Corpuscular Hgb 32.4 pg (27.0-32.0); Mean Corpuscular Volume 96.3 fL (81-99); Mean Platelet Vol. 9.7 fl (6.2-12.0); POSITIVE COUNT YES; Platelet Count 593 K/mm3 (150-450); RBC Distribution Width CV 15.4 % (11.6-14.6); RBC Distribution Width SD 51.7 fl (35.1-43.9); Red Blood Count 2.16 M/mm3 (4.2-5.4)
[2025-01-07 06:32] LABS: Scan Indicated on CBC? Y/N YES- FLAGS NOTED
[2025-01-07 06:47] LABS: Anion Gap 14 (5-15); BUN 21 mg/dL (4-19); BUN/Creat Ratio 24.2 RATIO (10-20); Calcium,Total 8.3 mg/dL (7.6-11.0); Chloride 92 mmol/L (98-108); Creatinine, Serum 0.87 mg/dL (0.70-1.20); EST Glomerular Filtration Rate 73 (>60); Estimated Creatinine Clearance 56.46 ml/min (50-250); Glucose 142 mg/dL (70-99); Magnesium 1.5 mg/dL (1.5-2.2); Phosphorus 3.7 mg/dL (2.7-4.5); Potassium 3.4 mmol/L (3.3-5.1); Sodium Level 136 mmol/L (133-145)
--- NOTE | 2025-01-07 07:23 | PN.HOSP_ITS ---
Reason for Visit Reason for Visit: Diagnoses Elevated white blood cell count, unspecified (01/05/25) Thrombocytosis, unspecified (01/05/25) Deficiency of other specified B group vitamins (01/05/25) Acute systolic (congestive) heart failure (01/05/25) Acute on chronic systolic (congestive) heart failure (01/05/25) Acute embolism and thrombosis of unspecified deep veins of left lower extremity (01/05/25) Acute bronchitis, unspecified (01/05/25) Chronic obstructive pulmonary disease with (acute) exacerbation (01/05/25) Chronic or unspecified peptic ulcer, site unspecified, with hemorrhage (01/05/25) Peptic ulcer, site unspecified, unspecified as acute or chronic, without hemorrhage or perforation (01/05/25) Other abnormalities of breathing (01/05/25) Hypoxemia (01/05/25) Adverse effect of unspecified drugs, medicaments and biological substances, initial encounter (01/05/25) Tobacco use (01/05/25) Presence of other vascular implants and grafts (01/05/25) Subjective Subjective Patient is a 69-year-old lady with multiple comorbidities admitted with progressive shortness of breath diagnosed with acute hypoxia secondary to combination of COPD/CHF exacerbation admitted to a monitored bed for subsequent management Objective Data Objective Data Vital Signs: Vital Signs Temp Pulse Resp BP Pulse Ox O2 Del Method O2 Flow Rate 97.9 F 76 18 131/68 H 94 Nasal Cannula 2 01/07/25 03:40 01/07/25 03:40 01/07/25 03:40 01/07/25 03:40 01/07/25 03:40 01/07/25 03:40 01/07/25 03:40 Oxygen Flow Rate (L/min) 2 Oxygen Delivery Method Nasal Cannula Weight: 63.9 kg Body Mass Index (BMI) 24.9 Intake & Output: Intake and Output for Last 24 Hours 01/05/25 01/06/25 01/07/25 23:59 23:59 23:59 Intake Total 1000.2 / 1000.2 820 / 940 180 / 180 Output Total 200 / 200 1150 / 1750 700 / 700 Balance 800.2 / 800.2 -330 / -810 -520 / -520 Lab / Micro Data 01/07/25 05:22 01/07/25 05:22 Labs: Laboratory Results - last 24 hr 01/06/25 07:45: Hgb 7.5 L 01/07/25 05:22: WBC 74.0 H*, RBC 2.16 L, Hgb 7.0 L, Hct 20.8 L, MCV 96.3, MCH 32.4 H, MCHC 33.7, RDW Std Deviation 51.7 H, RDW Coeff of Fidel 15.4 H, Plt Count 593 H, MPV 9.7, Sodium 136, Potassium 3.4, Chloride 92 L, Carbon Dioxide 30.0, Anion Gap 14, BUN 21 H, Creatinine 0.87, Estim Creat Clear Calc 56.46, Est GFR (MDRD) Non-Af 73, BUN/Creatinine Ratio 24.2 H, Glucose 142 H, Calcium 8.3, Phosphorus 3.7, Magnesium 1.5, Free T4 0.50 L Micro: Microbiology 01/05/25 05:05 Mucosa - Nose Respiratory Panel (PCR) - Final 01/05/25 00:50 Mucosa - Nasopharyngeal SARS-CoV-2, Influenza & RSV (PCR) - Final Rhythm Strip Rhythm Strip: Sinus Rhythm Rate: 78 Ectopy: None Physical Exam Narrative GENERAL: cooperative HEENT: Atraumatic; normocephalic EYES; Anicteric, Normal Conjunctiva NECK; supple, normal thyroid, RESPIRATORY: Diminished to auscultation CARDIOVASCULAR: Regular S1 S2, GI: soft, normoactive bowel sounds, : No Renal angle tenderness; EXTREMITIES: No edema, no clubbing, MUSCULOSKELETAL: no muscle wasting NEURO: Awake; no lateralizing signs. SKIN: No Rash PSYCH; Flat affect Assessment & Plan Assessment/Plan (1) Folic acid deficiency: (2) Thrombocytosis: (3) Leukocytosis: QUALIFIERS: Leukocytosis type: unspecified Qualified Code(s): D 72.829 - Elevated white blood cell count, unspecified (4) Hypoxia: (5) Acute on chronic HFrEF (heart failure with reduced ejection fraction): PLAN: Plan Patient is a 69-year-old lady with multiple comorbidities admitted with progressive shortness of breath diagnosed with acute hypoxia secondary to combination of COPD/CHF exacerbation admitted to a monitored bed for subsequent management 1. Acute hypoxia ? Secondary to combination of CHF and COPD exacerbation admitted to monitored bed for treatment of the underlying clinical etiology 2. Acute on chronic congestive heart failure with reduced ejection fraction ? Patient managed with strict input and output, low-sodium diet, fluid restriction, daily weights as well as diuretic therapy with bumetanide and. Echo from 01/05/2025 demonstrated EF of 40% with stage I diastolic dysfunction and mid to distal inferior apical akinesis which is similar to previous echocardiogram. There is a noted layer of material on the distal inferior wall and is noted to say cannot exclude thrombus and MRI recommended for further evaluation 3. Possible ventricular thrombus ? Based on CAT scan findings recommendations for patient to undergo MRI as outpatient. Cardiology was consulted Case discussed with Dr. Chawla?his recommendation is patient is not a candidate for systemic anticoagulation given recent GI bleed 4. COPD with acute exacerbation ? Patient started on bronchodilator treatment, systemic steroid as well as antibiotic therapy. Patient placed on oxygen titrated to keep saturation greater than 90. 5. Hypothyroidism ? Patient was found to have markedly elevated TSH questioning her compliance. Patient is on levothyroxine 125 mcg daily consistent use encouraged 6. Anemia ? Secondary to chronic disorder as well as acute blood loss anemia for recent GI bleed. Monitoring H&H and transfuse if patient becomes symptomatic or hemoglobin falls below 7 with patient hemoglobin being 7 as of 01/07/2025 and order was given for patient to be transfused with 1 unit PRBC 7. Recent GI bleed ? Patient underwent EGD on 12/26/2024 which demonstrated no lesions in the esophagus, small hiatal hernia, nonbleeding gastric ulcer with no stigmata of bleeding that was biopsied and oozing gastric ulcer with a visible vessel that was treated with heater probe. GI recommended for patient to be treated with Carafate as well as Protonix.- Patient was previously on aspirin, Plavix, and Eliquis--> patient does have a high has bled score and per GI Plavix only was recommended 8. Leukocytosis -Patient has had elevated white count since she was hospitalized. Was evaluated by ID; Suspected be leukemoid reaction in conjunction with her Neupogen 9. Thrombocytosis ? Reactive will continue with daily monitoring with CBC with differential 10. History of DVT -Had previously been on Eliquis but due to GI bleed and bleeding risk this was discontinued - IVC filter placed by vascular surgery on 12/25/2024 11. 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 Has received carboplatin, Taxol, and Keytruda for maintenance until October 2024 -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 for and progressive disease noted 12/04/2024 and was started on gemcitabine. Plan is for Chemo is to be held until she is discharged from the hospital. Patient to resume care with oncology following her discharge 12. . Folate deficiency - Folate level was low placed on oral folic acid 13. GERD - On Protonix 14. CAD ? With previous PCI with stent placement patient is on Plavix aspirin discontinued given her GI bleed 15. Tobacco dependence ? Counseled on cessation, offered nicotine patch for tobacco cravings 16 DVT prophylaxis ? Bilateral SCDs only CODE STATUS; full code Charges/Coding Visit Charges Inpatient E&M: 23434 Subs Hosp L3
[2025-01-07] MEDS: Pantoprazole Sodium 40 MG Tablet PO ×2 (09:00→22:37)
[2025-01-07] MEDS: Folic Acid 1 MG Tablet 2 MG PO (09:00)
[2025-01-07] MEDS: Magnesium Chloride 64 MG Delay Rel.Tablet 128 MG PO (09:00)
[2025-01-07] MEDS: Clopidogrel Bisulfate 75 MG Tablet PO (09:00)
[2025-01-07] MEDS: Potassium Chloride Oral Tablet 20 MEQ PO (09:00)
[2025-01-07] MEDS: Carvedilol 3.125 MG TABLET PO ×2 (10:29→16:23)
[2025-01-07] MEDS: Bumetanide 1 MG/4 ML Vial 2 MG IV ×2 (10:30→20:24)
[2025-01-07] MEDS: Lidocaine 5% Patch 2 PATCH TOPICAL (20:22)
[2025-01-07] MEDS: Morphine 2 MG/ML Syringe IV (20:31)
[2025-01-07] MEDS: Atorvastatin Calcium 10 MG Tablet PO (22:36)
[2025-01-08] VITALS (8 sets, daily range): BP systolic 128–166; BP diastolic 66–78; PULSE 52–69; RESP 16–18; TEMP 36.4–36.7; O2SAT 91–98; BMI 24.5
[2025-01-08] MEDS: Morphine 2 MG/ML Syringe IV ×5 (02:04→23:05)
[2025-01-08 04:18] LABS: Hematocrit 27.5 % (37-47); Hemoglobin 9.5 g/dL (12.0-15.0); Mean Corp Hgb Conc 34.5 g/dL (32-36); Mean Corpuscular Volume 92.6 fL (81-99); Mean Platelet Vol. 9.5 fl (6.2-12.0); POSITIVE COUNT YES; POSITIVE DIFFERENTIAL YES; POSITIVE MORPHOLOGY YES; Platelet Count 603 K/mm3 (150-450); RBC Distribution Width CV 15.5 % (11.6-14.6); RBC Distribution Width SD 49.1 fl (35.1-43.9); Red Blood Count 2.97 M/mm3 (4.2-5.4)
[2025-01-08] MEDS: oxyCODONE 5 MG Tablet PO ×4 (04:32→20:05)
[2025-01-08] MEDS: Acetaminophen 325 MG Tablet 650 MG PO ×2 (04:32→20:05)
[2025-01-08 04:45] LABS: Differential Indicated MANUAL DIFF; White Blood Count 82.2 K/mm3 (4.4-11.0)
[2025-01-08 04:55] LABS: Anion Gap 12 (5-15); BUN 24 mg/dL (4-19); BUN/Creat Ratio 30.3 RATIO (10-20); Calcium,Total 8.7 mg/dL (7.6-11.0); Carbon Dioxide 33.4 mmol/L (21.0-32.0); Chloride 89 mmol/L (98-108); Creatinine, Serum 0.79 mg/dL (0.70-1.20); EST Glomerular Filtration Rate 82 (>60); Estimated Creatinine Clearance 56.45 ml/min (50-250); Glucose 144 mg/dL (70-99); Magnesium 1.4 mg/dL (1.5-2.2); Phosphorus 3.4 mg/dL (2.7-4.5); Potassium 3.5 mmol/L (3.3-5.1); Sodium Level 135 mmol/L (133-145)
[2025-01-08 05:35] LABS: Lymphocyte 4 % (19-41); Metamyelocyte 6 % (0-1); Monocyte 5 % (0-10); Myelocyte 1 % (0-0); Neutrophil-Band 7 % (0-5); Neutrophil-Segmented 77 % (47-70); Nucleated Red Bld Cells,Manual 3 % (0-5); Total Cells Counted 100 (MANUAL DIFF)
[2025-01-08 05:37] LABS: Absolute Lymphocyte Count 3.29 X10^3/uL (0.83-4.51)
[2025-01-08 05:38] LABS: Anisocytosis 1+; Macrocytosis 1+; Platelet Estimate MKD INC (ADEQ); Polychromasia 1+
[2025-01-08] MEDS: Sucralfate 1 GM Tablet PO ×4 (06:19→23:05)
[2025-01-08] MEDS: Methylprednisolone Sod Succ 40 MG/ML VIAL IV ×2 (06:19→14:22)
[2025-01-08] MEDS: 0.9% Saline Lock 10 ML Syringe IV ×5 (06:19→23:05)
[2025-01-08] MEDS: Levothyroxine 125 MCG Tablet PO (06:19)
--- NOTE | 2025-01-08 07:32 | PCM.PN.HOSP ---
Reason for Visit Reason for Visit: Diagnoses Elevated white blood cell count, unspecified (01/05/25) Thrombocytosis, unspecified (01/05/25) Deficiency of other specified B group vitamins (01/05/25) Acute systolic (congestive) heart failure (01/05/25) Acute on chronic systolic (congestive) heart failure (01/05/25) Acute embolism and thrombosis of unspecified deep veins of left lower extremity (01/05/25) Acute bronchitis, unspecified (01/05/25) Chronic obstructive pulmonary disease with (acute) exacerbation (01/05/25) Chronic or unspecified peptic ulcer, site unspecified, with hemorrhage (01/05/25) Peptic ulcer, site unspecified, unspecified as acute or chronic, without hemorrhage or perforation (01/05/25) Other abnormalities of breathing (01/05/25) Hypoxemia (01/05/25) Adverse effect of unspecified drugs, medicaments and biological substances, initial encounter (01/05/25) Tobacco use (01/05/25) Presence of other vascular implants and grafts (01/05/25) Subjective Subjective Patient's WBC count, markedly elevated at 82.2.. Repeated chest x-ray urinalysis as well as cultures Objective Data Objective Data Vital Signs: Vital Signs Temp Pulse Resp BP Pulse Ox O2 Del Method O2 Flow Rate 97.9 F 67 16 142/67 H 98 Room Air 2 01/08/25 04:30 01/08/25 04:30 01/08/25 04:30 01/08/25 04:30 01/08/25 04:30 01/08/25 04:30 01/07/25 23:00 Oxygen Flow Rate (L/min) 2 Oxygen Delivery Method Room Air Weight: 62.7 kg Body Mass Index (BMI) 24.5 Intake & Output: Intake and Output for Last 24 Hours 01/06/25 01/07/25 01/08/25 23:59 23:59 23:59 Intake Total 820 / 940 940 / 1140 200 / 200 Output Total 1150 / 1750 1150 / 2050 900 / 900 Balance -330 / -810 -210 / -910 -700 / -700 Lab / Micro Data 01/08/25 03:48 01/08/25 03:48 Labs: Laboratory Results - last 24 hr 01/07/25 05:22: WBC 74.0 H*, RBC 2.16 L, Hgb 7.0 L, Hct 20.8 L, MCV 96.3, MCH 32.4 H, MCHC 33.7, RDW Std Deviation 51.7 H, RDW Coeff of Fidel 15.4 H, Plt Count 593 H, MPV 9.7 01/07/25 11:01: Blood Type O POSITIVE, Antibody Screen NEGATIVE, Crossmatch See Detail 01/08/25 03:48: WBC 82.2 H*, RBC 2.97 L, Hgb 9.5 L, Hct 27.5 L, MCV 92.6, MCH 32.0, MCHC 34.5, RDW Std Deviation 49.1 H, RDW Coeff of Fidel 15.5 H, Plt Count 603 H, MPV 9.5, Neut % (Auto) Not Reportable, Absolute Neuts (auto) 69.0 H, Absolute Lymphs (auto) 3.29, Total Counted 100, Neutrophils % (Manual) 77 H, Band Neutrophils % 7 H, Lymphocytes % (Manual) 4 L, Monocytes % (Manual) 5, Metamyelocytes % 6 H, Myelocytes % 1 H, Nucleated RBCs/100 WBC 3, Platelet Estimate [employer] INC, Polychromasia 1+, Anisocytosis 1+, Macrocytosis 1+, Sodium 135, Potassium 3.5, Chloride 89 L, Carbon Dioxide 33.4 H, Anion Gap 12, BUN 24 H, Creatinine 0.79, Estim Creat Clear Calc 56.45, Est GFR (MDRD) Non-Af 82, BUN/Creatinine Ratio 30.3 H, Glucose 144 H, Calcium 8.7, Phosphorus 3.4, Magnesium 1.4 L Micro: Microbiology 01/05/25 05:05 Mucosa - Nose Respiratory Panel (PCR) - Final 01/05/25 00:50 Mucosa - Nasopharyngeal SARS-CoV-2, Influenza & RSV (PCR) - Final Rhythm Strip Rhythm Strip: Sinus Rhythm Rate: 78 Ectopy: None Physical Exam Narrative GENERAL: cooperative HEENT: Atraumatic; normocephalic EYES; Anicteric, Normal Conjunctiva NECK; supple, normal thyroid, RESPIRATORY: Diminished to auscultation CARDIOVASCULAR: Regular S1 S2, GI: soft, normoactive bowel sounds, : No Renal angle tenderness; EXTREMITIES: No edema, no clubbing, MUSCULOSKELETAL: no muscle wasting NEURO: Awake; no lateralizing signs. SKIN: No Rash PSYCH; Flat affect Const alert, oriented x3, no apparent distress and average body habitus; Negative for healthy appearing Constitutional Narrative: Upper middle-aged, white female, sitting up in bed, appears comfortable, does not look toxic currently, on oxygen with no signs of extremis, son at bedside General Appearance: cooperative HEENT normocephalic, head/scalp atraumatic, hearing grossly normal bilaterally and moist oral mucous membranes Eyes PERRL and EOMs intact bilaterally Neck no lymphadenopathy, supple and no JVD Resp normal respiratory effort, no retractions, no use of accessory muscles and clear to auscultation bilaterally Resp Narrative: Diffusely diminished but clear Auscultation: Negative for crackles, rhonchi or wheezes Cardio regular rate, regular rhythm, S1 normal heart sound, S2 normal heart sound, no murmurs, no rub, no gallops and no clicks GI normal to inspection, nondistended, normoactive bowel sounds, soft to palpation, non-tender and non-distended Extremity normal to inspection, full ROM and no clubbing, cyanosis or edema Extremity Narrative: Trace bilateral lower extremity edema, no cyanosis or clubbing, pedal and radial pulses are 2+ Skin Skin Narrative: Patient has no evidence of rash, abscess, wounds or jaundice Neuro oriented x3, CN's II-XII intact bilaterally, moves all extremities and no focal motor deficits Sensorium / Orientation: awake, alert, oriented to person, oriented to place and oriented to time Speech: speech normal Psych affect normal Psych Narrative: Very pleasant, interacts appropriately Assessment & Plan Assessment/Plan (1) Folic acid deficiency: (2) Thrombocytosis: (3) Leukocytosis: QUALIFIERS: Leukocytosis type: unspecified Qualified Code(s): D72.829 - Elevated white blood cell count, unspecified (4) Hypoxia: (5) Acute on chronic HFrEF (heart failure with reduced ejection fraction): PLAN: Plan Patient is a 69-year-old lady with multiple comorbidities admitted with progressive shortness of breath diagnosed with acute hypoxia secondary to combination of COPD/CHF exacerbation admitted to a monitored bed for subsequent management 1. Acute hypoxia ? Secondary to combination of CHF and COPD exacerbation admitted to monitored bed for treatment of the underlying clinical etiology 2. Acute on chronic congestive heart failure with reduced ejection fraction ? Patient managed with strict input and output, low-sodium diet, fluid restriction, daily weights as well as diuretic therapy with bumetanide and. Echo from 01/05/2025 demonstrated EF of 40% with stage I diastolic dysfunction and mid to distal inferior apical akinesis which is similar to previous echocardiogram. There is a noted layer of material on the distal inferior wall and is noted to say cannot exclude thrombus and MRI recommended for further evaluation 3. Possible ventricular thrombus ? Based on CAT scan findings recommendations for patient to undergo MRI as outpatient. Cardiology was consulted Case discussed with Dr. Chawla?his recommendation is patient is not a candidate for systemic anticoagulation given recent GI bleed 4. COPD with acute exacerbation ? Patient started on bronchodilator treatment, systemic steroid as well as antibiotic therapy. Patient placed on oxygen titrated to keep saturation greater than 90. 5. Hypothyroidism ? Patient was found to have markedly elevated TSH questioning her compliance. Patient is on levothyroxine 125 mcg daily consistent use encouraged 6. Anemia ? Secondary to chronic disorder as well as acute blood loss anemia for recent GI bleed. Monitoring H&H and transfuse if patient becomes symptomatic or hemoglobin falls below 7 with patient hemoglobin being 7 as of 01/07/2025 and order was given for patient to be transfused with 1 unit PRBC 7. Recent GI bleed ? Patient underwent EGD on 12/26/2024 which demonstrated no lesions in the esophagus, small hiatal hernia, nonbleeding gastric ulcer with no stigmata of bleeding that was biopsied and oozing gastric ulcer with a visible vessel that was treated with heater probe. GI recommended for patient to be treated with Carafate as well as Protonix.- Patient was previously on aspirin, Plavix, and Eliquis--> patient does have a high has bled score and per GI Plavix only was recommended 8. Leukocytosis -Patient has had elevated white count since she was hospitalized. Was evaluated by ID; Suspected be leukemoid reaction in conjunction with her Neupogen ? 01/08/2025; patient WBC count continues to rise up to 82.2 as of 01/08/2025. Repeated chest x-ray urinalysis as well as cultures 9. Thrombocytosis ? Reactive will continue with daily monitoring with CBC with differential 10. History of DVT -Had previously been on Eliquis but due to GI bleed and bleeding risk this was discontinued - IVC filter placed by vascular surgery on 12/25/2024 11. 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 Has received carboplatin, Taxol, and Keytruda for maintenance until October 2024 -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 for and progressive disease noted 12/04/2024 and was started on gemcitabine. Plan is for Chemo is to be held until she is discharged from the hospital. Patient to resume care with oncology following her discharge 12. . Folate deficiency - Folate level was low placed on oral folic acid 13. GERD - On Protonix 14. CAD ? With previous PCI with stent placement patient is on Plavix aspirin discontinued given her GI bleed 15. Tobacco dependence ? Counseled on cessation, offered nicotine patch for tobacco cravings 16 DVT prophylaxis ? Bilateral SCDs only CODE STATUS; full code Charges/Coding Visit Charges Inpatient E&M: 88399 Subs Hosp L2
[2025-01-08] MEDS: Potassium Chloride Oral Tablet 20 MEQ PO (08:14)
[2025-01-08] MEDS: Folic Acid 1 MG Tablet 2 MG PO (08:14)
[2025-01-08] MEDS: Carvedilol 3.125 MG TABLET PO ×2 (08:14→17:46)
--- NOTE | 2025-01-08 08:50 | RAD_ITS ---
PROCEDURE: CHEST PA AND LATERAL 01/08/2025 REASON FOR EXAM: LEUKOCYTOSIS, liver, lung, and brain cancer TECHNIQUE: Frontal and lateral views of the chest. COMPARISON: January 05, 2025 chest x-ray, December 24, 2024 CT FINDINGS: There is a central access port on the right with its tip in the superior vena cava, unchanged. Heart size is upper normal. Central vascularity appears normal. There is a 1.5 cm nodular density in the right lower lung, similar to the recent CT. There is interval development of a small right pleural effusion, with interstitial infiltrate in the right base. There is no pneumothorax. There is no visible acute bony abnormality. Aortic calcifications are noted. RAD/Chest PA and Lateral IMPRESSION: There is a 1.5 cm nodular density in the right lower lung, similar to the recen t CT. There is interval development of a small right pleural effusion, with interstit ial infiltrate in the right base. Reading Location: [facility]
[2025-01-08] MEDS: Pantoprazole Sodium 40 MG Tablet PO ×2 (11:19→23:05)
[2025-01-08] MEDS: Bumetanide 1 MG/4 ML Vial 2 MG IV ×2 (11:19→17:46)
[2025-01-08] MEDS: Clopidogrel Bisulfate 75 MG Tablet PO (11:19)
[2025-01-08] MEDS: Magnesium Chloride 64 MG Delay Rel.Tablet 128 MG PO (11:19)
[2025-01-08] MEDS: Lidocaine 5% Patch 2 PATCH TOPICAL (11:20)
--- NOTE | 2025-01-08 14:37 | ONC.CONSULT ---
Assessment & Plan Assessment/Plan (1) Leukocytosis: Status: Acute Code(s): D72.829 - Elevated white blood cell count, unspecified Qualifiers: Leukocytosis type: unspecified Qualified Code(s): D72.829 - Elevated white blood cell count, unspecified Plan: As evidenced by WBC 82.2 today, ANC 69. G CSF was last given 12/19/24 and may still be a contributing factor. R/o infectious process. CTA C/A/P obtained on 12/24/24, reported thickening of right hemicolon, possible colitis. Patient was advised to notify staff if she experiences diarrhea. Blood cultures/UA pending. CXR earlier this morning requested by primary team has demonstrated interstitial infiltrate RLL. (2) Thrombocytosis: Status: Acute Code(s): D75.839 - Thrombocytosis, unspecified Plan: Request iron studies to be completed non urgently with next lab draw. 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 Case discussed with Dr. Bradley, who was in agreement with the aforementioned plan. Follow up with [facility] upon discharge. HPI Consult Data Date of Service:: 01/08/25 PCP / Referring Provider: No Primary Care Phys Attending: Dr. Mahin Cano MD Chief Complaint Chief Complaint: leukocytosis History of Present Illness History of Present Illness: Ms. 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 Initially treated with carboplatin, paclitaxel, and pembrolizumab x 6 cycles, followed by pembrolizumab maintenance until evidence of progression November 2024. She began second line therapy with single agent gemcitabine December 04, 2024. She developed a LLE DVT on 12/11/24 and began Eliquis. Hospitalized 12/24/24-01/02/25 for GI bleed, Hgb 4.1 g/dL upon presentation. IVC filter placed 12/25/24. Leukocytosis (highest WBC 54K) was noted, however blood cultures were obtained and negative. Urine showed yeast, mix gram positive organisms. She completed 5 day course of atb for ecoli UTI (unclear antimicrobial or completion date). Evaluated by ID on 01/01/25, a that time there were no clear signs of new infection, leukocytosis was deduced to be related to last G CSF inj given on 12/19/24. Ms. Smith presented to [facility] ED again on 01/05/25 with c/o SOB and cough. CXR showed no evidence of pneumonia. COVID/influenza/RSV negative. Labs were significant for WBC 71.1, elevated BNP. She was subsequently admitted for COPD exacerbation and acute CHF. Repeat blood cultures were obtained earlier this morning. CXR showed small right pleural effusion with interstitial infiltrate in the base of right lung. A hematology/oncology consult was requested to address elevated WBC. Interval History Interval History: Upon entering the room, patient is lying on her right side in bed, eating and conversing with her son at the bedside. Reports improvement of SOB. C/o urinary incontinence and central low back pain. Specifically denies fever/chills, headache, enlarged lymph nodes, irritation of her port cite, dysuria and diarrhea. States she just produced a formed, brown BM approx 1 hour ago. Advanced Directives Do you have a Healthcare Power of Security Services Manager?: No [facility] Medical History Brain cancer Left leg DVT Constipation At high risk for deep venous thrombosis Left leg swelling Hypothyroidism (acquired) Encounter for antineoplastic immunotherapy Lung cancer metastatic to brain Hypothyroidism Brain lesion Nausea & vomiting Encounter for immunotherapy Gastrointestinal bleed Hypomagnesemia Anemia CINV (chemotherapy-induced nausea and vomiting) Dehydration Hypokalemia Oral candidiasis Angular cheilitis Encounter for chemotherapy management Wears glasses Wears dentures Post-menopausal Cancer High cholesterol Asthma History of echocardiogram H/O pulmonary function tests Cardiology follow-up encounter History of heart attack Encounter for education Metastasis to liver Regional lymph node metastasis present Myocardial infarct Chest pain Nicotine dependence, cigarettes, uncomplicated Coronary artery disease COPD (chronic obstructive pulmonary disease) Nicotine dependence Hypertension Left ventricular aneurysm Left ventricular systolic dysfunction (LVSD) Smoker STEMI (ST elevation myocardial infarction) Bronchitis Home Medications ?Medication ?Instructions ?Recorded ?Last Taken ?Type Disability Placard #1 ea 09/30/23 Unknown Rx lidocaine-prilocaine 2.5 %-2.5 % 1 applic topical ONCE PRN port 10/24/23 Unknown Rx topical cream access 30 days #30 grams budesonide 1 mg/2 mL suspension 1 mg (2 mL) inhalation BID SOB 07/10/24 Unknown Rx for nebulization #120 mL ipratropium 0.5 mg-albuterol 3 mg 3 ml inhalation Q4-6H SOB #180 mL 07/10/24 Unknown Rx (2.5 mg base)/3 mL nebulization soln atorvastatin 10 mg tablet 10 mg PO QHS CHOLESTEROL #90 tabs 07/24/24 Unknown Rx carvedilol 3.125 mg tablet 3.125 mg PO BID HIGH BLOOD 07/24/24 Unknown Rx PRESSURE 30 days #180 tabs albuterol sulfate 90 mcg/actuation 2 puff inhalation Q6H PRN 09/11/24 Unknown Rx aerosol inhaler shortness of breath or wheezing #8.5 grams oxycodone-acetaminophen 5 mg-325 1 tab PO Q8H PRN cancer 7 days #20 11/08/24 Unknown Rx mg tablet (Percocet) tabs ondansetron 8 mg disintegrating 8 mg PO Q8H PRN nausea and 11/20/24 Unknown Rx tablet vomiting #30 tabs levothyroxine 50 mcg tablet 50 mcg PO QDAY thyroid #30 tabs 11/29/24 Unknown Rx potassium chloride 20 mEq 20 meq PO QDAY electro,. #7 tabs 12/04/24 Unknown Rx tablet,extended release clopidogrel 75 mg tablet 75 mg PO DAILY blood clot 12/24/24 Unknown History magnesium oxide 400 mg (241.3 mg 400 mg PO DAILY orered 12/24/24 Unknown History magnesium) tablet pantoprazole 40 mg tablet,delayed 40 mg PO BID acid reflux 12/24/24 Unknown History release sucralfate 1 gram tablet 1 g PO 1HR_ACHS #120 tabs 01/02/25 Unknown Rx Allergy/AdvReac Type Severity Reaction Status Date / Time No Known Allergies Allergy Verified 01/04/25 23:54 Surgical History Hx of tooth extraction History of liver biopsy History of lung biopsy Hx of cardiac catheterization (~07/06/23) H/O coronary angioplasty (~07/06/23) H/O tubal ligation Social History household members: none Smoking Status: Current every day smoker tobacco type: cigarettes Tobacco: How many years used: 55 quit status: considering quitting alcohol intake: never substance use type: does not use and marijuana caffeine: Yes Type: carbonated beverages Number of servings: 2 ROS ROS Narrative Negative except as documented in the interval HPI Physical Exam Narrative ECOG 1-2 Const alert, oriented x3 and no apparent distress General Appearance: cooperative HEENT normocephalic and moist oral mucous membranes Mouth: No thrush Teeth and Gingiva: edentulous Eyes General Eye: normal appearance of both eyes Lymph Lymphatic: no lymphadenopathy noted Chest Chest Narrative: No erythema or increased warmth around port Chest: vascular access Resp normal respiratory effort and clear to auscultation bilaterally Auscultation: diminished lung sounds Cardio regular rate, regular rhythm, S1 normal heart sound and S2 normal heart sound GI normal to inspection, nondistended, normoactive bowel sounds, soft to palpation and non-tender Extremity General Extremity: edema bilateral lower extremity Skin no rashes or lesions noted Neuro oriented x3, moves all extremities and no focal motor deficits Speech: speech normal Psych affect normal Thought Process: normal thought process Vital Signs Temperature 97.8 F 01/08/25 13:21 Temperature Source Oral 01/08/25 13:21 Pulse Rate 65 01/08/25 13:21 Pulse Strength Normal (2+) 01/07/25 10:00 Respiratory Rate 16 01/08/25 13:21 Respiratory Effort Normal, Non-Labored 01/08/25 10:00 Respiratory Depth Normal 01/08/25 08:34 Respiratory Pattern Normal 01/08/25 08:34 Blood Pressure 144/71 H 01/08/25 13:21 Blood Pressure Mean 95 01/08/25 13:21 Blood Pressure Source Monitor 01/08/25 13:21 Blood Pressure Position Supine 01/08/25 13:21 Blood Pressure Location Left Arm 01/08/25 13:21 Pulse Ox 97 01/08/25 13:21 Oxygen Delivery Method Nasal Cannula 01/08/25 13:21 Oxygen Flow Rate (L/min) 2 01/08/25 13:21 Laboratory Results - last 24 hr 01/07/25 11:01: Crossmatch See Detail 01/08/25 03:48: WBC 82.2 H*, RBC 2.97 L, Hgb 9.5 L, Hct 27.5 L, MCV 92.6, MCH 32.0, MCHC 34.5, RDW Std Deviation 49.1 H, RDW Coeff of Fidel 15.5 H, Plt Count 603 H, MPV 9.5, Neut % (Auto) Not Reportable, Absolute Neuts (auto) 69.0 H, Absolute Lymphs (auto) 3.29, Total Counted 100, Neutrophils % (Manual) 77 H, Band Neutrophils % 7 H, Lymphocytes % (Manual) 4 L, Monocytes % (Manual) 5, Metamyelocytes % 6 H, Myelocytes % 1 H, Nucleated RBCs/100 WBC 3, Platelet Estimate MKD INC, Polychromasia 1+, Anisocytosis 1+, Macrocytosis 1+, Sodium 135, Potassium 3.5, Chloride 89 L, Carbon Dioxide 33.4 H, Anion Gap 12, BUN 24 H, Creatinine 0.79, Estim Creat Clear Calc 56.45, Est GFR (MDRD) Non-Af 82, BUN/Creatinine Ratio 30.3 H, Glucose 144 H, Calcium 8.7, Phosphorus 3.4, Magnesium 1.4 L Diagnostic Data Echocardiogram 01/05/25 02:59 Interpretation Summary Mid to distal inferior and apical akinesis. Posterior basal hypokinesis. Estimated LVEF 40%. Stage I diastolic dysfunction. Cannot exclude layered thrombus adjacent to the distal inferior wall. Recommend cardiac MRI for further evaluation. Ordering Physician: Mahin Romero Performed By: Toribio Jacinto, [facility] Chest X-Ray 01/08/25 08:50 IMPRESSION: There is a 1.5 cm nodular density in the right lower lung, similar to the recent CT. There is interval development of a small right pleural effusion, with interstitial infiltrate in the right base. Reading Location: [facility]
[2025-01-08 19:33] LABS: Bacteria 0 SEEN /hpf (None Seen); Color, Urine Yellow (Yellow); Glucose, Dipstick Normal (Normal); Ketone-Dipstick Negative (Negative); Leukocyte Esterase-Dipstick 25 /ul (Negative); Mucous, Urine 0 SEEN /hpf (<or=2+); Nitrite-Dipstick Negative (Negative); Occult Blood-Urine 10 /ul (Negative); Protein-Dipstick 30 mg/dl (Negative); Specific Gravity, Urine 1.015 (1.002-1.030); Urine Bilirubin Dipstick Negative (Negative); Urine Clarity Clear (Clear); Urine Urobilinogen Normal (Normal); Urine pH 6.5 (5.0 - 8.0)
[2025-01-08 19:53] LABS: Red Blood Cells-Urine 0-5 SEEN /hpf (0-5); Squamous Epithelial Cells - UA 0-5 SEEN /hpf (5-10); White Blood Cells 0-5 SEEN /hpf (0-5)
[2025-01-08] MEDS: Menthol/Lanolin/Calamine/Znox 113 GM Tube 1 APPLIC TOPICAL (23:04)
[2025-01-08] MEDS: Atorvastatin Calcium 10 MG Tablet PO (23:05)
[2025-01-09] VITALS (9 sets, daily range): BP systolic 108–163; BP diastolic 67–85; PULSE 60–87; RESP 14–18; TEMP 36.1–37; O2SAT 96–100; BMI 22.7
[2025-01-09] MEDS: oxyCODONE 5 MG Tablet PO ×6 (01:15→22:44)
[2025-01-09] MEDS: Acetaminophen 325 MG Tablet 650 MG PO ×3 (02:14→15:09)
[2025-01-09] MEDS: 0.9% Saline Lock 10 ML Syringe IV ×5 (03:07→20:21)
[2025-01-09] MEDS: Morphine 2 MG/ML Syringe IV ×5 (03:08→20:15)
[2025-01-09] MEDS: Menthol/Lanolin/Calamine/Znox 113 GM Tube 1 APPLIC TOPICAL ×3 (05:30→20:16)
[2025-01-09] MEDS: Sucralfate 1 GM Tablet PO ×4 (05:30→20:17)
[2025-01-09] MEDS: Levothyroxine 125 MCG Tablet PO (05:30)
[2025-01-09 06:30] LABS: Hematocrit 31.2 % (37-47); Hemoglobin 10.8 g/dL (12.0-15.0); Mean Corp Hgb Conc 34.6 g/dL (32-36); Mean Corpuscular Hgb 32.3 pg (27.0-32.0); Mean Corpuscular Volume 93.4 fL (81-99); Mean Platelet Vol. 9.2 fl (6.2-12.0); POSITIVE COUNT YES; POSITIVE DIFFERENTIAL YES; POSITIVE MORPHOLOGY YES; Platelet Count 614 K/mm3 (150-450); RBC Distribution Width CV 15.5 % (11.6-14.6); RBC Distribution Width SD 47.8 fl (35.1-43.9); Red Blood Count 3.34 M/mm3 (4.2-5.4)
[2025-01-09 06:43] LABS: Differential Indicated MANUAL DIFF
[2025-01-09 07:15] LABS: Anion Gap 10 (5-15); BUN 25 mg/dL (4-19); BUN/Creat Ratio 28.5 RATIO (10-20); Calcium,Total 9.2 mg/dL (7.6-11.0); Carbon Dioxide 36.7 mmol/L (21.0-32.0); Chloride 84 mmol/L (98-108); Creatinine, Serum 0.89 mg/dL (0.70-1.20); EST Glomerular Filtration Rate 71 (>60); Estimated Creatinine Clearance 50.74 ml/min (50-250); Glucose 134 mg/dL (70-99); Iron 87 ug/dL (50-170); Iron Binding Capacity,Unsat 135 ug/dL (228-428); Potassium 4.1 mmol/L (3.3-5.1); Sodium Level 131 mmol/L (133-145)
--- NOTE | 2025-01-09 07:32 | PCM.PN.HOSP ---
Reason for Visit Reason for Visit: Diagnoses Malignant neoplasm of upper lobe, left bronchus or lung (01/05/25) Elevated white blood cell count, unspecified (01/05/25) Thrombocytosis, unspecified (01/05/25) Deficiency of other specified B group vitamins (01/05/25) Acute systolic (congestive) heart failure (01/05/25) Acute on chronic systolic (congestive) heart failure (01/05/25) Acute embolism and thrombosis of unspecified deep veins of left lower extremity (01/05/25) Acute bronchitis, unspecified (01/05/25) Chronic obstructive pulmonary disease with (acute) exacerbation (01/05/25) Chronic or unspecified peptic ulcer, site unspecified, with hemorrhage (01/05/25) Peptic ulcer, site unspecified, unspecified as acute or chronic, without hemorrhage or perforation (01/05/25) Other abnormalities of breathing (01/05/25) Hypoxemia (01/05/25) Adverse effect of unspecified drugs, medicaments and biological substances, initial encounter (01/05/25) Tobacco use (01/05/25) Presence of other vascular implants and grafts (01/05/25) Subjective Subjective Patient seen complaining of discomfort in her back which she attributes to the bed. WBC count down to 73K. Plan is to monitor patient for 1 more day for a sustained decrease in her WBC count prior to making a decision regarding her discharge Objective Data Objective Data Vital Signs: Vital Signs Temp Pulse Resp BP Pulse Ox O2 Del Method O2 Flow Rate 97.7 F L 60 14 156/75 H 98 Nasal Cannula 2 01/09/25 05:25 01/09/25 05:25 01/09/25 05:25 01/09/25 05:25 01/09/25 05:25 01/09/25 05:25 01/09/25 05:25 Oxygen Flow Rate (L/min) 2 Oxygen Delivery Method Nasal Cannula Weight: 58.241 kg Body Mass Index (BMI) 22.7 Intake & Output: Intake and Output for Last 24 Hours 01/07/25 01/08/25 01/09/25 23:59 23:59 23:59 Intake Total 940 / 1140 1000 / 1000 220 / 220 Output Total 1150 / 2050 2150 / 2150 200 / 200 Balance -210 / -910 -1150 / -1150 20 / 20 Lab / Micro Data 01/09/25 06:11 01/09/25 06:11 Labs: Laboratory Results - last 24 hr 01/08/25 16:30: Urine Color Yellow, Urine Clarity Clear, Urine pH 6.5, Ur Specific [place] 1.015, Urine Protein 30 H, Urine Glucose (UA) Normal, Urine Ketones Negative, Urine Occult Blood 10 H, Urine Nitrite Negative, Urine Bilirubin Negative, Urine Urobilinogen Normal, Ur Leukocyte Esterase 25 H, Urine RBC 0-5 SEEN, Urine WBC 0-5 SEEN, Ur Squamous Epith Cells 0-5 SEEN, Urine Bacteria 0 SEEN, Urine Mucus 0 SEEN 01/09/25 06:11: WBC 73.0 H*, RBC 3.34 L, Hgb 10.8 L, Hct 31.2 L, MCV 93.4, MCH 32.3 H, MCHC 34.6, RDW Std Deviation 47.8 H, RDW Coeff of Fidel 15.5 H, Plt Count 614 H, MPV 9.2, Neut % (Auto) Not Reportable, Sodium 131 L, Potassium 4.1, Chloride 84 L, Carbon Dioxide 36.7 H, Anion Gap 10, BUN 25 H, Creatinine 0.89, Estim Creat Clear Calc 50.74, Est GFR (MDRD) Non-Af 71, BUN/Creatinine Ratio 28.5 H, Glucose 134 H, Calcium 9.2, Iron 87, Iron Saturation 39.0, Unsaturated IBC 135 L Micro: Microbiology 01/05/25 05:05 Mucosa - Nose Respiratory Panel (PCR) - Final 01/05/25 00:50 Mucosa - Nasopharyngeal SARS-CoV-2, Influenza & RSV (PCR) - Final Radiography Diagnostic Testing: Radiology Impression Chest X-Ray 01/08/25 08:50 IMPRESSION: There is a 1.5 cm nodular density in the right lower lung, similar to the recent CT. There is interval development of a small right pleural effusion, with interstitial infiltrate in the right base. Reading [facility] Rhythm Strip Rhythm Strip: Sinus Rhythm Rate: 78 Ectopy: None Physical Exam Narrative GENERAL: cooperative HEENT: Atraumatic; normocephalic EYES; Anicteric, Normal Conjunctiva NECK; supple, normal thyroid, RESPIRATORY: Diminished to auscultation CARDIOVASCULAR: Regular S1 S2, GI: soft, normoactive bowel sounds, : No Renal angle tenderness; EXTREMITIES: No edema, no clubbing, MUSCULOSKELETAL: no muscle wasting NEURO: Awake; no lateralizing signs. SKIN: No Rash PSYCH; Flat affect Assessment & Plan Assessment/Plan (1) Folic acid deficiency: (2) Thrombocytosis: (3) Leukocytosis: QUALIFIERS: Leukocytosis type: unspecified Qualified Code(s): D72.829 - Elevated white blood cell count, unspecified (4) Hypoxia: (5) Acute on chronic HFrEF (heart failure with reduced ejection fraction): PLAN: Plan Patient is a 69-year-old lady with multiple comorbidities admitted with progressive shortness of breath diagnosed with acute hypoxia secondary to combination of COPD/CHF exacerbation admitted to a monitored bed for subsequent management 1. Acute hypoxia ? Secondary to combination of CHF and COPD exacerbation admitted to monitored bed for treatment of the underlying clinical etiology 2. Acute on chronic congestive heart failure with reduced ejection fraction ? Patient managed with strict input and output, low-sodium diet, fluid restriction, daily weights as well as diuretic therapy with bumetanide and. Echo from 01/05/2025 demonstrated EF of 40% with stage I diastolic dysfunction and mid to distal inferior apical akinesis which is similar to previous echocardiogram. There is a noted layer of material on the distal inferior wall and is noted to say cannot exclude thrombus and MRI recommended for further evaluation 3. Possible ventricular thrombus ? Based on CAT scan findings recommendations for patient to undergo MRI as outpatient. Cardiology was consulted Case discussed with Dr. Chawla?his recommendation is patient is not a candidate for systemic anticoagulation given recent GI bleed 4. COPD with acute exacerbation ? Patient started on bronchodilator treatment, systemic steroid as well as antibiotic therapy. Patient placed on oxygen titrated to keep saturation greater than 90. 5. Hypothyroidism ? Patient was found to have markedly elevated TSH questioning her compliance. Patient is on levothyroxine 125 mcg daily consistent use encouraged 6. Anemia ? Secondary to chronic disorder as well as acute blood loss anemia for recent GI bleed. Monitoring H&H and transfuse if patient becomes symptomatic or hemoglobin falls below 7 with patient hemoglobin being 7 as of 01/07/2025 and order was given for patient to be transfused with 1 unit PRBC 7. Recent GI bleed ? Patient underwent EGD on 12/26/2024 which demonstrated no lesions in the esophagus, small hiatal hernia, nonbleeding gastric ulcer with no stigmata of bleeding that was biopsied and oozing gastric ulcer with a visible vessel that was treated with heater probe. GI recommended for patient to be treated with Carafate as well as Protonix.- Patient was previously on aspirin, Plavix, and Eliquis--> patient does have a high has bled score and per GI Plavix only was recommended 8. Leukocytosis -Patient has had elevated white count since she was hospitalized. Was evaluated by ID; Suspected be leukemoid reaction in conjunction with her Neupogen ? 01/08/2025; patient WBC count continues to rise up to 82.2 as of 01/08/2025. Repeated chest x-ray urinalysis as well as cultures ? 01/09/2025.WBC count down to 73K. Plan is to monitor patient for 1 more day for a sustained decrease in her WBC count prior to making a decision regarding her discharge. Patient urinalysis did demonstrate positive leukocyte Estrace as well as Interstitial infiltrate in the right lung base. Subsequently started on ceftriaxone and azithromycin 9. Pneumonia - Suspected to be secondary to streptococcal pneumonia, Blood and sputum cultures sent. Patient placed on Rocephin and Zithromax and placed on oxygen titrated to keep Pulse Ox greater than 90 10. Acute cystitis ? Patient started on ceftriaxone urine culture sent 11. Thrombocytosis ? Reactive will continue with daily monitoring with CBC with differential 12. History of DVT -Had previously been on Eliquis but due to GI bleed and bleeding risk this was discontinued - IVC filter placed by vascular surgery on 12/25/2024 13. 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 Has received carboplatin, Taxol, and Keytruda for maintenance until October 2024 -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 for and progressive disease noted 12/04/2024 and was started on gemcitabine. Plan is for Chemo is to be held until she is discharged from the hospital. Patient to resume care with oncology following her discharge 14. . Folate deficiency - Folate level was low placed on oral folic acid 15. GERD - On Protonix 16. CAD ? With previous PCI with stent placement patient is on Plavix aspirin discontinued given her GI bleed 17. Tobacco dependence ? Counseled on cessation, offered nicotine patch for tobacco cravings 18. DVT prophylaxis ? Bilateral SCDs only CODE STATUS; full code Charges/Coding Visit Charges Inpatient E&M: 17616 Subs Hosp L2
[2025-01-09 07:35] LABS: Ferritin 2365 ng/mL (22-378)
[2025-01-09 07:40] LABS: Lymphocyte 5 % (19-41); Metamyelocyte 4 % (0-1); Monocyte 4 % (0-10); Myelocyte 3 % (0-0); Neutrophil-Band 3 % (0-5); Neutrophil-Segmented 81 % (47-70); Nucleated Red Bld Cells,Manual 3 % (0-5); Total Cells Counted 100 (MANUAL DIFF)
[2025-01-09 07:41] LABS: Absolute Neutrophil Count 59.1 X10^3/uL (2.0-7.7); Neutrophil # 59.13 X10^3/uL (2.7-7.7)
[2025-01-09 07:43] LABS: Absolute Lymphocyte Count 4.38 X10^3/uL (0.83-4.51); Lymphocyte # 4.38 X10^3/ul (0.83-4.51); Polychromasia RARE
[2025-01-09 07:46] LABS: Platelet Estimate MOD INC (ADEQ)
[2025-01-09 07:47] LABS: Pathologist Review May foll
[2025-01-09 07:53] LABS: Iron Binding Capacity,Total 222 ug/dL (250-450); PERCENT IRON SATURATION 39.2 % (13-59)
[2025-01-09] MEDS: Carvedilol 3.125 MG TABLET PO ×2 (08:21→18:10)
[2025-01-09] MEDS: Folic Acid 1 MG Tablet 2 MG PO (08:22)
[2025-01-09] MEDS: Potassium Chloride Oral Tablet 20 MEQ PO (08:22)
--- NOTE | 2025-01-09 08:29 | PN.CARD_ITS ---
Subjective Subjective Patient seen and evaluated. Appears to be stable at this time. Objective Data Vital Signs: Vital Signs Temp Pulse Resp BP Pulse Ox O2 Del Method O2 Flow Rate 98.6 F 66 14 163/85 H 98 Nasal Cannula 3 01/09/25 07:45 01/09/25 07:45 01/09/25 07:45 01/09/25 07:45 01/09/25 07:45 01/09/25 07:45 01/09/25 07:45 Oxygen Flow Rate (L/min) 3 Oxygen Delivery Method Nasal Cannula Weight: 128 lb 6.4 oz Body Mass Index (BMI) 22.7 Intake & Output: Intake and Output for Last 24 Hours 01/07/25 01/08/25 01/09/25 23:59 23:59 23:59 Intake Total 940 / 1140 1000 / 1000 220 / 220 Output Total 1150 / 2050 2150 / 2150 200 / 200 Balance -210 / -910 -1150 / -1150 20 Lab / Micro Data 01/09/25 06:11 01/09/25 06:11 Labs: Laboratory Results - last 24 hr 01/08/25 16:30: Urine Color Yellow, Urine Clarity Clear, Urine pH 6.5, Ur Specific [place] 1.015, Urine Protein 30 H, Urine Glucose (UA) Normal, Urine Ketones Negative, Urine Occult Blood 10 H, Urine Nitrite Negative, Urine Bilirubin Negative, Urine Urobilinogen Normal, Ur Leukocyte Esterase 25 H, Urine RBC 0-5 SEEN, Urine WBC 0-5 SEEN, Ur Squamous Epith Cells 0-5 SEEN, Urine Bacteria 0 SEEN, Urine Mucus 0 SEEN 01/09/25 06:11: WBC 73.0 H*, RBC 3.34 L, Hgb 10.8 L, Hct 31.2 L, MCV 93.4, MCH 32.3 H, MCHC 34.6, RDW Std Deviation 47.8 H, RDW Coeff of Fidel 15.5 H, Plt Count 614 H, MPV 9.2, Neut % (Auto) Not Reportable, Absolute Neuts (auto) 59.1 H, Absolute Lymphs (auto) 4.38, Total Counted 100, Neutrophils % (Manual) 81 H, Band Neutrophils % 3, Lymphocytes % (Manual) 5 L, Monocytes % (Manual) 4, M etamyelocytes % 4 H, Myelocytes % 3 H, Nucleated RBCs/100 WBC 3, Diff Path Review May foll, Platelet Estimate MOD INC, Polychromasia RARE, Sodium 131 L, Potassium 4.1, Chloride 84 L, Carbon Dioxide 36.7 H, Anion Gap 10, BUN 25 H, Creatinine 0.89, Estim Creat Clear Calc 50.74, Est GFR (MDRD) Non-Af 71, B UN/Creatinine Ratio 28.5 H, Glucose 134 H, Calcium 9.2, Iron 87, TIBC 222 L, Iron Saturation 39.2, Unsaturated IBC 135 L, Ferritin 2365 H Rhythm Strip Rhythm Strip: Sinus Rhythm Rate: 78 Ectopy: None Cardiology Labs/Tests 01/08/25 16:30: Urine Color Yellow, Urine Clarity Clear, Urine pH 6.5, Ur Specific [place] 1.015, Urine Protein 30 H, Urine Glucose (UA) Normal, Urine Ketones Negative, Urine Occult Blood 10 H, Urine Nitrite Negative, Urine Bilirubin Negative, Urine Urobilinogen Normal, Ur Leukocyte Esterase 25 H, Urine RBC 0-5 SEEN, Urine WBC 0-5 SEEN 01/09/25 06:11: WBC 73.0 H*, RBC 3.34 L, Hgb 10.8 L, Hct 31.2 L, MCV 93.4, MCH 32.3 H, MCHC 34.6, Plt Count 614 H, MPV 9.2, Neut % (Auto) Not Reportable, A bsolute Neuts (auto) 59.1 H, Total Counted 100, Neutrophils % (Manual) 81 H, Band Neutrophils % 3, Lymphocytes % (Manual) 5 L, Monocytes % (Manual) 4, M etamyelocytes % 4 H, Myelocytes % 3 H, Sodium 131 L, Potassium 4.1, Chloride 84 L, Carbon Dioxide 36.7 H, Anion Gap 10, BUN 25 H, Creatinine 0.89, Est GFR (MDRD) Non-Af 71, BUN/Creatinine Ratio 28.5 H, Glucose 134 H, Calcium 9.2, Iron 87, TIBC 222 L, Iron Saturation 39.2, Ferritin 2365 H Rhythm: EKG: ECHO: Stress Test: Cardiac Cath: PCI: CT Surgery: Holter monitor: EPS: PPM: CXR: Chest CT Scan: Radiography Diagnostic Testing: Radiology Impression Chest X-Ray 01/08/25 08:50 IMPRESSION: There is a 1.5 cm nodular density in the right lower lung, similar to the recent CT. There is interval development of a small right pleural effusion, with interstitial infiltrate in the right base. Reading [facility]
[2025-01-09] MEDS: Bumetanide 1 MG/4 ML Vial 2 MG IV ×2 (09:59→18:11)
[2025-01-09] MEDS: Lidocaine 5% Patch 2 PATCH TOPICAL (10:00)
[2025-01-09] MEDS: Magnesium Chloride 64 MG Delay Rel.Tablet 128 MG PO (10:00)
[2025-01-09] MEDS: Pantoprazole Sodium 40 MG Tablet PO ×2 (10:00→20:17)
[2025-01-09] MEDS: Clopidogrel Bisulfate 75 MG Tablet PO (10:00)
[2025-01-09] MEDS: Ceftriaxone 2 GM in 0.9% Normal Saline (50mL MB+) 50 ML IV (11:33)
[2025-01-09] MEDS: Azithromycin 500 MG in 0.9% Normal Saline (250mL Bag) 250 ML 255 MG IV (12:42)
[2025-01-09] MEDS: Atorvastatin Calcium 10 MG Tablet PO (20:17)
[2025-01-10] MEDS: Morphine 2 MG/ML Syringe IV ×3 (00:39→10:30)
[2025-01-10] MEDS: oxyCODONE 5 MG Tablet PO ×2 (03:58→08:01)
[2025-01-10 04:30] VITALS: BP 133/68; PULSE 66; RESP 14; TEMP 36.1; O2SAT 97
[2025-01-10 05:04] VITALS: BMI 23.1
[2025-01-10] MEDS: Menthol/Lanolin/Calamine/Znox 113 GM Tube 1 APPLIC TOPICAL (06:07)
[2025-01-10] MEDS: Levothyroxine 125 MCG Tablet PO (06:08)
[2025-01-10] MEDS: Sucralfate 1 GM Tablet PO ×2 (06:08→12:47)
[2025-01-10] MEDS: 0.9% Saline Lock 10 ML Syringe IV ×4 (06:09→15:11)
[2025-01-10 06:33] LABS: Hematocrit 31.1 % (37-47); Hemoglobin 10.6 g/dL (12.0-15.0); Mean Corp Hgb Conc 34.1 g/dL (32-36); Mean Corpuscular Hgb 31.8 pg (27.0-32.0); Mean Corpuscular Volume 93.4 fL (81-99); Mean Platelet Vol. 9.6 fl (6.2-12.0); POSITIVE COUNT YES; POSITIVE DIFFERENTIAL YES; POSITIVE MORPHOLOGY YES; Platelet Count 572 K/mm3 (150-450); RBC Distribution Width CV 15.8 % (11.6-14.6); RBC Distribution Width SD 48.4 fl (35.1-43.9); Red Blood Count 3.33 M/mm3 (4.2-5.4)
[2025-01-10 06:39] LABS: Differential Indicated MANUAL DIFF; White Blood Count 64.1 K/mm3 (4.4-11.0)
[2025-01-10 07:07] LABS: Anion Gap 12 (5-15); BUN 28 mg/dL (4-19); BUN/Creat Ratio 34.4 RATIO (10-20); Calcium,Total 9.3 mg/dL (7.6-11.0); Carbon Dioxide 34.1 mmol/L (21.0-32.0); Chloride 83 mmol/L (98-108); Creatinine, Serum 0.82 mg/dL (0.70-1.20); EST Glomerular Filtration Rate 78 (>60); Estimated Creatinine Clearance 55.07 ml/min (50-250); Glucose 115 mg/dL (70-99); Potassium 3.8 mmol/L (3.3-5.1); Sodium Level 129 mmol/L (133-145)
[2025-01-10 07:36] LABS: Lymphocyte 4 % (19-41); Metamyelocyte 10 % (0-1); Monocyte 1 % (0-10); Myelocyte 1 % (0-0); Neutrophil-Band 2 % (0-5); Neutrophil-Segmented 82 % (47-70); Total Cells Counted 100 (MANUAL DIFF)
[2025-01-10 07:37] LABS: Basophilic Stippling RARE; Polychromasia 1+
[2025-01-10 07:38] LABS: Platelet Estimate MOD INC (ADEQ)
[2025-01-10 07:39] LABS: Absolute Lymphocyte Count 2.56 X10^3/uL (0.83-4.51); Absolute Neutrophil Count 53.8 X10^3/uL (2.0-7.7)
[2025-01-10] MEDS: Folic Acid 1 MG Tablet 2 MG PO (08:01)
[2025-01-10] MEDS: Potassium Chloride Oral Tablet 20 MEQ PO (08:01)
[2025-01-10] MEDS: Magnesium Chloride 64 MG Delay Rel.Tablet 128 MG PO (08:01)
[2025-01-10] MEDS: Lidocaine 5% Patch 2 PATCH TOPICAL (08:02)
[2025-01-10] MEDS: Carvedilol 3.125 MG TABLET PO (08:03)
[2025-01-10 08:05] VITALS: BP 126/65; PULSE 64
[2025-01-10] MEDS: Acetaminophen 325 MG Tablet 650 MG PO (08:14)
--- NOTE | 2025-01-10 08:22 | PN.HOSP_ITS ---
Reason for Visit Reason for Visit: Diagnoses Malignant neoplasm of upper lobe, left bronchus or lung (01/05/25) Elevated white blood cell count, unspecified (01/05/25) Thrombocytosis, unspecified (01/05/25) Deficiency of other specified B group vitamins (01/05/25) Acute systolic (congestive) heart failure (01/05/25) Acute on chronic systolic (congestive) heart failure (01/05/25) Acute embolism and thrombosis of unspecified deep veins of left lower extremity (01/05/25) Acute bronchitis, unspecified (01/05/25) Chronic obstructive pulmonary disease with (acute) exacerbation (01/05/25) Chronic or unspecified peptic ulcer, site unspecified, with hemorrhage (01/05/25) Peptic ulcer, site unspecified, unspecified as acute or chronic, without hemorrhage or perforation (01/05/25) Other abnormalities of breathing (01/05/25) Hypoxemia (01/05/25) Adverse effect of unspecified drugs, medicaments and biological substances, initial encounter (01/05/25) Tobacco use (01/05/25) Presence of other vascular implants and grafts (01/05/25) Objective Data Objective Data Vital Signs: Vital Signs Temp Pulse Resp BP Pulse Ox O2 Del Method O2 Flow Rate 96.9 F L 64 14 126/65 H 97 Nasal Cannula 2 01/10/25 04:30 01/10/25 08:05 01/10/25 04:30 01/10/25 08:05 01/10/25 04:30 01/10/25 07:56 01/10/25 07:56 FiO2 3 01/09/25 18:05 Oxygen Flow Rate (L/min) 2 Oxygen Delivery Method Nasal Cannula Weight: 59.1 kg Body Mass Index (BMI) 23.1 Intake & Output: Intake and Output for Last 24 Hours 01/08/25 01/09/25 01/10/25 23:59 23:59 23:59 Intake Total 1000 / 1000 1155 / 1155 Output Total 2150 / 2150 420 / 920 500 / 500 Balance -1150 / -1150 735 / 235 -500 / -500 Lab / Micro Data 01/10/25 05:48 01/10/25 05:48 Labs: Laboratory Results - last 24 hr 01/10/25 05:48: WBC 64.1 H*, RBC 3.33 L, Hgb 10.6 L, Hct 31.1 L, MCV 93.4, MCH 31.8, MCHC 34.1, RDW Std Deviation 48.4 H, RDW Coeff of Fidel 15.8 H, Plt Count 572 H, MPV 9.6, Neut % (Auto) Not Reportable, Absolute Neuts (auto) 53.8 H, Absolute Lymphs (auto) 2.56, Total Counted 100, Neutrophils % (Manual) 82 H, Band Neutrophils % 2, Lymphocytes % (Manual) 4 L, Monocytes % (Manual) 1, M etamyelocytes % 10 H, Myelocytes % 1 H, Platelet Estimate MOD INC, Polychromasia 1+, Basophilic Stippling RARE, Sodium 129 L, Potassium 3.8, Chloride 83 L, C arbon Dioxide 34.1 H, Anion Gap 12, BUN 28 H, Creatinine 0.82, Estim Creat Clear Calc 55.07, Est GFR (MDRD) Non-Af 78, BUN/Creatinine Ratio 34.4 H, Glucose 115 H , Calcium 9.3 Micro: Microbiology 01/09/25 12:35 Urine, Clean Catch Legionella Antigen - Final 01/09/25 12:35 Urine, Clean Catch Streptococcus pneumoniae Antigen (M - Final 01/09/25 10:37 Mucosa - Nose Respiratory Panel (PCR) - Final 01/08/25 16:30 Urine, Random Urine Culture - Final Mixed Gram Pos & Gram Neg Org 01/05/25 05:05 Mucosa - Nose Respiratory Panel (PCR) - Final 01/05/25 00:50 Mucosa - Nasopharyngeal SARS-CoV-2, Influenza & RSV (PCR) - Final Rhythm Strip Rhythm Strip: Sinus Rhythm Rate: 78 Ectopy: None Physical Exam Narrative GENERAL: cooperative HEENT: Atraumatic; normocephalic EYES; Anicteric, Normal Conjunctiva NECK; supple, normal thyroid, RESPIRATORY: Diminished to auscultation CARDIOVASCULAR: Regular S1 S2, GI: soft, normoactive bowel sounds, : No Renal angle tenderness; EXTREMITIES: No edema, no clubbing, MUSCULOSKELETAL: no muscle wasting NEURO: Awake; no lateralizing signs. SKIN: No Rash PSYCH; Flat affect Assessment & Plan Assessment/Plan (1) Folic acid deficiency: (2) Thrombocytosis: (3) Leukocytosis: QUALIFIERS: Leukocytosis type: unspecified Qualified Code(s): D 72.829 - Elevated white blood cell count, unspecified (4) Hypoxia: (5) Acute on chronic HFrEF (heart failure with reduced ejection fraction): PLAN: Plan Patient is a 69-year-old lady with multiple comorbidities admitted with progressive shortness of breath diagnosed with acute hypoxia secondary to combination of COPD/CHF exacerbation admitted to a monitored bed for subsequent management 1. Acute hypoxia ? Secondary to combination of CHF and COPD exacerbation admitted to monitored bed for treatment of the underlying clinical etiology 2. Acute on chronic congestive heart failure with reduced ejection fraction ? Patient managed with strict input and output, low-sodium diet, fluid restriction, daily weights as well as diuretic therapy with bumetanide and. Echo from 01/05/2025 demonstrated EF of 40% with stage I diastolic dysfunction and mid to distal inferior apical akinesis which is similar to previous echocardiogram. There is a noted layer of material on the distal inferior wall and is noted to say cannot exclude thrombus and MRI recommended for further evaluation 3. Possible ventricular thrombus ? Based on CAT scan findings recommendations for patient to undergo MRI as outpatient. Cardiology was consulted Case discussed with Dr. Chawla?his recommendation is patient is not a candidate for systemic anticoagulation given recent GI bleed 4. COPD with acute exacerbation ? Patient started on bronchodilator treatment, systemic steroid as well as antibiotic therapy. Patient placed on oxygen titrated to keep saturation greater than 90. 5. Hypothyroidism ? Patient was found to have markedly elevated TSH questioning her compliance. Patient is on levothyroxine 125 mcg daily consistent use encouraged 6. Anemia ? Secondary to chronic disorder as well as acute blood loss anemia for recent GI bleed. Monitoring H&H and transfuse if patient becomes symptomatic or hemoglobin falls below 7 with patient hemoglobin being 7 as of 01/07/2025 and order was given for patient to be transfused with 1 unit PRBC 7. Recent GI bleed ? Patient underwent EGD on 12/26/2024 which demonstrated no lesions in the esophagus, small hiatal hernia, nonbleeding gastric ulcer with no stigmata of bleeding that was biopsied and oozing gastric ulcer with a visible vessel that was treated with heater probe. GI recommended for patient to be treated with Carafate as well as Protonix.- Patient was previously on aspirin, Plavix, and Eliquis--> patient does have a high has bled score and per GI Plavix only was recommended 8. Leukocytosis -Patient has had elevated white count since she was hospitalized. Was evaluated by ID; Suspected be leukemoid reaction in conjunction with her Neupogen ? 01/08/2025; patient WBC count continues to rise up to 82.2 as of 01/08/2025. Repeated chest x-ray urinalysis as well as cultures ? 01/09/2025.WBC count down to 73K. Plan is to monitor patient for 1 more day for a sustained decrease in her WBC count prior to making a decision regarding her discharge. Patient urinalysis did demonstrate positive leukocyte Estrace as well as Interstitial infiltrate in the right lung base. Subsequently started on ceftriaxone and azithromycin 9. Pneumonia - Suspected to be secondary to streptococcal pneumonia, Blood and sputum cultures sent. Patient placed on Rocephin and Zithromax and placed on oxygen titrated to keep Pulse Ox greater than 90 10. Acute cystitis ? Patient started on ceftriaxone urine culture sent 11. Thrombocytosis ? Reactive will continue with daily monitoring with CBC with differential 12. History of DVT -Had previously been on Eliquis but due to GI bleed and bleeding risk this was discontinued - IVC filter placed by vascular surgery on 12/25/2024 13. 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 Has received carboplatin, Taxol, and Keytruda for maintenance until October 2024 -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 for and progressive disease noted 12/04/2024 and was started on gemcitabine. Plan is for Chemo is to be held until she is discharged from the hospital. Patient to resume care with oncology following her discharge 14. . Folate deficiency - Folate level was low placed on oral folic acid 15. GERD - On Protonix 16. CAD ? With previous PCI with stent placement patient is on Plavix aspirin discontinued given her GI bleed 17. Tobacco dependence ? Counseled on cessation, offered nicotine patch for tobacco cravings 18. DVT prophylaxis ? Bilateral SCDs only CODE STATUS; full code
--- NOTE | 2025-01-10 10:03 | PCM.DC.SUM ---
Providers Date of Admission: 01/05/25 Date of Discharge: 01/10/25 Primary Care Physician: Jessica Primary Care Phys Consultations 01/06/25 14:31 Consult: Cardiology Routine Consulting Provider: Soledad Chawla Reason for Consult: ? Ventricular Thrombus EMERGENT Consult: No Notified: Yes Date Notified: 01/06/25 Time Notified: 14:32 Method of Notification: Text Comments:: unable to anticoagulate due to severe recent GIB 01/08/25 11:48 Consult: Oncology/Hematology Routine Consulting Provider: [facility] ([facility]) Reason for Consult: Leukocytosis EMERGENT Consult: No Notified: Yes Date Notified: 01/08/25 Time Notified: 11:48 Method of Notification: Text Reason For Visit: AE COPD, ACUTE BRONCHITIS, AE CHF & RESPIRATORY Diagnosis Discharge Diagnosis (1) Folic acid deficiency: Status: Acute Code(s): E53.8 - Deficiency of other specified B group vitamins (2) Thrombocytosis: Status: Acute Code(s): D75.839 - Thrombocytosis, unspecified (3) Leukocytosis: Status: Acute Code(s): D72.829 - Elevated white blood cell count, unspecified Qualifiers: Leukocytosis type: unspecified Qualified Code(s): D72.829 - Elevated white blood cell count, unspecified (4) Hypoxia: Status: Acute Code(s): R09.02 - Hypoxemia (5) Acute on chronic HFrEF (heart failure with reduced ejection fraction): Status: Chronic Code(s): I50.23 - Acute on chronic systolic (congestive) heart failure Plan Patient is a 69-year-old lady with multiple comorbidities admitted with progressive shortness of breath diagnosed with acute hypoxia secondary to combination of COPD/CHF exacerbation admitted to a monitored bed for subsequent management 1. Acute hypoxia ? Secondary to combination of CHF and COPD exacerbation admitted to monitored bed for treatment of the underlying clinical etiology 2. Acute on chronic congestive heart failure with reduced ejection fraction ? Patient managed with strict input and output, low-sodium diet, fluid restriction, daily weights as well as diuretic therapy with bumetanide and. Echo from 01/05/2025 demonstrated EF of 40% with stage I diastolic dysfunction and mid to distal inferior apical akinesis which is similar to previous echocardiogram. There is a noted layer of material on the distal inferior wall and is noted to say cannot exclude thrombus and MRI recommended for further evaluation 3. Possible ventricular thrombus ? Based on CAT scan findings recommendations for patient to undergo MRI as outpatient. Cardiology was consulted Case discussed with Dr. Chawla?his recommendation is patient is not a candidate for systemic anticoagulation given recent GI bleed 4. COPD with acute exacerbation ? Patient started on bronchodilator treatment, systemic steroid as well as antibiotic therapy. Patient placed on oxygen titrated to keep saturation greater than 90. 5. Hypothyroidism ? Patient was found to have markedly elevated TSH questioning her compliance. Patient is on levothyroxine 125 mcg daily consistent use encouraged 6. Anemia ? Secondary to chronic disorder as well as acute blood loss anemia for recent GI bleed. Monitoring H&H and transfuse if patient becomes symptomatic or hemoglobin falls below 7 with patient hemoglobin being 7 as of 01/07/2025 and order was given for patient to be transfused with 1 unit PRBC 7. Recent GI bleed ? Patient underwent EGD on 12/26/2024 which demonstrated no lesions in the esophagus, small hiatal hernia, nonbleeding gastric ulcer with no stigmata of bleeding that was biopsied and oozing gastric ulcer with a visible vessel that was treated with heater probe. GI recommended for patient to be treated with Carafate as well as Protonix.- Patient was previously on aspirin, Plavix, and Eliquis--> patient does have a high has bled score and per GI Plavix only was recommended 8. Leukocytosis -Patient has had elevated white count since she was hospitalized. Was evaluated by ID; Suspected be leukemoid reaction in conjunction with her Neupogen ? 01/08/2025; patient WBC count continues to rise up to 82.2 as of 01/08/2025. Repeated chest x-ray urinalysis as well as cultures ? 01/09/2025.WBC count down to 73K. Plan is to monitor patient for 1 more day for a sustained decrease in her WBC count prior to making a decision regarding her discharge. Patient urinalysis did demonstrate positive leukocyte Estrace as well as Interstitial infiltrate in the right lung base. Subsequently started on ceftriaxone and azithromycin ? 01/10/2025; patient WBC count was on the downward trend at the time of discharge did discuss results with patient and family members in the room. Plan is to discharge patient home with oral antibiotics for repeat CBC with differential to be obtained early next week with results to be sent to patient's oncologist Dr. Bradley 9. Pneumonia - Suspected to be secondary to streptococcal pneumonia, Blood and sputum cultures sent. Patient placed on Rocephin and Zithromax and placed on oxygen titrated to keep Pulse Ox greater than 90 10. Acute cystitis ? Patient started on ceftriaxone urine culture sent 11. Thrombocytosis ? Reactive will continue with daily monitoring with CBC with differential 12. History of DVT -Had previously been on Eliquis but due to GI bleed and bleeding risk this was discontinued - IVC filter placed by vascular surgery on 12/25/2024 13. 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 Has received carboplatin, Taxol, and Keytruda for maintenance until October 2024 -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 for and progressive disease noted 12/04/2024 and was started on gemcitabine. Plan is for Chemo is to be held until she is discharged from the hospital. Patient to resume care with oncology following her discharge 14. . Folate deficiency - Folate level was low placed on oral folic acid 15. GERD - On Protonix 16. CAD ? With previous PCI with stent placement patient is on Plavix aspirin discontinued given her GI bleed 17. Tobacco dependence ? Counseled on cessation, offered nicotine patch for tobacco cravings 18. DVT prophylaxis ? Bilateral SCDs only CODE STATUS; full code Medications at Discharge Home Medications Disability Placard #1 ea 09/30/23 lidocaine-prilocaine 2.5 %-2.5 % topical cream 1 applic topical ONCE PRN port access 30 days #30 grams 10/24/23 budesonide 1 mg/2 mL suspension for nebulization 1 mg (2 mL) inhalation BID SOB #120 mL 07/10/24 ipratropium 0.5 mg-albuterol 3 mg (2.5 mg base)/3 mL nebulization soln 3 ml inhalation Q4-6H SOB #180 mL 07/10/24 atorvastatin 10 mg tablet 10 mg PO QHS CHOLESTEROL #90 tabs 07/24/24 carvedilol 3.125 mg tablet 3.125 mg PO BID HIGH BLOOD PRESSURE 30 days #180 tabs 07/24/24 albuterol sulfate 90 mcg/actuation aerosol inhaler 2 puff inhalation Q6H PRN shortness of breath or wheezing #8.5 grams 09/11/24 oxycodone-acetaminophen 5 mg-325 mg tablet (Percocet) 1 tab PO Q8H PRN cancer 7 days #20 tabs 11/08/24 ondansetron 8 mg disintegrating tablet 8 mg PO Q8H PRN nausea and vomiting #30 tabs 11/20/24 potassium chloride 20 mEq tablet,extended release 20 meq PO QDAY supplement #7 tabs 12/04/24 clopidogrel 75 mg tablet 75 mg PO DAILY blood clot 12/24/24 magnesium oxide 400 mg (241.3 mg magnesium) tablet 400 mg PO DAILY supplement 12/24/24 pantoprazole 40 mg tablet,delayed release 40 mg PO BID acid reflux 12/24/24 sucralfate 1 gram tablet 1 g PO 1HR_ACHS stomach #120 tabs 01/02/25 azithromycin 500 mg tablet 500 mg PO DAILY 5 days #5 tabs 01/10/25 cefdinir 300 mg capsule 300 mg PO BID #14 caps 01/10/25 folic acid 1 mg tablet 2 mg (2 x 1 mg) PO BREAKFAST 60 days #120 tabs 01/10/25 levothyroxine 125 mcg tablet 125 mcg PO DAILY@0600 #90 tabs 01/10/25 lisinopril 2.5 mg tablet 2.5 mg PO DAILY #30 tabs 01/10/25 prednisone 20 mg tablet 20 mg PO BID #10 tabs 01/10/25 Hospital Course Summary of Care Provided Minutes Spent on Discharge: 35 Physical Exam Narrative GENERAL: cooperative HEENT: Atraumatic; normocephalic EYES; Anicteric, Normal Conjunctiva NECK; supple, normal thyroid, RESPIRATORY: Diminished to auscultation CARDIOVASCULAR: Regular S1 S2, GI: soft, normoactive bowel sounds, : No Renal angle tenderness; EXTREMITIES: No edema, no clubbing, MUSCULOSKELETAL: no muscle wasting NEURO: Awake; no lateralizing signs. SKIN: No Rash PSYCH; Flat affect Weight / BMI Weight Weight: 59.1 kg Body Mass Index (BMI) 23.1 ABG / Lab / Microbiology Data 01/10/25 05:48 01/10/25 05:48 Laboratory: Laboratory Results - last 24 hr 01/10/25 05:48: WBC 64.1 H*, RBC 3.33 L, Hgb 10.6 L, Hct 31.1 L, MCV 93.4, MCH 31.8, MCHC 34.1, RDW Std Deviation 48.4 H, RDW Coeff of Fidel 15.8 H, Plt Count 572 H, MPV 9.6, Neut % (Auto) Not Reportable, Absolute Neuts (auto) 53.8 H, Absolute Lymphs (auto) 2.56, Total Counted 100, Neutrophils % (Manual) 82 H, Band Neutrophils % 2, Lymphocytes % (Manual) 4 L, Monocytes % (Manual) 1, Metamyelocytes % 10 H, Myelocytes % 1 H, Platelet Estimate MOD INC, Polychromasia 1+, Basophilic Stippling RARE, Sodium 129 L, Potassium 3.8, Chloride 83 L, Carbon Dioxide 34.1 H, Anion Gap 12, BUN 28 H, Creatinine 0.82, Estim Creat Clear Calc 55.07, Est GFR (MDRD) Non-Af 78, BUN/Creatinine Ratio 34.4 H, Glucose 115 H, Calcium 9.3 Microbiology: Microbiology 01/08/25 09:40 Blood Culture (Wb) - Left Wrist Blood Culture - Preliminary No growth in 48 hours. 01/08/25 09:25 Blood Culture (Wb) - Anticubital Left Blood Culture - Preliminary No growth in 48 hours. 01/09/25 12:35 Urine, Clean Catch Legionella Antigen - Final 01/09/25 12:35 Urine, Clean Catch Streptococcus pneumoniae Antigen (M - Final 01/09/25 10:37 Mucosa - Nose Respiratory Panel (PCR) - Final 01/08/25 16:30 Urine, Random Urine Culture - Final Mixed Gram Pos & Gram Neg Org 01/05/25 05:05 Mucosa - Nose Respiratory Panel (PCR) - Final 01/05/25 00:50 Mucosa - Nasopharyngeal SARS-CoV-2, Influenza & RSV (PCR) - Final D/C Instructions Discharge Diet: 8 Cup Fluid Restriction and 4000 mg Sodium Diet Discharge Activity: Return to Normal Activity Call your doctor if you observe: Fever of 101 or Higher, Shortness of breath, Fainting spells and Chest pain DC O2, CPAP, BIPAP Needs Home O2 Discharge instructions: Yes Type of respiratory needs?: Oxygen Oxygen frequency: With Ambulation Oxygen liters per minute during Ambulation: 3L DC home with Oxygen: Yes Home O2 MD Review: I have reviewed the oxygen testing, and the patient qualifies for home oxygen equipment and portability. The patient is mobile in the home and the community. Meaningful Use Info Meaningful Use Meaningful Use Diagnoses (Choose all that apply): CHF CHF JORGE A/ARB ordered at discharge?: Yes Documented LVEF (%): 40 Ischemic Stroke Statin Dosing Therapy Reference: STATIN DOSE THERAPY REFERENCE: * Patients > 75 years receive moderate or high dose statin therapy. * Patients 75 years or YOUNGER should receive HIGH intensity statin dose unless contraindicated. You will be required to document reason for non-treatment if statin daily dose does not meet guidelines. HIGH DOSE STATIN THERAPY DAILY Atorvastatin > than or = to 40 mg Rosuvastatin > than or = to 20 mg Amlodipine + Atorvastatin > than or = to 2.5/40 mg Ezetimibe + Simvastatin 10/80 mg Simvastatin 80mg Discharge Plan Admission Admit Date/Time: 01/05/25 02:58 Attending Provider: Mahin Cano Primary Care Provider: Care Physician,No Primary Consulting Providers: Mahin Romero; Soledad Chawla; Holli Loving; Mahin Oliveira; Oziel Matamoros; Indio Wang; David Bradley; Bimal Woods; Yves Lopez; Viraj Forte; Pk Iqbal; Makayla Briones DIRECT MARKETING ANALYST Discharge Orders/Prescriptions Prescriptions: New levothyroxine 125 mcg Tablet 125 mcg PO DAILY@0600 Qty: 90 0RF folic acid 1 mg Tablet 2 mg PO BREAKFAST 60 Days Qty: 120 0RF cefdinir 300 mg capsule 300 mg PO BID Qty: 14 0RF azithromycin 500 mg tablet 500 mg PO DAILY 5 Days Qty: 5 0RF lisinopril 2.5 mg tablet 2.5 mg PO DAILY Qty: 30 0RF prednisone 20 mg tablet 20 mg PO BID Qty: 10 0RF Continued (DME) Disability Placard See Rx Instructions .ROUTE .MEDSUPPLY Qty: 1 0RF Rx Instructions: expires 09/30/2028 lidocaine-prilocaine 2.5-2.5 % cream 1 applic topical ONCE PRN (Reason: port access) 30 Days Qty: 30 2RF ipratropium-albuterol 0.5 mg-3 mg(2.5 mg base)/3 mL solution for nebulization 3 ml inhalation Q4-6H Qty: 180 6RF budesonide 1 mg/2 mL suspension for nebulization 1 mg inhalation BID Qty: 120 11RF Rx Instructions: rinse mouth after ondansetron 8 mg tablet,disintegrating 8 mg PO Q8H PRN (Reason: nausea and vomiting) Qty: 30 2RF oxycodone-acetaminophen [Percocet] 5-325 mg tablet 1 tab PO Q8H PRN (Reason: cancer) 7 Days Qty: 20 0RF pantoprazole 40 mg tablet,delayed release (DR/EC) 40 mg PO BID clopidogrel 75 mg tablet 75 mg PO DAILY magnesium oxide 400 mg (241.3 mg magnesium) tablet 400 mg PO DAILY sucralfate 1 gram Tablet 1 g PO 1HR_ACHS Qty: 120 2RF carvedilol 3.125 mg tablet 3.125 mg PO BID 30 Days Qty: 180 3RF atorvastatin 10 mg tablet 10 mg PO QHS Qty: 90 3RF albuterol sulfate 90 mcg/actuation HFA aerosol inhaler 2 puff inhalation Q6H PRN (Reason: shortness of breath or wheezing) Qty: 8.5 3RF Rx Instructions: administer with spacer potassium chloride 20 mEq tablet extended release 20 meq PO QDAY Qty: 7 0RF Discontinued levothyroxine 50 mcg tablet 50 mcg PO QDAY Qty: 30 2RF Other Ambulatory Orders: CBC W/Diff, Automated (Routine) Timeframe: [id number] Facility: [facility] - Location: Laboratory Ordered By: Dr. Mahin Cano Referrals / Follow Up: Care Physician,No Primary [Primary Care Provider] - Disposition Disposition (needs filled in before D/C Order can be placed): Home, Self Care Charges/Coding Visit Charges Inpatient E&M: 39726 Disch Hosp >30min
[2025-01-10 10:26] VITALS: BP 114/57; PULSE 70; RESP 18; TEMP 36.8; O2SAT 100
[2025-01-10] MEDS: Bumetanide 1 MG/4 ML Vial 2 MG IV (10:32)
[2025-01-10] MEDS: Clopidogrel Bisulfate 75 MG Tablet PO (10:32)
[2025-01-10] MEDS: Pantoprazole Sodium 40 MG Tablet PO (10:32)
[2025-01-10] MEDS: Azithromycin 500 MG in 0.9% Normal Saline (250mL Bag) 250 ML 255 MG IV (10:34)
[2025-01-10] MEDS: Ceftriaxone 2 GM in 0.9% Normal Saline (50mL MB+) 50 ML IV (10:35)
[2025-01-10 13:07] VITALS: O2SAT 83; O2SAT 87; O2SAT 93; O2SAT 95
--- NOTE | 2025-01-10 15:14 | CASEMGMT ---
AMY BURCH noted DC order, hospitalist asked for O2 testing. Order for home O2 testing added. RN notified RN MARCIN testing completed, Pt requires O2 at time of DC. AMY BURCH notified hospitalist, obtained script and sent to [facility] [place]. [facility] to deliver portable tank to room. Notified pt, pt denies additional needs at this time.
== END 2025-01-10 15:25 | disposition home or self-care (01) | DRG 640 ==
LOC: ED 01-05 01:29 → PCU 01-05 02:33
PROVIDERS: Internal Medicine; Admitting Provider Internal Medicine; Emergency Provider Emergency Medicine; Visit Provider Internal Medicine
DX: E53.8 Deficiency of other specified B group vitamins (principal); I50.23 Acute on chronic systolic (congestive) heart failure; J15.4 Pneumonia due to other streptococci; I82.402 Acute embolism and thrombosis of unspecified deep veins of left lower extremity; C79.31 Secondary malignant neoplasm of brain; D62 Acute posthemorrhagic anemia; C34.12 Malignant neoplasm of upper lobe, left bronchus or lung; J44.0 Chronic obstructive pulmonary disease with (acute) lower respiratory infection; J44.1 Chronic obstructive pulmonary disease with (acute) exacerbation; I42.9 Cardiomyopathy, unspecified; N30.00 Acute cystitis without hematuria; I51.3 Intracardiac thrombosis, not elsewhere classified; Z66 Do not resuscitate; I11.0 Hypertensive heart disease with heart failure; E03.9 Hypothyroidism, unspecified; D72.823 Leukemoid reaction; J43.9 Emphysema, unspecified; J20.9 Acute bronchitis, unspecified; F17.210 Nicotine dependence, cigarettes, uncomplicated; I25.10 Atherosclerotic heart disease of native coronary artery without angina pectoris; K21.9 Gastro-esophageal reflux disease without esophagitis; E78.00 Pure hypercholesterolemia, unspecified; K52.9 Noninfective gastroenteritis and colitis, unspecified; Z79.02 Long term (current) use of antithrombotics/antiplatelets; Z79.891 Long term (current) use of opiate analgesic; Z86.718 Personal history of other venous thrombosis and embolism; Z79.52 Long term (current) use of systemic steroids; Z79.82 Long term (current) use of aspirin; Z79.51 Long term (current) use of inhaled steroids; Z79.890 Hormone replacement therapy; Z11.52 Encounter for screening for COVID-19; R09.02 Hypoxemia
CPT/HCPCS: 36415; 71046; 80048; 80053; 80061; 81001; 82607; 82728; 82746; 82803; 83540; 83550; 83735; 83880; 84100; 84145; 84439; 84443; 84481; 84484; 85018; 85025; 85027; 86850; 86900; 86901; 87040; 87086; 87088; 87449; 87631; 87633; 93005; 93306; 94668; 97162; 97166; 97530; 97535; 99285; P9040; P9047; Q9957; A4216; C8929; J0696; J1940

== ENCOUNTER → 2025-01-21 | Outpatient (CLI) | payer MEDICARE, SELFPAY | END | disposition home or self-care (01) | LOC: LAB 15:51 | PROVIDERS: Referring Provider Anesthesiology; Visit Provider Anesthesiology | DX: F11.20 Opioid dependence, uncomplicated (principal) | CPT/HCPCS: 36415 ==